=== PATIENT | female | born 1965 ===

== ENCOUNTER 2020-10-16 12:48 | Outpatient (REF) | payer OTHER, SELFPAY ==
--- NOTE | ~2020-10-16 | MR_ITS ---
EXAMINATION: MR SHOULDER WITHOUT CONTRAST, LEFT CLINICAL INFORMATION: Left shoulder pain. COMPARISON: Radiograph dated 06/14/2017 TECHNIQUE: MR images of the shoulder were obtained on a 1.5 Jacki high-field strength scanner without intravenous contrast material. FINDINGS: ROTATOR CUFF: There is mild supraspinatus tendinosis. Insertional cystic change and edema are present at the greater tuberosity. No tears. Subscapularis, infraspinatus, and teres minor are normal. No muscle atrophy or fatty infiltration. BICEPS: Flat. CORACOACROMIAL ARCH: The undersurface of the acromion is curved with no subacromial spur. Mild acromioclavicular osteoarthritis. Trace subacromial-subdeltoid bursal fluid. Subacromial Space: 6 mm. Coracohumeral Distance: 7 mm. LABRUM/CAPSULE: Normal. GLENOHUMERAL JOINT/MARROW: As noted above, there is focal marrow edema signal in the greater tuberosity which is likely reactive to overlying tendinopathy. No fractures. Articular cartilage is well preserved at the glenohumeral joint. No joint effusion. MR/MR shoulder LT wo con IMPRESSION: 1. Mild supraspinatus tendinosis with reactive edema signal in the greater tuberosity. Trace overlying bursal fluid. No rotator cuff tears. 2. Mild acromioclavicular osteoarthritis.
== END 2020-10-16 12:49 | disposition home or self-care (01) ==
LOC: HO.MRI 12:48
PROVIDERS: Visit Provider Internal Medicine
DX: M25.512 Pain in left shoulder (principal)
CPT/HCPCS: 73221

== ENCOUNTER 2020-10-17 08:08 | Outpatient (REF) | payer OTHER, SELFPAY ==
[2020-10-17 09:34] LABS: MANUAL DIFF FLAG NO
[2020-10-17 09:57] LABS: D Dimer 214 NG/ML
[2020-10-17 10:04] LABS: Basophils Percent Auto 0.5 % (0-2); Eosinophils Absolute Auto 0.1 X10*3/uL (0.0-0.4); Eosinophils Percent Auto 2.2 % (0-4); Hematocrit 38.5 % (37-47); Imm Gran Abs Auto 0.02 X10*3/uL (0.00-0.03); Imm Gran Pct Auto 0.4 % (0.0-0.4); Lymphocytes Absolute Auto 2.1 X10*3/uL (1.2-4.9); Lymphocytes Percent Auto 38.2 % (20-40); Mean Corpuscular HGB Conc 33.8 g/dl (31.0-35.0); Mean Corpuscular Hemoglobin 29.7 pg (27.0-33.0); Mean Corpuscular Volume 88.1 fL (80-98); Mean Platelet Volume 10.4 fL (9.4-12.3); Monocytes Absolute Auto 0.5 X10*3/uL (0.1-1.2); Monocytes Percent Auto 8.9 % (2-11); Neutrophils Absolute Auto 2.8 X10*3/uL (2.0-8.3); Neutrophils Percent Auto 49.8 % (45-73); Platelet Count 320 X10*3/uL (160-400); Red Blood Count 4.37 X10*6/uL (4.20-5.50); Red Cell Distribution Width 12.3 % (11.0-16.0); White Blood Count 5.5 X10*3/uL (4.8-10.8)
[2020-10-17 10:28] LABS: Anion Gap 12 (12-20); Blood Urea Nitrogen 18 mg/dL (9-16); C Reactive Protein 0.42 mg/dL (< or = 0.50); Calcium 9.5 mg/dL (8.4-10.2); Carbon Dioxide 27 mmol/L (22-29); Chloride 108 mmol/L (96-108); Cholesterol 190 mg/dL; Estimated Glomerular Filt Rate > 60; Glucose Random 96 mg/dL (60-115); HDL Cholesterol 51 mg/dL; LDL Cholesterol Calculated 126 mg/dl; Potassium 4.5 mmol/L (3.3-5.1); Sodium 142 mmol/L (135-145); Triglycerides 66 mg/dL
[2020-10-17 10:30] LABS: TSH reflex Free T4 1.15 uIU/mL (0.32-4.0); Vitamin D 25-OH Total 13.1 ng/mL (>30)
[2020-10-17 10:40] LABS: Rheumatoid Factor < 15.0 IU/mL (<15.0)
[2020-10-17 10:47] LABS: Vitamin B12 486 pg/mL (200-900)
[2020-10-17 11:17] LABS: Erythrocyte Sedimentation Rate 18 MM/HR (0-20)
[2020-10-19 00:11] LABS: Anti Nuclear Antibody Screen POSITIVE (NEGATIVE); Anti Nuclear Antibody Titer 1:40 titer
== END 2020-10-17 08:09 | disposition home or self-care (01) ==
LOC: HO.LAB 08:08
PROVIDERS: PCP Internal Medicine; Visit Provider Internal Medicine
DX: I63.20 Cerebral infarction due to unspecified occlusion or stenosis of unspecified precerebral arteries (principal); E53.8 Deficiency of other specified B group vitamins; M25.512 Pain in left shoulder; R20.9 Unspecified disturbances of skin sensation; R91.1 Solitary pulmonary nodule
CPT/HCPCS: 36415; 80048; 80061; 82306; 82607; 84443; 85025; 85379; 85652; 86038; 86039; 86140; 86431

== ENCOUNTER → 2020-10-24 09:00 | Outpatient (BNVA) | payer OTHER, SELFPAY | PROVIDERS: PCP Internal Medicine; Visit Provider Hospitalist ==

== ENCOUNTER 2020-10-29 14:00 | Outpatient (REF) | payer OTHER, SELFPAY ==
[2020-10-29 15:28] LABS: MANUAL DIFF FLAG NO
[2020-10-29 15:36] LABS: Basophils Absolute Auto 0.1 X10*3/uL (0.0-0.2); Basophils Percent Auto 0.8 % (0-2); Eosinophils Absolute Auto 0.1 X10*3/uL (0.0-0.4); Eosinophils Percent Auto 2.1 % (0-4); Hematocrit 39.1 % (37-47); Imm Gran Abs Auto 0.01 X10*3/uL (0.00-0.03); Imm Gran Pct Auto 0.2 % (0.0-0.4); Lymphocytes Absolute Auto 2.6 X10*3/uL (1.2-4.9); Lymphocytes Percent Auto 39.3 % (20-40); Mean Corpuscular HGB Conc 33.2 g/dl (31.0-35.0); Mean Corpuscular Hemoglobin 29.5 pg (27.0-33.0); Mean Corpuscular Volume 88.9 fL (80-98); Mean Platelet Volume 10.1 fL (9.4-12.3); Monocytes Absolute Auto 0.5 X10*3/uL (0.1-1.2); Monocytes Percent Auto 6.9 % (2-11); Neutrophils Absolute Auto 3.4 X10*3/uL (2.0-8.3); Neutrophils Percent Auto 50.7 % (45-73); Platelet Count 323 X10*3/uL (160-400); Red Cell Distribution Width 12.6 % (11.0-16.0); White Blood Count 6.6 X10*3/uL (4.8-10.8)
[2020-10-29 15:44] LABS: Glucose Urine UA NEG (NEG); Leukocyte Esterase Urine NEG (NEG); Nitrite Urine NEG (NEG); PH 6.5 (5.0-8.0); Urine Blood TRACE (NEG); Urine Ketones NEG (NEG); Urine Protein NEG (NEG-TRACE)
[2020-10-29 15:46] LABS: Appearance Urine CLEAR; Color Urine STRAW
[2020-10-29 16:02] LABS: Alanine Aminotransferase 18 U/L (0-31); Albumin Level 4.5 g/dL (3.5-5.0); Alkaline Phosphatase 84 U/L (39-117); Anion Gap 13 (12-20); Aspartate Amino Transferase 20 U/L (5-31); Bilirubin Total 0.2 mg/dL (0.0-1.0); Blood Urea Nitrogen 20 mg/dL (9-16); C Reactive Protein 0.37 mg/dL (< or = 0.50); Calcium 9.7 mg/dL (8.4-10.2); Carbon Dioxide 27 mmol/L (22-29); Chloride 105 mmol/L (96-108); Estimated Glomerular Filt Rate > 60; Glucose Random 91 mg/dL (60-115); Potassium 4.4 mmol/L (3.3-5.1); Sodium 141 mmol/L (135-145); Total Protein 7.7 g/dL (6.5-8.0)
[2020-10-29 16:03] LABS: Squamous Epithelial Cell Urine 1+ /LPF; WBC Urine 0-2 /HPF (0-4)
[2020-10-29 16:23] LABS: Thyroid Stimulating Hormone 1.38 uIU/mL (0.32-4.0)
[2020-10-29 17:54] LABS: Erythrocyte Sedimentation Rate 18 MM/HR (0-20)
[2020-10-30 13:57] LABS: PTT (LAC) Screen 32 sec (< OR = 40)
[2020-10-30 17:11] LABS: Complement C3 125 mg/dL (83-193)
[2020-10-30 22:26] LABS: Thyroglobulin Antibodies <1 IU/mL (< or = 1); Thyroid Peroxidase Antibodies 3 IU/mL (<9)
[2020-10-31 11:47] LABS: Beta-2 Microglobulin, Serum 1.87 mg/L (< OR = 2.51)
[2020-10-31 13:52] LABS: Cardiolipin IgG Ab 2.6 GPL-U/mL; Cardiolipin IgM Ab <2.0 MPL-U/mL
[2020-11-01 14:36] LABS: Cyclic Citrullinated Peptide 240 UNITS
[2020-11-02 14:07] LABS: Anti DNA DS Antibody 2 IU/mL; Antibody to SS-A Antigen <1.0 NEG AI (<1.0 NEG); Antibody to SS-B Antigen <1.0 NEG AI (<1.0 NEG); SM/Ribonucleoprotein Ab <1.0 NEG AI (<1.0 NEG); Smith Protein <1.0 NEG AI (<1.0 NEG)
== END 2020-10-29 14:01 | disposition home or self-care (01) ==
LOC: HO.LAB 14:00
PROVIDERS: PCP Internal Medicine; Visit Provider Student in an Organized Health Care Education/Training Program
DX: R76.8 Other specified abnormal immunological findings in serum (principal)
CPT/HCPCS: 36415; 80053; 81001; 82232; 84443; 85025; 85597; 85613; 85652; 85730; 86140; 86147; 86160; 86200; 86225; 86235; 86376; 86800

== ENCOUNTER → 2020-10-30 11:02 | Outpatient (BNVA) | payer OTHER, SELFPAY | PROVIDERS: PCP Internal Medicine; Visit Provider Physician Assistant ==

== ENCOUNTER → 2020-11-21 10:39 | Outpatient (BNVA) | payer OTHER, SELFPAY | PROVIDERS: PCP Internal Medicine; Visit Provider Student in an Organized Health Care Education/Training Program ==

== ENCOUNTER 2020-11-22 11:46 | Outpatient (REF) | payer OTHER, SELFPAY ==
--- NOTE | ~2020-11-22 | XR_ITS ---
EXAMINATION: BILATERAL HAND AND WRIST X-RAY CLINICAL INFORMATION: OTHER SPECIFIED ABNORMAL FINDING ON BLOOD CHEMISTRY. Pain. COMPARISON: None TECHNIQUE: 4 views of each hand and wrist FINDINGS: Bone alignment is normal. No fracture or dislocation is seen. Joint spaces are normal. Soft tissues are normal. XR/XR hand wrist RT IMPRESSION: Unremarkable exam.
--- NOTE | ~2020-11-22 | XR_ITS ---
EXAMINATION: BILATERAL HAND AND WRIST X-RAY CLINICAL INFORMATION: OTHER SPECIFIED ABNORMAL FINDING ON BLOOD CHEMISTRY. Pain. COMPARISON: None TECHNIQUE: 4 views of each hand and wrist FINDINGS: Bone alignment is normal. No fracture or dislocation is seen. Joint spaces are normal. Soft tissues are normal. XR/XR hand wrist LT IMPRESSION: Unremarkable exam.
== END 2020-11-22 11:47 | disposition home or self-care (01) ==
LOC: HO.XRAY 11:46
PROVIDERS: PCP Internal Medicine; Visit Provider Student in an Organized Health Care Education/Training Program
DX: R79.89 Other specified abnormal findings of blood chemistry (principal); M79.642 Pain in left hand; M79.641 Pain in right hand; M25.532 Pain in left wrist; M25.531 Pain in right wrist
CPT/HCPCS: 73110; 73130

== ENCOUNTER 2020-11-25 09:01 | Outpatient (REF) | payer OTHER, SELFPAY ==
--- NOTE | ~2020-11-25 | US_ITS ---
EXAMINATION: US ABDOMEN COMPLETE CLINICAL INFORMATION: Fatty liver. COMPARISON: None TECHNIQUE: Real-time imaging of the abdominal viscera. FINDINGS: PANCREAS: The pancreas appears heterogeneous in echotexture with small hyperechoic areas questionable for calcifications. No mass or pancreatic duct dilatation is seen. ABDOMINAL AORTA: The proximal, mid, and distal segments are normal in caliber. INFERIOR VENA CAVA: Visualized portions are normal. LIVER: Liver echotexture is slightly increased probably representing fatty infiltration. The liver is normal in size. The liver contour is normal. There is a 6 x 7 x 5 mm complex cyst in the left lobe with single thin septation. There is no intrahepatic biliary duct dilatation seen. GALLBLADDER: Normal. The gallbladder is physiologically distended without evidence of stones, sludge, polyps, wall thickening or pericholecystic fluid. COMMON BILE DUCT: Normal in caliber measuring 0.4 cm in diameter. RIGHT KIDNEY: Normal. No hydronephrosis. No renal calculi or focal parenchymal lesions. The kidney measures 11.9 cm in maximum dimension. LEFT KIDNEY: Normal. No hydronephrosis. No renal calculi or focal parenchymal lesions. The kidney measures 10.6 cm in maximum dimension. SPLEEN: Normal. The spleen measures 7.0 cm in maximum dimension. FREE FLUID: None. US/US abdomen complete IMPRESSION: Echogenic liver probably representing fatty infiltration. Small liver cyst. Heterogeneous-appearing pancreas.
== END 2020-11-25 09:02 | disposition home or self-care (01) ==
LOC: HO.US 09:01
PROVIDERS: Visit Provider Internal Medicine
DX: K76.0 Fatty (change of) liver, not elsewhere classified (principal); R79.9 Abnormal finding of blood chemistry, unspecified
CPT/HCPCS: 76700

== ENCOUNTER → 2020-12-10 08:59 | Outpatient (REF) | payer OTHER, SELFPAY ==
--- NOTE | ~2020-12-10 | NM_ITS ---
Exercise Myocardial perfusion study Indication: Chest pain to evaluate for myocardial ischemia Technique: The patient was brought in for an exercise perfusion study on 12/10/2020. Patient performed exercise as per Silvano protocol and was injected 25 mCi of sestamibi was given intravenously one target HR was achieved. Images were obtained using the SPECT gamma camera interlaced with the gating device. Images were obtained in supine position. Resting perfusion study was performed on 12/11/2020. Patient was administered 25 mCi of sestamibi intravenously at rest. Images were then obtained in supine position. Images obtained with and without CT attenuation. Total DLP 84 mGy-cm. Images were processed with the software and compared side to side in short axis, horizontal long axis and vertical long axis views. Findings: The stress perfusion study showed nonattenuated images show normal uptake of radiotracer in all segments of LV myocardium. Attenuation corrected images show mildly reduced uptake in the septum and apex of the LV myocardium. The gated study shows normal LV systolic function with calculated LVEF of 58%. LV cavity is normal in size. The gated study shows normal systolic wall thickening and contraction of all segments. There is no transient ischemic dilation. Resting study shows normal myocardial uptake on nonattenuated images. Gating at rest reveals normal systolic wall motion with ejection fraction at 51%. The findings are consistent with normal myocardial perfusion. NM/NM kalani perf SPECT rest & str Impression: 1. Normal myocardial perfusion 2. Gated LVEF is 58% 3. Transient ischemic dilatation not present Stress EKG is nondiagnostic for ischemia
--- NOTE | 2020-12-10 09:00 | CA_ITS ---
Acquisition Time: 2020-12-10 09:37:59 Total Exercise Time: 00:08:00 Test Indications: cp Medications: SEE CHART Protocol: BARRIE Max HR: 162 BPM 96% of Pred: 168 BPM Max BP: 164/078 mmHG Max Work Load: 10.1 METS Exercise stress test with exercise 8 min of Barrie protocol, with 4/10 left chest pressure, with isolated PAC, with normotensive response to exercise, without EKG changes meeting criteria for ischemia. In recovery her chest discomfort gradually improved and resolved. Nuclear images pending. test reviewed with Dr Nguyen. Referred By: Vahid Montanez Overread By: HEMANT DIAZ
== END ==
LOC: HO.CARD 08:59
PROVIDERS: PCP Internal Medicine; Visit Provider Internal Medicine Cardiovascular Disease
DX: R07.9 Chest pain, unspecified (principal)
CPT/HCPCS: 78452; 93017; A9500

== ENCOUNTER 2020-12-16 09:00 | Outpatient (RCR) | payer OTHER, SELFPAY ==
--- NOTE | 2021-02-06 08:21 | MHC.OT.DC ---
[address] [phone] F: [phone] Occupational Therapy Discharge Note Provider: Dr. Moreno Diagnosis: Left elbow lateral epicondylitis Date of Surgery: Date of Evaluation: 12/11/20 Date of Discharge: 01/13/21 Treatments to Date: 3 Cancellations to Date: 0 No Shows to Date: 4 Discharge Status: Patient Elected to Stop Discharge Summary: Pt reports dec pain at 4/10 improved with medication. Short treatment on last appt (12/16/20) due tp pt 15 min late Electronically Signed By: Xochilt Higuera OT CHT CLT Reviewed/agree with student documentation: N/A Therapist: Please Sign and return to therapist, thank you for your referral.
== END 2021-09-16 11:36 | disposition home or self-care (01) ==
LOC: HO.OT 09:00
PROVIDERS: PCP Internal Medicine; Visit Provider Student in an Organized Health Care Education/Training Program
DX: M77.12 Lateral epicondylitis, left elbow (principal)
CPT/HCPCS: 97033; 97140; 97166

== ENCOUNTER → 2020-12-19 07:31 | Outpatient (REF) | payer OTHER, SELFPAY ==
--- NOTE | 2020-12-19 07:34 | CA_ITS ---
Transthoracic Echocardiogram Patient (Last, First, Middle): Brittney Caraballo V Gender: Female Date of : 1965 Age: 54 Procedure Date: 12/19/2020 Procedure Type: Transthoracic Echocardiogram Location: OP Height: 149.86 cm Weight: 63.05 kg BSA: 1.58 m2 Heart Rate: bpm BP: 120 / 70 mmHg Room Service Bellhop: Referring MD: Dixie Coyle MD Symptoms: CEREBRAL INFARCT , ATRIAL SEPTAL DEFECT, PALPITATIONS Conclusions: - The left ventricular systolic function is mildly decreased. The calculated ejection fraction is 52% by biplane method. - There is evidence of a patent foramen ovale with right to left shunting. - No obvious valvular pathology seen on this study. Findings Left Ventricle Normal left ventricular cavity size. There is normal left ventricular wall thickness. The left ventricular systolic function is mildly decreased. The calculated ejection fraction is 52% by biplane method. There is no evidence of regional wall motion abnormalities. Diastolic function is normal for age. Right Ventricle Normal right ventricular cavity size. There is normal right ventricular systolic function. TAPSE 1.85cm. Atria Both atria are normal in size. Contrast study for right to left shunting is moderately positive with Valsalva maneuver. There is evidence of a patent foramen ovale with right to left shunting. Aortic Valve There is a normal trileaflet aortic valve. There is no aortic valve stenosis. There is no aortic valve regurgitation. Mitral Valve The mitral valve appears normal. There is trace mitral valve regurgitation. There is no mitral valve stenosis. Pulmonic Valve The pulmonic valve was not well visualized. Tricuspid Valve There is mild tricuspid valve regurgitation. The pulmonary artery systolic pressure is normal. Great Vessels The aortic annulus, sinuses of valsalva, and asc aorta are normal in size. Venous The inferior vena cava is normal in size and collapses greater than 50% with inspiration. Pericardium/Pleural There is no evidence of pericardial effusion. Prior Study Comparison No prior study available for comparison. Recommendations, Care & Conclusions No obvious valvular pathology seen on this study. Measurements 2D Linear Measurements RVIDd: 2.75 RVIDd Index: 1.74 IVSd: 0.93 0.6-0.9/0.6-1.0 cm LVIDd: 4.73 3.9-5.3/4.2-5.9 cm LVIDd Index: 2.99 2.4-3.2/2.2-3.1 cm/m2 LVIDs: 3.14 2.0-3.6 cm LVPWd: 1.13 0.7-1.1 cm Ao Root: 2.80 2.1-3.5 cm LA Diam: 3.20 2.7-3.8/3.0-4.0 cm LAIDs Index: 2.03 1.5-2.3 cm/m2 LV Mass: 215.08 67-162/88-224 g LV Mass Index: 136.13 43-95/49-115 g/m2 LVOT Diam: 2.00 3.0+(-)1.3 cm 2D Systolic Function EF 4C: 45.40 >55% EF 2C: 54.70 >55% EF BiP: 52.10 >55% Mitral Valve MV Pk E: 0.76 MV PK A: 0.62 MV Decel Time: 306.00 E/A: 1.20 E'Lateral: 9.03 E/E' Lat: 8.40 Aortic Valve AoV Pk Abhilash: 1.36 AoV Mn Abhilash: 1.05 AoV VTI: 0.29 AoV Pk Grad: 7.00 Aov Mn Grad: 5.00 LYNETTE Cont.VTI: 2.12 LVOT LVOT Pk Abhilash: 0.88 LVOT Mn Abhilash: 0.54 LVOT VTI: 0.19 LVOT Pk Grad: 3.00 LVOT Mn Grad: 1.00 LVOT Diam: 2.00 LVOT Area: 3.14 Diastolic Function MV Pk E: 0.76 MV Pk A: 0.62 E/A: 1.20 E' Laterial: 9.03 E/E' Lat: 8.40 Tricuspid Valve TR Pk Abhilash: 2.23 TR Pk Grad: 20.00 RA Press: 3.00 RVSP: 23.00 Great Vessels Aorta Ao Root-2D: 2.80 2.0-3.7 cm Ao Asc: 3.00 2.1-3.4 cm Ao Arch: 2.10 Updated in Other Vendor System with Status of Final Surinder Nguyen MD electronically signed on 12/19/2020 1:28:48 PM with status of Final
== END ==
LOC: HO.CARD 07:31
PROVIDERS: Visit Provider Internal Medicine
DX: Q21.1 Atrial septal defect (principal); R00.2 Palpitations; Z86.73 Personal history of transient ischemic attack (TIA), and cerebral infarction without residual deficits
CPT/HCPCS: 93306

== ENCOUNTER 2021-01-01 08:54 | Outpatient (REF) | payer OTHER, SELFPAY ==
--- NOTE | 2021-01-01 09:52 | PFT_ITS ---
INDICATION: COPD. SPIROMETRY: The FEV1 to FVC 80% with an FEV1 of 1.90, which is 80% predicted, and an FVC of 2.38 L, which is 79% predicted. No significant response to bronchodilators noted. To note, the patient does have significant small airways disease consistent with history of asthma. Maximum voluntary ventilation 84% predicted. LUNG VOLUMES: Total lung capacity 82% predicted. DIFFUSION CAPACITY: DLCO of 84% predicted. PFTs in 2016. INTERPRETATION: No obstructive nor restrictive ventilatory defects identified. No significant response to bronchodilators noted, although the patient does have evidence of small airway disease. Lung volumes are low normal. Diffusion capacity is within normal limits. When compared to 2016, there is no significant change in the FVC, no significant change in the FEV1, no significant change in total lung capacity, and no significant change in the diffusion capacity. Clinical correlation warranted. Olu Zimmer MD MR/MODL / [id number]
== END 2021-01-01 08:55 | disposition home or self-care (01) ==
LOC: HO.RESP 08:54
PROVIDERS: PCP Internal Medicine; Visit Provider Hospitalist
DX: J44.9 Chronic obstructive pulmonary disease, unspecified (principal)
CPT/HCPCS: 94060; 94727; 94729

== ENCOUNTER 2021-01-06 13:02 | Outpatient (REF) | payer OTHER, SELFPAY ==
--- NOTE | ~2021-01-06 | MR_ITS ---
EXAMINATION: MR ABDOMEN WITHOUT AND WITH CONTRAST CLINICAL INFORMATION: Follow-up abnormal ultrasound. Fatty liver and heterogeneous pancreas. COMPARISON: None. TECHNIQUE: MR abdomen was performed without and with use of 6 mL intravenous Gadavist gadolinium contrast. Postcontrast images are performed in multiphase dynamic sequences. Imaging was performed in 3 planes. FINDINGS: LUNG BASES: The visualized lung bases are unremarkable. LIVER, GALLBLADDER, AND BILIARY TREE: There is mild fatty infiltration of the liver. The liver is normal in size and contour. There is a 5 mm cyst in the lateral segment of the left lobe of the liver axial image 39 postcontrast. There is a a second smaller 4 mm probable cyst in the right lobe of the liver axial image 31 postcontrast. No suspicious liver lesion is seen. The gallbladder is unremarkable. There is no biliary duct dilatation. PANCREAS: Unremarkable. SPLEEN: Normal. ADRENAL GLANDS: Normal. KIDNEYS AND URETERS: The kidneys are normal in size, shape, and enhance symmetrically. No hydronephrosis. No perinephric stranding. GASTROINTESTINAL TRACT: No bowel obstruction. No ascites or fluid collection. ABDOMINAL WALL: No significant hernia is appreciated. LYMPH NODES: No lymphadenopathy. VASCULAR: Unremarkable. OSSEOUS STRUCTURES: Marrow signal normal. There is dural ectasia or small Tarlov cysts in the sacrum. MR/MR abdomen wo/w con IMPRESSION: Mild fatty infiltration of the liver. Small liver cysts. Normal-appearing pancreas.
== END 2021-01-06 13:03 | disposition home or self-care (01) ==
LOC: HO.MRI 13:02
PROVIDERS: PCP Internal Medicine; Visit Provider Internal Medicine
DX: K76.0 Fatty (change of) liver, not elsewhere classified (principal); K76.89 Other specified diseases of liver
CPT/HCPCS: 74183; A9585

== ENCOUNTER → 2021-01-17 09:20 | Outpatient (BNVA) | payer OTHER, SELFPAY | PROVIDERS: PCP Internal Medicine; Visit Provider Hospitalist ==

== ENCOUNTER 2021-03-05 07:20 | Outpatient (REF) | payer OTHER, SELFPAY ==
--- NOTE | ~2021-03-05 | MM_ITS ---
EXAMINATION: MM SCREENING DIGITAL BREAST TOMOSYNTHESIS, BILATERAL CLINICAL INFORMATION: Screening. Asymptomatic. The lifetime risk of breast cancer based on the Tyrer-Cuzick Model is 10%. COMPARISON: Outside mammography: 05/13/2019, 05/12/2018, 10/08/2016 ([facility]) TECHNIQUE: Digital breast tomosynthesis is performed in both the craniocaudal and mediolateral oblique views along with computer-aided detection (CAD). Synthesized 2D images are generated from the tomosynthesis. FINDINGS: There are scattered areas of fibroglandular density (ACR BI-RADS breast composition Category b). There are no significant masses, abnormal calcifications, or other abnormalities. There is biopsy clip marker mid 3:00 left breast. Parenchymal pattern is similar to prior outside studies small density possibly dermal upper right axilla on MLO view is similar to prior studies. No significant changes. MM/MM tomosynthesis screening BI IMPRESSION: No mammographic evidence of malignancy. ASSESSMENT: BI-RADS 2: Benign RECOMMENDATION: Routine annual mammography screening. This patient's information was entered into a reminder system with a target due date for their next mammogram.
== END 2021-03-05 07:21 | disposition home or self-care (01) ==
LOC: HO.MAMMO 07:20
PROVIDERS: PCP Internal Medicine; Visit Provider Internal Medicine
DX: Z12.31 Encounter for screening mammogram for malignant neoplasm of breast (principal)
CPT/HCPCS: 77063; 77067

== ENCOUNTER → 2021-03-26 10:35 | Outpatient (BNVA) | payer OTHER, SELFPAY | PROVIDERS: PCP Internal Medicine; Visit Provider Nurse Practitioner Family ==

== ENCOUNTER → 2021-04-14 08:05 | Outpatient (BNVA) | payer OTHER, SELFPAY | PROVIDERS: PCP Internal Medicine; Referring Provider Internal Medicine; Visit Provider Internal Medicine Gastroenterology ==

== ENCOUNTER 2021-06-27 08:16 | Outpatient (REF) | payer OTHER, SELFPAY ==
[2021-06-27 08:35] LABS: MANUAL DIFF FLAG NO
[2021-06-27 09:20] LABS: Basophils Percent Auto 0.5 % (0-2); Eosinophils Absolute Auto 0.2 X10*3/uL (0.0-0.4); Eosinophils Percent Auto 2.8 % (0-4); Hematocrit 37.1 % (37.0-47.0); Hemoglobin 12.6 g/dl (12.0-16.0); Imm Gran Abs Auto 0.02 X10*3/uL (0.00-0.03); Imm Gran Pct Auto 0.4 % (0.0-0.4); Lymphocytes Absolute Auto 1.9 X10*3/uL (1.2-4.9); Mean Corpuscular Hemoglobin 30.1 pg (27.0-33.0); Mean Corpuscular Volume 88.5 fL (80.0-98.0); Mean Platelet Volume 10.1 fL (9.4-12.3); Monocytes Absolute Auto 0.4 X10*3/uL (0.1-1.2); Monocytes Percent Auto 7.3 % (2-11); Neutrophils Absolute Auto 3.1 x10*3/uL (2.0-8.3); Platelet Count 306 X10*3/uL (160-400); Red Blood Count 4.19 X10*6/uL (4.20-5.50); Red Cell Distribution Width 12.1 % (11.0-16.0); White Blood Count 5.6 X10*3/uL (4.8-10.8)
[2021-06-27 09:45] LABS: Alanine Aminotransferase 24 U/L (0-31); Albumin Level 4.2 g/dL (3.5-5.0); Alkaline Phosphatase 69 U/L (39-117); Anion Gap 11 (12-20); Aspartate Amino Transferase 19 U/L (5-31); Bilirubin Total 0.3 mg/dL (0.0-1.0); Blood Urea Nitrogen 19 mg/dL (9-16); C Reactive Protein 0.66 mg/dL (< or = 0.50); Calcium 9.6 mg/dL (8.4-10.2); Carbon Dioxide 27 mmol/L (22-29); Chloride 109 mmol/L (96-108); Estimated Glomerular Filt Rate > 60; Glucose Random 87 mg/dL (60-115); Potassium 4.5 mmol/L (3.3-5.1); Sodium 142 mmol/L (135-145); Total Protein 7.2 g/dL (6.5-8.0)
[2021-06-27 09:51] LABS: Hepatitis A Antibody IgG REACTIVE (Nonreactive); ~Hepatitis A Antibody IgG 11.99 S/CO (0.00-0.99)
[2021-06-27 09:52] LABS: HBsAGNum1 0.21 S/CO (0.00-0.99); Hepatitis B Surface Antigen Negative (Negative); ~HepC Num1 0.12 S/CO (0.00-0.79); ~Hepatitis C Antibody Nonreactive (Nonreactive)
[2021-06-27 10:08] LABS: Erythrocyte Sedimentation Rate 22 MM/HR (0-20)
[2021-06-27 10:43] LABS: HBS Num1 77.14 mIU/mL (0-7.99); HBc Num1 0.05 S/CO (0.00-0.79); Hepatitis B Core Antibody Nonreactive (Nonreactive); ~Hepatitis B Surface Antibody REACTIVE (Nonreactive)
== END 2021-06-27 08:17 | disposition home or self-care (01) ==
LOC: HO.LAB 08:16
PROVIDERS: Absent Provider Nurse Practitioner Family; PCP Internal Medicine; Visit Provider Internal Medicine Gastroenterology
DX: R79.89 Other specified abnormal findings of blood chemistry (principal); K21.9 Gastro-esophageal reflux disease without esophagitis; K76.0 Fatty (change of) liver, not elsewhere classified
CPT/HCPCS: 36415; 80053; 85025; 85652; 86140; 86704; 86706; 86708; 86803; 87340

== ENCOUNTER 2021-07-03 14:25 | Outpatient (REF) | payer OTHER, SELFPAY ==
--- NOTE | ~2021-07-03 | XR_ITS ---
EXAMINATION: THORACIC AND LUMBAR SPINE CLINICAL INFORMATION: Back pain for 5 days COMPARISON: None TECHNIQUE: Three-view thoracic spine and three-view lumbar spine FINDINGS: 3 views of the thoracic spine demonstrate mild scoliosis convex right. No acute fracture is identified. There is some mild narrowing of some mid thoracic vertebral disc spaces. There is mild spurring seen. No loss of height of vertebral bodies identified. No abnormal paraspinal line bulge. Pedicles appear intact. 3 views of the lumbar spine do not demonstrate any evidence of acute fracture, spondylolisthesis, or spondylolysis. There is mild scoliosis convex left. There is narrowing of the L5-S1 disc space with what appears to be lateral right lateral facet arthropathy L5-S1 and right L4-L5. No widening or fusion of sacroiliac joints is appreciated. XR/XR lumbar spine 2-3V IMPRESSION: Mild scoliosis without significant bony abnormality of the thoracic spine. No evidence of acute fracture, spondylolisthesis, or spondylolysis of the lumbar spine. Narrowing of the L5-S1 disc space with bilateral facet arthropathy L5-S1 and right L4-L5. Mild lumbar spine scoliosis.
--- NOTE | ~2021-07-03 | XR_ITS ---
EXAMINATION: THORACIC AND LUMBAR SPINE CLINICAL INFORMATION: Back pain for 5 days COMPARISON: None TECHNIQUE: Three-view thoracic spine and three-view lumbar spine FINDINGS: 3 views of the thoracic spine demonstrate mild scoliosis convex right. No acute fracture is identified. There is some mild narrowing of some mid thoracic vertebral disc spaces. There is mild spurring seen. No loss of height of vertebral bodies identified. No abnormal paraspinal line bulge. Pedicles appear intact. 3 views of the lumbar spine do not demonstrate any evidence of acute fracture, spondylolisthesis, or spondylolysis. There is mild scoliosis convex left. There is narrowing of the L5-S1 disc space with what appears to be lateral right lateral facet arthropathy L5-S1 and right L4-L5. No widening or fusion of sacroiliac joints is appreciated. XR/XR thoracic spine 2V IMPRESSION: Mild scoliosis without significant bony abnormality of the thoracic spine. No evidence of acute fracture, spondylolisthesis, or spondylolysis of the lumbar spine. Narrowing of the L5-S1 disc space with bilateral facet arthropathy L5-S1 and right L4-L5. Mild lumbar spine scoliosis.
== END 2021-07-03 14:26 | disposition home or self-care (01) ==
LOC: HO.XRAY 14:25
PROVIDERS: PCP Internal Medicine; Visit Provider Hospitalist
DX: M54.9 Dorsalgia, unspecified (principal); J44.9 Chronic obstructive pulmonary disease, unspecified; R06.00 Dyspnea, unspecified; F17.200 Nicotine dependence, unspecified, uncomplicated
CPT/HCPCS: 72070; 72100

== ENCOUNTER → 2021-07-04 07:59 | Outpatient (BNVA) | payer OTHER, SELFPAY | PROVIDERS: PCP Internal Medicine; Visit Provider Nurse Practitioner Family ==

== ENCOUNTER 2021-11-19 07:37 | Outpatient (REF) | payer OTHER, SELFPAY ==
[2021-11-19 12:05] LABS: Estimated Average Glucose 103 mg/dL; Hemoglobin A1c % 5.2 %
[2021-11-19 12:25] LABS: Anion Gap 10 (12-20); Blood Urea Nitrogen 15 mg/dL (9-16); Calcium 8.8 mg/dL (8.4-10.2); Carbon Dioxide 26 mmol/L (22-29); Chloride 110 mmol/L (96-108); Cholesterol 177 mg/dL; Estimated Glomerular Filt Rate > 60; Glucose Fasting 94 mg/dL (60-99); HDL Cholesterol 44 mg/dL; LDL Cholesterol Calculated 108 mg/dl; Potassium 3.9 mmol/L (3.3-5.1); Sodium 142 mmol/L (135-145); Triglycerides 128 mg/dL
== END 2021-11-19 07:38 | disposition home or self-care (01) ==
LOC: HO.WFDLDS 07:37
PROVIDERS: Visit Provider Internal Medicine
DX: J84.10 Pulmonary fibrosis, unspecified (principal); K76.0 Fatty (change of) liver, not elsewhere classified; L30.9 Dermatitis, unspecified; M54.50 Low back pain, unspecified
CPT/HCPCS: 36415; 80048; 80061; 83036

== ENCOUNTER 2021-11-25 15:57 | Outpatient (REF) | payer OTHER, SELFPAY ==
--- NOTE | ~2021-11-25 | XR_ITS ---
EXAMINATION: XR LUMBOSACRAL SPINE CLINICAL INFORMATION: Low back pain worsening over last 2 weeks COMPARISON: Lumbar spine radiograph from 07/03/2021 TECHNIQUE: Three views of the lumbosacral spine. FINDINGS: 5 nonrib-bearing lumbar-type vertebral bodies. No acute visible fracture or dislocation. Mild levocurvature of the mid lumbar spine. Mild multilevel degenerative changes with lower lumbar spine facet arthropathy. Vertebral body heights and disc spaces are maintained. Posterior elements are intact. Paraspinal soft tissues are unremarkable. Visualized bowel gas is unremarkable. Atherosclerotic calcifications of the abdominal aorta. XR/XR lumbar spine 2-3V IMPRESSION: 1. No acute visible fracture or dislocation. 2. Mild levocurvature of the mid lumbar spine. 3. Mild multilevel degenerative changes.
== END 2021-11-25 15:58 | disposition home or self-care (01) ==
LOC: HO.XRAY 15:57
PROVIDERS: PCP Internal Medicine; Visit Provider Internal Medicine
DX: M54.50 Low back pain, unspecified (principal)
CPT/HCPCS: 72100

== ENCOUNTER 2022-03-11 07:25 | Outpatient (REF) | payer OTHER, SELFPAY ==
--- NOTE | ~2022-03-11 | MM_ITS ---
EXAMINATION: MM SCREENING DIGITAL BREAST TOMOSYNTHESIS, BILATERAL CLINICAL INFORMATION: Screening. Asymptomatic. The lifetime risk of breast cancer based on the Tyrer-Cuzick Model is 12%. COMPARISON: Mammography: 03/05/2021, outside mammography 05/13/2019, 05/12/2018 ([facility] TECHNIQUE: Digital breast tomosynthesis is performed in both the craniocaudal and mediolateral oblique views along with computer-aided detection (CAD). Synthesized 2D images are generated from the tomosynthesis. FINDINGS: There are scattered areas of fibroglandular density (ACR BI-RADS breast composition Category b). There are no significant masses, abnormal calcifications, or other abnormalities. There is a biopsy clip marker mid central 3:00 left breast. There are no significant changes. MM/MM tomosynthesis screening BI IMPRESSION: No mammographic evidence of malignancy. ASSESSMENT: BI-RADS 1: Negative RECOMMENDATION: Routine annual mammography screening. This patient's information was entered into a reminder system with a target due date for their next mammogram.
== END 2022-03-11 07:26 | disposition home or self-care (01) ==
LOC: HO.MAMMO 07:25
PROVIDERS: PCP Internal Medicine; Visit Provider Internal Medicine
DX: Z12.31 Encounter for screening mammogram for malignant neoplasm of breast (principal)
CPT/HCPCS: 77063; 77067

== ENCOUNTER 2022-04-24 15:38 | Outpatient (REF) | payer OTHER, SELFPAY ==
--- NOTE | ~2022-04-24 | CT_ITS ---
EXAMINATION: CT CHEST SCREENING CLINICAL INFORMATION: Former smoker. Quit 8 years ago. 58 pack year history. COMPARISON: Previous chest x-ray most recent 05/2017. TECHNIQUE: Multidetector volumetric CT imaging of the chest is performed without contrast using low dose technique. Additional 2D coronal and sagittal reformatted images and axial 3D maximum intensity projection (MIP) images are generated on the CT workstation. This CT examination was performed using dose optimization techniques as appropriate, variously including the following: *Automated exposure control *Adjustment of mA and/or kV according to patient size (this includes techniques or standardized protocols for targeted exams where dose is matched to indication/reason for exam; i.e. extremities or head) *Use of iterative reconstruction technique DLP: 147 mGy-cm FINDINGS: LUNGS: There are multiple bilateral calcified nodules, largest measuring 5 mm in the left lower lobe axial image 255, series 5. There is mild emphysema. No evidence of bronchiectasis or interstitial lung disease. No endobronchial or endotracheal lesion. MEDIASTINUM: Calcified mediastinal and left hilar lymph nodes. Small soft tissue nodular densities in the anterior mediastinum and prominent fat in the anterior mediastinum. This is triangular in shape and most suggestive of thymic hyperplasia.. CORONARY ARTERY CALCIFICATION: None visualized on this study. PLEURA: There is no pleural effusion. No pleural mass or thickening. AXILLA: No lymphadenopathy. UPPER ABDOMEN: Splenic calcification suggestive of old granulomatous disease. OSSEOUS STRUCTURES: Unremarkable. CT/CT lung screening IMPRESSION: Evidence of old granulomatous disease. Mild emphysema. Thymic hyperplasia. This could be further evaluated with chest MRI if clinically indicated. Alternatively this could be evaluated at time of low-dose chest CT follow up. ASSESSMENT: Lung-RADS category 2-S RECOMMENDATION: Annual low-dose chest CT follow up.
== END 2022-04-24 15:39 | disposition home or self-care (01) ==
LOC: HO.CT 15:38
PROVIDERS: PCP Internal Medicine; Visit Provider Physician Assistant Medical
DX: Z12.2 Encounter for screening for malignant neoplasm of respiratory organs (principal); Z87.891 Personal history of nicotine dependence
CPT/HCPCS: 71271; G0296

== ENCOUNTER 2022-05-26 08:57 | Outpatient (REF) | payer OTHER, SELFPAY ==
[2022-05-26 11:19] LABS: MANUAL DIFF FLAG NO
[2022-05-26 11:35] LABS: Basophils Percent Auto 0.6 % (0-2); Eosinophils Absolute Auto 0.2 X10*3/uL (0.0-0.4); Eosinophils Percent Auto 2.8 % (0-4); Hematocrit 37.9 % (37.0-47.0); Hemoglobin 12.8 g/dl (12.0-16.0); Imm Gran Abs Auto 0.01 X10*3/uL (0.00-0.03); Imm Gran Pct Auto 0.2 % (0.0-0.4); Lymphocytes Absolute Auto 1.9 X10*3/uL (1.2-4.9); Mean Corpuscular HGB Conc 33.8 g/dl (31.0-35.0); Mean Corpuscular Hemoglobin 30.2 pg (27.0-33.0); Mean Corpuscular Volume 89.4 fL (80.0-98.0); Monocytes Absolute Auto 0.4 X10*3/uL (0.1-1.2); Monocytes Percent Auto 8.3 % (2-11); Neutrophils Absolute Auto 2.8 x10*3/uL (2.0-8.3); Neutrophils Percent Auto 52.1 % (45-73); Platelet Count 302 X10*3/uL (160-400); Red Blood Count 4.24 X10*6/uL (4.20-5.50); Red Cell Distribution Width 12.4 % (11.0-16.0); White Blood Count 5.3 X10*3/uL (4.8-10.8)
[2022-05-26 12:39] LABS: Alanine Aminotransferase 16 U/L (0-31); Albumin Level 4.3 g/dL (3.5-5.0); Alkaline Phosphatase 73 U/L (39-117); Aspartate Amino Transferase 14 U/L (5-31); Bilirubin Direct < 0.2 mg/dL (0.0-0.5); Bilirubin Total 0.4 mg/dL (0.0-1.0); Total Protein 7.2 g/dL (6.5-8.0)
[2022-05-26 13:00] LABS: Vitamin D 25-OH Total 12.9 ng/mL (>30)
[2022-06-02 19:23] LABS: FIB-ALT 16 U/L (6-29); FIB-Alpha-2-Macroglobulin 156 mg/dL (106-279); FIB-Apolipoprotein A1 167 mg/dL (101-198); FIB-GGT 17 U/L (3-70); FIB-Haptoglobin 163 mg/dL (43-212); FIB-Total Bilirubin 0.4 mg/dL (0.2-1.2); Liver Fibrosis Score 0.06; Liver Fibrosis Stage F0; Nec Inflam Act Grade A0; Nec Inflam Act Score 0.04
== END 2022-05-26 08:58 | disposition home or self-care (01) ==
LOC: HO.WFDLDS 08:57
PROVIDERS: Visit Provider Internal Medicine Gastroenterology
DX: K76.0 Fatty (change of) liver, not elsewhere classified (principal); E55.9 Vitamin D deficiency, unspecified
CPT/HCPCS: 36415; 80076; 81596; 82306; 85025

== ENCOUNTER → 2022-06-26 13:01 | Outpatient (BNVA) | payer OTHER, SELFPAY | PROVIDERS: PCP Internal Medicine; Visit Provider Nurse Practitioner Family | DX: Z13.89 Encounter for screening for other disorder (principal) ==

== ENCOUNTER 2022-07-30 07:24 | Outpatient (REF) | payer OTHER, SELFPAY ==
--- NOTE | ~2022-07-30 | XR_ITS ---
EXAMINATION: XR KNEE, RIGHT CLINICAL INFORMATION: Pain. COMPARISON: None TECHNIQUE: AP, lateral and axial views of the right knee are submitted. FINDINGS: Bones and soft tissues are normal. No fracture or joint effusion. Alignment is anatomic. Joint spaces are well maintained. No abnormal soft tissue calcification. XR/XR knee RT 3V IMPRESSION: Normal right knee. EXAMINATION: XR KNEE, LEFT CLINICAL INFORMATION: Pain. COMPARISON: None TECHNIQUE: AP, lateral and axial views of the left knee are submitted. FINDINGS: Bones and soft tissues are normal. No fracture or joint effusion. Alignment is anatomic. Joint spaces are well maintained. No abnormal soft tissue calcification. IMPRESSION: Normal knee.
--- NOTE | ~2022-07-30 | XR_ITS ---
EXAMINATION: XR KNEE, RIGHT CLINICAL INFORMATION: Pain. COMPARISON: None TECHNIQUE: AP, lateral and axial views of the right knee are submitted. FINDINGS: Bones and soft tissues are normal. No fracture or joint effusion. Alignment is anatomic. Joint spaces are well maintained. No abnormal soft tissue calcification. XR/XR knee LT 3V IMPRESSION: Normal right knee. EXAMINATION: XR KNEE, LEFT CLINICAL INFORMATION: Pain. COMPARISON: None TECHNIQUE: AP, lateral and axial views of the left knee are submitted. FINDINGS: Bones and soft tissues are normal. No fracture or joint effusion. Alignment is anatomic. Joint spaces are well maintained. No abnormal soft tissue calcification. IMPRESSION: Normal knee.
--- NOTE | ~2022-07-30 | MR_ITS ---
EXAMINATION: MR LUMBAR SPINE WITHOUT CONTRAST CLINICAL INFORMATION: Low back pain. COMPARISON: Plain films of the lumbar spine 11/25/2021. TECHNIQUE: MRI of the lumbar spine was obtained using routine sequences without contrast. FINDINGS: VERTEBRAL BODIES AND PARASPINAL STRUCTURES: There is mild rotatory levoscoliosis. There is a mild grade 1 anterolisthesis of L4 on L5. Intervertebral disc heights are maintained. There is disc desiccation at multiple levels. Vertebral body heights maintained and no fractures are demonstrated. Overall, marrow signal is homogenous. The visualized retroperitoneal and pelvic structures are unremarkable. CONUS MEDULLARIS AND CAUDA EQUINA: Normal, terminating at the level of L1. The lower thoracic spinal cord appears normal. The cauda equina nerve roots and filum terminale appear normal. 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 SPINAL LEVELS: T12-L1: The facet joints appear normal bilaterally. Disc contour is normal. There is no central stenosis or foraminal narrowing. L1-L2: The facet joints appear normal bilaterally. Disc contour is normal. There is no central stenosis or foraminal narrowing. L2-L3: The facet joints appear normal bilaterally. Disc contour is normal. There is no central stenosis or foraminal narrowing. L3-L4: There is mild bilateral facet arthropathy. Disc contour is normal. There is no central stenosis or foraminal narrowing. L4-L5: There is moderate to severe bilateral facet arthropathy with ligamenta flava hypertrophy. There is mild unroofing of the disc as a result of the anterolisthesis. There is an annular fissure in the disc, and there are inferior foraminal disc protrusions bilaterally without exiting nerve root impingement. There is no central stenosis. L5-S1: There is severe bilateral facet arthropathy. There is a small posterior disc protrusion with an annular fissure without significant mass effect on the thecal sac. The neural foramina are patent bilaterally. There is no central stenosis. MR/MR lumbar spine wo con IMPRESSION: 1. There is a mild grade 1 anterolisthesis of L4 on L5 secondary to facet arthropathy. There are inferior foraminal disc protrusions without exiting nerve root impingement. There is no central stenosis. 2. At L5-S1 there is severe facet arthropathy. There is a small posterior disc protrusion without mass effect on the thecal sac. The neural foramina are patent and there is no central stenosis.
== END 2022-07-30 07:25 | disposition home or self-care (01) ==
LOC: HO.MRI 07:24
PROVIDERS: Visit Provider Internal Medicine
DX: M25.561 Pain in right knee (principal); M25.562 Pain in left knee; M54.50 Low back pain, unspecified
CPT/HCPCS: 72148; 73562

== ENCOUNTER → 2022-09-07 11:40 | Outpatient (BNVA) | payer OTHER, SELFPAY | PROVIDERS: PCP Internal Medicine; Referring Provider Internal Medicine; Visit Provider Internal Medicine Gastroenterology | DX: Z13.89 Encounter for screening for other disorder (principal) ==

== ENCOUNTER → 2022-09-14 11:01 | Outpatient (BNVA) | payer OTHER, SELFPAY | PROVIDERS: PCP Internal Medicine; Visit Provider Nurse Practitioner Family | DX: Z13.89 Encounter for screening for other disorder (principal) ==

== ENCOUNTER 2022-10-06 14:21 | Outpatient (REF) | payer OTHER, SELFPAY ==
--- NOTE | ~2022-10-06 | XR_ITS ---
EXAMINATION: XR LUMBOSACRAL SPINE WITH OBLIQUES CLINICAL INFORMATION: Back pain COMPARISON: Previous x-ray November 2021 and lumbar spine MRI July 2022 TECHNIQUE: 4 views of the lumbar spine including flexion-extension FINDINGS: There is rotatory scoliosis convex to the left. Minimal 2 mm anterior subluxation of L4 with respect L5. Bone alignment is otherwise normal. No instability on flexion-extension views is seen. The disc spaces are normal. There is lower lumbar spine facet arthritis. There is atherosclerotic disease. XR/XR lumbar spine 4V min IMPRESSION: Rotatory scoliosis, minimal 2 mm anterior subluxation of L4 with respect L5 and lower lumbar spine facet arthritis.
== END 2022-10-06 14:22 | disposition home or self-care (01) ==
LOC: HO.HOSX 14:21
PROVIDERS: PCP Internal Medicine; Visit Provider Physician Assistant
DX: M54.50 Low back pain, unspecified (principal)
CPT/HCPCS: 72110

== ENCOUNTER → 2022-10-22 10:39 | Outpatient (BNVA) | payer OTHER, SELFPAY | PROVIDERS: PCP Internal Medicine; Visit Provider Internal Medicine | DX: J44.1 Chronic obstructive pulmonary disease with (acute) exacerbation (principal) | CPT/HCPCS: 94640 ==

== ENCOUNTER 2023-01-21 09:26 | Outpatient (AMB) | payer OTHER, SELFPAY ==
[2023-01-21 09:30] VITALS: BP 108/70; PULSE 88; O2SAT 98; BMI 28.2
--- NOTE | 2023-01-21 09:30 | MHC.OFFVIS ---
Intake Vital Signs 01/21/23 09:30 Height 5 ft Weight 144 lb 6.444 oz BMI 28.2 BP 108/70 Blood Pressure Location Lt brachial Position Sitting Pulse 88 Pulse Source Doppler Pulse Oximetry (%) 98 Oxygen Delivery Method Room Air Intake Visit Reasons: asthma flare up Allergies No Known Allergies Allergy (Verified 01/21/23 09:32) HPI asthma flare up HPI Details 57-year-old lady, patient of Dr. Zimmer, followed for lying asthma presents with an acute exacerbation symptomatic with wheezing dyspnea, but denies productive cough. [facility] Medical History (Updated 01/21/23 @ 09:43 by Jonathon Pressley MD) COPD exacerbation Thymus hyperplasia Pulmonary nodules Degenerative arthritis of lumbar spine Personal history of nicotine dependence GERD (gastroesophageal reflux disease) NAFL (nonalcoholic fatty liver) Asthma-COPD overlap syndrome Surgical History No pertinent past surgical history Family History Father Heart attack Diabetes HTN (hypertension) Brother Liver cancer Maternal Aunt Liver cancer Breast cancer Mother Stroke Diabetes Other Asthma Social History Patient Tobacco Use Status: Former Tobacco user Tobacco use type: Cigarette Cigarettes Per Day: 20 Years Smoked: 15 e-Cigarette/Vaping Use: Never Used Current occupational status: 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 Review of Systems Const Denies daytime sleepiness, Denies excessive sweating, Denies fatigue, Denies fever(s), Denies lethargy, Denies malaise, Denies night sweats, Denies snoring and Denies weight loss Eyes Denies blurry vision and Denies itchy eyes ENT Denies nasal congestion, Denies post nasal drip, Denies sinus pain, Denies sinus pressure and Denies other ( Thrush) Card Denies chest pain, Denies pedal edema, Denies dyspnea, Reports dyspnea on exertion, Denies orthopnea and Denies paroxysmal nocturnal dyspnea Resp Denies cough, Denies hemoptysis, Denies excessive phlegm production, Denies dyspnea, Reports dyspnea on exertion, Denies snoring and Reports wheezing GI Denies abdominal pain and Denies heartburn Musc Denies myalgias, Denies arthralgias and Denies joint swelling Skin/Breast Denies rash Neuro Denies memory loss and Denies seizure-like activity Psych Denies abnormal sleep pattern, Denies anxiety and Denies memory loss Endo Denies excessive sweating, Denies fatigue and Denies heat intolerance Rolo/Lymph Denies easy bruising Aller/Immun Denies itchy eyes, Denies seasonal rhinorrhea and Reports wheezing Physical Exam Vital Signs: Last Vital Signs Pulse 88 01/21/23 09:30 BP 108/70 01/21/23 09:30 Pulse Ox 98 01/21/23 09:30 Oxygen Delivery Method Room Air 01/21/23 09:30 BMI result Body Mass Index 28.2 Const General: no acute distress and alert Nutritional Appearance: not obese Orientation/consciousness: Other orientation findings ( oriented) HEENT Head: Yes atraumatic Eyes General: appearance normal, both eyes and all related structures Sclerae: sclerae normal EOM: EOMs intact bilaterally Neck Neck: Yes supple Lymphatic: no lymphadenopathy noted Resp Effort & Inspection: normal respiratory effort and no use of accessory muscles Auscultation: wheezes expiratory wheezes (bilateral) Cardio Rate: regular rate Rhythm: regular rhythm Heart sounds: no gallops, no murmurs and no rubs Skin General skin exam: other ( warm) Extrem General: No clubbing, No cyanosis and No edema Assessment & Plan Assessment & Plan (1) Asthma exacerbation: Code(s): J45.901 - Unspecified asthma with (acute) exacerbation Plan: Acute exacerbation of underlying asthma. Continue baseline regimen of Dulera and albuterol MDI. Will treat with a course of prednisone. Medications: Changed From prednisone 20 mg PO BID 5 days 10 tabs 0RF Asthma excerbation To prednisone 40 mg (2 x 20 mg) PO DAILY 10 tabs 0RF Asthma excerbation 5 days Coding Level of Care Code Est Pt Level 3 (86212) Diagnoses Asthma exacerbation J45.901
== END 2023-01-21 09:42 | disposition home or self-care (01) ==
PROVIDERS: PCP Internal Medicine; Visit Provider Internal Medicine Pulmonary Disease
DX: J45.901 Unspecified asthma with (acute) exacerbation (principal)
CPT/HCPCS: 99213

== ENCOUNTER → 2023-01-21 09:26 | Outpatient (BNVA) | payer OTHER, SELFPAY | PROVIDERS: PCP Internal Medicine; Visit Provider Internal Medicine Pulmonary Disease ==

== ENCOUNTER 2023-02-24 07:35 | Outpatient (REF) | payer OTHER, SELFPAY ==
--- NOTE | ~2023-02-24 | XR_ITS ---
EXAMINATION: XR CHEST CLINICAL INFORMATION: Asthma exacerbation COMPARISON: Chest radiograph from 06/14/2017 TECHNIQUE: 2 views of the chest were obtained. FINDINGS: Slight bibasilar atelectasis. No pneumothorax. Trachea is midline. Cardiac mediastinal silhouette is not enlarged. No large pleural effusion. S-shaped curvature of the thoracolumbar spine. Soft tissues are unremarkable. XR/XR chest 2V IMPRESSION: Slight bibasilar atelectasis.
[2023-02-24 15:04] LABS: MANUAL DIFF FLAG NO
[2023-02-24 15:29] LABS: Basophils Percent Auto 0.3 % (0-2); Eosinophils Absolute Auto 0.1 X10*3/uL (0.0-0.4); Hematocrit 37.8 % (37.0-47.0); Hemoglobin 12.9 g/dl (12.0-16.0); Imm Gran Abs Auto 0.03 X10*3/uL (0.00-0.03); Imm Gran Pct Auto 0.3 % (0.0-0.4); Lymphocytes Absolute Auto 3.7 X10*3/uL (1.2-4.9); Lymphocytes Percent Auto 33.6 % (20-40); Mean Corpuscular HGB Conc 34.1 g/dl (31.0-35.0); Mean Corpuscular Hemoglobin 30.6 pg (27.0-33.0); Mean Corpuscular Volume 89.8 fL (80.0-98.0); Mean Platelet Volume 10.3 fL (9.4-12.3); Monocytes Absolute Auto 0.9 X10*3/uL (0.1-1.2); Monocytes Percent Auto 7.9 % (2-11); Neutrophils Absolute Auto 6.3 x10*3/uL (2.0-8.3); Neutrophils Percent Auto 56.9 % (45-73); Platelet Count 311 X10*3/uL (160-400); Red Blood Count 4.21 X10*6/uL (4.20-5.50); Red Cell Distribution Width 12.6 % (11.0-16.0)
[2023-02-24 16:35] LABS: Erythrocyte Sedimentation Rate 14 MM/HR (0-20)
[2023-02-25 23:09] LABS: Immunoglobulin E 986 kU/L (<OR=114)
== END 2023-02-24 07:36 | disposition home or self-care (01) ==
LOC: HO.LAB 07:35
PROVIDERS: PCP Internal Medicine; Visit Provider Hospitalist
DX: J45.901 Unspecified asthma with (acute) exacerbation (principal); J30.9 Allergic rhinitis, unspecified
CPT/HCPCS: 36415; 71046; 82785; 85025; 85652; 86003

== ENCOUNTER 2023-03-09 08:58 | Outpatient (AMB) | payer OTHER, SELFPAY ==
--- NOTE | 2023-03-09 08:59 | A.OFFVIS_ITS ---
Intake Vital Signs 03/09/23 09:00 Height 5 ft Weight 142 lb 10.225 oz BMI 27.9 BP 112/80 Blood Pressure Location Rt brachial Position Sitting Pulse 87 Pulse Source Pulse Oximeter Temp 97.4 F Temp Source Skin Pulse Oximetry (%) 97 Oxygen Delivery Method Room Air Intake Visit Reasons: tenosynovitis finger, fibromyalgia. Intake Note: Patient presents to office today to follow up on fibromyalgia and tenosynovitis of finger. c/o left arm pain, worse at inner elbow, vein pops out, ? fluid c/o low back pain radiating vertically and horizontally. Ocean Biologist Required: No Accompanied by: Self / Same As Patient Allergies No Known Allergies Allergy (Verified 03/09/23 09:04) HPI HPI Comments History of Present Illness Details The patient returns today complaining of left elbow and hand pain. She has a known positive CCP antibody and positive OLMAN. She was last seen in September and given a course of prednisone for some flexor tenosynovitis involving the left hand. That apparently did help the hand but her symptoms returned in the last month particularly with pain along the 3rd and 4th fingers in the left hand. She does not have any catching that is regularly occurring in those fingers. She is more bothered by some left elbow pain. This is upper on the lateral epicondyle, occasionally felt over the joint space. There was no injury involved. She has been off and on the prednisone many times this year for treatment of asthma. Presently she says the asthma is doing okay but she finished the prednisone course about a week ago. She has been missing work she says because of the asthma and sometimes because of the joint pains. [facility] Medical History (Updated 03/09/23 @ 13:38 by Tanner Kenny MD) COPD exacerbation Thymus hyperplasia Pulmonary nodules Degenerative arthritis of lumbar spine Personal history of nicotine dependence GERD (gastroesophageal reflux disease) NAFL (nonalcoholic fatty liver) Asthma-COPD overlap syndrome Surgical History No pertinent past surgical history Family History Father Heart attack Diabetes HTN (hypertension) Brother Liver cancer Maternal Aunt Liver cancer Breast cancer Mother Stroke Diabetes Other Asthma Social History (Updated 03/09/23 @ 09:05 by ELLIOT Manriquez Alcohol intake: never Patient Tobacco Use Status: Former Tobacco user Tobacco use type: Cigarette Cigarettes Per Day: 20 Years Smoked: 15 e-Cigarette/Vaping Use: Never Used Current occupational status: 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 Card Details: Negative chest pain, edema and syncope Resp Details: Intermittently symptomatic with asthma prop presently negative for SOB, cough and wheezing GI Details: Negative indigestion/heartburn, nausea, abdominal pain, bowel changes, diarrhea, constipation and bloody stool. Skin/Breast Details: Negative for itching, rash, hives, Raynaud's symptoms, sun sensitivity, and skin cancer Neuro Details: Negative for epilepsy, palsy, stroke, changes in speech, tingling and weakness Psych Details: Negative for anxiety, depression and stress Endo Details: Negative for polyuria and polydypsia Rolo/Lymph Details: Negative for excessive bruising or bleeding. Physical Exam Vital Signs: Last Vital Signs Temp 97.4 F 03/09/23 09:00 Pulse 87 03/09/23 09:00 BP 112/80 03/09/23 09:00 Pulse Ox 97 03/09/23 09:00 Oxygen Delivery Method Room Air 03/09/23 09:00 BMI result Body Mass Index 27.9 APPEARANCE: Patient in no acute distress EYES no redness, pupils equal and reactive to light, eyelids normal LUNG: Clear to percussion and auscultation EXTREMITIES: No edema, no calf tenderness, normal peripheral pulses. NEURO: Oriented and alert x3. No focal weakness. Reflexes symmetric. Gait normal. SKIN: No inflammatory or neoplastic lesions. Normal color and turgor JOINT EXAM: Cervical Spine:? Full range of motion without pain; no tenderness to palpation of the cervical spine. Tenderness to palpation of the cervical spinal muscles. Thoracic Spine:?No tenderness on palpation. Lumbar Spine:? Alignment normal.? Full range of motion with mild pain at the extremes of flexion or extension. Most the pain is felt in the left lumbar region. There is some left paraspinal and posterior buttock tenderness. No swelling or redness. Hands: LEFT: Mild pain with range of motion at the 3rd and 4th fingers. Most of this is due to pain on the flexor tendon side with tenderness and no triggering over the 3rd and 4th flexor tendons. There is some slight 3rd and 4th MCP tenderness but no swelling along the tendons or the MCP region. There is slight tenderness without swelling at the 2nd, 3rd and 4th PIP joints. RIGHT: Normal pain-free range of motion without swelling. No swelling, erythema, ecchymosis or warmth. Normal pain-free range of motion. 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 Wrists: LEFT: Normal range of motion without swelling, increased warmth or erythema. No tenderness. RIGHT: Normal range of motion without tenderness, swelling, increased warmth or erythema. Elbows: Left: Mild pain at the extremes of flexion extension. Most of this is felt over the lateral aspect of the elbow. There is moderate lateral epicondylar tenderness and slight tenderness over the joint space. There is no swelling over the joint space. No redness or warmth. Right: Normal pain-free range of motion without tenderness, swelling, increased warmth or erythema over the joints. Shoulders:? Right:? Full range of motion without pain. No tenderness, weakness, swelling, increased warmth or erythema over the joints. Left: Slight pain with extremes of range of motion but most of this is felt around the elbow. Minimal anterior and subacromial tenderness without abductor weakness or swelling. No adenopathy. Hips:? Full range of motion without pain. Hip bursa:? No tenderness. Knees: LEFT:? Normal range of motion. No crepitus, effusion, swelling or tenderness. RIGHT: Normal range of motion. No crepitus, effusion, swelling or tenderness. Ankles:? Normal pain-free range of motion without tenderness, swelling, increased warmth or erythema. Feet: Normal pain-free range of motion without tenderness, swelling, increased warmth or erythema. Tender points:.? Mild tenderness to digital palpation at the left trapezius, left, lateral epicondyle, greater trochanter area bilaterally. ? Results Reviewed Results Reviewed: Laboratory Tests 06/27/21 02/24/23 08:34 15:03 ESR 14 C-Reactive Protein 0.66 H Laboratory Tests 06/27/21 02/24/23 02/24/23 08:34 15:03 15:03 Hgb 12.9 ESR 14 C-Reactive Protein 0.66 H IgE 986 H Laboratory Tests 10/17/20 10/17/20 10/29/20 08:37 08:37 14:55 Rheumatoid Factor < 15.0 Cycl Citrul Peptide IgG 240 H OLMAN Titer 1:40 H SS-A/Ro Antibody SS-B/La Antibody Sm (Rios) Antibody SM/CLIP ON SUNGLASSES INSPECTOR IgG Antibody Double Strand DNA Ab 10/29/20 14:55 Rheumatoid Factor Cycl Citrul Peptide IgG OLMAN Titer SS-A/Ro Antibody <1.0 NEG SS-B/La Antibody <1.0 NEG Sm (Rios) Antibody <1.0 NEG SM/CLIP ON SUNGLASSES INSPECTOR IgG Antibody <1.0 NEG Double Strand DNA Ab 2 Assessment & Plan Assessment & Plan (1) Flexor tenosynovitis of finger: Code(s): M65.9 - Synovitis and tenosynovitis, unspecified (2) Cyclic citrullinated peptide (CCP) antibody positive: Comment: negative rheumatoid factor. No peripheral synovitis Code(s): R79.89 - Other specified abnormal findings of blood chemistry (3) Left lateral epicondylitis: Code(s): M77.12 - Lateral epicondylitis, left elbow Plan Today she has some flexor tenosynovitis involving a few tendons in the left hand. There is also some lateral epicondylitis of the left elbow. I do not really see any joint swelling to confirm that she has an inflammatory arthritis present. She of course does have a very positive CCP antibody is at risk for RA. The intermittent use of high-dose prednisone may be controlling somewhat that tendency but at least today she is off the prednisone and I do not see much of joint inflammation present. We will treat her for localized problems with some meloxicam 15 mg daily. X-rays of the left elbow are ordered and we will have her back to get a corticosteroid injection for the elbow tendinitis. Orders: Orders XR elbow LT min 3V Today M77.12 - Lateral epicondylitis, left elbow Medications: New meloxicam 15 mg PO DAILY 30 tabs 2RF M65.9 - Synovitis and tenosynovitis, unspecified arm brace (ИВАН Elbow Brace) wear when using the left hand 1 ea 0RF Coding Level of Care Code Est Pt Level 4 (40612) Diagnoses Flexor tenosynovitis of finger M65.9 Cyclic citrullinated peptide (CCP) antibody positive R79.89 Left lateral epicondylitis M77.12
[2023-03-09 09:00] VITALS: BP 112/80; PULSE 87; TEMP 36.3; O2SAT 97; BMI 27.9
== END 2023-03-09 09:45 | disposition home or self-care (01) ==
PROVIDERS: PCP Internal Medicine; Referring Provider Internal Medicine; Visit Provider Internal Medicine Rheumatology
DX: M65.9 Synovitis and tenosynovitis, unspecified (principal); R79.89 Other specified abnormal findings of blood chemistry; M77.12 Lateral epicondylitis, left elbow
CPT/HCPCS: 99214

== ENCOUNTER → 2023-03-09 08:58 | Outpatient (BNVA) | payer OTHER, SELFPAY | PROVIDERS: PCP Internal Medicine; Visit Provider Internal Medicine Rheumatology ==

== ENCOUNTER 2023-03-18 12:58 | Outpatient (AMB) | payer OTHER, SELFPAY ==
--- NOTE | 2023-03-18 13:01 | A.OFFVIS_ITS ---
Intake Vital Signs 03/18/23 13:02 Height 5 ft Weight 142 lb 10.225 oz BMI 27.9 BP 128/80 Blood Pressure Location Lt brachial Position Sitting Pulse 79 Pulse Source Pulse Oximeter Pulse Oximetry (%) 98 Oxygen Delivery Method Room Air Intake Visit Reasons: SOB, wheezing. Covid neg Ct Tech Required: No Allergies No Known Allergies Allergy (Verified 03/18/23 13:04) HPI HPI Comments History of Present Illness Details The patient is a 57-year-old woman with a known history of COPD. She has been developing worsening shortness of breath in addition to chest tightness. Fyla-[id number] severity. She has been using her rescue inhaler on a daily basis. In the past he has use Spiriva in addition to Breo. They have been helpful. 07/03/2021 the patient is here for a pulmonary follow-up visit. She has been complaining of worsening chest tightness and also back pain. Moderate severity. Last night she had to sleep on the floor because of the back pain was so significant. She also complains of increasing coughing with chest congestion. She has been spitting up more phlegm. She continues use her Dulera with good effect. I did encourage her to use it twice a day. in addition to that we had referred her to the lung cancer screening program. I believe they are trying get in touch with her. However will go ahead and we refer her to the program in order for her to get stab worsen start getting her low-dose CT scans. in the meantime is encouraging the patient was able to quit smoking recently. On examination she does have reproducible back pain primarily in the midthoracic area. She does have tenderness to palpation. 07/31/2022 the patient is here for pulmon noni follow-up visit. The patient is doing very well from a respiratory status. The main is respiratory medicine has been affecting beneficial. She has not had to use her rescue inhaler. More of her complaints right now are back pain and knee pain. She is currently working with the stripping machine operator regarding these issues. She recently had an MRI and also x-rays that will be following up. In the meantime she also underwent a CT scan of the chest as part of the lung cancer screening program. She has mu ltiple pulmonary nodules that are subcentimeter in nature and very small and not concerning. Still that will need follow-up. 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 Clinically the patient denies any neuropathies. Will go ahead and plan to repeat her low-dose CT scan sometime in April 2023 at that point we can reassess the thymic tissue. If the patient develops any issues prior to that we can always do a chest MRI to further address this issue. For now, will just wait for the CT scan in the upcoming appointment in April of this year. 03/18/2023 the patient is here for sick visit. She started developing worsening shortness of breath and cough. She has also complained of increased wheezing. She has been having to use her nebulizer therapy more often. The cough is persistent. Moderate severity. Now she is complaining of right-sided pleuritic chest discomfort. Moderate severity. Denies any fevers or chills. She did test negative for COVID-19. In addition to this the patient was approved to start Xolair. She has severe allergies to her dog. She also has allergies to cats. Her IgE level significantly elevated above 1000. She needs to start Xolair. It was already approved and she will start once she completes the course of prednisone. I am hopeful that her symptoms improved when she starts Xolair. In the meantime will provide her with prednisone and also she will undergo blood work. We will check a D-dimer. If her D-dimer is elevated she will need a CTA to rule out potentially blood clots. Otherwise she will have a regular x-ray. [facility] Medical History (Updated 03/18/23 @ 22:45 by Olu Zimmer MD) Pleuritic chest pain COPD exacerbation Thymus hyperplasia Pulmonary nodules Degenerative arthritis of lumbar spine Personal history of nicotine dependence GERD (gastroesophageal reflux disease) NAFL (nonalcoholic fatty liver) Asthma-COPD overlap syndrome Surgical History No pertinent past surgical history Family History Father Heart attack Diabetes HTN (hypertension) Brother Liver cancer Maternal Aunt Liver cancer Breast cancer Mother Stroke Diabetes Other Asthma Social History (Updated 03/09/23 @ 09:05 by JES Manriquez) Alcohol intake: never Patient Tobacco Use Status: Former Tobacco user Tobacco use type: Cigarette Cigarettes Per Day: 20 Years Smoked: 15 e-Cigarette/Vaping Use: Never Used Current occupational status: 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 Review of Systems Const Reports fatigue, Denies fever(s) and Denies night sweats ENT Denies change in voice, Denies lip swelling, Denies mouth pain, Reports nasal congestion and Reports nasal discharge Card Reports chest pain and Denies dyspnea Resp Denies chest congestion, Reports cough, Reports pain on inspiration, Reports pain with cough, Denies dyspnea and Reports wheezing GI Denies abdominal pain Musc Reports back pain and Reports arthralgias Neuro Denies Neuro-related abnormal movements Psych Denies no additional complaints Endo Reports fatigue Rolo/Lymph Denies easy bleeding and Denies lymphadenopathy Aller/Immun Denies lip swelling and Reports wheezing Physical Exam Vital Signs: Last Vital Signs Pulse 79 03/18/23 13:02 BP 128/80 03/18/23 13:02 Pulse Ox 98 03/18/23 13:02 Oxygen Delivery Method Room Air 03/18/23 13:02 BMI result Body Mass Index 27.9 Const General: alert Neck Neck: Yes normal visual inspection, Yes full ROM and Yes no lymphadenopathy Chest Chest palpation & inspection: normal inspection of the chest Resp Effort & Inspection: decreased respiratory effort Auscultation: no wheezes and diminished lung sounds Cardio Rate: regular rate Rhythm: regular rhythm Heart sounds: S1 normal heart sound present and S2 normal heart sound present GI Palpation (GI): Soft to palpation and nontender Auscultation: normal bowel sounds Back/Spine/Pelvis Thoracic/Lumbar Spine: thoracic spinal tenderness Skin General skin exam: rashes and/or lesions noted Assessment & Plan Assessment & Plan (1) Asthma exacerbation: Code(s): J45.901 - Unspecified asthma with (acute) exacerbation Qualifiers: Asthma severity: moderate Asthma persistence: persistent Qualified Code(s): J45.41 - Moderate persistent asthma with (acute) exacerbation (2) Pleuritic chest pain: Comment: likely MS Code(s): R07.81 - Pleurodynia (3) Asthma-COPD overlap syndrome: Comment: She is a known case of the asthma/COPD, usually remains under good control , but now having an acute flare up most likely due to environmental allergy. [place]; continue Dulera 200-5 2 puffs b.i.d. Albuterol inhaler 2 puffs Q 4-6 hours p.r.n.. Code(s): J44.9 - Chronic obstructive pulmonary disease, unspecified (4) Pulmonary nodules: Code(s): R91.8 - Other nonspecific abnormal finding of lung field (5) Thymus hyperplasia: Code(s): E32.0 - Persistent hyperplasia of thymus Plan Bloodwork start Prednisone taper start Xolair Needs an Epi pen Continue Dulera twice a day short-acting beta agonist as needed LDCT 04/2023 Consider Chest MRI to assess Thymic hyperplasia, will likely wait till her next CT chest 05/08 to re-evaluate Trazadone for sleep [id number] months Orders: Orders D Dimer High Sensitivity Today R07.81 - Pleurodynia OLMAN Reflex Titer and Pattern Today R07.81 - Pleurodynia Complete Blood Count Auto Diff Today R07.81 - Pleurodynia Basic Metabolic Panel Today R07.81 - Pleurodynia Medications: New prednisone PO daily; Take 2 tabs daily x 7 days, then 1 tab daily x 7 days 14 days 21 tabs 0RF acetaminophen-codeine 300-15 mg 1 tab PO Q8H 10 days PRN 30 tabs 0RF pain Coding Level of Care Code Est Pt Level 4 (24756) Diagnoses Moderate persistent asthma with exacerbation J45.41 Asthma severity: moderate Asthma persistence: persistent Pleuritic chest pain R07.81 Asthma-COPD overlap syndrome J44.9 Pulmonary nodules R91.8 Thymus hyperplasia E32.0 Time Spent (min) 17
[2023-03-18 13:02] VITALS: BP 128/80; PULSE 79; O2SAT 98; BMI 27.9
== END 2023-03-18 13:22 | disposition home or self-care (01) ==
PROVIDERS: PCP Internal Medicine; Visit Provider Hospitalist
DX: J45.41 Moderate persistent asthma with (acute) exacerbation (principal); R07.81 Pleurodynia; J44.9 Chronic obstructive pulmonary disease, unspecified; R91.8 Other nonspecific abnormal finding of lung field; E32.0 Persistent hyperplasia of thymus
CPT/HCPCS: 99214

== ENCOUNTER 2023-03-18 13:33 | Outpatient (REF) | payer OTHER, SELFPAY ==
--- NOTE | ~2023-03-18 | MM_ITS ---
EXAMINATION: MM SCREENING DIGITAL BREAST TOMOSYNTHESIS, BILATERAL CLINICAL INFORMATION: Screening. Asymptomatic. COMPARISON: Mammography: This study is compared with prior exams dating back to 2019. TECHNIQUE: Digital breast tomosynthesis is performed in both the craniocaudal and mediolateral oblique views along with computer-aided detection (CAD). Synthesized 2D images are generated from the tomosynthesis. FINDINGS: There are scattered areas of fibroglandular density (ACR BI-RADS breast composition Category b). There are no significant masses, abnormal calcifications, or other abnormalities. There is a tissue marker in the lateral aspect of the left breast from prior benign percutaneous biopsy. MM/MM tomosynthesis screening BI IMPRESSION: No mammographic evidence of malignancy. ASSESSMENT: BI-RADS BI-RADS 2 - Benign Findings RECOMMENDATION: Routine annual mammography screening. 1 year F/U This examination should not preclude the clinical evaluation of a suspicious palpable abnormality. This patient's information was entered into a reminder system with a target due date for their next mammogram.
[2023-03-18 13:49] LABS: MANUAL DIFF FLAG NO
[2023-03-18 14:40] LABS: Basophils Percent Auto 0.3 % (0-2); Eosinophils Absolute Auto 0.1 X10*3/uL (0.0-0.4); Eosinophils Percent Auto 1.2 % (0-4); Hematocrit 37.9 % (37.0-47.0); Hemoglobin 12.9 g/dl (12.0-16.0); Imm Gran Abs Auto 0.03 X10*3/uL (0.00-0.03); Imm Gran Pct Auto 0.4 % (0.0-0.4); Lymphocytes Absolute Auto 2.4 X10*3/uL (1.2-4.9); Lymphocytes Percent Auto 30.4 % (20-40); Mean Corpuscular Hemoglobin 30.4 pg (27.0-33.0); Mean Corpuscular Volume 89.4 fL (80.0-98.0); Mean Platelet Volume 10.5 fL (9.4-12.3); Monocytes Absolute Auto 0.6 X10*3/uL (0.1-1.2); Monocytes Percent Auto 7.1 % (2-11); Neutrophils Absolute Auto 4.7 x10*3/uL (2.0-8.3); Neutrophils Percent Auto 60.6 % (45-73); Platelet Count 304 X10*3/uL (160-400); Red Blood Count 4.24 X10*6/uL (4.20-5.50); Red Cell Distribution Width 12.5 % (11.0-16.0); White Blood Count 7.8 X10*3/uL (4.8-10.8)
[2023-03-18 14:45] LABS: D Dimer High Sensitivity 174 NG/ML
[2023-03-18 15:03] LABS: Anion Gap 12 (12-20); Blood Urea Nitrogen 18 mg/dL (9-16); Calcium 9.9 mg/dL (8.4-10.2); Carbon Dioxide 29 mmol/L (22-29); Chloride 107 mmol/L (96-108); Estimated Glomerular Filt Rate > 60; Glucose Random 90 mg/dL (60-115); Sodium 144 mmol/L (135-145)
[2023-03-24 15:50] LABS: Anti Nuclear Antibody Screen POSITIVE (NEGATIVE)
== END 2023-03-18 13:34 | disposition home or self-care (01) ==
LOC: HO.MAMMO 13:33
PROVIDERS: PCP Internal Medicine; Referring Provider Hospitalist; Visit Provider Internal Medicine
DX: Z12.31 Encounter for screening mammogram for malignant neoplasm of breast (principal); R07.81 Pleurodynia
CPT/HCPCS: 36415; 77063; 77067; 80048; 85025; 85379; 86038; 86039

== ENCOUNTER → 2023-03-18 15:00 | Outpatient (BNV) | payer OTHER, SELFPAY | PROVIDERS: PCP Internal Medicine; Referring Provider Hospitalist; Visit Provider Radiology Diagnostic Radiology | DX: Z12.31 Encounter for screening mammogram for malignant neoplasm of breast (principal) | CPT/HCPCS: 77063; 77067 ==

== ENCOUNTER 2023-03-23 09:29 | Outpatient (REF) | payer OTHER, SELFPAY | END 2023-03-23 09:30 | disposition home or self-care (01) | LOC: HO.MDS 09:29 | PROVIDERS: Visit Provider Hospitalist | DX: J45.50 Severe persistent asthma, uncomplicated (principal) | CPT/HCPCS: 96372; J2357 ==

== ENCOUNTER 2023-04-13 09:54 | Outpatient (REF) | payer OTHER, SELFPAY | END 2023-04-13 09:55 | disposition home or self-care (01) | LOC: HO.MDS 09:54 | PROVIDERS: Visit Provider Hospitalist | DX: J45.50 Severe persistent asthma, uncomplicated (principal) | CPT/HCPCS: 96372; J2357 ==

== ENCOUNTER 2023-04-27 13:01 | Outpatient (REF) | payer OTHER, SELFPAY | END 2023-04-27 13:02 | disposition home or self-care (01) | LOC: HO.MDS 13:01 | PROVIDERS: PCP Internal Medicine; Visit Provider Hospitalist | DX: J45.50 Severe persistent asthma, uncomplicated (principal) | CPT/HCPCS: 96372; J2357 ==

== ENCOUNTER 2023-04-30 13:10 | Outpatient (AMB) | payer OTHER, SELFPAY ==
[2023-04-30 13:16] VITALS: BP 120/70; PULSE 73; O2SAT 97; BMI 26.2
--- NOTE | 2023-04-30 13:16 | MHC.OFFVIS ---
Intake Vital Signs 04/30/23 13:16 Height 5 ft Weight 134 lb BMI 26.2 BP 120/70 Blood Pressure Location Rt brachial Position Sitting Pulse 73 Pulse Source Pulse Oximeter Pulse Oximetry (%) 97 Oxygen Delivery Method Room Air Intake Visit Reasons: copd Resident Care Aid Required: No Allergies No Known Allergies Allergy (Verified 04/30/23 13:19) HPI HPI Comments History of Present Illness Details The patient is a 57-year-old woman with a known history of COPD. She has been developing worsening shortness of breath in addition to chest tightness. Saqi-tk-mvjrvuce severity. She has been using her rescue inhaler on a daily basis. In the past he has use Spiriva in addition to Breo. They have been helpful. 07/03/2021 the patient is here for a pulmonary follow-up visit. She has been complaining of worsening chest tightness and also back pain. Moderate severity. Last night she had to sleep on the floor because of the back pain was so significant. She also complains of increasing coughing with chest congestion. She has been spitting up more phlegm. She continues use her Dulera with good effect. I did encourage her to use it twice a day. in addition to that we had referred her to the lung cancer screening program. I believe they are trying get in touch with her. However will go ahead and we refer her to the program in order for her to get stab worsen start getting her low-dose CT scans. in the meantime is encouraging the patient was able to quit smoking recently. On examination she does have reproducible back pain primarily in the midthoracic area. She does have tenderness to palpation. 07/31/2022 the patient is here for pulmonary follow-up visit. The patient is doing very well from a respiratory status. The main is respiratory medicine has been affecting beneficial. She has not had to use her rescue inhaler. More of her complaints right now are back pain and knee pain. She is currently working with the customer counter representative regarding these issues. She recently had an MRI and also x-rays that will be following up. In the meantime she also underwent a CT scan of the chest as part of the lung cancer screening program. She has multiple pulmonary nodules that are subcentimeter in nature and very small and not concerning. Still that will need follow-up. 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 Clinically the patient denies any neuropathies. Will go ahead and plan to repeat her low-dose CT scan sometime in April 2023 at that point we can reassess the thymic tissue. If the patient develops any issues prior to that we can always do a chest MRI to further address this issue. For now, will just wait for the CT scan in the upcoming appointment in April of this year. 03/18/2023 the patient is here for sick visit. She started developing worsening shortness of breath and cough. She has also complained of increased wheezing. She has been having to use her nebulizer therapy more often. The cough is persistent. Moderate severity. Now she is complaining of right-sided pleuritic chest discomfort. Moderate severity. Denies any fevers or chills. She did test negative for COVID-19. In addition to this the patient was approved to start Xolair. She has severe allergies to her dog. She also has allergies to cats. Her IgE level significantly elevated above 1000. She needs to start Xolair. It was already approved and she will start once she completes the course of prednisone. I am hopeful that her symptoms improved when she starts Xolair. In the meantime will provide her with prednisone and also she will undergo blood work. We will check a D-dimer. If her D-dimer is elevated she will need a CTA to rule out potentially blood clots. Otherwise she will have a regular x-ray. 04/30/2023 the patient is here for a pulmonary follow-up visit. She continues to have some respiratory symptoms. Chest tightness and intermittent wheezing. Uupk-nw-onebizla severity. She has been on Dulera. It also has been on the high does Xolair every 2 weeks. She has yet to see any significant improvement while on the Xolair. I did encourage her that is only been a couple months. Will have to wait at least 6 months to see the effects of the biologic therapy. In the meantime will going to go ahead and maximize her respiratory therapy by switching her over to breztri. I am hopeful that with the addition of the long-acting muscarinic antagonist some of the respiratory symptoms will subside. The patient is also complaining that she is getting 3 shots of the Xolair every 2 weeks. This is because of her high dose. Will will talk to the [employer] to see if there is any other options. I do believe that the pipeline will be able to switch her to 2 shots every 2 weeks but for now will keep her on the current dose. She is participating in the lung cancer screening program. His CT scan is in April. Will have to follow-up with that and also follow-up with her thymus gland was noted to be abnormal on her last CT scan. If it worsens or from comes concerning in appearance then an MRI would be more suitable. [facility] Medical History (Updated 05/03/23 @ 22:08 by Olu Zimmer MD) Asthma Pleuritic chest pain COPD exacerbation Thymus hyperplasia Pulmonary nodules Degenerative arthritis of lumbar spine Personal history of nicotine dependence GERD (gastroesophageal reflux disease) NAFL (nonalcoholic fatty liver) Asthma-COPD overlap syndrome Surgical History No pertinent past surgical history Family History Father Heart attack Diabetes HTN (hypertension) Brother Liver cancer Maternal Aunt Liver cancer Breast cancer Mother Stroke Diabetes Other Asthma Social History (Updated 03/09/23 @ 09:05 by JES Manriquez) Alcohol intake: never Patient Tobacco Use Status: Former Tobacco user Tobacco use type: Cigarette Cigarettes Per Day: 20 Years Smoked: 15 e-Cigarette/Vaping Use: Never Used Current occupational status: 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 [employer] Review of Systems Const Reports fatigue, Denies fever(s) and Denies night sweats ENT Denies change in voice, Denies lip swelling, Denies mouth pain, Reports nasal congestion and Reports nasal discharge Card Reports chest pain and Denies dyspnea Resp Denies chest congestion, Reports cough, Reports pain on inspiration, Reports pain with cough, Denies dyspnea and Reports wheezing GI Denies abdominal pain Musc Reports back pain and Reports arthralgias Neuro Denies Neuro-related abnormal movements Psych Denies no additional complaints Endo Reports fatigue Rolo/Lymph Denies easy bleeding and Denies lymphadenopathy Aller/Immun Denies lip swelling and Reports wheezing Physical Exam Vital Signs: Last Vital Signs Pulse 73 04/30/23 13:16 BP 120/70 04/30/23 13:16 Pulse Ox 97 04/30/23 13:16 Oxygen Delivery Method Room Air 04/30/23 13:16 BMI result Body Mass Index 26.2 Const General: alert Neck Neck: Yes normal visual inspection, Yes full ROM and Yes no lymphadenopathy Chest Chest palpation & inspection: normal inspection of the chest Resp Effort & Inspection: normal respiratory effort Auscultation: no wheezes and diminished lung sounds Cardio Rate: regular rate Rhythm: regular rhythm Heart sounds: S1 normal heart sound present and S2 normal heart sound present GI Palpation (GI): Soft to palpation and nontender Auscultation: normal bowel sounds Back/Spine/Pelvis Thoracic/Lumbar Spine: thoracic spinal tenderness Skin General skin exam: rashes and/or lesions noted Assessment & Plan Assessment & Plan (1) Asthma: Code(s): J45.909 - Unspecified asthma, uncomplicated Qualifiers: Asthma severity: moderate Asthma persistence: persistent Asthma complication type: uncomplicated Qualified Code(s): J45.40 - Moderate persistent asthma, uncomplicated (2) Pulmonary nodules: Code(s): R91.8 - Other nonspecific abnormal finding of lung field (3) Thymus hyperplasia: Code(s): E32.0 - Persistent hyperplasia of thymus (4) Asthma-COPD overlap syndrome: Code(s): J44.9 - Chronic obstructive pulmonary disease, unspecified Plan continue Xolair [id number] 375mg Q2 weeks (will try to get 300mg vials to cut down 3->2 shots) Needs an Epi pen stop Dulera twice a day start Breztri short-acting beta agonist as needed LDCT 04/2023 Consider Chest MRI to assess Thymic hyperplasia if abnormal on up coming LDCT Trazadone for sleep follow-up 4 months Medications: New ahktsuqiar-zaaehkwc-krjgxsujmt 160-9-4.8 mcg/actuation (Breztri Aerosphere) 2 inhalations inhalation BID 30 days 10.7 grams 11RF Coding Level of Care Code Est Pt Level 4 (06617) Diagnoses Moderate persistent asthma without complication J45.40 Asthma severity: moderate Asthma persistence: persistent Asthma complication type: uncomplicated Pulmonary nodules R91.8 Thymus hyperplasia E32.0 Asthma-COPD overlap syndrome J44.9 Time Spent (min) 18
== END 2023-04-30 13:45 | disposition home or self-care (01) ==
PROVIDERS: PCP Internal Medicine; Visit Provider Hospitalist
DX: J45.40 Moderate persistent asthma, uncomplicated (principal); R91.8 Other nonspecific abnormal finding of lung field; E32.0 Persistent hyperplasia of thymus; J44.9 Chronic obstructive pulmonary disease, unspecified
CPT/HCPCS: 99214

== ENCOUNTER → 2023-04-30 13:10 | Outpatient (BNVA) | payer OTHER, SELFPAY | PROVIDERS: PCP Internal Medicine; Visit Provider Hospitalist ==

== ENCOUNTER 2023-05-11 08:59 | Outpatient (REF) | payer OTHER, SELFPAY | END 2023-05-11 09:00 | disposition home or self-care (01) | LOC: HO.MDS 08:59 | PROVIDERS: Visit Provider Hospitalist | DX: J45.50 Severe persistent asthma, uncomplicated (principal) | CPT/HCPCS: 96372; J2357 ==

== ENCOUNTER 2023-05-25 09:17 | Outpatient (REF) | payer OTHER, SELFPAY | END 2023-05-25 09:18 | disposition home or self-care (01) | LOC: HO.MDS 09:17 | PROVIDERS: Visit Provider Hospitalist | DX: J45.50 Severe persistent asthma, uncomplicated (principal) | CPT/HCPCS: 96372; J2357 ==

== ENCOUNTER 2023-06-15 11:17 | Outpatient (REF) | payer OTHER, SELFPAY | END 2023-06-15 11:18 | disposition home or self-care (01) | LOC: HO.MDS 11:17 | PROVIDERS: Visit Provider Hospitalist | DX: J45.50 Severe persistent asthma, uncomplicated (principal) | CPT/HCPCS: 96372; J2357 ==

== ENCOUNTER 2023-06-15 13:16 | Outpatient (REF) | payer OTHER, SELFPAY ==
--- NOTE | ~2023-06-15 | XR_ITS ---
EXAMINATION: XR CHEST CLINICAL INFORMATION: Cough unspecified COMPARISON: 02/24/2023 TECHNIQUE: 2 views of the chest were obtained. FINDINGS: Lungs clear. Improved aeration at the lung bases since the prior study. No pleural effusions. Heart and pulmonary vessels normal. XR/XR chest 2V IMPRESSION: No active disease.
== END 2023-06-15 13:17 | disposition home or self-care (01) ==
LOC: HO.XRAY 13:16
PROVIDERS: PCP Internal Medicine; Visit Provider Nurse Practitioner Family
DX: R05.9 Cough, unspecified (principal)
CPT/HCPCS: 71046

== ENCOUNTER 2023-06-30 07:44 | Outpatient (REF) | payer OTHER, SELFPAY | END 2023-06-30 07:45 | disposition home or self-care (01) | LOC: HO.MDS 07:44 | PROVIDERS: Visit Provider Hospitalist | DX: J45.50 Severe persistent asthma, uncomplicated (principal) | CPT/HCPCS: 96372; J2357 ==

== ENCOUNTER 2023-07-14 13:12 | Outpatient (REF) | payer OTHER, SELFPAY ==
[2023-07-14] MEDS: Omalizumab 300 MG, Omalizumab 75 MG 375 MG SUBCUT (13:30)
[2023-07-14 13:31] VITALS: BP 136/79; PULSE 92; RESP 16; TEMP 36.8; O2SAT 96
--- NOTE | 2023-07-14 14:24 | PC.NURSE ---
no s/sx of resp distress. watching tv. mikel injection well.
== END 2023-07-14 13:13 | disposition home or self-care (01) ==
LOC: HO.MDS 13:12
PROVIDERS: Visit Provider Hospitalist
DX: J45.50 Severe persistent asthma, uncomplicated (principal)
CPT/HCPCS: 96372; J2357

== ENCOUNTER 2023-07-27 15:02 | Outpatient (AMB) | payer OTHER, SELFPAY ==
--- NOTE | 2023-07-27 15:30 | A.OFFVIS_ITS ---
Intake Vital Signs 07/27/23 15:32 Height 5 ft Weight 289 lb 14.526 oz BMI 56.6 BP 112/70 Blood Pressure Location Rt brachial Position Sitting Temp 97.2 F Temp Source Skin Intake Visit Reasons: arthritis pain Intake Note: Patient last seen 03/09/[address] Kenny, presents today for follow up. 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 Lugo 57-year-old female returns today with continued complaints of left elbow and hand pain. She has a known positive CCP antibody and positive OLMAN. She had had courses of prednisone to treat hand pain with and the pain returns after she stops the prednisone. She is more bothered by some left elbow pain. This is upper on the lateral epicondyle, occasionally felt over the joint space. There was no injury involved. She has been off and on the prednisone many times this year for treatment of asthma. She does feel improvement on some of her joint pains when she is on the prednisone for asthma. [facility] Medical History (Updated 07/27/23 @ 16:16 by Daija Colmenares [facility]) Long-term use of immunosuppressant medication Seropositive rheumatoid arthritis Asthma Pleuritic chest pain COPD exacerbation Thymus hyperplasia Pulmonary nodules Degenerative arthritis of lumbar spine Personal history of nicotine dependence GERD (gastroesophageal reflux disease) NAFL (nonalcoholic fatty liver) Asthma-COPD overlap syndrome Surgical History No pertinent past surgical history Family History Father Heart attack Diabetes HTN (hypertension) Brother Liver cancer Maternal Aunt Liver cancer Breast cancer Mother Stroke Diabetes Other Asthma Social History Alcohol intake: never Patient Tobacco Use Status: Former Tobacco user Tobacco use type: Cigarette Cigarettes Per Day: 20 Years Smoked: 15 e-Cigarette/Vaping Use: Never Used Current occupational status: 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 Regular rhythm, S1-S2 heard, no murmurs, rubs or gallops. LUNG:? Clear to percussion and auscultation EXTREMITIES: No edema, no calf tenderness, normal peripheral pulses. NEURO: Oriented and alert x3. No focal weakness. Reflexes symmetric. Gait normal. SKIN: No inflammatory or neoplastic lesions. Normal color and turgor JOINT EXAM: Cervical Spine:? Full range of motion without pain; no tenderness to palpation of the cervical spine. Tenderness to palpation of the cervical spinal muscles. Thoracic Spine:?No tenderness on palpation. Lumbar Spine:? Alignment normal.? Full range of motion with mild pain at the extremes of flexion or extension. Most the pain is felt in the left lumbar region. There is some left paraspinal and posterior buttock tenderness. No swelling or redness. Hands: LEFT: Mild pain with range of motion at the 3rd and 4th fingers. Most of this is due to pain on the flexor tendon side with tenderness and no triggering over the 3rd and 4th flexor tendons. There is some slight 3rd and 4th MCP tenderness but no swelling along the tendons or the MCP region. There is slight tenderness without swelling at the 2nd, 3rd and 4th PIP joints. RIGHT: Normal pain-free range of motion without swelling. No swelling, erythema, ecchymosis or warmth. Normal pain-free range of motion. Able to make a full fist and has a good still photographer strength. Wrists: LEFT: Normal range of motion without swelling, increased warmth or erythema. No tenderness. RIGHT: Normal range of motion without tenderness, swelling, increased warmth or erythema. Elbows: Left: Mild pain at the extremes of flexion extension. Most of this is felt over the lateral aspect of the elbow. There is moderate lateral epicondylar tenderness and slight tenderness over the joint space. There is no swelling over the joint space. No redness or warmth. Right: Normal pain-free range of motion without tenderness, swelling, increased warmth or erythema over the joints. Shoulders:? Right:? Full range of motion without pain. No tenderness, weakness, swelling, increased warmth or erythema over the joints. Left: Slight pain with extremes of range of motion but most of this is felt around the elbow. Minimal anterior and subacromial tenderness without abductor weakness or swelling. No adenopathy. Hips:? Full range of motion without pain. Hip bursa:? No tenderness. Knees: LEFT:? Normal range of motion. No crepitus, effusion, swelling or tenderness. RIGHT: Normal range of motion. No crepitus, effusion, swelling or tenderness. Ankles:? Normal pain-free range of motion without tenderness, swelling, increased warmth or erythema. Feet: Normal pain-free range of motion without tenderness, swelling, increased warmth or erythema. Patient reports Achilles tenderness and stiffness on palpation Tender points:.? Mild tenderness to digital palpation at the left trapezius, left, lateral epicondyle, greater trochanter area bilaterally. ? Results Reviewed Results Reviewed: Laboratory Tests 06/27/21 02/24/23 08:34 15:03 ESR 14 C-Reactive Protein 0.66 H Laboratory Tests 06/27/21 02/24/23 02/24/23 08:34 15:03 15:03 Hgb 12.9 ESR 14 C-Reactive Protein 0.66 H IgE 986 H Laboratory Tests 10/17/20 10/17/20 10/29/20 08:37 08:37 14:55 Rheumatoid Factor < 15.0 Cycl Citrul Peptide IgG 240 H OLMAN Titer 1:40 H SS-A/Ro Antibody SS-B/La Antibody Sm (Rios) Antibody SM/EDGER TECHNICIAN IgG Antibody Double Strand DNA Ab 10/29/20 14:55 Rheumatoid Factor Cycl Citrul Peptide IgG OLMAN Titer SS-A/Ro Antibody <1.0 NEG SS-B/La Antibody <1.0 NEG Sm (Rios) Antibody <1.0 NEG SM/EDGER TECHNICIAN IgG Antibody <1.0 NEG Double Strand DNA Ab 2 Assessment & Plan Assessment & Plan (1) Cyclic citrullinated peptide (CCP) antibody positive: Comment: negative rheumatoid factor. No peripheral synovitis Code(s): R79.89 - Other specified abnormal findings of blood chemistry (2) Left lateral epicondylitis: Code(s): M77.12 - Lateral epicondylitis, left elbow (3) Bilateral foot pain: Code(s): M79.671 - Pain in right foot; M79.672 - Pain in left foot (4) Seropositive rheumatoid arthritis: Code(s): M05.9 - Rheumatoid arthritis with rheumatoid factor, unspecified Plan #SeroPos RA:Foot Pain/Elbow/+CCP: The patient continues with lateral epicondylitis of the left elbow. On PE she also has thickening of bilateral 2nd and 3rd MCP. The patient says these often gets swollen and red. It is hard to make a fist gives her hands are stiff. She of course does have a very positive CCP antibody and so I am going to start her on treatment for rheumatoid arthritis with leflunomide 20 mg q.d.. The intermittent use of high-dose prednisone may be controlling some of the symptoms and holding back the full expression of the rheumatoid. She can continue to take the meloxicam 15 mg daily. She also has Achilles tenderness and stiffness. #[facility] Use: I will obtain baseline labs to re-evaluate for rheumatoid factors. I am also checking her suitability to start leflunomide and to prepare for use of bio DMARDs if leflunomide is not sufficient. I discussed at length with patient the possible side effects of leflunomide, to include but not limited to, nausea, vomiting, and diarrhea. Should she develop any rashes, stop taking the medications immediately and call the office. I will recheck her labs CBC and CMP in 8 weeks. The patient should hold the medication if she develops a fever, and infection, needs surgery, are has a nonhealing wound. I spent 45 minutes reviewing history, evaluating patient, and documenting Orders: Orders Complement C4 Today M65.9 - Synovitis and tenosynovitis, unspecified, M79.671 - Pain in right foot, M79.672 - Pain in left foot, R79.89 - Other specified abnormal findings of blood chemistry Comprehensive Met. Panel Today M65.9 - Synovitis and tenosynovitis, unspecified, M79.671 - Pain in right foot, M79.672 - Pain in left foot, R79.89 - Other specified abnormal findings of blood chemistry Protein Electrophoresis, Serum Today M65.9 - Synovitis and tenosynovitis, unspecified, M79.671 - Pain in right foot, M79.672 - Pain in left foot, R79.89 - Other specified abnormal findings of blood chemistry Creatine Kinase Total Today M65.9 - Synovitis and tenosynovitis, unspecified, M79.671 - Pain in right foot, M79.672 - Pain in left foot, R79.89 - Other specified abnormal findings of blood chemistry T Spot TB Today M65.9 - Synovitis and tenosynovitis, unspecified, M79.671 - Pain in right foot, M79.672 - Pain in left foot, R79.89 - Other specified abnormal findings of blood chemistry Hepatitis A,B,C Profile Today M65.9 - Synovitis and tenosynovitis, unspecified, M79.671 - Pain in right foot, M79.672 - Pain in left foot, R79.89 - Other specified abnormal findings of blood chemistry Rheumatoid Factor Today M79.671 - Pain in right foot, M79.672 - Pain in left foot, R79.89 - Other specified abnormal findings of blood chemistry Alanine Aminotransferase 8 Weeks M05.9 - Rheumatoid arthritis with rheumatoid factor, unspecified, Z79.60 - long term acute care registered nurse (current) use of unspecified immunomodulators and immunosuppressants, Z79.899 - Other correction (current) drug therapy Aspartate Amino Transferase 8 Weeks M05.9 - Rheumatoid arthritis with rheumatoid factor, unspecified, Z79.60 - long term acute care registered nurse (current) use of unspecified immunomodulators and immunosuppressants, Z79.899 - Other correction (current) drug therapy Complete Blood Count Auto Diff 8 Weeks M05.9 - Rheumatoid arthritis with rheumatoid factor, unspecified, Z79.60 - longterm (current) use of unspecified immunomodulators and immunosuppressants, Z79.899 - Other correction (current) drug therapy Complement C3 Today M65.9 - Synovitis and tenosynovitis, unspecified, M79.671 - Pain in right foot, M79.672 - Pain in left foot, R79.89 - Other specified abnormal findings of blood chemistry Complete Blood Count Auto Diff Today M65.9 - Synovitis and tenosynovitis, unspecified, M79.671 - Pain in right foot, M79.672 - Pain in left foot, R79.89 - Other specified abnormal findings of blood chemistry C Reactive Protein Today M65.9 - Synovitis and tenosynovitis, unspecified, M79.671 - Pain in right foot, M79.672 - Pain in left foot, R79.89 - Other specified abnormal findings of blood chemistry Erythrocyte Sedimentation Rate Today M65.9 - Synovitis and tenosynovitis, unspecified, M79.671 - Pain in right foot, M79.672 - Pain in left foot, R79.89 - Other specified abnormal findings of blood chemistry Immunoglobulins,IgG IgA IgM Today M65.9 - Synovitis and tenosynovitis, unspecified, M79.671 - Pain in right foot, M79.672 - Pain in left foot, R79.89 - Other specified abnormal findings of blood chemistry Uric Acid Today M65.9 - Synovitis and tenosynovitis, unspecified, M79.671 - Pain in right foot, M79.672 - Pain in left foot, R79.89 - Other specified abnormal findings of blood chemistry Cyclic Citrullinated Peptide Today M79.671 - Pain in right foot, M79.672 - Pain in left foot, R79.89 - Other specified abnormal findings of blood chemistry C Reactive Protein 8 Weeks M05.9 - Rheumatoid arthritis with rheumatoid factor, unspecified, Z79.60 - long term acute care registered nurse (current) use of unspecified immunomodulators and immunosuppressants Creatinine 8 Weeks M05.9 - Rheumatoid arthritis with rheumatoid factor, unspecified, Z79.60 - longterm (current) use of unspecified immunomodulators and immunosuppressants, Z79.899 - Other joint terminal attack controller (current) drug therapy Medications: New leflunomide 1 tablets per day x 2 weeks; 2 tablets per day. 90 tabs 0RF M05.9 - Rheumatoid arthritis with rheumatoid factor, unspecified Coding Level of Care Code Est Pt Level 4 (92366) Diagnoses Cyclic citrullinated peptide (CCP) antibody positive R7.89 Left lateral epicondylitis M77.12 Bilateral foot pain M79.671; M79.672 Seropositive rheumatoid arthritis M05.9
[2023-07-27 15:32] VITALS: BP 112/70; TEMP 36.2; BMI 56.6
== END 2023-07-27 16:19 | disposition home or self-care (01) ==
PROVIDERS: PCP Internal Medicine; Visit Provider Nurse Practitioner Family
DX: M05.79 Rheumatoid arthritis with rheumatoid factor of multiple sites without organ or systems involvement (principal); R79.89 Other specified abnormal findings of blood chemistry; M77.12 Lateral epicondylitis, left elbow; M79.671 Pain in right foot; M79.672 Pain in left foot
CPT/HCPCS: 99214

== ENCOUNTER → 2023-07-27 15:02 | Outpatient (BNVA) | payer OTHER, SELFPAY | PROVIDERS: PCP Internal Medicine; Visit Provider Nurse Practitioner Family ==

== ENCOUNTER 2023-07-28 07:37 | Outpatient (REF) | payer OTHER, SELFPAY ==
[2023-07-28 08:05] LABS: MANUAL DIFF FLAG NO
[2023-07-28 08:17] LABS: Basophils Percent Auto 0.5 % (0-2); Eosinophils Absolute Auto 0.1 X10*3/uL (0.0-0.4); Eosinophils Percent Auto 1.8 % (0-4); Hematocrit 38.4 % (37.0-47.0); Hemoglobin 13.4 g/dl (12.0-16.0); Imm Gran Abs Auto 0.02 X10*3/uL (0.00-0.03); Imm Gran Pct Auto 0.3 % (0.0-0.4); Lymphocytes Absolute Auto 2.2 X10*3/uL (1.2-4.9); Lymphocytes Percent Auto 35.3 % (20-40); Mean Corpuscular HGB Conc 34.9 g/dl (31.0-35.0); Mean Corpuscular Hemoglobin 30.1 pg (27.0-33.0); Mean Corpuscular Volume 86.3 fL (80.0-98.0); Mean Platelet Volume 9.7 fL (9.4-12.3); Monocytes Absolute Auto 0.5 X10*3/uL (0.1-1.2); Monocytes Percent Auto 7.9 % (2-11); Neutrophils Absolute Auto 3.3 x10*3/uL (2.0-8.3); Neutrophils Percent Auto 54.2 % (45-73); Platelet Count 312 X10*3/uL (160-400); Red Blood Count 4.45 X10*6/uL (4.20-5.50); Red Cell Distribution Width 13.1 % (11.0-16.0); White Blood Count 6.1 X10*3/uL (4.8-10.8)
[2023-07-28 08:39] LABS: Rheumatoid Factor < 13.0 IU/mL (<15.0)
[2023-07-28 08:41] LABS: Alanine Aminotransferase 28 U/L (0-31); Albumin Level 4.3 g/dL (3.5-5.0); Alkaline Phosphatase 69 U/L (39-117); Anion Gap 13 (12-20); Aspartate Amino Transferase 20 U/L (5-31); Bilirubin Total 0.4 mg/dL (0.0-1.0); Blood Urea Nitrogen 20 mg/dL (9-16); C Reactive Protein 0.26 mg/dL (< or = 0.50); Calcium 9.5 mg/dL (8.4-10.2); Carbon Dioxide 26 mmol/L (22-29); Chloride 107 mmol/L (96-108); Estimated Glomerular Filt Rate > 60; Glucose Random 89 mg/dL (60-115); Potassium 3.9 mmol/L (3.3-5.1); Sodium 142 mmol/L (135-145); Total Protein 7.7 g/dL (6.5-8.0)
[2023-07-28 08:58] LABS: Erythrocyte Sedimentation Rate 13 MM/HR (0-20)
[2023-07-28 09:05] LABS: HBS Num1 61.64 mIU/mL (0-7.99); HBc Num1 0.06 S/CO (0.00-0.79); HBsAGNum1 0.41 S/CO (0.00-0.99); Hepatitis A Antibody IgM 0.55 Index (0-0.79); Hepatitis B Core Antibody Nonreactive (Nonreactive); Hepatitis B Surface Antigen Negative (Negative); ~Hepatitis A Antibody IgM Nonreactive (Nonreactive); ~Hepatitis B Surface Antibody REACTIVE (Nonreactive); ~Hepatitis C Antibody Nonreactive (Nonreactive)
[2023-07-29 19:18] LABS: Complement C3 133 mg/dL (83-193)
[2023-07-29 21:44] LABS: Prot Elec - Albumin 4.4 g/dL (3.8-4.8); Prot Elec - Alpha1 0.3 g/dL (0.2-0.3); Prot Elec - Alpha2 0.7 g/dL (0.5-0.9); Prot Elec - Beta 1 0.5 g/dL (0.4-0.6); Prot Elec - Beta 2 0.4 g/dL (0.2-0.5); Prot Elec - Gamma 1.3 g/dL (0.8-1.7); Prot Elec - Total Protein 7.6 g/dL (6.1-8.1)
[2023-07-30 13:19] LABS: IgA 258 mg/dL (47-310); IgG 1403 mg/dL (600-1640); IgM 84 mg/dL (50-300)
[2023-07-30 14:19] LABS: Cyclic Citrullinated Peptide >250 UNITS
[2023-07-31 07:14] LABS: TS Negative Control Passed; TS Panel A 1; TS Panel B 5; TS Positive Control Passed; TSpotTB Borderline (Negative)
== END 2023-07-28 07:38 | disposition home or self-care (01) ==
LOC: HO.LAB 07:37
PROVIDERS: PCP Internal Medicine; Visit Provider Nurse Practitioner Family
DX: Z11.1 Encounter for screening for respiratory tuberculosis (principal); M79.671 Pain in right foot; M79.672 Pain in left foot; M65.9 Synovitis and tenosynovitis, unspecified; R79.89 Other specified abnormal findings of blood chemistry
CPT/HCPCS: 36415; 80053; 82550; 82784; 84165; 84550; 85025; 85652; 86140; 86160; 86200; 86431; 86481; 86704; 86706; 86709; 86803; 87340

== ENCOUNTER 2023-07-29 07:25 | Outpatient (REF) | payer OTHER, SELFPAY ==
[2023-07-29 07:27] VITALS: BP 143/70; PULSE 85; RESP 16; TEMP 36.6; O2SAT 96
[2023-07-29] MEDS: Omalizumab 300 MG, Omalizumab 75 MG 375 MG SUBCUT (07:30)
== END 2023-07-29 07:26 | disposition home or self-care (01) ==
LOC: HO.MDS 07:25
PROVIDERS: Visit Provider Hospitalist
DX: J45.50 Severe persistent asthma, uncomplicated (principal)
CPT/HCPCS: 96372; J2357

== ENCOUNTER 2023-08-12 15:12 | Outpatient (REF) | payer OTHER, SELFPAY ==
[2023-08-12 15:15] VITALS: BP 129/75; PULSE 84; RESP 18; TEMP 35.9; O2SAT 96
[2023-08-12] MEDS: Omalizumab 300 MG, Omalizumab 75 MG 375 MG SUBCUT (15:17)
== END 2023-08-12 15:13 | disposition home or self-care (01) ==
LOC: HO.MDS 15:12
PROVIDERS: Visit Provider Hospitalist
DX: J45.50 Severe persistent asthma, uncomplicated (principal)
CPT/HCPCS: 96372; J2357

== ENCOUNTER 2023-09-17 07:11 | Outpatient (REF) | payer OTHER, SELFPAY ==
[2023-09-17 07:18] LABS: MANUAL DIFF FLAG NO
[2023-09-17 07:28] LABS: Basophils Percent Auto 0.6 % (0-2); Eosinophils Absolute Auto 0.1 X10*3/uL (0.0-0.4); Eosinophils Percent Auto 2.7 % (0-4); Hematocrit 37.4 % (37.0-47.0); Imm Gran Abs Auto 0.02 X10*3/uL (0.00-0.03); Imm Gran Pct Auto 0.4 % (0.0-0.4); Lymphocytes Absolute Auto 1.9 X10*3/uL (1.2-4.9); Lymphocytes Percent Auto 35.5 % (20-40); Mean Corpuscular HGB Conc 34.8 g/dl (31.0-35.0); Mean Corpuscular Hemoglobin 30.2 pg (27.0-33.0); Mean Corpuscular Volume 86.8 fL (80.0-98.0); Mean Platelet Volume 9.9 fL (9.4-12.3); Monocytes Absolute Auto 0.5 X10*3/uL (0.1-1.2); Monocytes Percent Auto 10.2 % (2-11); Neutrophils Absolute Auto 2.7 x10*3/uL (2.0-8.3); Neutrophils Percent Auto 50.6 % (45-73); Platelet Count 306 X10*3/uL (160-400); Red Blood Count 4.31 X10*6/uL (4.20-5.50); Red Cell Distribution Width 12.9 % (11.0-16.0); White Blood Count 5.3 X10*3/uL (4.8-10.8)
[2023-09-17 08:17] LABS: Alanine Aminotransferase 53 U/L (0-31); Aspartate Amino Transferase 36 U/L (5-31); C Reactive Protein 0.44 mg/dL (< or = 0.50); Estimated Glomerular Filt Rate > 60
== END 2023-09-17 07:12 | disposition home or self-care (01) ==
LOC: HO.LAB 07:11
PROVIDERS: PCP Internal Medicine; Visit Provider Nurse Practitioner Family
DX: M05.9 Rheumatoid arthritis with rheumatoid factor, unspecified (principal); Z79.899 Other long term (current) drug therapy; Z79.60 Long term (current) use of unspecified immunomodulators and immunosuppressants
CPT/HCPCS: 36415; 82565; 84450; 84460; 85025; 86140

== ENCOUNTER 2023-09-22 13:27 | Outpatient (AMB) | payer OTHER, SELFPAY ==
--- NOTE | 2023-09-22 13:39 | MHC.OFFVIS ---
Vital Signs 09/22/23 13:42 Height 4 ft 11 in BMI Reason not done Patient refused/unable BP 126/68 Pulse 74 Pulse Source Pulse Oximeter Pulse Oximetry (%) 93 Oxygen Delivery Method Room Air Comment 139lbs Intake Visit Reasons: Arthritis pain Intake Note: Patient last seen on 07/27/23, presents to office today for arthritis pain follow up and test results. Reports left foot pain/cramping Hand Trucker Required: No Accompanied by: Self / Same As Patient Allergies No Known Allergies Allergy (Verified 09/22/23 13:41) HPI Comments Details: Mrs. Lugo 57-year-old female returns today with continued complaints of left elbow and hand pain. She has a known positive CCP antibody and positive OLMAN and is being evaluated for RA. She was started on Lef last visit but she had stomach pains and self-stopped the medication. She had had courses of prednisone to treat hand pain with and the pain returns after she stops the prednisone. She is more bothered by some left elbow pain. This is upper on the lateral epicondyle, occasionally felt over the joint space. There was no injury involved. She has been off and on the prednisone many times this year for treatment of asthma. She does feel improvement on some of her joint pains when she is on the prednisone for asthma. [facility] Medical History (Updated 07/27/23 @ 16:16 [facility] Long-term use of immunosuppressant medication Seropositive rheumatoid arthritis Asthma Pleuritic chest pain COPD exacerbation Thymus hyperplasia Pulmonary nodules Degenerative arthritis of lumbar spine Personal history of nicotine dependence GERD (gastroesophageal reflux disease) NAFL (nonalcoholic fatty liver) Asthma-COPD overlap syndrome Surgical History No pertinent past surgical history Family History Father Heart attack Diabetes HTN (hypertension) Brother Liver cancer Maternal Aunt Liver cancer Breast cancer Mother Stroke Diabetes Other Asthma Social History Alcohol intake: never Patient Tobacco Use Status: Former Tobacco user Tobacco use type: Cigarette Cigarettes Per Day: 20 Years Smoked: 15 e-Cigarette/Vaping Use: Never Used Current occupational status: 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 Regular rhythm, S1-S2 heard, no murmurs, rubs or gallops. LUNG:? Clear to percussion and auscultation EXTREMITIES: No edema, no calf tenderness, normal peripheral pulses. NEURO: Oriented and alert x3. No focal weakness. Reflexes symmetric. Gait normal. SKIN: No inflammatory or neoplastic lesions. Normal color and turgor JOINT EXAM: Cervical Spine:? Full range of motion without pain; no tenderness to palpation of the cervical spine. Tenderness to palpation of the cervical spinal muscles. Thoracic Spine:?No tenderness on palpation. Lumbar Spine:? Alignment normal.? Full range of motion with mild pain at the extremes of flexion or extension. Most the pain is felt in the left lumbar region. There is some left paraspinal and posterior buttock tenderness. No swelling or redness. Hands: LEFT: Mild pain with range of motion at the 3rd and 4th fingers. Most of this is due to pain on the flexor tendon side with tenderness and no triggering over the 3rd and 4th flexor tendons. There is some slight 3rd and 4th MCP tenderness but no swelling along the tendons or the MCP region. There is slight tenderness without swelling at the 2nd, 3rd and 4th PIP joints. RIGHT: Normal pain-free range of motion without swelling. No swelling, erythema, ecchymosis or warmth. Normal pain-free range of motion. Able to make a full fist and has a good file keeper strength. Wrists: LEFT: Normal range of motion without swelling, increased warmth or erythema. No tenderness. RIGHT: Normal range of motion without tenderness, swelling, increased warmth or erythema. Elbows: Left: Mild pain at the extremes of flexion extension. Most of this is felt over the lateral aspect of the elbow. There is moderate lateral epicondylar tenderness and slight tenderness over the joint space. There is no swelling over the joint space. No redness or warmth. Right: Normal pain-free range of motion without tenderness, swelling, increased warmth or erythema over the joints. Shoulders:? Right:? Full range of motion without pain. No tenderness, weakness, swelling, increased warmth or erythema over the joints. Left: Slight pain with extremes of range of motion but most of this is felt around the elbow. Minimal anterior and subacromial tenderness without abductor weakness or swelling. No adenopathy. Hips:? Full range of motion without pain. Hip bursa:? No tenderness. Knees: LEFT:? Normal range of motion. No crepitus, effusion, swelling or tenderness. RIGHT: Normal range of motion. No crepitus, effusion, swelling or tenderness. Ankles:? Normal pain-free range of motion without tenderness, swelling, increased warmth or erythema. Feet: Normal pain-free range of motion without tenderness, swelling, increased warmth or erythema. Patient reports Achilles tenderness and stiffness on palpation Tender points:.? Mild tenderness to digital palpation at the left trapezius, left, lateral epicondyle, greater trochanter area bilaterally. ? Results Reviewed Results Reviewed: Laboratory Tests 03/18/23 07/28/23 09/17/23 13:47 08:02 07:17 WBC 5.3 RBC 4.31 Hgb 13.0 Hct 37.4 Creatinine 0.73 Estimated GFR > 60 AST 36 H ALT 53 H C-Reactive Protein 0.44 Cycl Citrul Peptide IgG >250 H OLMAN Titer 1:160 H Complement C3 133 Complement C4 26 TB Test (T-Spot) Com Borderline A Assessment & Plan Assessment & Plan (1) Cyclic citrullinated peptide (CCP) antibody positive: Comment: negative rheumatoid factor. No peripheral synovitis Code(s): R79.89 - Other specified abnormal findings of blood chemistry Category: Medical (2) Left lateral epicondylitis: Code(s): M77.12 - Lateral epicondylitis, left elbow Category: Medical (3) Bilateral foot pain: Code(s): M79.671 - Pain in right foot; M79.672 - Pain in left foot Category: Medical (4) Seropositive rheumatoid arthritis: Code(s): M05.9 - Rheumatoid arthritis with rheumatoid factor, unspecified Category: Medical Plan #SeroPos RA:Foot Pain/Elbow/+CCP: The patient continues with lateral epicondylitis of the left elbow, thickening of bilateral 2nd and 3rd MCP and Achilles tenderness and stiffness. LEF caused stomach pain and cramps and she also developed transaminitis. I will try her on RINVOQ 15 mg QD as a trial to see if she improves. Patient is amenable to this plan. #[facility] Use: I obtain baseline labs to re-evaluate after using Leflunomide. There is mild Transaminitis. I will monitor closely on RINVOQ trial. Obtain labs after the 28 days on RINVOQ. I discussed at length with patient the possible side effects of RINVOQ, to include but not limited to, nausea, vomiting, and diarrhea. Should she develop any rashes, stop taking the medications immediately and call the office. I will recheck her labs CBC and CMP in 4 weeks. The patient should hold the medication if she develops a fever, and infection, needs surgery, are has a nonhealing wound. I spent 20 minutes reviewing history, evaluating patient, and documenting Orders: Orders Complete Blood Count Auto Diff 09/22/23 M05.9 - Rheumatoid arthritis with rheumatoid factor, unspecified Comprehensive Met. Panel 09/22/23 M05.9 - Rheumatoid arthritis with rheumatoid factor, unspecified Erythrocyte Sedimentation Rate 09/22/23 M05.9 - Rheumatoid arthritis with rheumatoid factor, unspecified C Reactive Protein 09/22/23 M05.9 - Rheumatoid arthritis with rheumatoid factor, unspecified Medications: New upadacitinib ER (Rinvoq) Sample Lot# [id number] Exp 10/08/2024, Sample Lot# [id number] Exp 02/05/2025 15 mg PO DAILY 28 tabs 0RF M05.9 - Rheumatoid arthritis with rheumatoid factor, unspecified Discontinued leflunomide Discontinued Reason: Doctor's Order 20 mg (2 x 10 mg) PO DAILY 32 tabs 0RF M05.9 - Rheumatoid arthritis with rheumatoid factor, unspecified Coding Level of Care Code Est Pt Level 3 (40474) Complex EM visit Add On G2211 Diagnoses Cyclic citrullinated peptide (CCP) antibody positive R79.89 Left lateral epicondylitis M77.12 Bilateral foot pain M79.671; M79.672 Seropositive rheumatoid arthritis M05.9
[2023-09-22 13:42] VITALS: BP 126/68; PULSE 74; O2SAT 93
== END 2023-09-22 14:32 | disposition home or self-care (01) ==
LOC: HO.RHE 13:27
PROVIDERS: PCP Internal Medicine; Visit Provider Nurse Practitioner Family
DX: R79.89 Other specified abnormal findings of blood chemistry (principal); M77.12 Lateral epicondylitis, left elbow; M79.671 Pain in right foot; M79.672 Pain in left foot; M05.79 Rheumatoid arthritis with rheumatoid factor of multiple sites without organ or systems involvement
CPT/HCPCS: 99213; G2211

== ENCOUNTER → 2023-09-22 13:27 | Outpatient (BNVA) | payer OTHER, SELFPAY | PROVIDERS: PCP Internal Medicine; Visit Provider Nurse Practitioner Family ==

== ENCOUNTER 2023-10-25 14:38 | Outpatient (AMB) | payer OTHER, SELFPAY ==
[2023-10-25 14:46] VITALS: PULSE 78; O2SAT 95; BMI 27.5
--- NOTE | 2023-10-25 14:46 | MHC.OFFVIS ---
Vital Signs 10/25/23 14:46 Height 4 ft 11 in Weight 136 lb BMI 27.5 Pulse 78 Pulse Source Pulse Oximeter Pulse Oximetry (%) 95 Oxygen Delivery Method Room Air Intake Visit Reasons: asthma Lasting Floorworker Required: No Allergies No Known Allergies Allergy (Verified 10/25/23 14:47) HPI Comments Details: The patient is a 57-year-old woman with a known history of COPD. She has been developing worsening shortness of breath in addition to chest tightness. [id number]-vn-[id number] severity. She has been using her rescue inhaler on a daily basis. In the past he has use Spiriva in addition to Breo. They have been helpful. 07/03/2021 the patient is here for a pulmonary follow-up visit. She has been complaining of worsening chest tightness and also back pain. Moderate severity. Last night she had to sleep on the floor because of the back pain was so significant. She also complains of increasing coughing with chest congestion. She has been spitting up more phlegm. She continues use her Dulera with good effect. I did encourage her to use it twice a day. in addition to that we had referred her to the lung cancer screening program. I believe they are trying get in touch with her. However will go ahead and we refer her to the program in order for her to get stab worsen start getting her low-dose CT scans. in the meantime is encouraging the patient was able to quit smoking recently. On examination she does have reproducible back pain primarily in the midthoracic area. She does have tenderness to palpation. 07/31/2022 the patient is here for pulmonary follow-up visit. The patient is doing very well from a respiratory status. The main is respiratory medicine has been affecting beneficial. She has not had to use her rescue inhaler. More of her complaints right now are back pain and knee pain. She is currently working with the technology applications engineer regarding these issues. She recently had an MRI and also x-rays that will be following up. In the meantime she also underwent a CT scan of the chest as part of the lung cancer screening program. She has multiple pulmonary nodules that are subcentimeter in nature and very small and not concerning. Still that will need follow-up. 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 Clinically the patient denies any neuropathies. Will go ahead and plan to repeat her low-dose CT scan sometime in April 2023 at that point we can reassess the thymic tissue. If the patient develops any issues prior to that we can always do a chest MRI to further address this issue. For now, will just wait for the CT scan in the upcoming appointment in April of this year. 03/18/2023 the patient is here for sick visit. She started developing worsening shortness of breath and cough. She has also complained of increased wheezing. She has been having to use her nebulizer therapy more often. The cough is persistent. Moderate severity. Now she is complaining of right-sided pleuritic chest discomfort. Moderate severity. Denies any fevers or chills. She did test negative for COVID-19. In addition to this the patient was approved to start Xolair. She has severe allergies to her dog. She also has allergies to cats. Her IgE level significantly elevated above 1000. She needs to start Xolair. It was already approved and she will start once she completes the course of prednisone. I am hopeful that her symptoms improved when she starts Xolair. In the meantime will provide her with prednisone and also she will undergo blood work. We will check a D-dimer. If her D-dimer is elevated she will need a CTA to rule out potentially blood clots. Otherwise she will have a regular x-ray. 04/30/2023 the patient is here for a pulmonary follow-up visit. She continues to have some respiratory symptoms. Chest tightness and intermittent wheezing. Ifcx-qw-saaazvnz severity. She has been on Dulera. It also has been on the high does Xolair every 2 weeks. She has yet to see any significant improvement while on the Xolair. I did encourage her that is only been a couple months. Will have to wait at least 6 months to see the effects of the biologic therapy. In the meantime will going to go ahead and maximize her respiratory therapy by switching her over to breztri. I am hopeful that with the addition of the long-acting muscarinic antagonist some of the respiratory symptoms will subside. The patient is also complaining that she is getting 3 shots of the Xolair every 2 weeks. This is because of her high dose. Will will talk to the [employer] to see if there is any other options. I do believe that the pipeline will be able to switch her to 2 shots every 2 weeks but for now will keep her on the current dose. She is participating in the lung cancer screening program. His CT scan is in April. Will have to follow-up with that and also follow-up with her thymus gland was noted to be abnormal on her last CT scan. If it worsens or from comes concerning in appearance then an MRI would be more suitable. 10/25/2023 the patient is here for a pulmonary follow-up visit. The patient overall is doing better from a respiratory status. She is responding well to the Xolair injections. She does receive every 2 weeks. Her allergy symptoms have improved dramatically. However, still requiring rescue inhalers and maintenance inhalers as she continues to have some asthma symptoms in addition to some allergy symptoms. Will go ahead and refer her to an information technology internship this time. The patient is also dealing with her significant rheumatoid arthritis. she is working closely Rheumatology to find a regimen that works well for her. Will be important to decrease the connective tissue disease activity to minimize potential extra articular manifestations such as in the lungs. The patient is a former smoker. She was participating in the lung cancer screening program. Her last CT scan was back in 2021. She needs to go back to the program. I did reach out to the coordinator to get her scheduled. [facility] Medical History (Updated 07/27/23 @ 16:[address] [facility]) Long-term use of immunosuppressant medication Seropositive rheumatoid arthritis Asthma Pleuritic chest pain COPD exacerbation Thymus hyperplasia Pulmonary nodules Degenerative arthritis of lumbar spine Personal history of nicotine dependence GERD (gastroesophageal reflux disease) NAFL (nonalcoholic fatty liver) Asthma-COPD overlap syndrome Surgical History No pertinent past surgical history Family History Father Heart attack Diabetes HTN (hypertension) Brother Liver cancer Maternal Aunt Liver cancer Breast cancer Mother Stroke Diabetes Other Asthma Social History Alcohol intake: never Patient Tobacco Use Status: Former Tobacco user Tobacco use type: Cigarette Cigarettes Per Day: 20 Years Smoked: 15 e-Cigarette/Vaping Use: Never Used Current occupational status: 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 Review of Systems Const Reports fatigue, Denies fever(s) and Denies night sweats ENT Denies change in voice, Denies lip swelling, Denies mouth pain, Reports nasal congestion and Reports nasal discharge Card Denies dyspnea Resp Denies chest congestion, Reports cough, Denies dyspnea and Reports wheezing GI Denies abdominal pain Musc Reports back pain, Reports myalgias, Reports arthralgias and Reports joint swelling Neuro Denies Neuro-related abnormal movements Psych Denies no additional complaints Endo Reports fatigue Rolo/Lymph Denies easy bleeding and Denies lymphadenopathy Aller/Immun Denies lip swelling and Reports wheezing Physical Exam Vital Signs: Last Vital Signs Pulse 78 10/25/23 14:46 Pulse Ox 95 10/25/23 14:46 Oxygen Delivery Method Room Air 10/25/23 14:46 BMI result Body Mass Index 27.5 Const General: alert Neck Neck: Yes normal visual inspection, Yes full ROM and Yes no lymphadenopathy Chest Chest palpation & inspection: normal inspection of the chest Resp Effort & Inspection: normal respiratory effort Auscultation: no wheezes and diminished lung sounds Cardio Rate: regular rate Rhythm: regular rhythm Heart sounds: S1 normal heart sound present and S2 normal heart sound present GI Palpation (GI): Soft to palpation and nontender Auscultation: normal bowel sounds Back/Spine/Pelvis Thoracic/Lumbar Spine: thoracic spinal tenderness Skin General skin exam: rashes and/or lesions noted Assessment & Plan Assessment & Plan (1) Asthma: Code(s): J45.909 - Unspecified asthma, uncomplicated Category: Medical Qualifiers: Asthma complication type: uncomplicated Asthma persistence: persistent Asthma severity: moderate Qualified Code(s): J45.40 - Moderate persistent asthma, uncomplicated (2) Pulmonary nodules: Code(s): R91.8 - Other nonspecific abnormal finding of lung field Category: Medical (3) Thymus hyperplasia: Code(s): E32.0 - Persistent hyperplasia of thymus Category: Medical (4) Asthma-COPD overlap syndrome: Code(s): J44.9 - Chronic obstructive pulmonary disease, unspecified Category: Medical Plan continue Xolair [id number] 375mg Q2 weeks (will try to get 300mg vials to cut down 3->2 shots) Epi pen continue Breztri short-acting beta agonist as needed LDCT Trazadone for sleep Allergy referral follow-up 8 months Orders: Referrals Allergy & Immunology Referral J45.909 - Unspecified asthma, uncomplicated Medications: Discontinued trazodone Discontinued Reason: Doctor's Order 50 mg PO BEDTIME 30 days 30 tabs 6RF Coding Level of Care Code Est Pt Level 4 (59032) Diagnoses Moderate persistent asthma without complication J45.40 Asthma complication type: uncomplicated Asthma persistence: persistent Asthma severity: moderate Pulmonary nodules R91.8 Thymus hyperplasia E32.0 Asthma-COPD overlap syndrome J44.9 Time Spent (min) 17
== END 2023-10-25 15:24 | disposition home or self-care (01) ==
PROVIDERS: PCP Internal Medicine; Visit Provider Hospitalist
DX: J45.40 Moderate persistent asthma, uncomplicated (principal); R91.8 Other nonspecific abnormal finding of lung field; E32.0 Persistent hyperplasia of thymus; J44.9 Chronic obstructive pulmonary disease, unspecified
CPT/HCPCS: 99214

== ENCOUNTER → 2023-10-25 14:38 | Outpatient (BNVA) | payer OTHER, SELFPAY | PROVIDERS: PCP Internal Medicine; Visit Provider Hospitalist ==

== ENCOUNTER 2023-11-05 10:57 | Outpatient (AMB) | payer OTHER, SELFPAY ==
[2023-11-05 11:16] VITALS: BP 126/68; PULSE 81; O2SAT 96; BMI 28.0
--- NOTE | 2023-11-05 11:16 | MHC.OFFVIS ---
Vital Signs 11/05/23 11:16 Height 4 ft 11 in Weight 138 lb 14.259 oz BMI 28.0 BP 126/68 Blood Pressure Location Rt brachial Position Sitting Pulse 81 Pulse Source Pulse Oximeter Pulse Oximetry (%) 96 Oxygen Delivery Method Room Air Intake Visit Reasons: RA/ Rinvoq Sample Trial Liability Analyst Required: No Accompanied by: Self / Same As Patient Allergies No Known Allergies Allergy (Verified 11/05/23 11:17) Medication List - Last Reconciled 11/05/23 by Santos Coates MD acetaminophen-codeine 300-15 mg 1 tab PO Q8H PRN 10 days albuterol sulfate 90 mcg/actuation 2 puffs PO Q4-6H PRN arm brace (ИВАН Elbow Brace) wear when using the left hand aspirin 81 mg PO DAILY pwuyhznavw-gbnixnmz-jrlstxqlzv 160-9-4.8 mcg/actuation (Breztri Aerosphere) 2 inhalations inhalation BID 30 days cholecalciferol (vitamin D3) 50 mcg PO DAILY 90 days clotrimazole-betamethasone 1-0.05 % appl topical epinephrine (EpiPen 2-Blaine) 0.3 mg (0.3 mL) IM Q10M PRN 30 days ergocalciferol (vitamin D2) 1,250 mcg PO QWEEK hydrocortisone 2.5% 1 appl topical BID PRN inhalational spacing device ([facility] spacer) As directed losartan 25 mg PO DAILY mometasone-formoterol 200-5 mcg/actuation (Dulera) 2 puffs inhalation Q12H 30 days omalizumab (Xolair) 375 mg subcut Q2W 4 weeks omeprazole 40 mg PO DAILY 90 days quetiapine 25 mg PO BEDTIME upadacitinib ER (Rinvoq) 15 mg PO DAILY HPI Comments Details: Ms. Caraballo 57-year-old female with seropositive RA who returns for follow-up. She has been taking Rinvoq regularly for 27 days. She states that she feels 80% improved. She has less pain and swelling in her hands fingers ankles and feet. The swelling of her left elbow has come down and does not have daily pain in the elbow. She gets cramps pains of her feet, Overall feeling better. 09/22/2023: Daija Mrs. Lugo 57-year-old female returns today with continued complaints of left elbow and hand pain. She has a known positive CCP antibody and positive OLMAN and is being evaluated for RA. She was started on Lef last visit but she had stomach pains and self-stopped the medication. 03/09/2023 Dr. Kenny: The patient returns today complaining of left elbow and hand pain. She has a known positive CCP antibody and positive OLMAN. She was last seen in September and given a course of prednisone for some flexor tenosynovitis involving the left hand. That apparently did help the hand but her symptoms returned in the last month particularly with pain along the 3rd and 4th fingers in the left hand. She does not have any catching that is regularly occurring in those fingers. She is more bothered by some left elbow pain. This is upper on the lateral epicondyle, occasionally felt over the joint space. There was no injury involved. She has been off and on the prednisone many times this year for treatment of asthma. Presently she says the asthma is doing okay but she finished the prednisone course about a week ago. She has been missing work she says because of the asthma and sometimes because of the joint pains. [facility] Medical History (Updated 11/05/23 @ 11:36 by Santos Coates MD) Seropositive rheumatoid arthritis Long-term use of immunosuppressant medication Pleuritic chest pain Thymus hyperplasia Asthma-COPD overlap syndrome Asthma Pulmonary nodules Personal history of nicotine dependence GERD (gastroesophageal reflux disease) NAFL (nonalcoholic fatty liver) Degenerative arthritis of lumbar spine Surgical History History of colonoscopy Family History Father Heart attack Diabetes HTN (hypertension) Brother Liver cancer Maternal Aunt Liver cancer Breast cancer Mother Stroke Diabetes Other Asthma Social History Alcohol intake: never Patient Tobacco Use Status: Former Tobacco user Tobacco use type: Cigarette Cigarettes Per Day: 20 Years Smoked: 15 e-Cigarette/Vaping Use: Never Used 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 Regular rhythm, S1-S2 heard, no murmurs, rubs or gallops. LUNG:? Clear to percussion and auscultation EXTREMITIES: No edema, no calf tenderness, normal peripheral pulses. NEURO: Oriented and alert x3. No focal weakness. Reflexes symmetric. Gait normal. SKIN: No inflammatory or neoplastic lesions. Normal color and turgor JOINT EXAM: Cervical Spine:? Full range of motion without pain; no tenderness to palpation of the cervical spine. Tenderness to palpation of the cervical spinal muscles. Thoracic Spine:?No tenderness on palpation. Lumbar Spine:? Alignment normal.? Full range of motion with mild pain at the extremes of flexion or extension. Most the pain is felt in the left lumbar region. There is some left paraspinal and posterior buttock tenderness. No swelling or redness. Hands: LEFT: Mild pain with range of motion at the 3rd and 4th fingers. Most of this is due to pain on the flexor tendon side with tenderness and no triggering over the 3rd and 4th flexor tendons. There is some slight 3rd and 4th MCP tenderness but no swelling along the tendons or the MCP region. There is slight tenderness without swelling at the 2nd, 3rd and 4th PIP joints. RIGHT: Normal pain-free range of motion without swelling. No swelling, erythema, ecchymosis or warmth. Normal pain-free range of motion. Able to make a full fist and has a good whip sawyer strength. Wrists: LEFT: Normal range of motion without swelling, increased warmth or erythema. No tenderness. RIGHT: Normal range of motion without tenderness, swelling, increased warmth or erythema. Elbows: Left: Mild pain at the extremes of flexion extension. Most of this is felt over the lateral aspect of the elbow. There is moderate lateral epicondylar tenderness and slight tenderness over the joint space. There is no swelling over the joint space. No redness or warmth. Right: Normal pain-free range of motion without tenderness, swelling, increased warmth or erythema over the joints. Shoulders:? Right:? Full range of motion without pain. No tenderness, weakness, swelling, increased warmth or erythema over the joints. Left: Slight pain with extremes of range of motion but most of this is felt around the elbow. Minimal anterior and subacromial tenderness without abductor weakness or swelling. No adenopathy. Hips:? Full range of motion without pain. Hip bursa:? No tenderness. Knees: LEFT:? Normal range of motion. No crepitus, effusion, swelling or tenderness. RIGHT: Normal range of motion. No crepitus, effusion, swelling or tenderness. Ankles:? Normal pain-free range of motion without tenderness, swelling, increased warmth or erythema. Feet: Normal pain-free range of motion without tenderness, swelling, increased warmth or erythema. Patient reports Achilles tenderness and stiffness on palpation Tender points:.? Mild tenderness to digital palpation at the left trapezius, left, lateral epicondyle, greater trochanter area bilaterally. ? Const General: cooperative, healthy appearing and comfortable Nutritional Appearance: overweight Orientation/consciousness: patient oriented x3 Limitations: no limitations HEENT Head: Yes normocephalic and Yes atraumatic Mouth: moist mucous membranes Resp Effort & Inspection: normal respiratory effort and able to speak in complete sentences Auscultation: clear to auscultation bilaterally Cardio Rate: regular rate Rhythm: regular rhythm Skin General skin exam: no rashes or lesions noted Neuro General: patient oriented x3 Extrem Other: Right wrist tenderness and pain with flexion-extension but no swelling Second through 5th MCP tenderness with no swelling Second through 5th PIP tenderness with no swelling Normal range of motion of right elbow without pain Normal painful range of motion of shoulders Mild swelling after the left lateral epicondyle, minimally tender to palpation with positive resisted wrist extension test Left wrist tenderness to palpation and pain with flexion and extension Left 2nd through 5th PIP tenderness no swelling Bilateral knee pain with full flexion Bilateral 2nd 3rd and 4th MTP tenderness Mild swelling of left foot toes Results Reviewed Results Reviewed: Laboratory Tests 03/18/23 07/28/23 09/17/23 13:47 08:02 07:17 WBC 5.3 RBC 4.31 Hgb 13.0 Hct 37.4 Creatinine 0.73 Estimated GFR > 60 AST 36 H ALT 53 H C-Reactive Protein 0.44 Cycl Citrul Peptide IgG >250 H OLMAN Titer 1:160 H Complement C3 133 Complement C4 26 TB Test (T-Spot) Com Borderline A Assessment & Plan Assessment & Plan (1) Seropositive rheumatoid arthritis: Comment: -ve RF +++CCP dx 07/2023 Leflunomide 07/2023 DC 09/2023 d.t. transaminitis Rinvoq 09/2023 effective Code(s): M05.9 - Rheumatoid arthritis with rheumatoid factor, unspecified Category: Medical Plan: This is a 57-year-old female with seropositive RA who presents for follow-up. Since her 1st visit with me. She used to see Daija Colmenares. She has been on Rinvoq for 27 days now with 80% symptomatic improvement. It was provided as a sample. On exam has 1 swollen joint but multiple tender joints. At this point, patient could not tolerate leflunomide due to transaminitis. She has done quite well on Rinvoq and has only been on it for 4 weeks. Will start prior authorization for Rinvoq. Labs today and before next visit in 10 weeks (2) Long-term use of immunosuppressant medication: Code(s): Z79.60 - FDC (current) use of unspecified immunomodulators and immunosuppressants Category: Medical (3) Latent tuberculosis by blood test: Code(s): Z22.7 - Latent tuberculosis Category: Medical Plan: T spot test was borderline. Will repeat. Her chest x-ray this year was did not show any signs suggestive of TB (4) Cyclic citrullinated peptide (CCP) antibody positive: Comment: negative rheumatoid factor. No peripheral synovitis Code(s): R79.89 - Other specified abnormal findings of blood chemistry Category: Medical (5) Left lateral epicondylitis: Code(s): M77.12 - Lateral epicondylitis, left elbow Category: Medical (6) Bilateral foot pain: Code(s): M79.671 - Pain in right foot; M79.672 - Pain in left foot Category: Medical Plan I spent 30 minutes reviewing patient's chart, evaluating patient, ordering diagnostic workup, counseling patient and documenting in the chart Orders: Orders C Reactive Protein 10 Weeks M05.9 - Rheumatoid arthritis with rheumatoid factor, unspecified, Z79.60 - ocean transportation intermediary (current) use of unspecified immunomodulators and immunosuppressants Erythrocyte Sedimentation Rate 10 Weeks M05.9 - Rheumatoid arthritis with rheumatoid factor, unspecified, Z79.60 - ocean transportation intermediary (current) use of unspecified immunomodulators and immunosuppressants Comprehensive Met. Panel Today M05.9 - Rheumatoid arthritis with rheumatoid factor, unspecified, Z79.60 - ocean transportation intermediary (current) use of unspecified immunomodulators and immunosuppressants C Reactive Protein Today M05.9 - Rheumatoid arthritis with rheumatoid factor, unspecified, Z79.60 - ocean transportation intermediary (current) use of unspecified immunomodulators and immunosuppressants T Spot TB Today Z11.7 - Encounter for testing for latent tuberculosis infection Complete Blood Count Auto Diff 10 Weeks M05.9 - Rheumatoid arthritis with rheumatoid factor, unspecified, Z79.60 - FDC (current) use of unspecified immunomodulators and immunosuppressants Comprehensive Met. Panel 10 Weeks M05.9 - Rheumatoid arthritis with rheumatoid factor, unspecified, Z79.60 - ocean transportation intermediary (current) use of unspecified immunomodulators and immunosuppressants Complete Blood Count Auto Diff Today M05.9 - Rheumatoid arthritis with rheumatoid factor, unspecified, Z79.60 - ocean transportation intermediary (current) use of unspecified immunomodulators and immunosuppressants Erythrocyte Sedimentation Rate Today M05.9 - Rheumatoid arthritis with rheumatoid factor, unspecified, Z79.60 - FDC (current) use of unspecified immunomodulators and immunosuppressants Medications: Changed From upadacitinib ER (Rinvoq) Sample Lot# [id number] Exp 10/08/2024, Sample Lot# [id number] Exp 02/05/2025 15 mg PO DAILY 28 tabs 0RF M05.9 - Rheumatoid arthritis with rheumatoid factor, unspecified To upadacitinib ER (Rinvoq) Sample Lot# [id number] Exp 02/05/2025 1 box 15 mg PO DAILY 14 tabs 0RF M05.9 - Rheumatoid arthritis with rheumatoid factor, unspecified Coding Level of Care Code Est Pt Level 4 (58693) Diagnoses Seropositive rheumatoid arthritis M05.9 Long-term use of immunosuppressant medication Z79.60 Latent tuberculosis by blood test Z22.7 Cyclic citrullinated peptide (CCP) antibody positive R79.89 Left lateral epicondylitis M77.12 Bilateral foot pain M79.671; M79.672
== END 2023-11-05 11:29 | disposition home or self-care (01) ==
PROVIDERS: PCP Internal Medicine; Visit Provider Nurse Practitioner Family
DX: M05.79 Rheumatoid arthritis with rheumatoid factor of multiple sites without organ or systems involvement (principal); Z79.60 Long term (current) use of unspecified immunomodulators and immunosuppressants; Z22.7 Latent tuberculosis; R79.89 Other specified abnormal findings of blood chemistry; M77.12 Lateral epicondylitis, left elbow; M79.671 Pain in right foot; M79.672 Pain in left foot
CPT/HCPCS: 99214

== ENCOUNTER 2023-11-05 10:57 | Outpatient (REF) | payer OTHER, SELFPAY ==
[2023-11-05 12:00] LABS: MANUAL DIFF FLAG NO
[2023-11-05 12:33] LABS: Basophils Percent Auto 0.4 % (0-2); Eosinophils Absolute Auto 0.1 X10*3/uL (0.0-0.4); Eosinophils Percent Auto 1.1 % (0-4); Hematocrit 36.7 % (37.0-47.0); Hemoglobin 12.6 g/dl (12.0-16.0); Imm Gran Abs Auto 0.02 X10*3/uL (0.00-0.03); Imm Gran Pct Auto 0.3 % (0.0-0.4); Lymphocytes Absolute Auto 2.8 X10*3/uL (1.2-4.9); Lymphocytes Percent Auto 38.8 % (20-40); Mean Corpuscular HGB Conc 34.3 g/dl (31.0-35.0); Mean Corpuscular Hemoglobin 29.9 pg (27.0-33.0); Mean Corpuscular Volume 87.2 fL (80.0-98.0); Mean Platelet Volume 10.1 fL (9.4-12.3); Monocytes Absolute Auto 0.5 X10*3/uL (0.1-1.2); Monocytes Percent Auto 7.1 % (2-11); Neutrophils Absolute Auto 3.8 x10*3/uL (2.0-8.3); Neutrophils Percent Auto 52.3 % (45-73); Platelet Count 292 X10*3/uL (160-400); Red Blood Count 4.21 X10*6/uL (4.20-5.50); Red Cell Distribution Width 13.1 % (11.0-16.0); White Blood Count 7.2 X10*3/uL (4.8-10.8)
[2023-11-05 13:08] LABS: Alanine Aminotransferase 22 U/L (0-31); Albumin Level 4.3 g/dL (3.5-5.0); Alkaline Phosphatase 68 U/L (39-117); Anion Gap 14 (12-20); Aspartate Amino Transferase 19 U/L (5-31); Bilirubin Total 0.3 mg/dL (0.0-1.0); Blood Urea Nitrogen 22 mg/dL (9-16); C Reactive Protein 0.34 mg/dL (< or = 0.50); Calcium 9.4 mg/dL (8.4-10.2); Carbon Dioxide 25 mmol/L (22-29); Chloride 108 mmol/L (96-108); Estimated Glomerular Filt Rate > 60; Glucose Random 86 mg/dL (60-115); Potassium 4.5 mmol/L (3.3-5.1); Sodium 142 mmol/L (135-145); Total Protein 7.6 g/dL (6.5-8.0)
[2023-11-05 13:14] LABS: Erythrocyte Sedimentation Rate 14 MM/HR (0-20)
[2023-11-07 22:53] LABS: TS Negative Control Passed; TS Panel A 0; TS Panel B 0; TS Positive Control Passed; TSpotTB Negative (Negative)
== END 2023-11-05 10:58 | disposition home or self-care (01) ==
LOC: HO.LAB 10:57
PROVIDERS: Absent Provider Student in an Organized Health Care Education/Training Program; PCP Internal Medicine; Visit Provider Nurse Practitioner Family
DX: Z11.7 Encounter for testing for latent tuberculosis infection (principal); M05.9 Rheumatoid arthritis with rheumatoid factor, unspecified; Z22.7 Latent tuberculosis; R79.89 Other specified abnormal findings of blood chemistry; M77.12 Lateral epicondylitis, left elbow; M79.671 Pain in right foot; M79.672 Pain in left foot; Z79.60 Long term (current) use of unspecified immunomodulators and immunosuppressants
CPT/HCPCS: 36415; 80053; 85025; 85652; 86140; 86481

== ENCOUNTER 2024-03-02 14:24 | Outpatient (AMB) | payer OTHER, SELFPAY ==
--- NOTE | 2024-03-02 14:26 | A.OFFVIS_ITS ---
Vital Signs 03/02/24 14:32 Height 4 ft 11 in Weight 142 lb 3.17 oz BMI 28.7 BP 130/74 Blood Pressure Location Lt brachial Position Sitting Respiration 18 Pulse 84 Pulse Source Pulse Oximeter Pulse Oximetry (%) 99 Oxygen Delivery Method Room Air Intake Visit Reasons: RA Intake Note: Patient presents for RA. Allergies Enbrel Adverse Reaction (Severe, Uncoded 03/02/24 14:48) Diarrhea Medication List - Last Reconciled 03/02/24 by Santos Coates MD acetaminophen-codeine 300-15 mg 1 tab PO Q8H PRN 10 days albuterol sulfate 90 mcg/actuation 2 puffs PO Q4-6H PRN arm brace (ИВАН Elbow Brace) wear when using the left hand aspirin 81 mg PO DAILY iqhkattqle-fowqdgny-vgyycdcvms 160-9-4.8 mcg/actuation (Breztri Aerosphere) 2 inhalations inhalation BID 30 days cholecalciferol (vitamin D3) 50 mcg PO DAILY 90 days clotrimazole-betamethasone 1-0.05 % appl topical epinephrine (EpiPen 2-Blaine) 0.3 mg (0.3 mL) IM Q10M PRN 30 days ergocalciferol (vitamin D2) 1,250 mcg PO QWEEK hydrocortisone 2.5% 1 appl topical BID PRN inhalational spacing device ([facility] spacer) As directed losartan 25 mg PO DAILY mometasone-formoterol 200-5 mcg/actuation (Dulera) 2 puffs inhalation Q12H 30 days omalizumab (Xolair) 375 mg subcut Q2W 4 weeks omeprazole 40 mg PO DAILY 90 days quetiapine 25 mg PO BEDTIME Rinvoq ER (upadacitinib) 15 mg PO DAILY NS HPI Comments Details: This is a 58-year-old female with seropositive RA who returns for follow-up. Enbrel was finally approved. Patient used 3 injections so far. She could not tolerate it due to significant diarrhea and headaches. Also did not help. She continues to have multiple joint pains especially her knees, her hands, fingers. [facility] Medical History Seropositive rheumatoid arthritis Long-term use of immunosuppressant medication Pleuritic chest pain Thymus hyperplasia Asthma-COPD overlap syndrome Asthma Pulmonary nodules Personal history of nicotine dependence GERD (gastroesophageal reflux disease) NAFL (nonalcoholic fatty liver) Degenerative arthritis of lumbar spine Surgical History History of colonoscopy Family History Father Heart attack Diabetes HTN (hypertension) Brother Liver cancer Maternal Aunt Liver cancer Breast cancer Mother Stroke Diabetes Other Asthma Social History Alcohol intake: never Patient Tobacco Use Status: Former Tobacco user Tobacco use type: Cigarette Cigarettes Per Day: 20 Years Smoked: 15 e-Cigarette/Vaping Use: Never Used Current occupational status: 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 Review of Systems Musc Reports arthralgias, Reports joint swelling and Reports stiffness Physical Exam Vital Signs: Last Vital Signs Pulse 84 03/02/24 14:32 Resp 18 03/02/24 14:32 BP 130/74 03/02/24 14:32 Pulse Ox 99 03/02/24 14:32 Oxygen Delivery Method Room Air 03/02/24 14:32 BMI result Body Mass Index 28.7 Const General: cooperative, healthy appearing and comfortable Nutritional Appearance: overweight Orientation/consciousness: patient oriented x3 Limitations: no limitations HEENT Head: Yes normocephalic and Yes atraumatic Mouth: moist mucous membranes Resp Effort & Inspection: normal respiratory effort and able to speak in complete sentences Skin General skin exam: no rashes or lesions noted Neuro General: patient oriented x3 Extrem Other: Bilateral wrist tenderness and pain with flexion-extension Right 2nd MCP swelling and tenderness Right 5th MCP swelling and tenderness Right 3rd PIP swelling and tenderness Left wrist tenderness to palpation and pain with flexion-extension Left 2nd MCP swelling and tenderness Fourth MCP swelling and tenderness Left 3rd PIP swelling and tenderness 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 transaminitis Rinvoq sample 09/2023 effective for a few months, denied by insurance Enbrel 01/2024 discontinued after 3 doses due to diarrhea and headaches also ineffective Code(s): M05.9 - Rheumatoid arthritis with rheumatoid factor, unspecified Category: Medical Plan: This is a 57-year-old female with seropositive RA who presents for follow-up. Patient used 3 injections of Enbrel so far. Could not tolerate it due to diarrhea and headaches. Also ineffective. She continues to have multiple swollen and tender joints on exam. We will need to change DMARDs. Patient did her best when she was taking Rinvoq samples. Start prior authorization for Rinvoq Labs before next visit in 3 months (2) Long-term use of immunosuppressant medication: Code(s): Z79.60 - senior living (current) use of unspecified immunomodulators and immunosuppressants Category: Medical Plan: Patient is aware of the black box warning of MENDOZA inhibitors including the mildly increased risk of cardiovascular events and thromboembolic phenomenon as well as mildly increased risk of malignancy. Side effects of Rinvoq were discussed with the patient in detail including increased risk of infection,, reactivation of latent TB, . Patient fully aware. Advised patient to seek medical care RADHA if patient has an infection and advised patient to stop the medication until the infection is resolved. Plan I spent 24 minutes reviewing patient's chart, evaluating patient, ordering diagnostic workup, counseling patient and documenting in the chart Medications: Changed From Rinvoq ER (upadacitinib) Sample Lot# [id number] Exp 02/05/2025 2 boxes 15 mg PO DAILY 28 tabs 0RF NS M05.9 - Rheumatoid arthritis with rheumatoid factor, unspecified To Rinvoq ER (upadacitinib) Sample Lot# [id number] Exp 02/05/2025 1 boxes 15 mg PO DAILY 14 tabs 0RF NS M05.9 - Rheumatoid arthritis with rheumatoid factor, unspecified Discontinued Enbrel SureClick (etanercept) Discontinued Reason: Doctor's Order 50 mg subcut QWEEK 4 mL 2RF NS Coding Level of Care Code Est Pt Level 4 (70599) Complex EM visit Add On G2211 Diagnoses Seropositive rheumatoid arthritis M05.9 Long-term use of immunosuppressant medication Z79.60
[2024-03-02 14:32] VITALS: BP 130/74; PULSE 84; RESP 18; O2SAT 99; BMI 28.7
== END 2024-03-02 14:50 | disposition home or self-care (01) ==
PROVIDERS: PCP Internal Medicine; Visit Provider Student in an Organized Health Care Education/Training Program
DX: M05.79 Rheumatoid arthritis with rheumatoid factor of multiple sites without organ or systems involvement (principal); Z79.60 Long term (current) use of unspecified immunomodulators and immunosuppressants
CPT/HCPCS: 99214

== ENCOUNTER → 2024-03-02 14:24 | Outpatient (BNVA) | payer OTHER, SELFPAY | PROVIDERS: PCP Internal Medicine; Visit Provider Student in an Organized Health Care Education/Training Program ==

== ENCOUNTER 2024-03-08 16:20 | Outpatient (REF) | payer OTHER, SELFPAY ==
--- NOTE | ~2024-03-08 | CT_ITS ---
EXAMINATION: CT LOW-DOSE SCREENING CHEST WITHOUT CONTRAST CLINICAL INFORMATION: Asymptomatic patient meeting criteria for lung screening. PATIENT PACK-YEAR HISTORY: 30 Current Smoker: No If former smoker, years since quittin COMPARISON: April 24, 2022 TECHNIQUE: Multidetector volumetric CT imaging of the chest is performed on a Siemens SOMATOM Definition scanner without contrast using low dose technique. Additional 2D coronal and sagittal reformatted images and axial 3D maximum intensity projection (MIP) images are generated on the CT workstation. This CT examination was performed using dose optimization techniques as appropriate, variously including the following: *Automated exposure control *Adjustment of mA and/or kV according to patient size (this includes techniques or standardized protocols for targeted exams where dose is matched to indication/reason for exam; i.e. extremities or head) *Use of iterative reconstruction technique TOTAL EXAM DLP: 40 mGy-cm. CTDIvol: 1.02 L mGy. FINDINGS: PULMONARY NODULES: No suspicious pulmonary nodules. LUNGS: Scattered calcified granulomas. Mild centrilobular emphysema. No focal consolidation. Central airways are patent. MEDIASTINUM: Calcified mediastinal and hilar lymph nodes. CORONARY ARTERY CALCIFICATION: None visualized on this study. THYROID GLAND: Unremarkable to the extent seen. CARDIOVASCULAR STRUCTURES: Aortic and heart size normal. No pericardial effusion. CHEST WALL/AXILLA: Unremarkable. UPPER ABDOMEN: Chronic granulomatous disease of the spleen. No adrenal mass. OSSEOUS STRUCTURES: No destructive bone lesions. CT/CT lung screening IMPRESSION: No suspicious pulmonary nodule. ASSESSMENT: 1. Lung-RADS Category 2: Benign appearance or behavior of nodules. 2. Lung-RADS Category S: Negative. There are no clinically significant or potentially clinically significant findings not related to the lungs requiring urgent additional evaluation. RECOMMENDATION: Continued routine annual low-dose CT lung screening in 1 year is recommended. An order for CT CHEST LOW DOSE CANCER SCREENING ([id number]) can be placed. Electronically signed by: Sha Floyd MD 03/09/2024 11:31 AM EDT
== END 2024-03-08 16:21 | disposition home or self-care (01) ==
LOC: HO.CT 16:20
PROVIDERS: PCP Internal Medicine; Visit Provider Physician Assistant Medical
DX: Z12.2 Encounter for screening for malignant neoplasm of respiratory organs (principal); Z87.891 Personal history of nicotine dependence
CPT/HCPCS: 71271

== ENCOUNTER 2024-03-22 13:28 | Outpatient (REF) | payer OTHER, SELFPAY ==
--- NOTE | ~2024-03-22 | US_ITS ---
EXAMINATION: US TRIPLEX LOWER EXTREMITY, BILATERAL CLINICAL INFORMATION: Bilateral lower extremity edema COMPARISON: None available. TECHNIQUE: Color-flow triplex imaging with spectral analysis and compression Doppler were performed on the bilateral lower extremities. FINDINGS: Respiratory variation, normal compression and augmented flow are noted throughout the bilateral lower extremities. The visualized common femoral vein, superficial femoral vein, profunda femoral vein, popliteal vein and midcalf peroneal and posterior tibial venous segments show no evidence of deep venous thrombosis bilaterally. There is no Beavers's cyst. US/US venous duplex LE BI IMPRESSION: No evidence of deep venous thrombosis involving the bilateral lower extremities. Electronically signed by: Dhaval Mobley MD 03/22/2024 03:34 PM EST
== END 2024-03-22 13:29 | disposition home or self-care (01) ==
LOC: HO.US 13:28
PROVIDERS: PCP Internal Medicine; Visit Provider Internal Medicine Cardiovascular Disease
DX: R60.0 Localized edema (principal)
CPT/HCPCS: 93970

== ENCOUNTER 2024-03-23 10:27 | Outpatient (REF) | payer OTHER, SELFPAY ==
--- NOTE | ~2024-03-23 | MM_ITS ---
EXAMINATION: MM SCREENING DIGITAL BREAST TOMOSYNTHESIS, BILATERAL CLINICAL INFORMATION: Screening. Asymptomatic. COMPARISON: Mammography: Comparison is made with available priors TECHNIQUE: Digital breast mammography with tomosynthesis is performed in both the craniocaudal and mediolateral oblique views along with computer-aided detection (CAD). FINDINGS: The breasts are heterogeneously dense, which may obscure small masses (ACR BI-RADS breast composition Category c). There are no significant masses, abnormal calcifications, or other abnormalities. MM/MM tomosynthesis screening BI IMPRESSION: No mammographic evidence of malignancy. ASSESSMENT: BI-RADS BI-RADS 1 - Negative RECOMMENDATION: Routine annual mammography screening. 1 year F/U This examination should not preclude the clinical evaluation of a suspicious palpable abnormality. This patient's information was entered into a reminder system with a target due date for their next mammogram. Electronically signed by: Luna Watson DO 03/23/2024 11:02 AM BRII
== END 2024-03-23 10:28 | disposition home or self-care (01) ==
LOC: HO.MAMMO 10:27
PROVIDERS: PCP Internal Medicine; Visit Provider Internal Medicine
DX: Z12.31 Encounter for screening mammogram for malignant neoplasm of breast (principal)
CPT/HCPCS: 77063; 77067

== ENCOUNTER → 2024-03-23 10:30 | Outpatient (BNV) | payer OTHER, SELFPAY | PROVIDERS: PCP Internal Medicine; Visit Provider Internal Medicine | DX: Z12.31 Encounter for screening mammogram for malignant neoplasm of breast (principal) | CPT/HCPCS: 77063; 77067 ==

== ENCOUNTER 2024-04-28 08:42 | Outpatient (AMB) | payer OTHER, SELFPAY ==
--- NOTE | 2024-04-28 08:43 | MHC.OFFVIS ---
Vital Signs 04/28/24 08:44 Height 4 ft 11 in Weight 138 lb BMI 27.9 BP 132/74 Blood Pressure Location Rt brachial Position Sitting Intake Visit Reasons: skin lesion of the right cheek Intake Note: Patient scheduled today's appointment concerned with lesion on Rt lower cheek. Noticed 1wk. Denies pain,itch. Patient reports no hx of skin CA. Certified Welder Required: No Certified Welder Services: Certified Welder Present Accompanied by: Self / Same As Patient Allergies Enbrel Adverse Reaction (Severe, Uncoded 04/28/24 08:47) Diarrhea Medication List - Last Reconciled 04/28/24 by Antonio Lee MD acetaminophen-codeine 300-15 mg 1 tab PO Q8H PRN 10 days albuterol sulfate 90 mcg/actuation 2 puffs PO Q4-6H PRN arm brace (ИВАН Elbow Brace) wear when using the left hand aspirin 81 mg PO DAILY ytujugmbln-ufwqvfmb-xrazbkmwyi 160-9-4.8 mcg/actuation (Breztri Aerosphere) 2 inhalations inhalation BID 30 days cholecalciferol (vitamin D3) 50 mcg PO DAILY 90 days clotrimazole-betamethasone 1-0.05 % appl topical epinephrine (EpiPen 2-Blaine) 0.3 mg (0.3 mL) IM Q10M PRN 30 days ergocalciferol (vitamin D2) 1,250 mcg PO QWEEK hydrocortisone 2.5% 1 appl topical BID PRN inhalational spacing device ([employer] Shelley [facility] spacer) As directed losartan 25 mg PO DAILY mometasone-formoterol 200-5 mcg/actuation (Dulera) 2 puffs inhalation Q12H 30 days omalizumab (Xolair) 375 mg subcut Q2W 4 weeks omeprazole 40 mg PO DAILY 90 days quetiapine 25 mg PO BEDTIME Rinvoq ER (upadacitinib) 15 mg PO DAILY NS Rinvoq ER (upadacitinib) 15 mg PO DAILY NS HPI Comments Details: Brittney presents for evaluation of a skin lesion located in the right cheek. This was recently noted to have developed over the past several months and has gradually increased in size. She denies any pain, bleeding, or discharge. She has no prior history of skin cancers. [facility] Medical History Seropositive rheumatoid arthritis Long-term use of immunosuppressant medication Pleuritic chest pain Thymus hyperplasia Asthma-COPD overlap syndrome Asthma Pulmonary nodules Personal history of nicotine dependence GERD (gastroesophageal reflux disease) NAFL (nonalcoholic fatty liver) Degenerative arthritis of lumbar spine Surgical History History of colonoscopy Family History Father Heart attack Diabetes HTN (hypertension) Brother Liver cancer Maternal Aunt Liver cancer Breast cancer Mother Stroke Diabetes Other Asthma Social History Alcohol intake: never Patient Tobacco Use Status: Former Tobacco user Tobacco use type: Cigarette Cigarettes Per Day: 20 Years Smoked: 15 e-Cigarette/Vaping Use: Never Used 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 2 mm keratotic lesion without pigmentation, ulceration, discharge. Suggestive of a seborrheic keratosis. Resp Effort & Inspection: normal respiratory effort Neuro General: patient oriented x3 Assessment & Plan Assessment & Plan (1) Inflamed seborrheic keratosis of right cheek: Code(s): L82.0 - Inflamed seborrheic keratosis Category: Medical Plan: 2 mm skin lesion of the right cheek appears consistent with a seborrheic keratosis. I recommended observation with possible excision if the lesion continues to increase in size or develops bleeding or discharge Coding Level of Care Code New Pt Level 3 (25308) Diagnoses Inflamed seborrheic keratosis of right cheek L82.0
[2024-04-28 08:44] VITALS: BP 132/74; BMI 27.9
== END 2024-04-28 08:52 | disposition home or self-care (01) ==
PROVIDERS: PCP Internal Medicine; Visit Provider Surgery
DX: L82.0 Inflamed seborrheic keratosis (principal)
CPT/HCPCS: 99203

== ENCOUNTER 2024-05-22 09:59 | Outpatient (REF) | payer OTHER, SELFPAY ==
--- NOTE | ~2024-05-22 | XR_ITS ---
EXAMINATION: XR NASAL BONES CLINICAL INFORMATION: S09.92XA - Unspecified injury of nose, initial encounter COMPARISON: None available. TECHNIQUE: 3 views of the nasal bones were obtained. FINDINGS: There are no fractures or dislocations. No bone, joint or soft tissue abnormality is demonstrated. XR/XR nasal bones min 3V IMPRESSION: Unremarkable nasal bone examination. Electronically signed by: German Mercado MD 05/22/2024 10:31 AM BRII
== END 2024-05-22 10:00 | disposition home or self-care (01) ==
LOC: HO.XRAY 09:59
PROVIDERS: PCP Internal Medicine; Visit Provider Internal Medicine Gastroenterology
DX: S09.92XA Unspecified injury of nose, initial encounter (principal)
CPT/HCPCS: 70160

== ENCOUNTER → 2024-05-22 10:05 | Outpatient (BNV) | payer OTHER, SELFPAY | PROVIDERS: PCP Internal Medicine; Visit Provider Radiology Diagnostic Radiology | DX: S09.92XA Unspecified injury of nose, initial encounter (principal) | CPT/HCPCS: 70160 ==

== ENCOUNTER 2024-06-01 11:13 | Outpatient (AMB) | payer OTHER, SELFPAY ==
--- NOTE | 2024-06-01 11:48 | MHC.OFFVIS ---
Vital Signs 06/01/24 11:49 Height 4 ft 11 in Weight 142 lb 3.17 oz BMI 28.7 BP 132/90 H Blood Pressure Location Lt brachial Position Sitting Pulse 81 Pulse Source Pulse Oximeter Pulse Oximetry (%) 98 Oxygen Delivery Method Room Air Intake Visit Reasons: RA Intake Note: Patient presents for RA. Allergies Enbrel Adverse Reaction (Severe, Uncoded 04/28/24 08:47) Diarrhea Medication List - Last Reconciled 06/01/24 by Santos Coates MD acetaminophen-codeine 300-15 mg 1 tab PO Q8H PRN 10 days albuterol sulfate 90 mcg/actuation 2 puffs PO Q4-6H PRN arm brace (ИВАН Elbow Brace) wear when using the left hand aspirin 81 mg PO DAILY mqmsmfndmc-bnodeasd-ycmprhqheu 160-9-4.8 mcg/actuation (Breztri Aerosphere) 2 inhalations inhalation BID 30 days cholecalciferol (vitamin D3) 50 mcg PO DAILY 90 days clotrimazole-betamethasone 1-0.05 % appl topical epinephrine (EpiPen 2-Blaine) 0.3 mg (0.3 mL) IM Q10M PRN 30 days ergocalciferol (vitamin D2) 1,250 mcg PO QWEEK hydrocortisone 2.5% 1 appl topical BID PRN inhalational spacing device ([facility] spacer) As directed losartan 25 mg PO DAILY mometasone-formoterol 200-5 mcg/actuation (Dulera) 2 puffs inhalation Q12H 30 days omalizumab (Xolair) 375 mg subcut Q2W 4 weeks omeprazole 40 mg PO DAILY 90 days quetiapine 25 mg PO BEDTIME Rinvoq ER (upadacitinib) 15 mg PO DAILY NS HPI Comments Details: This is a 58-year-old female with seropositive RA who returns for follow-up. She started Rinvoq 15 mg p.o. daily about 3 months ago. Well-tolerated. She states that she feels much better overall with less swollen and tender joints. She continues however to have some achy joints especially her back, her hands, her knees. She takes ibuprofen 800 mg about twice a week as needed PFSH Medical History Seropositive rheumatoid arthritis Long-term use of immunosuppressant medication Pleuritic chest pain Thymus hyperplasia Asthma-COPD overlap syndrome Asthma Pulmonary nodules Personal history of nicotine dependence GERD (gastroesophageal reflux disease) NAFL (nonalcoholic fatty liver) Degenerative arthritis of lumbar spine Surgical History History of colonoscopy Family History Father Heart attack Diabetes HTN (hypertension) Brother Liver cancer Maternal Aunt Liver cancer Breast cancer Mother Stroke Diabetes Other Asthma Social History Alcohol intake: never Patient Tobacco Use Status: Former Tobacco user Tobacco use type: Cigarette Cigarettes Per Day: 20 Years Smoked: 15 e-Cigarette/Vaping Use: Never Used Current occupational status: 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 [employer] Review of Systems Musc Reports arthralgias and Reports stiffness Physical Exam Vital Signs: Last Vital Signs Pulse 81 06/01/24 11:49 BP 132/90 H 06/01/24 11:49 Pulse Ox 98 06/01/24 11:49 Oxygen Delivery Method Room Air 06/01/24 11:49 BMI result Body Mass Index 28.7 Const General: cooperative, healthy appearing and comfortable Nutritional Appearance: overweight Orientation/consciousness: patient oriented x3 Limitations: no limitations HEENT Head: Yes normocephalic and Yes atraumatic Mouth: moist mucous membranes Resp Effort & Inspection: normal respiratory effort and able to speak in complete sentences Skin General skin exam: no rashes or lesions noted Neuro General: patient oriented x3 Extrem Other: No wrist swelling or tenderness but there is some pain with full flexion of left wrist Right hand without any MCP joint swelling but there is tenderness in a few of her MCP and PIP joints Very subtle left 2nd MCP swelling Left 2nd through 5th MCP tenderness Left 2nd through 5th PIP tenderness without swelling 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 transaminitis Rinvoq sample 09/2023 effective for a few months, denied by insurance Enbrel 01/2024 discontinued after 3 doses due to diarrhea and headaches also ineffective Rinvoq started 02/2024 effective Code(s): M05.9 - Rheumatoid arthritis with rheumatoid factor, unspecified Category: Medical Plan: This is a 58-year-old female with seropositive RA who presents for follow-up. Started Rinvoq 15 mg p.o. daily 3 months ago with significant improvement. There is almost no swollen joints on exam but she continues to have some tender joints. Discussed with patient that we will continue to monitor her on Rinvoq monotherapy at this time but there is some room for improvement, can consider adding other DMARDs such as sulfasalazine, methotrexate or hydroxychloroquine in the future Labs before next visit in 4 months (2) Long-term use of immunosuppressant medication: Code(s): Z79.60 - scrum project manager (current) use of unspecified immunomodulators and immunosuppressants Category: Medical Plan: Patient is aware of the black box warning of MENDOZA inhibitors including the mildly increased risk of cardiovascular events and thromboembolic phenomenon as well as mildly increased risk of malignancy. Side effects of Rinvoq were discussed with the patient in detail including increased risk of infection,, reactivation of latent TB, . Patient fully aware. Advised patient to seek medical care RADHA if patient has an infection and advised patient to stop the medication until the infection is resolved. (3) Immunization counseling: Code(s): Z71.85 - Encounter for immunization safety counseling Category: Medical Plan: Patient received her flu vaccine this season. Advised patient to try to get the RSV and Shingrix vaccines Plan I spent 24 minutes reviewing patient's chart, evaluating patient, ordering diagnostic workup, counseling patient and documenting in the chart Orders: Orders Complete Blood Count Auto Diff 4 Months M05.9 - Rheumatoid arthritis with rheumatoid factor, unspecified, Z79.60 - residential (current) use of unspecified immunomodulators and immunosuppressants Comprehensive Met. Panel 4 Months M05.9 - Rheumatoid arthritis with rheumatoid factor, unspecified, Z79.60 - scrum project manager (current) use of unspecified immunomodulators and immunosuppressants C Reactive Protein 4 Months M05.9 - Rheumatoid arthritis with rheumatoid factor, unspecified, Z79.60 - residential (current) use of unspecified immunomodulators and immunosuppressants Erythrocyte Sedimentation Rate 4 Months M05.9 - Rheumatoid arthritis with rheumatoid factor, unspecified, Z79.60 - residential (current) use of unspecified immunomodulators and immunosuppressants Medications: Refilled Rinvoq ER (upadacitinib) 15 mg PO DAILY 30 tabs 5RF NS M05.9 - Rheumatoid arthritis with rheumatoid factor, unspecified Coding Level of Care Code Est Pt Level 4 (10803) Complex EM visit Add On G2211 Diagnoses Seropositive rheumatoid arthritis M05.9 Long-term use of immunosuppressant medication Z79.60 Immunization counseling Z71.85
[2024-06-01 11:49] VITALS: BP 132/90; PULSE 81; O2SAT 98; BMI 28.7
== END 2024-06-01 12:06 | disposition home or self-care (01) ==
LOC: HO.RHE 11:13
PROVIDERS: PCP Internal Medicine; Visit Provider Student in an Organized Health Care Education/Training Program
DX: M05.79 Rheumatoid arthritis with rheumatoid factor of multiple sites without organ or systems involvement (principal); Z79.60 Long term (current) use of unspecified immunomodulators and immunosuppressants; Z71.85 Encounter for immunization safety counseling
CPT/HCPCS: 99214

== ENCOUNTER → 2024-06-09 08:01 | Outpatient (REF) | payer OTHER, SELFPAY ==
--- NOTE | 2024-06-09 08:04 | CA_ITS ---
Acquisition Time: 2024-06-09 08:08:27 Total Exercise Time: 00:08:00 Test Indications: Dyspnea CP,Palpitations DIZZINESS Medications: ASA PROTONIX LOSARTAN INHALERS Protocol: BARRIE Max HR: 155 BPM 94% of Pred: 164 BPM Max BP: 164/72 mmHG Max Work Load: 10.1 METS Exercise Stress Test with exercise 8 mins of [place] Protocol, achieving 94% MPHR, with mild SOB, no chest discomfort, without any arrythmias, with normotensive response to exercise. Without EKG changes meeting criteria for ischemia. In recovery, breathing returned to baseline. Nuclear images pending. Test reviewed with . Referred By: Vahid Montanez Electronically Signed By: Tommy Roberts
== END ==
LOC: HO.CARD 08:01
PROVIDERS: PCP Internal Medicine; Visit Provider Internal Medicine Cardiovascular Disease
DX: R07.9 Chest pain, unspecified (principal)
CPT/HCPCS: 78452; 93017; A9500

== ENCOUNTER → 2024-06-22 13:49 | Outpatient (BNVA) | payer OTHER, SELFPAY | PROVIDERS: PCP Internal Medicine; Visit Provider Hospitalist | DX: J45.909 Unspecified asthma, uncomplicated (principal) ==

== ENCOUNTER 2024-08-15 07:12 | Outpatient (REF) | payer OTHER, SELFPAY ==
--- OUTSIDE RECORDS SUMMARY | 2024-08-15 07:15 | XMS_ITS | Clinical Summary ---
Author Organization [facility] Address [id number] [place] [id number] Care Team Providers Care Oncology Rep Specialist Name Role Phone Unavailable Primary Care Provider Unavailabl e Social History Tobacco Use Types Packs/Day Years Used Date Smoking Tobacco: Former Smokeless Tobacco: Former Comments Unknown Sex and Gender Information Value Date Recorded Sex Assigned at Not on file Legal Sex Female 1:09 AM EST Gender Identity Not on file Sexual Orientation Not on file Obstetrics History Plan of Treatment Health Maintenance Due Date Last Done Comments Hepatitis B Vaccines (1 of 3 - 19+ 3-dose series) 12/29/1986 Cervical Cancer Screening: P ap Smear 12/29/1988 Zoster Vaccines (1 of 2) 12/29/2017 Breast Cancer Screening 05/14/2021 05/14/20 19, 05/13/2018 COVID-19 Vaccine (4 - 2023-2 5 season) 2024 03/14/2021, 06/05/2020, 05/15/2020 Influenza Vaccine (#1) 2024 , 03/11/2021 DTaP,Tdap,and Td Vaccines (4 - Td or Tdap) 03/30/2034 03/30/2024, 02/29/2012, 02/29/2012 MMR Vaccines Aged Out 08/16/2020, 07/15/2020 No longer eligible based on patient's age to complete this topic Pneumococcal Vaccine: 50+ Years Completed 03/30/2024 Pneumococcal Vaccine: Pediatrics (0 to 5 Years) and At-Risk Patients (6 to 64 Years) Aged Out 03/30/2024 No longer eligible b ased on patient's age to complete this topic HIB Vaccines Aged Out No longer eligi ble based on patient's age to complete this topic HPV Vaccines Aged Out No longer eligi ble based on patient's age to complete this topic Hepatitis A Vaccines Aged Out No long er eligible based on patient's age to complete this topic IPV Vaccines Aged Out No longer eligi ble based on patient's age to complete this topic Meningococcal ACWY Vaccine Aged Out N o longer eligible based on patient's age to complete this topic Meningococcal B Vacine Aged Out No lo nger eligible based on patient's age to complete this topic RSV Immunization Patients Under 20 months Aged Out No longer eligible b ased on patient's age to complete this topic Varicella Vaccines Aged Out No longer eligible based on patient's age to complete this topic Procedures Procedure Name Priority Date/Time Associated Diagnosis Comments [facility] SCREENING DIGITAL Routine 05/14/2019 7:49 PM EST Encounter for screening mammogram for malignant neoplasm of breast from Last 3 Months or Most Recently Relevant to Health Maintenance Results * [facility] SCREENING DIGITAL (05/14/2019 7:49 PM EST) Anatomical Region Laterality Modality Mammography 05/08/2019 10:5 4 AM EST Narrative 05/14/2019 7:[address] [facility] Diagnostic Imaging Department [address] [place] [address] Patient: ??ANGEL COLLINS V ?/Age/Sex: 1965 - 53 - F Unit#: ??[id number] ? Location/Status: ??SPDIMAM/REG CLI ? Mnemonic/Ordering Site: ??DIGSC/SPMAM Ordering Physician: ??DIXIE MARTIN MD [facility] Screening Digital - 05/13/19 - 1 History: Bilateral breast cancer screening. Technique: ??Digital mammography. Conventional CC and MLO projections with tomosynthesis MLO views and computer aided detection. Comparison made with previous mammograms from [facility] 05/12/2018, dating back to 04/08/2009. Findings: Breast tissue consists of fatty and fibroglandular tissue with moderate complexity, potentially obscuring small lesions, category c density (as calculated by [employer] software). There is no suspicious group of microcalcification, suspicious mass, architectural distortion or suspicious change in breast density within either breast. Impression: No evidence of malignancy. BIRADS category 1; negative study, 3341F 62796, 79795 A negative mammogram in the face of a suspicious abnormality does not exclude the possibility of malignancy nor alter the indications for biopsy. Note: Patient information entered ??into a reminder system with a target due date for the next mammogram; PQRI II 7074W Dictating Physician: ??JERMAINE SCHNEIDER MD Electronically Signed by: ??JERMAINE SCHNEIDER MD Dic Date/Time: ??05/14/191947 Sign date/Time: ??05/14/191948 Procedure Note Jermaine Schneider - 05/06/2022 [facility] Diagnostic Imaging Department [address] [place], [place] [id number] Patient: ANGEL COLLINS V /Age/Sex: 1965 - 53 - F Unit#: [id number] Location/Status: [facility] Mnemonic/Ordering Site: [facility] Ordering Physician: DIXIE MARTIN MD [facility] Screening Digital - 05/13/19 - 1101 History: Bilateral breast cancer screening. Technique: Digital mammography. Conventional CC and MLO projectionswith tomosynthesis MLO views and computer aided detection. Comparison made with previous mammograms from [facility], dating back to 04/08/2009. Findings: Breast tissue consists of fatty and fibroglandular tissue with moderate complexity, potentially obscuring small lesions, category cdensity (as calculated by [employer] software). There is no suspicious group of microcalcification, suspicious mass, architectural distortion or suspicious change in breast density withineither breast. Impression: No evidence of malignancy. BIRADS category 1; negative study, 3341F 98102, 10092 A negative mammogram in the face of a suspicious abnormality does notexclude the possibility of malignancy nor alter the indications for biopsy. Note: Patient information entered into a reminder system with a targetdue date for the next mammogram; PQRI II 7025F Dictating Physician: JERMAINE SCHNEIDER MD Electronically Signed by: JERMAINE SCHNEIDER MD Dic Date/Time: 05/14/191947 Sign date/Time: 05/14/191948 Dixie Martin MD IMG BI PROCEDURES Final Resu lt from Last 3 Months or Most Recently Relevant to Health Maintenance
[2024-08-15 13:39] LABS: MANUAL DIFF FLAG NO
[2024-08-15 13:57] LABS: Basophils Percent Auto 0.3 % (0-2); Eosinophils Absolute Auto 0.1 X10*3/uL (0.0-0.4); Eosinophils Percent Auto 0.9 % (0-4); Hematocrit 36.3 % (37.0-47.0); Hemoglobin 12.3 g/dl (12.0-16.0); Imm Gran Abs Auto 0.02 X10*3/uL (0.00-0.03); Imm Gran Pct Auto 0.3 % (0.0-0.4); Lymphocytes Absolute Auto 2.5 X10*3/uL (1.2-4.9); Lymphocytes Percent Auto 37.6 % (20-40); Mean Corpuscular HGB Conc 33.9 g/dl (31.0-35.0); Mean Corpuscular Hemoglobin 29.8 pg (27.0-33.0); Mean Corpuscular Volume 87.9 fL (80.0-98.0); Mean Platelet Volume 9.5 fL (9.4-12.3); Monocytes Absolute Auto 0.5 X10*3/uL (0.1-1.2); Monocytes Percent Auto 7.3 % (2-11); Neutrophils Absolute Auto 3.6 x10*3/uL (2.0-8.3); Neutrophils Percent Auto 53.6 % (45-73); Platelet Count 291 X10*3/uL (160-400); Red Blood Count 4.13 X10*6/uL (4.20-5.50); Red Cell Distribution Width 13.1 % (11.0-16.0); White Blood Count 6.7 X10*3/uL (4.8-10.8)
[2024-08-15 14:39] LABS: Alanine Aminotransferase 21 U/L (0-31); Albumin Level 4.2 g/dL (3.5-5.0); Alkaline Phosphatase 66 U/L (39-117); Anion Gap 10 (12-20); Aspartate Amino Transferase 20 U/L (5-31); Bilirubin Total 0.2 mg/dL (0.0-1.0); Blood Urea Nitrogen 19 mg/dL (9-16); C Reactive Protein 0.36 mg/dL (< or = 0.50); Calcium 9.2 mg/dL (8.4-10.2); Carbon Dioxide 27 mmol/L (22-29); Chloride 108 mmol/L (96-108); Estimated Glomerular Filt Rate > 60; Glucose Random 85 mg/dL (60-115); Potassium 4.1 mmol/L (3.3-5.1); Sodium 141 mmol/L (135-145); Total Protein 7.3 g/dL (6.5-8.0)
[2024-08-15 14:45] LABS: Erythrocyte Sedimentation Rate 19 MM/HR (0-20)
== END 2024-08-15 07:13 | disposition home or self-care (01) ==
LOC: HO.LAB 07:12
PROVIDERS: Visit Provider Student in an Organized Health Care Education/Training Program
DX: M05.9 Rheumatoid arthritis with rheumatoid factor, unspecified (principal); Z79.60 Long term (current) use of unspecified immunomodulators and immunosuppressants
CPT/HCPCS: 36415; 80053; 85025; 85652; 86140

== ENCOUNTER 2024-08-18 09:34 | Outpatient (AMB) | payer OTHER, SELFPAY ==
--- NOTE | 2024-08-18 09:35 | MHC.OFFVIS ---
Vital Signs 08/18/24 09:38 Height 4 ft 11 in Weight 140 lb 3.424 oz BMI 28.3 BP 130/72 Blood Pressure Location Lt brachial Position Sitting Pulse 74 Pulse Source Pulse Oximeter Pulse Oximetry (%) 98 Oxygen Delivery Method Room Air Intake Visit Reasons: RA Intake Note: Patient presents today for RA. Allergies Enbrel Adverse Reaction (Severe, Uncoded 06/22/24 14:08) Diarrhea Medication List - Last Reconciled 08/18/24 by Audra Saab MD acetaminophen-codeine 300-15 mg 1 tab PO Q8H PRN 10 days albuterol sulfate 90 mcg/actuation 2 puffs PO Q4-6H PRN arm brace (ИВАН Elbow Brace) wear when using the left hand aspirin 81 mg PO DAILY tblxlkebfa-xnrlsrps-isoisbrfym 160-9-4.8 mcg/actuation ([employer]reztri [employer]) 2 inhalations inhalation BID 30 days cholecalciferol (vitamin D3) 50 mcg PO DAILY 90 days clotrimazole-betamethasone 1-0.05 % appl topical epinephrine (EpiPen 2-Blaine) 0.3 mg (0.3 mL) IM Q10M PRN 30 days ergocalciferol (vitamin D2) 1,250 mcg PO QWEEK hydrocortisone 2.5% 1 appl topical BID PRN inhalational spacing device ([facility] spacer) As directed losartan 25 mg PO DAILY mometasone-formoterol 200-5 mcg/actuation (Dulera) 2 puffs inhalation Q12H 30 days omalizumab (Xolair) 375 mg subcut Q2W 4 weeks omeprazole 40 mg PO DAILY 90 days quetiapine 25 mg PO BEDTIME Rinvoq ER (upadacitinib) 15 mg PO DAILY NS HPI Comments Details: Patient is a 58-year-old female with hypertension, asthma COPD overlap, nonalcoholic fatty liver disease, GERD and seropositive rheumatoid arthritis here today for follow up Interval History: Patient last seen 06/01/[address] Coates. At that time she was on Rinvoq 15 mg daily and is tolerating the medication. She reported feeling much better on the Rinvoq with less swollen and tender joints however continued to have some achy joints requiring ibuprofen about twice a week. On exam at that time she continued to have some tender joints and the plan was for her to continue the Rinvoq monotherapy Today, She states that the Rinvoq is helpful however she continues to have breakthrough flares on the Rinvoq. Rheumatologic History: -ve RF +++CCP dx 07/2023 Leflunomide 07/2023 DC 09/2023 d.t. transaminitis Rinvoq sample 09/2023 effective for a few months, denied by insurance Enbrel 01/2024 discontinued after 3 doses due to diarrhea and headaches also ineffective Rinvoq started 02/2024 partially effective Current Rheumatology Medication(s): Rinvoq 15 mg daily [facility] Medical History Seropositive rheumatoid arthritis Long-term use of immunosuppressant medication Pleuritic chest pain Thymus hyperplasia Asthma-COPD overlap syndrome Asthma Pulmonary nodules Personal history of nicotine dependence GERD (gastroesophageal reflux disease) NAFL (nonalcoholic fatty liver) Degenerative arthritis of lumbar spine Surgical History History of colonoscopy Family History Father Heart attack Diabetes HTN (hypertension) Brother Liver cancer Maternal Aunt Liver cancer Breast cancer Mother Stroke Diabetes Other Asthma Social History Alcohol intake: never Patient Tobacco Use Status: Former Tobacco user Tobacco use type: Cigarette Cigarettes Per Day: 20 Years Smoked: 15 e-Cigarette/Vaping Use: Never Used Current occupational status: 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 Review of Systems Const Details: Review of Systems Constitutional: Denies fever, chills, weight loss ENT: Denies vision changes, eye pain or eye redness, dental caries, dry mouth GI: Denies nausea, vomiting, diarrhea, abdominal pain, change in BM Pulm: Denies SOB, ZABALA, hemoptysis, wheezing Cards: Denies chest pain, palpitations Skin: Denies Raynaud's, rash, nail changes, photosensitivity, [employer] SYSTEMS A[employer]LYST: Denies headaches, weakness, paresthesias, recurrent falls MSK: as per HPI All other systems reviewed and are unremarkable except noted above Physical Exam Vital Signs: Last Vital Signs Pulse 74 08/18/24 09:38 BP 130/72 08/18/24 09:38 Pulse Ox 98 08/18/24 09:38 Oxygen Delivery Method Room Air 08/18/24 09:38 BMI result Body Mass Index 28.3 Vital signs reviewed Physical Examination CONSTITUITIONAL Patient alert and cooperative. Well appearing and in no apparent painful distress HEENT Conjunctiva and sclera clear. ?Pupils equal round and reactive to light. ?No lymphadenopathy. ? CHEST/RESPIRATORY SYSTEM Normal respiratory effort and able to speak in complete sentences. ?Clear to auscultation bilaterally. ?No crackles, rales, rhonchi, wheezes heard. CARDIAC SYSTEM Regular rate and rhythm. ?S1 and S2 heard no murmurs. ?Radial pulses intact bilaterally MSK Hands: ?Able to make a fist but tenderness to palpation of scattered MCPs and PIPs. Wrists: ?Full range of motion at the wrists. No synovial fullness or swelling but mild tenderness to palpation of the wrists bilaterally Elbows: Full range of motion without pain. No tenderness, weakness, swelling, increased warmth or erythema. Shoulders: Full range of motion without pain. No tenderness, weakness, swelling, increased warmth or erythema. Hips: Full range of motion without pain. Hip bursa: No tenderness to palpation Knees: ?Full range of motion. ?No tenderness, swelling, increased warmth or erythema.?No effusion or crepitations Ankles: Full range of motion. ?No tenderness, swelling, increased warmth or erythema.? Feet: ?Negative squeeze test. ?No tenderness to palpation or swelling of the MTPs. Tender points:?No tenderness to palpation of the bilateral trapezius, supraspinatus, greater trochanters, anterior costochondral junctions, bilateral gluteal areas, bilateral suboccipital muscle insertions SKIN Skin intact without rashes. Results Reviewed Results Reviewed: Laboratory Tests 08/15/24 13:38 WBC 6.7 RBC 4.13 L Hgb 12.3 Hct 36.3 L Plt Count 291 ESR 19 Sodium 141 Potassium 4.1 Chloride 108 Carbon Dioxide 27 BUN 19 H Creatinine 0.74 Calcium 9.2 Total Bilirubin 0.2 AST 20 ALT 21 Alkaline Phosphatase 66 C-Reactive Protein 0.36 Immunology labs 03/18/23 07/28/23 13:47 08:02 Rheumatoid Factor < 13.0 Cycl Citrul Peptide IgG >250 H OLMAN Screen POSITIVE A OLMAN Titer 1:160 H Complement C3 133 Complement C4 26 Infectious serologies 03/13/24 06/21/24 08:02 11:59 Hepatitis A IgM Ab Nonreactive Hep Bs Antigen Negative Hep Bs Antibody REACTIVE Hep B Core Total Ab Nonreactive Hepatitis C Ab (EIA) Nonreactive TB Test (T-Spot) Com Negative Assessment & Plan Assessment & Plan (1) Seropositive rheumatoid arthritis: Comment: -ve RF +++CCP dx 07/2023 Leflunomide 07/2023 DC 09/2023 d.t. transaminitis Rinvoq sample 09/2023 effective for a few months, denied by insurance Enbrel 01/2024 discontinued after 3 doses due to diarrhea and headaches also ineffective Rinvoq started 02/2024 effective Code(s): M05.9 - Rheumatoid arthritis with rheumatoid factor, unspecified Category: Medical Plan: #Seropositive RA Patient is a 58-year-old female with seropositive rheumatoid arthritis here today for follow up. Exam today shows mild disease activity with scattered tender joints but none swollen. We will add sulfasalazine to her regimen to see if there is any additional efficacy with this. Plan - Continue Rinvoq 15mg daily - Start sulfasalazine 500 mg b.i.d. for the 1st 2 weeks and then increase to 1000 mg b.i.d. - RTC 4 months - Labs before visit: CBC, CMP, ESR, CRP, hepatitis panel, T spot (2) Long-term current use of Janus kinase inhibitor: Code(s): Z79.622 - penitentiary (current) use of Janus kinase inhibitor Plan: #Long-term Use of MENDOZA inhibitor : Rinvoq Discussed with patient the benefits and risks of MENDOZA inhibitors for the management of the rheumatic condition Benefits include reduce pain, maintenance of remission and reduction of flares Risks include thromboembolic events, skin cancer and nonmelanoma skin cancers, other forms of cancer, cardiovascular alcohol and mortality Advise patient that they are to hold the medication and for up to 1 week after a febrile illness or an open skin wound (3) Encounter for monitoring sulfasalazine therapy: Code(s): Z51.81 - Encounter for therapeutic drug level monitoring; Z79.899 - Other intermediate accountant (current) drug therapy Plan: #Long-term Use of Sulphasalazine Discussed with patient the risks and benefits of sulfasalazine in the management of the rheumatic condition Benefits include: - Reduced pain, reduce mortality, maintenance of remission then reduction of flares Risks include: - GI upset, hemolysis (especially if G6PD deficiency), eosinophilia, headache, dizziness, rash, elevated LFTs Plan I spent 36 minutes reviewing the record and labs, taking a history, examining the patient, discussing the treatment plan, ordering diagnostic work up and documenting in the medical record Orders: Orders Complete Blood Count Auto Diff 4 Months M05.9 - Rheumatoid arthritis with rheumatoid factor, unspecified Hepatitis A,B,C Profile 4 Months M05.9 - Rheumatoid arthritis with rheumatoid factor, unspecified Comprehensive Met. Panel 4 Months M05.9 - Rheumatoid arthritis with rheumatoid factor, unspecified C Reactive Protein 4 Months M05.9 - Rheumatoid arthritis with rheumatoid factor, unspecified Erythrocyte Sedimentation Rate 4 Months M05.9 - Rheumatoid arthritis with rheumatoid factor, unspecified T Spot TB 4 Months M05.9 - Rheumatoid arthritis with rheumatoid factor, unspecified Medications: New sulfasalazine Take with food (meal/snack) Start with one tablet twice a day for 2 weeks then increase to 2 tablets twice a day 1 g (2 x 500 mg) PO BID 360 tabs 1RF M05.9 - Rheumatoid arthritis with rheumatoid factor, unspecified Refilled Rinvoq ER (upadacitinib) 15 mg PO DAILY 30 tabs 5RF NS M05.9 - Rheumatoid arthritis with rheumatoid factor, unspecified Coding Level of Care Code Est Pt Level 4 (45131) Complex EM visit Add On G2211 Diagnoses Seropositive rheumatoid arthritis M05.9 Long-term current use of Janus kinase inhibitor Z79.622 Encounter for monitoring sulfasalazine therapy Z51.81; Z79.892
[2024-08-18 09:38] VITALS: BP 130/72; PULSE 74; O2SAT 98; BMI 28.3
--- OUTSIDE RECORDS SUMMARY | 2024-08-18 10:32 | XMS_ITS | Clinical Summary ---
Author Organization [employer] Address [address] [place] [address] 7 [place] [address] Care Team Providers Care Superintendent Communications Name Role Phone Olman Coyle MD Primary Care Provider + Rony Wolff Unavailable Unavailable Allergies Active Allergy Reactions Criticality Noted Date Comments Leflunomide Other 09/15/2023 Transaminitis (rheumatology) Medications * This document contains information received from the source organization and may not represent a complete record from that organization. acetaminophen (Tylenol) 500 MG tablet take 1-2 tablet by oral route every6 -8 hours as needed not to exceed 6 tablets per 24hrs 8 Active albuterol 108 (90 Base) MCG/ACT inhaler TAKE 2 PUFFS BY MOUTH EVERY 4 TO 6 HOURS NEEDED 2 Active aspirin (Ranjan Low Dose) 81 MG EC tablet Take 1 tablet by mouth at bed time. 9 Active hydrocortisone 2.5 % cream APPLY TOPICALLY TWICE A DAY NEEDED FOR RASH 2 Active hydrocortisone (Proctosol HC) 2.5 % rectal cream Apply topically at bed time. 2 Active omeprazole (PriLOSEC) [address] capsule Take 1 capsule by mouth at bed time. 2 Active ibuprofen 800 MG tabletIndicatio ns:Chronic bilateral low back pain, unspecified whether sciatica present TAKE 1 TABLET BY MOUTH TWICE DAILY WITH BREAKFAST AND WITH EVENING MEAL FOR 10 DAYS, THEN ONLY TAKE TWICE DAILY NEEDED 60 tablet 3 Active levocetirizine (Xyzal) 5 MG tablet Take 1 tablet (5 mg) by mouth in the evening. 90 tablet 4 09/21/19 25 Active Breztri Aerosphere 160-9-4.8 MCG/ACT aerosol 2 Inhalations by Infiltration route 2 times daily. Active losartan (Cozaar) 25 MG tablet Take 25 mg by mouth Once per day. 4 Active DULoxetine (Cymbalta) [address] capsuleIndicati ons:Adjustment disorder with anxiety Take 1 capsule (30 mg) by mouth 2 times daily. Do not crush or chew. 180 capsule 3 4 Active hydrOXYzine HCl (Atarax) 10 MG tablet Take 1 tablet (10 mg) by mouth every 6 (six) hours if needed for anxiety. 100 tablet 2 4 Active QUEtiapine (SEROquel) 25 MG tablet Take 1 tablet (25 mg) by mouth at bedtime. 90 tablet 3 4 Active Menthol, Topical Analgesic, (Icy Hot) 5 % patch Use 1 patch to affected area daily prn pain 14 patch 1 4 Active Active Problems Problem Noted Date Diagnosed Date Overweight 03/30/2024 Assessment & Plan (03/30/2024 1:42 PM EST): Discussed re weight reduction options including exercise, life style modifications, and diet. Recommended to decrease soda and sugary beverage consumption, increase protein intake with meals (at least 1 portion of protein with each meal) to assist with satiety, increase dietary fiber Recommended at least 150 min/week of moderate intensity exercise. Rheumatoid arthritis of [facility] sites with negative rheumatoid factor 12/27/2023 Assessment & Plan (12/29/2023 3:03 PM EDT): Seen by [facility], on Rinvoq, doing well. Advised to request more samples at their office and await for PA approval. D/w her re holding it in case of moderate to severe infections, fever, rash. Primary hypertension 09/21/2023 Assessment & Plan (12/29/2023 3:02 PM EDT): Its repeatedly well controlled on Losartan. No change in meds Counseled re low salt diet/increase moderate physical activity. Check home BP BIW and prn CP/EMERSON/ZABALA Non smoking patient. Assessment & Plan (09/21/2023 1:41 PM EDT): Started on Losartan by acupressurist Controlled. Compliant w/meds Continue lisinopril/hydrochlorothiazide + amlodipine same dose Counseled re low salt diet/increase moderate physical activity. Check home BP BIW and prn CP/EMERSON/ZABALA Non smoking patient. Venous insufficiency of lower extremity 03/22/20 23 Assessment & Plan (03/22/2023 2:54 PM EST): Use of compression stockings Adjustment disorder with anxiety 09/25/2022 Assessment & Plan (10/04/2023 2:55 PM EDT): Although she reports prior history of anxiety and depression, that has always been manageable without treatment until current work situation. She had good initial response to Duloxetine 30 mg BID, with Hydroxyzine 10 mg 2-3 times daily. She recently experienced increasing irritability, mood swings and mood-congruent psychotic features with racing thoughts, auditory hallucinations, and a single episode of visual hallucination of a large dark figure, and poor sleep. Had excellent response to Seroquel 25 mg at bedtime with resolution of hallucinations and improved mood and anxiety. She will continue Seroquel 25 mg at bedtime and Duloxetine 30 mg BID. Since this provider will be retiring, patient is now referred back to her PCP for continued mediation management. For any issues or concerns she should contact [facility]. All her questions were answered. I have wished her well. She has also been referred for counseling and given the phone number to F/U on status of referral. She agrees with the plan. Assessment & Plan (08/09/2023 4:17 PM EDT): Although she reports prior history of anxiety and depression, that has always been manageable without treatment until current work situation. She had good initial response to Duloxetine 30 mg BID, with Hydroxyzine 10 mg 2-3 times daily. She recently experienced increasing irritability, mood swings and mood-congruent psychotic features with racing thoughts, auditory hallucinations, and a single episode of visual hallucination of a large dark figure, and poor sleep. Had excellent response to Seroquel 25 mg at bedtime with resolution of hallucinations and improved mood and anxiety. Unfortunately has recently been diagnosed with RA, experiencing significant pain and anxiety about her health. Is out of her medications, was informed erroneously by her [facility] pharmacy that no refills were available. Will now transfer to pharmacy at [facility] where she works. New Rx sent for Seroquel 25 mg at bedtime and Duloxetine 30 mg two times daily. She can F/U with counselor at work and/or call to F/u on counseling referral. She will also request FMLA paperwork from her job and bring to [facility], where I can sign based on intermittent need to miss work due to mental health condition. On 04/12/2023 provider informed pt that I would be retiring, but we would make every effort to ensure continuity of care. F/U with me in 6-8 weeks. She agrees with the plan. Assessment & Plan (05/27/2023 3:41 PM EST): Although she reports prior history of anxiety and depression, that has always been manageable without treatment until current work situation. She had good initial response to Duloxetine 30 mg BID, with Hydroxyzine 10 mg 2-3 times daily. She recently experienced increasing irritability, mood swings and mood-congruent psychotic features with racing thoughts, auditory hallucinations, and a single episode of visual hallucination of a large dark figure, and poor sleep. Had excellent response to Seroquel 25 mg at bedtime with resolution of hallucinations and improved mood and anxiety. Also continue Duloxetine 30 mg one or two times daily. She has been given the phone number to F/u on counseling referral. On 04/12/2023 provider informed pt that I would be retiring, but we would make every effort to ensure continuity of care. F/U with me in 2 months. She agrees with the plan. Assessment & Plan (04/12/2023 4:59 PM EST): Although she reports prior history of anxiety and depression, that has always been manageable without treatment until current work situation. She had good initial response to Duloxetine 30 mg BID, with Hydroxyzine 10 mg 2-3 times daily. Now with increasing irritability, mood swings and mood-congruent psychotic features with racing thoughts, auditory hallucinations, and a single episode of visual hallucination of a large dark figure. Poor sleep. Will add Seroquel 25 mg starting with 1/2 tab at bedtime, then increasing to 1 tab at bedtime. Cautioned re sedation. For now continue Duloxetine 30 mg BID, but may need to stop this if it is worsening her mood swings. Will refer again for counseling. Today 04/12/2023 provider informed pt that I would be retiring within the next year or so, but we would make every effort to ensure continuity of care. F/U with me in 6 weeks. She agrees with the plan. Assessment & Plan (02/18/2023 10:57 AM EDT): Although she reports prior history of anxiety and depression, that has always been manageable without treatment until current work situation. She had good initial response to Duloxetine 30 mg BID, with Hydroxyzine 10 mg 2-3 times daily. Notes increasing irritability. Will try increased dose of Duloxetine 30 mg 3 capsules daily, but if she feels worse to go back to BID. Will F/U re counseling referral. F/U with me in 2 months. She agrees with the plan. Assessment & Plan (12/22/2022 5:10 PM EDT): Although she reports prior history of anxiety and depression, that has always been manageable without treatment until current work situation. She has had good response to Duloxetine 30 mg BID, and will continue. Still having episodes of severe anxiety. Will start Hydroxyzine 10 mg 1/2 to 1 tab every 6 hours as needed for anxiety, cautioned about possible sedation. She has been referred for counseling. F/U with me in 2 months. She agrees with the plan. If she remains stable, will likely refer back to PCP for further med management. Assessment & Plan (12/07/2022 5:15 PM EDT): She seems to be doing better on current medications and she is able to contract for safety Needs to start counseling FU with psychopharmacology clinic Assessment & Plan (10/27/2022 4:50 PM EDT): Although she reports prior history of anxiety and depression, that has always been manageable without treatment until current work situation. She has had good response to Duloxetine 30 mg and I have reassured her that this medication is safe and not habit forming, and urged her to take twice daily regularly. Reviewed that this medication could also be helpful for chronic pain (which she does have). She will also be referred for counseling. She has reasonable insight into her situation, but would benefit from learning coping strategies and self-efficacy. F/U with me in 6-8 weeks. She agrees with the plan. If she remains stable, will likely refer back to PCP for further med management. Assessment & Plan (09/25/2022 1:12 PM EDT): Pt clearly seems to have an acute stress response with anxiety. Unclear if she may have some underlying anxiety. She feels confident about some coping mechanisms that she has discussed with counselor recently, she has crisis numbers and is able to reach out for safety. Start duloxetine 30 mg daily x 2 weeks and then advance to BID and fu with psychopharmacology clinic in 1 month. FU with me in 6 weeks. Anxiety disorder, unspecified 09/17/2022 Assessment & Plan (09/21/2023 1:42 PM EDT): - doing well on Duloxetine BID + Seroquel PRN Vitamin D deficiency 07/15/2022 Assessment & Plan (07/15/2022 1:02 PM EST): Start vitamin D supplementation x 3-6 months. Counseled outdoor exercise. FU levels 1 year. Blood urea abnormal 07/14/2022 Arthralgia 07/14/2022 Assessment & Plan (09/21/2023 1:44 PM EDT): - most likely seronegative RA, her anti CCP is positive - f/u with rhemuology, her inflammatory markers are normal so far Perimenopausal 07/14/2022 Rectal hemorrhage 07/14/2022 Shoulder pain 07/14/2022 Pelvic pain 05/25/2022 Assessment & Plan (05/25/2022 5:23 PM EST): Had recent pelvic exam and PAP by Dr Tovar. I will obtain OV notes Order abd US in view of more tender abd points on PE Hematuria 05/25/2022 Assessment & Plan (05/25/2022 5:24 PM EST): With current LBP, ro kidney stones. Order abd US Steatosis of liver 05/25/2022 Visual impairment 05/25/2022 Skin sensation disturbance 08/04/2018 Chronic obstructive lung disease 11/24/2017 Assessment & Plan (12/29/2023 3:01 PM EDT): Doing well on Breztri inh FU with Dr Zimmer Will fu Izs at next appt Eczema 11/24/2017 Granulomatous lung disease 11/24/2017 Assessment & Plan (03/30/2024 1:41 PM EST): CT scan lungs 03/08/24 stable. Fu with Pulmonology. Sprain of hip 11/24/2017 Positive OLMAN (antinuclear antibody) 06/17/2017 Lung mass 06/15/2017 Pain in left foot 06/14/2017 DUB (dysfunctional uterine bleeding) 04/22/2017 Rash 04/22/2017 Cervical radiculopathy 06/30/2016 Migraine without aura, not refractory 06/30/2016 Simple chronic bronchitis 06/30/2016 Tenosynovitis of hand 06/30/2016 Chronic bilateral low back pain 03/27/2016 Assessment & Plan (03/30/2024 1:43 PM EST): Pt has left sciatica. Advised to take Tylenol and a heat pad prn. She will start doing stretching exercises and re consult prn. 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 Counseled to use Motrin 800 mg BID x 1 week + tylenol at noon time then PRN. Recommended heat to affected area and stretching exercises. Will schedule MRI at facility. Consider epidural injections. FU with me in 1 month. Will consider prednisone x1-2 weeks if symptoms do not improve prior to MRI. Assessment & Plan (05/25/2022 5:24 PM EST): Sec to DDD spine vs referred pain form kidney stones Order abd US and MRI L-spine, may need pain clinic rx if US is nl as she didn't respond to PT Continue Ibuprofen prn Mild intermittent asthma 03/27/2016 Assessment & Plan (03/30/2024 1:45 PM EST): Well controlled Xolair xxx + Breztri inhaler. She will get PCV 20 today, declined Covid immunization, and otherwise up to date on Influenza immunization. Assessment & Plan (09/21/2023 1:39 PM EDT): - seems to be fairly controlled on Xolair - continue Breztri inhaler BID + Albuterol PRN + Xolair Assessment & Plan (03/22/2023 5:59 PM EST): Uncontrolled. FU with nursing admin, Will be started on dupixent probably Declined Covid IZ Cerebrovascular accident (CV A) due to occlusion of precerebral artery 03/27/2016 Dizziness 03/27/2016 Smoker 03/27/2016 Encounters Date Type Department Care Team Description 07/06/2024 Telephone [facility] [address] [place], [place] [phone] Olman Coyle MD September recall 06/16/2024 Telephone [facility] [address] [place] [address] Olman Coyle MD August recall 05/22/2024 Orders Only [facility] External Provider, [facility] from Last 3 Months Immunizations Name Administration Dates Next Due Influenza injectable quadriv alent preservative free 03/08/2023,03/11/2021 MMR 08/16/2020,07/15/2020 Pfizer Covid-19 Vaccine 12+ 03/14/2021,,05/15/2020 Pneumococcal Conjugate PCV 20 03/30/2024 Td (adult), 5 Lf tetanus tox oid, preservative free, adsorbed 02/29/2012 Tdap 03/30/2024,02/29/2012 Social History Tobacco Use Types Packs/Day Years Used Date Smoking Tobacco: Never Smokeless Tobacco: Never Tobacco Cessation:Counseling Given: Not Answered Alcohol Use Standard Drinks/Week Comments Not Currently 0 (1 standard drink = 0.6 oz pur e alcohol) oca Depression Answer Date Recorded Patient Health Questionnaire-9 Score 0 10/04/2023 Patient Health Questionnaire-9 Score 0 10/04/2023 Last PHQ-9: Questionnaire Data Not on file 0 10/04/2023 Housing Stability Answer Date Recorded What is your housing situation today? I have nai guevara 03/30/[address] you li ve. Do you have problems with any of the following? None of the above 03/30/2024 Food Insecurity Answer Date Recorded Within the past 12 months, y ou worried that your food would run out before you got money to buy more: Never True 03/30/2024 Within the past 12 months,th e food you bought just didn't last and you didn't have enough money to get more: Never True Transportation Answer Date Recorded In the past 12 months, has l ack of transportation kept you from medical appts, meetings, work or from getting things needed for daily living? No 03/30/2024 Utilities Answer Date Recorded In the past 12 months, has t he electric, gas, oil or water company threatened to shut off services in your home? No 03/30/2024 Depression Answer Date Recorded Patient Health Questionnaire-2 Score 0 10/04/2023 Internet Access Answer Date Recorded Internet Access Q1 No 03/30/2024 Internet Access Q2 I do not want or need it 03/17 Comments Unknown Sex and Gender Information Value Date Recorded Sex Assigned at Female 03/16/2022 10:30 AM EDT Legal Sex Female 10:30 AM EDT Gender Identity Female 03/16/2022 10:30 AM EDT Sexual Orientation Straight 03/16/2022 10 :30 AM EDT Last Filed Vital Signs Vital Sign Reading Time Taken Comments Blood Pressure 120/71 03/30/2024 12:07 PM EST Pulse 98 03/30/2024 12:07 PM EST Temperature 37 ??C (98.6 ??F) 03/30/2024 12:07 PM EST Respiratory Rate 24 03/30/2024 12:07 PM EST Oxygen Saturation 98% 03/30/2024 12:07 PM EST Inhaled Oxygen Concentration - - Weight 64.5 kg (142 lb 2 oz) 03/30/2024 12:07 PM EST Height 152.4 cm (5') 03/30/2024 12:07 PM EST Body Mass Index 27.76 03/30/2024 12:07 PM EST Plan of Treatment Health Maintenance Due Date Last Done Comments CT Colonography 1967 FIT DNA/Cologuard 1967 FIT 1967 FOBT 1967 HIV Screening 1967 Lipid Panel 1967 Sigmoidoscopy 1967 Alcohol/Substance Use Screening 1979 Hepatitis A Vaccines (1 of 2 - Risk 2-dose series) 12/29/1986 Hepatitis B Vaccines (1 of 3 - 19+ 3-dose series) 12/29/1986 Zoster Vaccines (1 of 2) 12/29/2017 COVID-19 Vaccine ( season) 2024 03/14/2021, 06/05/2020, 05/15/2020 Depression Screening 10/03/2024 10/04/2023, 10/04/19 24 Mammogram 03/23/2025 03/23/2024, 1106/2022, 03/11/2022, Additional history exists SDOH Screening 03/30/2025 03/30/2024 Tobacco Screening 03/30/2025 03/30/2024 Pap Smear 05/22/2025 05/22/2022 Cervical Cancer Screening 05/22/2027 HPV/Cotest 05/22/2027 05/22/2022 Colonoscopy 11/09/2028 11/09/2018 Colorectal Cancer Screening 11/09/2028 DTaP/Tdap/Td Vaccines (3 - Td or Tdap) 03/30/2034 03/30/2024, 02/29/2012, 02/29/2012 RSV Patients and Patients Aged 60 years or older (1 - 1-dose 75+ series) 12/29/2042 Hepatitis C Screening Completed 07/28/2023 , 06/27/2021, 06/27/2021 Influenza Vaccine Completed 02/18/2024, , 03/11/2021 Pneumococcal Vaccine: 50+ Years Completed 03/30/2024 HIB Vaccines Aged Out No longer eligi ble based on patient's age to complete this topic HPV Vaccines Aged Out No longer eligi ble based on patient's age to complete this topic IPV Vaccines Aged Out No longer eligi ble based on patient's age to complete this topic Meningococcal Vaccine Aged Out No parul ronda eligible based on patient's age to complete this topic RSV under 20 months Aged Out No longe r eligible based on patient's age to complete this topic Rotavirus Vaccines Aged Out No longer eligible based on patient's age to complete this topic Procedures Procedure Name Priority Date/Time Associated Diagnosis Comments NM HEART PERFUSION SPECT STRESS AND REST Routine 06/09/2024 8:08 AM EST XR NASAL BONES Routine 05/22/2024 10:10 AM EST BI MAMMOGRAM SCREENING TOMOSYNTHESIS BILATERAL Routine 03/23/2024 10:30 AM EST HEPATITIS PANEL, GENERAL Routine 07/28/2023 8:02 AM EDT HM PAP/HPV Routine 05/22/2022 HM COLONOSCOPY Routine 11/09/2018 from Last 3 Months or Most Recently Relevant to Health Maintenance Results * NM heart perfusion SPECT stress and rest (06/09/2024 8:08 AM EST) Anatomical Region Laterality Modality Body Nuclear Medicine 06/09/2024 8:08 AM EST Narrative 06/13/2024 4:30 PM EST ? [facility] ?[address] ?[place] [address] ?Nuclear Medicine Report ? Signed ? Patient: Ilya,Gabriela ?MR#: [id number] ?? [id number] ? : 1965 ?Acct:[id number] ? Age/Sex: 58 / F ?ADM Date: 06/09/24 ? Loc: HO.CARD ? Attending Dr: Vahid Montanez MD ? Ordering Physician: Vahid Montanez MD ?? Date of Service: 06/09/24 ?? Procedure(s): NM kalani perf SPECT rest ?? str ?? Accession Number(s): [id number] ? cc: Vahid Montanez MD; Olman Coyle MD ? EXERCISE MYOCARDIAL PERFUSION STUDY ? INDICATION: ?? Chest pain to evaluate for myocardial ischemia ? TECHNIQUE: ? The patient was brought in for an exercise perfusion study on May ?2024. Patient performed exercise as per Silvano protocol and was ?? injected ??25 mCi of sestamibi once target heart rate was achieved. ?? Images were obtained using the SPECT gamma camera interlaced with the ?? gating device. Images were obtained in supine position. ? Resting perfusion study was performed on June 13, 2024. Patient was ?? administered 25 mCi of sestamibi intravenously at rest. Images were ?? then obtained in supine position. ? Images and without CT attenuation. Total DLP 72 mGy-cm. ? Images were processed with the software and compared side to side in ?? short axis, horizontal long axis and vertical long axis views. ? FINDINGS: ? Raw images were reviewed ? The stress perfusion study showed ??both attenuated as well as ?? nonattenuated corrected images show normal uptake of radiotracer in all ?? segments of the LV myocardium. The gated study shows normal LV systolic ?? function with calculated LVEF of 55%. LV cavity is normal in size. The ?? gated study shows normal systolic ??wall thickening and contraction of ?? segments. ? Resting study shows no change in perfusion pattern compared to stress ?? perfusion study. Gating at rest reveals normal systolic wall motion ?? with ejection fraction at greater than 50%. ? The findings are consistent with normal myocardial perfusion. ? NM/NM kalani perf SPECT rest ?? str ?? IMPRESSION: ? 1. ??Myocardial perfusion imaging study shows [normal myocardial ?? perfusion. ?? 2. ??Gated LVEF is 55%. ?? 3. Transient ischemic dilatation not present. ? EKG revealed negative for ischemia. ? Electronically signed by: ??Triston Cleaning MD ??06/13/2024 04:27 PM EST RP ? Dictated By: ?Triston Cleaning MD ? Signed By: ?<Electronically signed by Triston Cleaning MD in OV> ?06/13/247 ? DD/ 0808 ? TD/TT: 06/13/24 0900 ? Transfer Station Operator: ? Procedure Note Donotcarolineinterpreter, Image - 06/13/2024 [place] [id number] Nuclear Medicine Report Signed Patient: Brittney Caraballo R#: [id number] : 1965Acct:[id number] Age/Sex: 58 / FADM Date: 06/09/24 Loc: [facility] Attending Dr: Vahid Montanez MD Ordering Physician: Vahid Montanez MD Date of Service: 06/09/24 Procedure(s): NM kalani perf SPECT rest str Accession Number(s): [id number] cc: Vahid Montanez MD; Olman Coyle MD EXERCISE MYOCARDIAL PERFUSION STUDY INDICATION: Chest pain to evaluate for myocardial ischemia TECHNIQUE: The patient was brought in for an exercise perfusion study on June 09, 2024. Patient performed exercise as per Silvano protocol and was injected 25 mCi of sestamibi once target heart rate was achieved. Images were obtained using the SPECT gamma camera interlaced with the gating device. Images were obtained in supine position. Resting perfusion study was performed on June 13, 2024. Patient was administered 25 mCi of sestamibi intravenously at rest. Images were then obtained in supine position. Images and without CT attenuation. Total DLP 72 mGy-cm. Images were processed with the software and compared side to side in short axis, horizontal long axis and vertical long axis views. FINDINGS: Raw images were reviewed The stress perfusion study showed both attenuated as well as nonattenuated corrected images show normal uptake of radiotracer in all segments of the LV myocardium. The gated study shows normal LV systolic function with calculated LVEF of 55%. LV cavity is normal in size. The gated study shows normal systolic wall thickening and contraction of segments. Resting study shows no change in perfusion pattern compared to stress perfusion study. Gating at rest reveals normal systolic wall motion with ejection fraction at greater than 50%. The findings are consistent with normal myocardial perfusion. NM/NM kalani perf SPECT rest str IMPRESSION: 1. Myocardial perfusion imaging study shows [normal myocardial perfusion. 2. Gated LVEF is 55%. 3. Transient ischemic dilatation not present. EKG revealed negative for ischemia. Electronically signed by: Triston Cleaning MD 06/13/2024 04:27 PM EST RP Dictated By: Triston Cleaning MD Signed By: <Electronically signed by Triston Cleaning MD in OV> 06/13/24 1627 DD/ 0808 TD/TT: 06/13/24 0900 Transfer Station Operator: [facility] External Provider IMG NM PROCEDURES Final Result * XR Nasal Bones (05/22/2024 10:10 AM EST) Anatomical Region Laterality Modality Head, Neck Radiographic Delmy ging 05/22/2024 10:1 0 AM EST Narrative 05/22/2024 10:34 AM EST ? [facility] ?[address] ?[place] [address] ?XRay Report ? Signed ? Patient: Ilya,Gabriela ?MR#: [id number] ?? [id number] ? : 1965 ?Acct:[id number] ? Age/Sex: 58 / F ?ADM Date: //25 ? Loc: HO.XRAY ? Attending Dr: Rufus Kendall MD ? Ordering Physician: Rufus Kendall MD ?? Date of Service: 05/22/24 ?? Procedure(s): XR nasal bones min 3V ?? Accession Number(s): [id number] ? cc: Olman Coyle MD; Rufus Kendall MD ? EXAMINATION: ?? XR NASAL BONES ? CLINICAL INFORMATION: ?? S09.92XA - Unspecified injury of nose, initial encounter ? COMPARISON: ?? None available. ? TECHNIQUE: ?? 3 views of the nasal bones were obtained. ? FINDINGS: ?? There are no fractures or dislocations. No bone, joint or soft tissue ?? abnormality is demonstrated. ? XR/XR nasal bones min 3V ?? IMPRESSION: ?? Unremarkable nasal bone examination. ? Electronically signed by: ??German Mercado MD ??05/22/2024 10:31 AM EST RP ? Dictated By: ?German Mercado MD ? Signed By: ?<Electronically signed by German Mercado MD in OV> ?05/22/24 1031 ? DD/ 1010 ? TD/TT: 05/22/24 1020 ? Transfer Station Operator: MSM ? Procedure Note Donrulaacrolinejackieter, Image - 05/22/[address] [address] XRay Report Signed Patient: Brittney Caraballo VMR#: [id number] 679 : 1965Acct:[id number] Age/Sex: 58 / FADM Date: 05/22/24 Loc: HO.XRAY Attending Dr: Rufus Kendall MD Ordering Physician: Rufus Kendall MD Date of Service: 05/22/24 Procedure(s): XR nasal bones min 3V Accession Number(s): [id number] cc: Olman Coyle MD; Rufus Kendall MD EXAMINATION: XR NASAL BONES CLINICAL INFORMATION: S09.92XA - Unspecified injury of nose, initial encounter COMPARISON: None available. TECHNIQUE: 3 views of the nasal bones were obtained. FINDINGS: There are no fractures or dislocations. No bone, joint or soft tissue abnormality is demonstrated. XR/XR nasal bones min 3V IMPRESSION: Unremarkable nasal bone examination. Electronically signed by: German Mercado MD 05/22/2024 10:31 AM EST Dictated By: German Mercado MD Signed By: <Electronically signed by German Mercado MD in OV> 05/22/24 1031 DD/ 1010 TD/TT: 05/22/24 1020 Transfer Station Operator: MSM us [facility] External Provider IMG XR PROCEDURES Edited Result - Final * BI Mammogram Screening Tomosynthesis Bilateral (03/23/2024 10:30 AM EST) Anatomical Region Laterality Modality Breast Bilateral Mammography 03/23/2024 10:3 0 AM EST Narrative 03/23/2024 11:05 AM EST ? [facility] [place] ? [address] ?[place], [place] [address] ? Mammography Report ? Signed ? Patient: Ilya,Gabriela ?MR#: [id number] ?? 679 ? : 1965 ?Acct:[id number] ? Age/Sex: 58 / F ?ADM Date: 03/23/24 ? Loc: HO.MAMMO ? Attending Dr: Olman Coyle MD ? Ordering Physician: Olman Coyle MD ?Results: 1Ne ?? gative ? Date of Service: 03/23/24 ?Follow Up: 1 Year From Orig ?? inal Mammogram ? Procedure(s): MM tomosynthesis screening BI ?? Accession Number(s): [id number] ? cc: Olman Coyle MD ? EXAMINATION: ?? MM SCREENING DIGITAL BREAST TOMOSYNTHESIS, BILATERAL ? CLINICAL INFORMATION: ? Screening. Asymptomatic. ? COMPARISON: ?? Mammography: Comparison is made with available priors ? TECHNIQUE: ?? Digital breast mammography with tomosynthesis is performed in both the ?? craniocaudal and mediolateral oblique views along with computer-aided ?? detection (CAD). ? FINDINGS: ?? The breasts are heterogeneously dense, which may obscure small masses ?? (ACR BI-RADS breast composition Category c). ? There are no significant masses, abnormal calcifications, or other ?? abnormalities. ? MM/MM tomosynthesis screening BI ?? IMPRESSION: ?? No mammographic evidence of malignancy. ? ASSESSMENT: ? BI-RADS BI-RADS 1 - Negative ? RECOMMENDATION: ?? Routine annual mammography screening. ? 1 year F/U ? This examination should not preclude the clinical evaluation of a ?? suspicious palpable abnormality. ? This patient's information was entered into a reminder system with a ?? target due date for their next mammogram. ? Electronically signed by: ??Luna Watson DO ??03/23/2024 11:02 AM EST ? Dictated By: ?Luna Watson DO ? Signed By: ?<Electronically signed by Luna Watson, DO in OV> ? 03/23/24 1102 ? DD/ 1030 ? TD/TT: 03/23/24 1048 ? Transfer Station Operator: ? Procedure Note Jose Juan, Image - 03/23/2024 [place] [address] [place] [address] Mammography Report Signed Patient: Brittney Caraballo VMR#: [id number] 679 : 1965Acct:[id number] Age/Sex: 58 / FADM Date: 03/23/24 Loc: NIK Attending Dr: Olman Coyle MD Ordering Physician: Olman Coyleesults: 1Ne gative Date of Service: 03/23/24Follow Up: 1 Year From Orig inal Mammogram Procedure(s): MM tomosynthesis screening BI Accession Number(s): [id number] cc: Olman Coyle MD EXAMINATION: MM SCREENING DIGITAL BREAST TOMOSYNTHESIS, BILATERAL CLINICAL INFORMATION: Screening. Asymptomatic. COMPARISON: Mammography: Comparison is made with available priors TECHNIQUE: Digital breast mammography with tomosynthesis is performed in both the craniocaudal and mediolateral oblique views along with computer-aided detection (CAD). FINDINGS: The breasts are heterogeneously dense, which may obscure small masses (ACR BI-RADS breast composition Category c). There are no significant masses, abnormal calcifications, or other abnormalities. MM/MM tomosynthesis screening BI IMPRESSION: No mammographic evidence of malignancy. ASSESSMENT: BI-RADS BI-RADS 1 - Negative RECOMMENDATION: Routine annual mammography screening. 1 year F/U This examination should not preclude the clinical evaluation of a suspicious palpable abnormality. This patient's information was entered into a reminder system with a target due date for their next mammogram. Electronically signed by: Luna Watson DO 03/23/2024 11:02 AM EST Dictated By: Luna Watson DO Signed By: <Electronically signed by Luna Watson DO in OV> 03/23/24 1102 DD/ 1030 TD/TT: 03/23/24 1048 Transfer Station Operator: Olman Coyle MD IMG BI PROCEDURES Edited Result - Final * Hepatitis Panel, General (07/28/2023 8:02 AM EDT) Hepatitis A IgM Nonreactive Nonreactive [facility] Comment:IgM antibodies to EMERSON V not detected; does not exclude earlyacute or recovered HAV infection. ~Hepatitis B Surface Antibody REACTIVE Nonreactive [facility] Comment:REACTIVE: > 11.99 mI U/mL Hepatitis B Core Antibody Nonreactive Nonreactive [facility] Hepatitis C Antibody Nonreactive Nonreactive [facility] Comment:Antibodies to HCV no t detected; does not exclude early acuteHCV infection. Hepatitis B Surface Ag Negative Negative [facility] 07/28/2023 8:02 AM EDT 07/28/2023 8:02 AM EDT us Generic External Data Provider LAB BLOOD ORDERAB LES Final Result [facility] [address] [place] [address] [phone] * Pap Smear (05/22/2022) Pap Negative for intraephithelial lesion or malignancy Negative for intraephithelial lesion or malignancy, Other HPV Undetected 05/22/2022 Olman Coyle MD HEALTH MAINTENANCE Final Result * Colonoscopy (11/09/2018) Colonoscopy Normal Normal 11/09/2018 Olman Coyle MD HEALTH MAINTENANCE Edite d Result - Final from Last 3 Months or Most Recently Relevant to Health Maintenance Insurance [employer] Care Teams Superintendent Communications Relationship Specialty Start Date End Date Olman Coyle MD [address] [place] [phone] PCP - General Family Medicine 05/17/18 Rony Wolff FNP [address] [place] [phone] Nurse Practitioner Family Medicine 04/05/23
--- OUTSIDE RECORDS SUMMARY | 2024-08-18 10:32 | XMS_ITS | Encounter Summary ---
Author Organization [employer] Address [address] [place] [address] [address] [place] [address] Care Team Providers Care Phototypesetting Equipment Monitor Name Role Phone Dixie Coyle MD Primary Care Provider + Rony Wolff Unavailable Unavailable Encounter Details Date Type Department Care Team (Late st Contact Info) Description 11/05/2022 Abstract [facility] MEDICINE [address] [place], [place] [phone] Dixie Coyle MD [address] [place], [place] [phone] Social History Tobacco Use Types Packs/Day Years Used Date Smoking Tobacco: Never Smokeless Tobacco: Never Alcohol Use Standard Drinks/Week Comments Never 0 (1 standard drink = 0.6 oz pur e alcohol) Comments Unknown Sex and Gender Information Value Date Recorded Sex Assigned at Female 03/16/2022 10:30 AM EDT Legal Sex Female 10:30 AM EDT Gender Identity Female 03/16/2022 10:30 AM EDT Sexual Orientation Straight 03/16/2022 10 :30 AM EDT documented as of this encounter Plan of Treatment Not on file documented as of this encounter Visit Diagnoses Not on filedocumented in this encounter Additional Health Concerns Assessment Noted Time PHQ-9 Depression Total Score: 7 10/28/19 23 3:15 PM EDT documented as of this encounter Care Teams Phototypesetting Equipment Monitor Relationship Specialty Start Date End Date Dixie Coyle MD [address] [place], [place] [phone] PCP - General Family Medicine 1/1/19 Rony Wolff FNP [address] [place] [address] Nurse Practitioner Family Medicine 04/05/23 documented as of this encounter
--- OUTSIDE RECORDS SUMMARY | 2024-08-18 10:32 | XMS_ITS | Encounter Summary ---
Author Organization [employer] Address [address] [place] [address] 7 [place] [address] Care Team Providers Care Computer Programmer Chief Name Role Phone Dixie Coyle MD Primary Care Provider + Rony Wolff Unavailable Unavailable Reason for Visit * Reason Comments Med Change Request Encounter Details Date Type Department Care Team ([facility] st Contact Info) Description 02/18/2023 Refill [facility] MEDICINE [address] [place] [address] Rony Wolff FNP Adjustment disorder with anxiety Social History Tobacco Use Types Packs/Day Years Used Date Smoking Tobacco: Never Smokeless Tobacco: Never Alcohol Use Standard Drinks/Week Comments Not Currently 0 (1 standard drink = 0.6 oz pur e alcohol) oca Depression Answer Date Recorded Patient Health Questionnaire-9 Score 10 02/18/2023 Housing Stability Answer Date Recorded What is your housing situation today? I have nai guevara 02/22/[address] you li ve. Do you have problems with any of the following? None of the above 02/22/2023 Food Insecurity Answer Date Recorded Within the past 12 months, y ou worried that your food would run out before you got money to buy more: Never True 02/22/2023 Within the past 12 months,th e food you bought just didn't last and you didn't have enough money to get more: Never True 01/2023 Transportation Answer Date Recorded In the past 12 months, has l ack of transportation kept you from medical appts, meetings, work or from getting things needed for daily living? No 02/22/2023 Utilities Answer Date Recorded In the past 12 months, has t he electric, gas, oil or water company threatened to shut off services in your home? No 02/22/2023 Depression Answer Date Recorded Patient Health Questionnaire-2 Score 4 02/18/2023 Comments Unknown Sex and Gender Information Value Date Recorded Sex Assigned at Female 03/16/2022 10:30 AM EDT Legal Sex Female 10:30 AM EDT Gender Identity Female 03/16/2022 10:30 AM EDT Sexual Orientation Straight 03/16/2022 10 :30 AM EDT documented as of this encounter Plan of Treatment Not on file documented as of this encounter Visit Diagnoses Diagnosis Adjustment disorder with anxiety documented in this encounter Additional Health Concerns Assessment Noted Time PHQ-9 Depression Total Score: 10 023 10:31 AM EDT documented as of this encounter Care Teams Computer Programmer Chief Relationship Specialty Start Date End Date Dixie Coyle MD [address] [place] [address] PCP - General Family Medicine 05/17/18 Rony Wolff FNP [address] [place] [address] Nurse Practitioner Family Medicine 04/05/23 documented as of this encounter
--- OUTSIDE RECORDS SUMMARY | 2024-08-18 10:32 | XMS_ITS | Clinical Summary ---
Author Organization [facility] [[email or web address]] Address [address] [place] [phone] Care Team Providers Care Lumber Press Operator Name Role Phone Unavailable Primary Care Provider [...] Screening 05/14/2021 05/14/20 19, 05/13/2018 COVID-19 Vaccine ( - 2023-2 5 season) 2024 03/14/2021, 06/05/2020, [...] Procedure Name Priority Date/Time Associated Diagnosis Comments [facility] SCREENING DIGITAL Routine 05/14/2019 7:49 PM EST Encounter for screening mammogram for malignant neoplasm of breast from Last 3 Months or Most Recently Relevant to Health Maintenance Results * [facility] SCREENING DIGITAL (05/14/2019 7:49 PM EST) Anatomical Region Laterality Modality Mammography 05/08/2019 10:5 4 AM EST Narrative 05/14/2019 7:49 PM EST [facility] Diagnostic Imaging Department [address] [place] [address] Patient: ??ANGEL COLLINS V ?/Age/Sex: 1965 - 53 - F Unit#: ??[id number] ? Location/Status: ??SPDIMAM/REG CLI ? Mnemonic/Ordering Site: ??DIGSC/SPMAM Ordering Physician: ??DIXIE MARTIN MD [facility] Screening Digital - 05/13/19 - 1 History: Bilateral breast cancer screening. Technique: ??Digital mammography. Conventional CC and MLO projections with tomosynthesis MLO views and computer aided detection. Comparison made with previous mammograms from [facility] 05/12/2018, dating back to 04/08/2009. Findings: Breast tissue consists of fatty and fibroglandular tissue with moderate complexity, potentially obscuring small lesions, category c density (as calculated by [employer] Digitalpara software). There is no suspicious group of microcalcification, suspicious mass, architectural distortion or suspicious change in breast density within either breast. Impression: No evidence of malignancy. BIRADS category 1; negative study, 3341F 65086, 49428 A negative mammogram in the face of a suspicious abnormality does not exclude the possibility of malignancy nor alter the indications for biopsy. Note: Patient information entered ??into a reminder system with a target due date for the next mammogram; PQRI II 7055K Dictating Physician: ??JERMAINE SCHNEIDER MD Electronically Signed by: ??JERMAINE SCHNEIDER MD Dic Date/Time: ??05/14/191947 Sign date/Time: ??05/14/191948 Procedure Note Jermaine Schneider - 05/06/2022 [facility] Diagnostic Imaging Department [address] [place], [place] [phone] Patient: ANGEL COLLINS V /Age/Sex: 1965 - 53 - F Unit#: [id number] [facility]Ordering Site: [facility] Ordering Physician: DIXIE MARTIN MD [facility] Screening Digital - 05/13/19 - 1101 History: Bilateral breast cancer screening. Technique: Digital mammography. Conventional CC and MLO projectionswith tomosynthesis MLO views and computer aided detection. Comparison made with previous mammograms [facility], dating back to 04/08/2009. Findings: Breast tissue consists of fatty and fibroglandular tissue with moderate complexity, potentially obscuring small lesions, category cdensity (as calculated by [employer] Digitalpara software). There is no suspicious group of microcalcification, suspicious mass, architectural distortion or suspicious change in breast density withineither breast. Impression: No evidence of malignancy. BIRADS category 1; negative study, 3341F 17465, 72464 A negative mammogram in the face of [...]
== END 2024-08-18 10:08 | disposition home or self-care (01) ==
LOC: HO.RHE 09:34
PROVIDERS: PCP Internal Medicine; Visit Provider Student in an Organized Health Care Education/Training Program
DX: M05.79 Rheumatoid arthritis with rheumatoid factor of multiple sites without organ or systems involvement (principal); Z79.622 Long term (current) use of Janus kinase inhibitor; Z51.81 Encounter for therapeutic drug level monitoring; Z79.899 Other long term (current) drug therapy
CPT/HCPCS: 99214

== ENCOUNTER → 2024-08-18 09:34 | Outpatient (BNVA) | payer OTHER, SELFPAY | PROVIDERS: PCP Internal Medicine; Visit Provider Student in an Organized Health Care Education/Training Program ==

== ENCOUNTER 2024-10-20 08:02 | Day surgery (SDC) | payer OTHER, SELFPAY ==
--- OUTSIDE RECORDS SUMMARY | 2024-10-03 15:23 | XMS_ITS | Clinical Summary ---
Author Organization [facility] Address [address] [place] [phone] Care Team Providers Care Medical Language Specialist Name Role Phone Unavailable Primary Care [...] season) 2024 03/14/2021, 06/05/2020, 05/15/2020 Influenza Vaccine (Season Ended) 2025 03/08/2023, 03/11/2021 DTaP,Tdap,and Td Vaccines (4 - Td [...] age to complete this topic Meningococcal B Vaccine Aged Out No l onger eligible based on patient's age to complete this topic RSV Immunization Patients Under 20 months Aged Out No longer eligible b ased on patient's age to complete this topic Varicella Vaccines Aged Out No longer eligible based on patient's age to complete this topic Procedures Procedure Name Priority Date/Time Associated Diagnosis Comments [facility] SCREENING DIGITAL Routine 05/14/2019 7:49 PM EST Encounter for screening mammogram for malignant neoplasm of breast from Last 3 Months or Most Recently Relevant to Health Maintenance Results * [facility] SCREENING DIGITAL (05/14/2019 7:49 PM EST) Anatomical Region Laterality Modality Mammography 05/08/2019 10:5 4 AM EST Narrative 05/14/2019 7:49 PM EST [facility] Diagnostic Imaging Department [address] [place] [address] Patient: ??ANGEL COLLINS V ?/Age/Sex: 1965 - 53 - F Unit#: ??[id number] ? Location/Status: ??SPDIMAM/REG CLI ? Mnemonic/Ordering Site: ??DIGSC/SPMAM Ordering Physician: ??DIXIE MARTIN MD [facility] Screening Digital - 05/13/19 - 1101 History: Bilateral breast cancer screening. Technique: ??Digital mammography. Conventional CC and MLO projections with tomosynthesis MLO views and computer aided detection. Comparison made with previous mammograms from [facility] 05/12/2018, dating back to 04/08/2009. Findings: Breast tissue consists of fatty and fibroglandular tissue with moderate complexity, potentially obscuring small lesions, category c density (as calculated by Ardelyxpara software). There is no suspicious group of microcalcification, suspicious mass, architectural distortion or suspicious change in breast density within either breast. Impression: No evidence of malignancy. BIRADS category 1; negative study, 3341F 19859, [address] A negative mammogram in the face of a suspicious abnormality does not exclude the possibility of malignancy nor alter the indications for biopsy. Note: Patient information entered ??into a reminder system with a target due date for the next mammogram; PQRI II 7046I Dictating Physician: ??JERMAINE SCHNEIDER MD Electronically Signed by: ??JERMAINE SCHNEIDER MD Dic Date/Time: ??05/14/191947 Sign date/Time: ??05/14/191948 Procedure Note Jermaine Schneider - 05/06/2022 [facility] Diagnostic Imaging Department [address] [place], [place] [phone] Patient: ANGEL COLLINS D.O.B./Age/Sex: 1965 - 53 - F Unit#: [id number] [facility]/Ordering Site: [facility] Ordering Physician: DIXIE MARTIN MD [facility] Screening Digital - 05/13/19 - 1101 History: Bilateral breast cancer screening. Technique: Digital mammography. Conventional CC and MLO projectionswith tomosynthesis MLO views and computer aided detection. Comparison made with previous mammograms from [facility]05/12/[facility], dating back to 04/08/2009. Findings: Breast tissue consists of fatty and fibroglandular tissue with moderate complexity, potentially obscuring small lesions, category cdensity (as calculated by Ardelyxpara software). There is no suspicious group of microcalcification, suspicious mass, architectural distortion or suspicious change in breast density withineither breast. Impression: No evidence of malignancy. BIRADS category 1; negative study, 3341F 57977, 68583 A negative mammogram in the face of [...]
--- OUTSIDE RECORDS SUMMARY | 2024-10-03 15:23 | XMS_ITS | Encounter Summary ---
Author Organization [employer] Address [address] [facility] 7 [place] [address] Care Team Providers Care Airport Duty Manager Name Role Phone Dixie Coyle MD Primary Care Provider + Rony Wolff Unavailable Unavailable Reason for Visit * Reason Comments Med Change Request Encounter Details Date Type Department Care Team ([facility] st Contact Info) Description 02/18/2023 Refill [facility] MEDICINE [address] [place] [address] Rony Wolff FNP Adjustment disorder with anxiety Social History Tobacco Use Types Packs/Day Years Used Date Smoking Tobacco: Never Smokeless Tobacco: Never Alcohol Use Standard Drinks/Week Comments Not Currently 0 (1 standard drink = 0.6 oz pur e alcohol) oca Depression Answer Date Recorded Patient Health Questionnaire-9 Score 10 02/18/2023 Housing Stability Answer Date Recorded What is your housing situation today? I have nainevin guevara 02/22/[address] you [...] the past 12 months, has t he [employer], [employer], [email or web address] threatened to shut off services in your home? No 02/22/2023 Depression Answer Date Recorded Patient Health Questionnaire-2 Score 4 02/18/2023 Comments Unknown Sex and Gender Information Value Date Recorded Sex Assigned at Female 03/16/2022 10:30 AM EDT Legal Sex Female 10:30 AM EDT Gender Identity Female 03/16/2022 10:30 AM EDT Sexual Orientation Straight 03/16/2022 10 :30 AM EDT documented as of this encounter Functional Status * Over the past 2 weeks, how often have you been bothered by any of the following problems? Question Answer Date of Assessment Author Patient Health Questionnaire -2 Score 4 02/18/2023 10:31 AM EDT Radha Sams MA * If you checked off any problems on this questionnaire so far, Question Answer Date of Assessment Author How difficult have these problems made it for you to do your work, take care of things at home, or get along with other people? Very difficult 02/18/2023 10:31 AM EDT Radha Sams MA * Over the past 2 weeks, how often have you been bothered by any of the following problems? Question Answer Date of Assessment Author Little interest or pleasure in doing things More than half the days 02/18/2023 10:31 AM Eileen Rosas MA Feeling down, depressed, or hopeless More than half the days 02/18/2023 10:31 AM Eileen Rosas MA Trouble falling or staying asleep, or sleeping too much More than half the days 02/18/2023 10:31 AM Eileen Rosas MA Feeling tired or having little energy Several days 02/18/2023 10:31 AM Eileen Rosas MA Poor appetite or overeating Several days 02/18/2023 10:31 AM Eileen Rosas MA Feeling bad about yourself - or that you are a failure or have let yourself or your family down Not at all 02/18/2023 10:31 AM Eileen Rosas MA Trouble concentrating on things, such as reading the newspaper or watching television Several days 02/18/2023 10:31 AM EDT Eileen Sams MA Moving or speaking so slowly that other people could have noticed? Or the opposite - being so fidgety or restless that you have been moving around a lot more than usual. Several days 02/18/2023 10:31 AM EDT Eileen Sams MA Thoughts that you would be better off or hurting yourself in some way Not at all 02/18/2023 10:31 AM EDT Eileen Sams MA Patient Health Questionnaire-9 Score 10 02/18/2023 10:31 AM EDT Eileen Sams MA documented as of this encounter Plan of Treatment Not on file documented as of this encounter Visit Diagnoses Diagnosis Adjustment disorder with anxiety documented in this encounter Additional Health Concerns Assessment Noted Time PHQ-9 Depression Total Score: 10 023 10:31 AM EDT documented as of this encounter Care Teams Airport Duty Manager Relationship Specialty Start Date End Date Dixie Coyle MD [address] [place] [address] PCP - General Family Medicine 05/17/18 Rony Wolff FNP [address] [place] [address] Nurse Practitioner Family Medicine 04/05/23 documented as of this encounter
--- OUTSIDE RECORDS SUMMARY | 2024-10-03 15:23 | XMS_ITS | Clinical Summary ---
Author Organization [employer] Address [address] [place] [address] [address] [place] [address] Care Team Providers Care Sports Equipment Racker Name Role Phone Dixie Coyle MD Primary [...] mouth in the evening. 90 tablet 4 Active Breztri Aerosphere 160-9-4.8 MCG/ACT aerosol 2 Inhalations by Infiltration route 2 times daily. Active losartan (Cozaar) 25 MG tablet Take 25 mg by mouth Once per day. 4 Active DULoxetine (Cymbalta) [address] Smith ons:Adjustment disorder with anxiety Take 1 capsule [...] of moderate intensity exercise. Rheumatoid arthritis of [facility] with negative rheumatoid factor 12/27/2023 Assessment & Plan (12/29/2023 3:03 PM EDT): Seen by [facility] rheumatology, on Rinvoq, doing well. Advised to [...] 1:41 PM EDT): Started on Losartan by fly maker Controlled. Compliant w/meds Continue lisinopril/hydrochlorothiazide + amlodipine same dose Counseled re low salt diet/increase moderate physical activity. Check home BP BIW and prn CP/EMERSON/ZABALA Non smoking patient. Venous insufficiency of lower extremity 03/22/20 Assessment & Plan (03/22/2023 2:54 PM EST): [...] any issues or concerns she should contact [facility]. All her questions were answered. [...] her medications, was informed erroneously by her [facility] pharmacy that no refills were available. Will now transfer to pharmacy at [facility] where she works. New Rx sent for Seroquel 25 mg at bedtime and Duloxetine 30 mg two times daily. She can F/U with counselor at work and/or call to F/u on counseling referral. She will also request FMLA paperwork from her job and bring to [facility], where I can sign based [...] with Pulmonology. Sprain of hip 11/24/2017 Positive DIXIE (antinuclear antibody) 06/17/2017 Lung mass 06/15/2017 Pain [...] Did not want improve with pain clinic [facility] to go to acupuncture Continue meloxicam Assessment & Plan (12/07/2022 5:15 PM EDT): Failed PT, take tylenol and flexiril PRN Pt to make an appointment for fu with Dr. Doan Neurosurgeon at [facility] Assessment & Plan (07/15/2022 1:03 PM EST): [...] (03/22/2023 5:59 PM EST): Uncontrolled. FU with room designer, Will be started on dupixent probably Declined Covid IZ Cerebrovascular accident (CV A) due to occlusion of precerebral artery 03/27/2016 Dizziness 03/27/2016 Smoker 03/27/2016 Encounters Date Type Department Care Team Description 09/19/2024 Telephone [facility] MED[facility] [address] [place] [address] Dixie Coyle MD November recall 07/06/2024 Telephone [facility] [address] [place] [address] Dixie Coyle MD May recall from Last 3 Months Immunizations Immunization Administration Dates Next Due Influenza injectable quadriv [...] your housing situation today? I have nai ismael 03/30/[address] you li [...] Screening 1965 Lipid Panel 1967 Sigmoidoscopy 1967 Disability Screening 1967 Alcohol/Substance Use Screening 1979 Hepatitis A Vaccines (1 of 2 - Risk 2-dose series) 12/29/1986 Hepatitis B Vaccines (1 of 3 - 19+ 3-dose series) 12/29/1986 Zoster Vaccines (1 of 2) 12/29/2017 COVID-19 Vaccine ( season) 2024 03/14/2021, 06/05/2020, 05/15/2020 Depression Screening 10/03/2024 10/04/2023, 10/04/19 24 Mammogram 03/23/2025 03/23/2024, 06/2022, 03/11/2022, Additional history exists SDOH Screening 03/30/2025 [...] Procedure Name Priority Date/Time Associated Diagnosis Comments BI MAMMOGRAM SCREENING TOMOSYNTHESIS BILATERAL Routine 03/23/2024 10:30 AM EST HEPATITIS PANEL, GENERAL Routine 07/28/2023 8:02 AM EDT HM PAP/HPV Routine 05/22/2022 COLONOSCOPY Routine 11/09/2018 from Last 3 Months or Most Recently Relevant to Health Maintenance Results * BI Mammogram Screening Tomosynthesis Bilateral (03/23/2024 10:30 AM EST) Anatomical Region Laterality Modality Breast Bilateral Mammography 03/23/2024 10:3 0 AM EST Narrative 03/23/2024 11:05 AM EST ? [facility] ? [address] ?[place] [address] ? Mammography Report ? Signed ? Patient: Ilya,Gabriela ?MR#: [id number] ?? [id number] ? : 1965 ?Acct:[id number] ? Age/Sex: 58 / F ?ADM Date: 11/07/24 ? Loc: HO.MAMMO ? Attending Dr: Dixie Coyle MD ? Ordering Physician: Dixie Coyle MD ?Results: 1Ne ?? gative ? Date of Service: 03/23/24 ?Follow Up: 1 Year From Orig ?? inal Mammogram ? Procedure(s): MM tomosynthesis screening BI ?? Accession Number(s): [id number] ? cc: Dixie Coyle MD ? EXAMINATION: ?? MM SCREENING [...] ??Luna Watson DO ??03/23/2024 11:02 AM EST ?? RP ? Dictated By: ?Luna Watson DO ? Signed By: ?<Electronically signed by Luna Watson, DO in OV> ? 03/23/241101 ? DD/ 1030 ? TD/TT: 03/23/24 1048 ? Material Flow Engineer: ? Procedure Note Donotcarolineinterpreter, Image - 03/23/2024 [facility] [address] [place] [address] Mammography Report Signed Patient: Brittney Caraballo VMR#: [id number] : 1965Acct:[id number] Age/Sex: 58 / FADM Date: 03/23/24 Loc: HO.MAMMO Attending Dr: Dixie Coyle MD Ordering Physician: Dixie Coyle MDResults: 1Ne gative Date of Service: 03/23/24Follow Up: 1 Year From Orig inal Mammogram Procedure(s): MM tomosynthesis screening BI Accession Number(s): [id number] cc: Dixie Coyle MD EXAMINATION: MM SCREENING DIGITAL BREAST [...] by: Luna Watson DO 03/23/2024 11:02 AM [facility] Dictated By: Luna Watson DO Signed By: <Electronically signed by Luna Watson DO in OV> 03/23/24 1102 DD/ 1030 TD/TT: 03/23/24 1048 Material Flow Engineer: Dixie Coyle MD IMG BI PROCEDURES Edited Result - Final * Hepatitis Panel, General (07/28/2023 8:02 AM EDT) Hepatitis A IgM Nonreactive Nonreactive [facility] Comment:IgM antibodies to EMERSON V not detected; does not exclude earlyacute or recovered HAV infection. ~Hepatitis B Surface Antibody REACTIVE Nonreactive [facility] Comment:REACTIVE: > 11.99 mI U/mL Hepatitis B Core Antibody Nonreactive Nonreactive [facility] Hepatitis C Antibody Nonreactive Nonreactive [facility] Comment:Antibodies to HCV no t detected; does not exclude early acuteHCV infection. Hepatitis B Surface Ag Negative Negative [facility] 07/28/2023 8:02 AM EDT 07/28/2023 8:02 AM EDT Generic External Data Provider LAB BLOOD ORDERAB LES Final Result [facility] [address] [place] [phone] * Pap Smear (05/22/2022) Pap Negative for intraephithelial lesion or malignancy Negative for intraephithelial lesion or malignancy, Other HPV Undetected 05/22/2022 Dixie Coyle MD HEALTH MAINTENANCE Final Result * Colonoscopy (11/09/2018) Colonoscopy Normal Normal 11/09/2018 Dixie Coyle MD HEALTH MAINTENANCE Edite d Result - Final from Last 3 Months or Most Recently Relevant to Health Maintenance Insurance [employer] Care Teams Sports Equipment Racker Relationship Specialty Start Date End Date Dixie Coyle MD [address] [place] [phone] PCP - General Family Medicine 05/17/18 Rony Wolff FNP [address] [place] [phone] Nurse Practitioner Family Medicine 04/05/23
--- OUTSIDE RECORDS SUMMARY | 2024-10-03 15:23 | XMS_ITS | Encounter Summary ---
Author Organization [employer] Address [address] [place] [address] [address] [place] [address] Care Team Providers Care Dispatcher Chief Oil Name Role Phone Dixie Coyle MD Primary Care Provider + Rony Wolff Unavailable Unavailable Encounter Details Date Type Department Care Team (Late st Contact Info) Description 11/05/2022 Abstract [facility]ICINE [address] [place], [place] [phone] Dixie Coyle MD [address] [place], [place] [phone] Social History Tobacco Use Types Packs/Day Years [...] documented as of this encounter Care Teams Dispatcher Chief Oil Relationship Specialty Start Date End Date Dixie Coyle MD [address] [place], [place] [phone] PCP - General Family Medicine 05/17/18 Rony Wolff FNP [address] [place] [address] Nurse Practitioner Family Medicine 04/05/23 documented as of this encounter
--- NOTE | 2024-10-19 13:29 | P.CONAN_ITS ---
Documented by User: Sandie Holliday NP 10/19/24 13:30 HPI - Anesthesia Eval Consult details Narrative: 58yo F for Upper Endoscopy and Colonoscopy PMFSH Active Problems Active Problems: All Active Problems Dental infection (Acute) Pre-op chest exam (Acute) Immunization counseling (Acute) Nasal injury (Acute) Inflamed seborrheic keratosis of right cheek (Acute) Seropositive rheumatoid arthritis (Acute) Long-term use of immunosuppressant medication (Acute) OLMAN positive (Acute) Thymus hyperplasia (Acute) Pleuritic chest pain (Acute) Asthma-COPD overlap syndrome (Acute) Asthma (Acute) Pulmonary nodules (Acute) Personal history of nicotine dependence (Acute) NAFL (nonalcoholic fatty liver) (Acute) GERD (gastroesophageal reflux disease) (Acute) Postmenopausal (Acute) Vitamin D deficiency (Acute) Flexor tenosynovitis of finger (Acute) Degenerative arthritis of lumbar spine (Acute) Back pain (Acute) Bilateral foot pain (Acute) Left lateral epicondylitis (Acute) Right lateral epicondylitis (Acute) Acromioclavicular joint arthritis (Acute) Post herpetic neuralgia (Acute) Past Medical History Medical History Seropositive rheumatoid arthritis Long-term use of immunosuppressant medication Pleuritic chest pain Thymus hyperplasia Asthma-COPD overlap syndrome Asthma Pulmonary nodules Personal history of nicotine dependence GERD (gastroesophageal reflux disease) NAFL (nonalcoholic fatty liver) Degenerative arthritis of lumbar spine Family History Family History Father Heart attack Diabetes HTN (hypertension) Brother Liver cancer Maternal Aunt Liver cancer Breast cancer Mother Stroke Diabetes Other Asthma Surgical History Surgical History History of colonoscopy Social History Social History Household Members Other:: son Are you a primary care transition coordinator to a significant other at home: No Do you presently have visiting nurse or other home services: No Alcohol intake: never Patient Tobacco Use Status: Former Tobacco user Tobacco use type: Cigarette Cigarettes Per Day: 20 Years Smoked: 15 e-Cigarette/Vaping Use: Never Used Have you been hit, kicked, punched, or otherwise hurt by someone within the past year? 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 Allergies Allergy/AdvReac Type Severity Reaction Status Date / Time Enbrel AdvReac Severe Diarrhea Uncoded 06/22/24 14:08 Home Medications ?Medication ?Instructions ?Recorded ?Confirmed ?Last Taken ?Type aspirin 81 mg tablet,delayed 81 mg PO DAILY 10/24/20 10/20/24 10/16/24 History release clotrimazole-betamethasone 1 appl topical 10/22/22 08/18/24 Unknown History %-0.05 % topical cream inhalational spacing device #1 ea 10/22/22 10/20/24 Unknown History ([facility] spacer) losartan 25 mg tablet 25 mg PO DAILY 04/30/23 10/20/24 Unknown History quetiapine 25 mg tablet 25 mg PO BEDTIME 04/30/23 10/20/24 Unknown History Assessment and Plan Assessment Anesthesia Assessment: Chart Reviewed Documented by User: Karina Granger MD 10/20/24 09:06 [facility] Past Medical History Medical History Seropositive rheumatoid arthritis Long-term use of immunosuppressant medication Pleuritic chest pain Thymus hyperplasia Asthma-COPD overlap syndrome Asthma Pulmonary nodules Personal history of nicotine dependence GERD (gastroesophageal reflux disease) NAFL (nonalcoholic fatty liver) Degenerative arthritis of lumbar spine Family History Family History Father Heart attack Diabetes HTN (hypertension) Brother Liver cancer Maternal Aunt Liver cancer Breast cancer Mother Stroke Diabetes Other Asthma Family history of problems with anesthesia: No Surgical History Surgical History History of colonoscopy History of Problems with Anesthesia: No Social History Social History Household Members Other:: son Are you a primary care transition coordinator to a significant other at home: No Do you presently have visiting nurse or other home services: No Alcohol intake: never Patient Tobacco Use Status: Former Tobacco user Tobacco use type: Cigarette Cigarettes Per Day: 20 Years Smoked: 15 e-Cigarette/Vaping Use: Never Used Have you been hit, kicked, punched, or otherwise hurt by someone within the past year? 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 Allergies Allergy/AdvReac Type Severity Reaction Status Date / Time Enbrel AdvReac Severe Diarrhea Uncoded 06/22/24 14:08 Home Medications ?Medication ?Instructions ?Recorded ?Confirmed ?Last Taken ?Type aspirin 81 mg tablet,delayed 81 mg PO DAILY 10/24/20 10/20/24 10/16/24 History release clotrimazole-betamethasone 1 appl topical 10/22/22 08/18/24 Unknown History %-0.05 % topical cream inhalational spacing device #1 ea 10/22/22 10/20/24 Unknown History ([facility] spacer) losartan 25 mg tablet 25 mg PO DAILY 04/30/23 10/20/24 Unknown History quetiapine 25 mg tablet 25 mg PO BEDTIME 04/30/23 10/20/24 Unknown History Exam Airway Mallampati Class: II TM Dist: >3cm Neck ROM: Full Heart: rrr Lungs: cta Assessment and Plan Assessment Anesthesia Assessment: Anesthesia Plan Discussed Final Anesthetic Review Family History of Problems with Anesthesia: No History of Problems with Anesthesia: No NPO: Yes ASA Class: III Final Preanesthetic Review: No Changes in Pt Med Stat, Meds/Allgs Chart Reviewed and Consent Obtained/Reviewed Patient Risk: Intermediate Procedure Risk: Intermediate Anesthetic Plan Anesthetic Plan: MAC: Disposition: Standard PACU
--- NOTE | 2024-10-20 08:05 | MHC.SHP ---
Pre-Procedural Eval Section A - 24 Hr Update-Section A only Date of Service: 10/20/24 The patient is an INPATIENT: No The patient has been examined within 24 hours of the surgical procedure. The History & Physical has been completed within 30 days and I have reviewed it.: No Section B - Complete if H&P > 30 days Chief Complaint: Vitamin D def,gerd,fatty liver Relevant Family History (Specify if Yes): No Relevant Social History: Tobacco Use (Former smoker) Present Medications: see Short Stay Collaborative assessment Medical History: Significant History (Asthma-COPD overlap syndrome Degenerative arthritis of lumbar spine GERD (gastroesophageal reflux disease) NAFL (nonalcoholic fatty liver) Personal history of nicotine dependence Pulmonary nodules Thymus hyperplasia) History of Previous Operations: Relevant previous surgery/procedure and date(s) (History of colonoscopy) Allergies: Allergies Allergy/AdvReac Type Severity Reaction Status Date / Time Enbrel AdvReac Severe Diarrhea Uncoded 06/22/24 14:08 Review of Systems Sugical H&P ROS: Negative: Constitution, Cardiovascular, Respiratory and Gastrointestinal Exam Surgical H&P Exam: Normal: Heart, Normal: Lungs, Normal: Extremities and Normal: Abdomen Plan Diagnosis/Plan: Change (Proceed with EGD and Colon) I have reviewed the history and physical and performed a pertinent physical examination on my patient. No changes have occurred unless specified. Time Spent With Patient Time: Total time managing care of this patient today ____ minutes.
[2024-10-20 08:19] VITALS: BMI 27.7
[2024-10-20] MEDS: Lactated Ringers 1,000 ML 100 ML IVCONT (08:28)
[2024-10-20 08:43] VITALS: BP 130/68; PULSE 87; RESP 18; TEMP 36.8; O2SAT 96
--- NOTE | 2024-10-20 09:19 | HO.OPN-COLON ---
Colonoscopy Operative Note Operative Note Date of Service: 10/20/24 Narrative: FLEXIBLE TRANSORAL UPPER GASTROINTESTINAL ENDOSCOPY WITH BIOPSIES AND COLONOSCOPY TILL CECUM WITH [] Pre-op diagnosis: Colon cancer screening, GERD Post-op diagnosis: GERD, Gastritis, Colon Polyps, Diverticulosis, hemorrhoids Endoscopist:Octavio Kendall MD Anesthesia:?MAC UPPER ENDOSCOPY Consent: Indications for the procedure and potential complications of bleeding, perforation, reaction to medications and missed diagnosis were discussed with the patient and informed consent was obtained. Instrument: Olympus GIF H 190 mid size upper endoscope Monitoring: Vital signs and clinical assessment, continuous EKG monitoring, Pulse oximetry, Carbon Dioxide monitoring and blood pressure monitoring were done throughout the procedure. Procedure: The patient was placed in the left lateral decubitis position and pre-procedure medications were administered and a bite block was placed. The endoscope was inserted into the mouth and advanced under direct vision to the third part of duodenum. A careful inspection was made as the upper endoscope was withdrawn including a retroflexed examination of the proximal stomach; Findings and interventions are described below. Findings: Larynx: Normal Esophagus: GE junction at 36 cms. Mildly tortous esophagus without stricture or ring. No esophagitis or Ayala's. Stomach: Moderate diffuse gastric erythema with a few chronic appearing antral erosions - biopsies were obtained from the gastric body and antrum. Grade 2 flap valve on retroflexed examination of the cardia. Duodenum: Normal bulb and descending duodenum Biopsies were obtained from descending duodenum to check for celiac sprue Intervention: Biopsies as noted above COLONOSCOPY PROCEDURE NOTE Instrument: Olympus PCF H 190 L variable stiffness pediatric colonoscope Monitoring: Vital signs and clinical assessment, intermittent blood pressure monitoring, continuous EKG monitoring, Pulse oximetry and Carbon Dioxide monitoring were done throughout the procedure. Please see anesthesia flowsheet. Colon withdrawl time was 12 minutes. Procedure: The patient was placed in the left lateral decubitis position and pre-procedure medications were administered. After a digital rectal examination of the ano-rectum, the video colonoscope was inserted into the rectum and advanced through the colon to the cecum. The colonoscope was slowly withdrawn in a retrograde panoramic fashion and the colon mucosa was carefully examined including a retroflexed view of the rectum. Findings and interventions are described below. Procedure Difficulty: without difficulty Findings: Terminal Ileum: Not evaluated Cecum: Normal Ascending Colon: Normal Transverse Colon: A 7-8 mm sessile polyp in the distal TC at 70 cms - removed with a cold snare Descending Colon: Normal Sigmoid Colon: A 4-5 mm diminutive appearing polyp - removed with a cold biopsy. Moderate diverticulosis Rectum: Normal Ano-rectum: Small internal hemorrhoids Colon preparation: Excellent, after some irrigation. [place] Bowel Preparation Scale Right colon; 3 Transverse colon: 3 Left colon; 3 (0 = Unprepared colon segment with mucosa not seen due to solid stool that cannot be cleared. 1 = Portion of mucosa of the colon segment seen, but other areas of the colon segment not well seen due to staining, residual stool and/or opaque liquid. 2 = Minor amount of residual staining, small fragments of stool and/or opaque liquid, but mucosa of colon segment seen well. 3 = Entire mucosa of colon segment seen well with no residual staining, small fragments of stool or opaque liquid) Impression and Post Procedure Diagnosis: Endoscopy Findings: ESOPHAGUS: Mildly tortous esophagus without stricture or ring. No esophagitis or Ayala's. STOMACH: Moderate diffuse gastritis with a few chronic appearing erosions DUODENUM: Normal - biopsies obtained to check for celiac sprue. Colonoscopy Findings: Two small polyps were removed Moderate diverticulosis seen in the sigmoid colon small non-bleeding hemorrhoids on retroflexed exam. Plan: Pt has a FU appointment on 10/26/[address] Kendall Repeat Colonoscopy in 5 years if polyps are adenomatous and 10 year if polyps are hyperplastic. A summary of above findings and relevant handouts were given to the patient. BIOPSIES SHOWED: A. Small bowel, biopsy: Small intestinal mucosa within normal limits. B. Stomach, antrum, biopsy: Antral-type mucosa within normal limits; no Helicobacter organisms seen. C. Stomach, body, biopsy: Oxyntic mucosa within normal limits; no Helicobacter organisms seen. D. Colon, transverse, polypectomy: Tubular adenoma; negative for high-grade dysplasia or carcinoma. E. Colon, sigmoid, polypectomy: Hyperplastic mucosal polyp Biopsy results reviewed with the patient during her follow-up GI clinic visit. Patient was placed on the colonoscopy recall list for repeat colonoscopy in 5 years.
[2024-10-20 09:59] VITALS: BP 108/58; PULSE 69; RESP 16; TEMP 36.2; O2SAT 97
[2024-10-20 10:14] VITALS: BP 132/80; PULSE 69; RESP 18; O2SAT 99
[2024-10-20 10:29] VITALS: BP 122/72; PULSE 74; RESP 16; TEMP 36.3; O2SAT 97
== END 2024-10-20 11:05 | disposition home or self-care (01) ==
PROVIDERS: PCP Internal Medicine; Visit Provider Internal Medicine Gastroenterology
PROC: (CPT 45385; principal; 2024-10-20 09:20)
DX: Z12.11 Encounter for screening for malignant neoplasm of colon (principal); D12.3 Benign neoplasm of transverse colon; K63.5 Polyp of colon; K57.30 Diverticulosis of large intestine without perforation or abscess without bleeding; K64.8 Other hemorrhoids; K21.9 Gastro-esophageal reflux disease without esophagitis; K29.50 Unspecified chronic gastritis without bleeding; K76.0 Fatty (change of) liver, not elsewhere classified; E55.9 Vitamin D deficiency, unspecified; E32.0 Persistent hyperplasia of thymus; J44.9 Chronic obstructive pulmonary disease, unspecified; R91.8 Other nonspecific abnormal finding of lung field; Z88.8 Allergy status to other drugs, medicaments and biological substances; Z87.891 Personal history of nicotine dependence
CPT/HCPCS: 45385; 45380; 43239; 88305; 88313; 88342; J2704

== ENCOUNTER → 2024-10-20 08:02 | Outpatient (BNV) | payer OTHER, SELFPAY | PROVIDERS: PCP Internal Medicine; Visit Provider Internal Medicine Gastroenterology | DX: Z12.11 Encounter for screening for malignant neoplasm of colon (principal); D12.3 Benign neoplasm of transverse colon; D12.5 Benign neoplasm of sigmoid colon; K57.30 Diverticulosis of large intestine without perforation or abscess without bleeding; K64.8 Other hemorrhoids; K21.9 Gastro-esophageal reflux disease without esophagitis; K29.70 Gastritis, unspecified, without bleeding | CPT/HCPCS: 43239; 45380; 45385 ==

== ENCOUNTER 2024-10-26 07:10 | Outpatient (AMB) | payer OTHER, SELFPAY ==
--- NOTE | 2024-10-26 07:16 | A.OFFVIS_ITS ---
Vital Signs 10/26/24 07:18 Height 4 ft 11 in Weight 133 lb BMI 26.9 BP 119/59 L Blood Pressure Location Lt brachial Position Sitting Pulse 80 Pulse Oximetry (%) 98 Oxygen Delivery Method Room Air Intake Visit Reasons: s/p double Intake Note: Patient post op follow up for EGD/Colonoscopy results. Patient denies any GI issues for today visit. Reconsignment Clerk Required: No Accompanied by: Self / Same As Patient Allergies Enbrel Adverse Reaction (Severe, Uncoded 06/22/24 14:08) Diarrhea Medication List - Last Reconciled 10/26/24 by Rufus Kendall MD albuterol sulfate 90 mcg/actuation 2 puffs PO Q4-6H PRN arm brace (ИВАН Elbow Brace) wear when using the left hand aspirin 81 mg PO DAILY cholecalciferol (vitamin D3) 50 mcg PO DAILY 90 days clotrimazole-betamethasone 1-0.05 % appl topical epinephrine (EpiPen 2-Blaine) 0.3 mg (0.3 mL) IM Q10M PRN 30 days inhalational spacing device ([place] [facility] spacer) As directed losartan 25 mg PO DAILY mometasone-formoterol 200-5 mcg/actuation (Dulera) 2 puffs inhalation Q12H 30 days omalizumab (Xolair) 375 mg subcut Q2W 4 weeks omeprazole 40 mg PO DAILY 90 days quetiapine 25 mg PO BEDTIME Rinvoq ER (upadacitinib) 15 mg PO DAILY NS sulfasalazine 1 g (2 x 500 mg) PO BID HPI HPI s/p double: Details: GI clinic visit for this 58 YF seen for FU of abdominal pain, fatty liver and a liver cyst and to review EGD and Colon results 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 TODAY'S VISIT: EGD and colon results reviewed. Notes intermittent rectal bleeding after straining. Intermittent rectal burning and sometimes painful. Has a BM daily - sometimes hard and painful. Tries to eat healthy and drink water. Notes heartburn after salsa and spicy food. Stopped drinking sodas and juice with no sugar Denies abdominal pain and notes increasing GERD symptoms Notes increase in GERD symptoms 3-4 times a week. Takes Omeprazole every day - sometimes she forgets. Asthma is not controlled and using the inhaler more frequently Notes constipation if she does not drink enough water Taking Omeprazole 3 times a week for heartburn related to diet. Notes constipation over the weekends - thinks it may be associated with drinking less fluids PAST VISITS: Pt denies past hx of liver disease. Brother and maternal aunt had hep C and of liver cancer. Pt was negative for Hep C several yrs ago. Intermittent 6/10 LUQ pain - twice a month - lasts a few minutes. Can come and go the whole day. Can sometimes be associated with twisting her waist. Pain is not related to eating and BMs. Takes Omeprazole for GERD for the past few months with good relief. Patient denies symptoms of dysphagia, nausea, vomiting, change in appetite or weight.? Denies recent change in bowel habits, black stools. Occasional rectal bleeding with straining - attributes to hemorrhoids. Has COPD and emphysema and a heart murmur. Patient denies loud snoring or sleep apnea - some snoring. Denies problems with anesthesia in the past. Takes a baby asppirin every other day. Denies being on chronic anticoagulation. Patient denies known family history of colon polyps. Maternal uncle had throat cancer and another uncle with colon cancer and had a colostomy IMAGING STUDIES:? 11/2020 ABD US SHOWED; LIVER: Liver echotexture is slightly increased probably representing fatty infiltration. The liver is normal in size. The liver contour is normal. There is a 6 x 7 x 5 mm complex cyst in the left lobe with single thin septation. There is no intrahepatic biliary duct dilatation seen. 12/2020 ABD MRI SHOWED: LIVER, GALLBLADDER, AND BILIARY TREE: There is mild fatty infiltration of the liver. The liver is normal in size and contour. There is a 5 mm cyst in the lateral segment of the left lobe of the liver axial image 39 postcontrast. There is a a second smaller 4 mm probable cyst in the right lobe of the liver axial image 31 postcontrast. No suspicious liver lesion is seen. The gallbladder is unremarkable. There is no biliary duct dilatation. PAST EGD/COLONOSCOPY:??Colonoscopy 3 yrs ago showed internal hemorrhoids Denies having an EGD. Smoked x 20 yrs, quitted 8 yrs?ago FOR[facility]LY [facility], 1928–1983 Medical History Seropositive rheumatoid arthritis Long-term use of immunosuppressant medication Pleuritic chest pain Thymus hyperplasia Asthma-COPD overlap syndrome Asthma Pulmonary nodules Personal history of nicotine dependence GERD (gastroesophageal reflux disease) NAFL (nonalcoholic fatty liver) Degenerative arthritis of lumbar spine Surgical History History of colonoscopy Family History Father Heart attack Diabetes HTN (hypertension) Brother Liver cancer Maternal Aunt Liver cancer Breast cancer Mother Stroke Diabetes Other Asthma Social History Household Members Other:: son Are you a primary vocational childcare teacher to a significant other at home: No Do you presently have visiting nurse or other home services: No Alcohol intake: never Patient Tobacco Use Status: Former Tobacco user Tobacco use type: Cigarette Cigarettes Per Day: 20 Years Smoked: 15 e-Cigarette/Vaping Use: Never Used Current occupational status: 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 Review of Systems Const All systems reviewed & are unremarkable except as noted in HPI and below Physical Exam Vital Signs: Last Vital Signs Pulse 80 10/26/24 07:18 BP 119/59 L 10/26/24 07:18 Pulse Ox 98 10/26/24 07:18 Oxygen Delivery Method Room Air 10/26/24 07:18 BMI result Body Mass Index 26.9 Const General: healthy appearing and no acute distress Nutritional Appearance: overweight Orientation/consciousness: patient oriented x3 Limitations: no limitations HEENT Head: Yes normal to inspection Ears: hearing grossly normal bilaterally Eyes Sclerae: sclerae normal Pupils: Equal, round and reactive pupils present Neck Neck: Yes normal visual inspection Chest Chest palpation & inspection: normal inspection of the chest Resp Effort & Inspection: normal respiratory effort Auscultation: clear to auscultation bilaterally Cardio Palpation: normal PMI Rate: regular rate Rhythm: regular rhythm Heart sounds: S1 normal heart sound present, S2 normal heart sound present and no murmurs GI Palpation (GI): Soft to palpation, nontender and No hepatosplenomegaly present Auscultation: normal bowel sounds Rectal Exam - Female: deferred Skin General skin exam: no rashes or lesions noted Neuro General: patient oriented x3, gait normal and moves all extremities Cranial nerves: Yes Equal, round and reactive pupils present Psych Appearance: grossly normal Mental Status: mental status grossly normal Assessment & Plan Assessment & Plan (1) NAFL (nonalcoholic fatty liver): Code(s): K76.0 - Fatty (change of) liver, not elsewhere classified Category: Medical (2) GERD (gastroesophageal reflux disease): Code(s): K21.9 - Gastro-esophageal reflux disease without esophagitis Category: Medical (3) Chronic constipation: Code(s): K59.09 - Other constipation Category: Medical (4) Anemia: Code(s): D64.9 - Anemia, unspecified Category: Medical Plan 58 YF with asthma-COPD overlap syndrome and positive OLMAN seen in GI for GERD and fatty liver with normal LFTs 11/2020 Abd US showed fatty liver and a??6 x 7 x 5 mm complex cyst in the left lobe with single thin septation 12/2020 ABD MRI showed a 5 mm cyst in the lateral segment of the left lobe of the liver and a second smaller 4 mm probable cyst in the right lobe of the liver. No suspicious liver lesion was seen. Patient was advised weight reduction. A handout on fatty liver from up-to-date was given to the patient. 06/2021 hepatitis serologies were negative (showed immunity to Hep A and B) Past colonoscopy report was requested and not received..? 10/26/24 EGD and Colon results reviewed with the patient. She was advised to continue taking omeprazole 40 mg daily. Check iron studies and vitamin B12 for evaluation of mild normocytic normochromic anemia. Stool softeners p.r.n. for constipation Repeat colonoscopy in 5 years for follow-up of a small tubular adenoma. Follow-up appointment in 6 months Orders: Orders Complete Blood Count no Diff Today D64.9 - Anemia, unspecified Vitamin D 25-OH Total Today D64.9 - Anemia, unspecified Ferritin Today D64.9 - Anemia, unspecified Vitamin B12 and Folate Today D64.9 - Anemia, unspecified IRON PROFILE Today D64.9 - Anemia, unspecified Medications: New docusate sodium (Colace) 100 mg PO BEDTIME 90 days 90 caps 2RF K59.09 - Other constipation Coding Level of Care Code Est Pt Level 3 (25094) Diagnoses NAFL (nonalcoholic fatty liver) K76.0 GERD (gastroesophageal reflux disease) K21.9 Chronic constipation K59.09 Anemia D64.9 Time Spent (min) 18
[2024-10-26 07:18] VITALS: BP 119/59; PULSE 80; O2SAT 98; BMI 26.9
== END 2024-10-26 08:22 | disposition home or self-care (01) ==
LOC: HO.HGI 07:10
PROVIDERS: PCP Internal Medicine; Visit Provider Internal Medicine Gastroenterology
DX: K76.0 Fatty (change of) liver, not elsewhere classified (principal); K21.9 Gastro-esophageal reflux disease without esophagitis; K59.09 Other constipation; D64.9 Anemia, unspecified
CPT/HCPCS: 99213

== ENCOUNTER 2024-10-27 11:13 | Outpatient (REF) | payer OTHER, SELFPAY ==
--- OUTSIDE RECORDS SUMMARY | 2024-10-27 12:17 | XMS_ITS | Encounter Summary ---
Author Organization [employer] Address [address] [place] [address] [address] [place] [address] Care Team Providers Care Client Engagement Specialist Name Role Phone Dixie Coyle MD Primary Care Provider + Rony Wolff Unavailable Unavailable Encounter Details Date Type Department Care Team (Late st Contact Info) Description 11/05/[address] [facility] MEDICINE [address] [place], [place] [phone] Dixie Coyle MD [address] [place], [place] [phone] Social History Tobacco Use Types Packs/Day Years [...] documented as of this encounter Care Teams Client Engagement Specialist Relationship Specialty Start Date End Date Dixie Coyle MD [address] [place], [place] [phone] PCP - General Family Medicine 05/17/18 Rony Wolff FNP [address] [place] [address] Nurse Practitioner Family Medicine 04/05/23 documented as of this encounter
[2024-10-27 12:24] LABS: Hematocrit 36.5 % (37.0-47.0); Hemoglobin 12.3 g/dl (12.0-16.0); Mean Corpuscular HGB Conc 33.7 g/dl (31.0-35.0); Mean Corpuscular Hemoglobin 30.1 pg (27.0-33.0); Mean Corpuscular Volume 89.5 fL (80.0-98.0); Mean Platelet Volume 10.1 fL (9.4-12.3); Platelet Count 280 X10*3/uL (160-400); Red Blood Count 4.08 X10*6/uL (4.20-5.50); Red Cell Distribution Width 13.3 % (11.0-16.0); White Blood Count 5.2 X10*3/uL (4.8-10.8)
[2024-10-27 13:07] LABS: Iron 80 mcg/dL (30-160); Percent Iron Saturation 28 % (15-50); Total Iron Binding Capacity 287 mcg/dL (228-428); Unsaturated Iron Binding 207 ug/dL
[2024-10-27 13:10] LABS: Ferritin 77 ng/mL (10-250); Vitamin D 25-OH Total 17.6 ng/mL (>30)
[2024-10-27 13:26] LABS: Folate 9.8 ng/mL (> or = 4.0); Vitamin B12 380 pg/mL (200-900)
== END 2024-10-27 11:14 | disposition home or self-care (01) ==
LOC: HO.LAB 11:13
PROVIDERS: PCP Internal Medicine; Visit Provider Internal Medicine Gastroenterology
DX: D64.9 Anemia, unspecified (principal)
CPT/HCPCS: 36415; 82306; 82607; 82728; 82746; 83540; 85027

== ENCOUNTER 2024-12-22 14:13 | Outpatient (REF) | payer OTHER, SELFPAY ==
--- OUTSIDE RECORDS SUMMARY | 2024-12-22 14:15 | XMS_ITS | Encounter Summary ---
Author Organization [employer] Address [address] [place] [address] [address] [place] [address] Care Team Providers Care National Business Director Name Role Phone Dixie Coyle MD Primary Care Provider + Rony Wolff Unavailable Unavailable Encounter Details Date Type Department Care Team (Late st Contact Info) Description 11/05/2022 Abstract [facility] MEDICINE [address] [place], [place] [phone] Dixie Coyle MD [address] [place], [place] [phone] Social History Tobacco Use Types Packs/Day Years [...] documented as of this encounter Care Teams National Business Director Relationship Specialty Start Date End Date Dixie Coyle MD [address] [place], [place] [phone] PCP - General Family Medicine 05/17/18 Rony Wolff FNP [address] [place] [address] Nurse Practitioner Family Medicine 04/05/23 documented as of this encounter
--- OUTSIDE RECORDS SUMMARY | 2024-12-22 14:15 | XMS_ITS | Clinical Summary ---
Author Organization [facility] Address [address] [place] [id number] Care Team Providers Care Implement Mechanic Name Role Phone Unavailable Primary Care Provider [...] 2023-2 5 season) 2024 03/14/2021, 06/05/2020, 05/15/2020 Depression Screening 05/17/2024 Influenza Vaccine (#1) 2025 , 03/11/2021 DTaP,Tdap,and Td Vaccines (4 - Td or Tdap) 03/30/2034 03/30/2024, 02/29/2012, 02/29/2012 MMR Vaccines Aged Out 08/16/2020, 07/15/2020 No longer eligible based on patient's age to complete this topic Pneumococcal Vaccine: 50+ Years Completed 03/30/2024 HIB [...] Procedure Name Priority Date/Time Associated Diagnosis Comments [facility] SCREENING DIGITAL Routine 05/14/2019 7:49 PM EST Encounter for screening mammogram for malignant neoplasm of breast from Last 3 Months or Most Recently Relevant to Health Maintenance Results * [facility] SCREENING DIGITAL (05/14/2019 7:49 PM EST) Anatomical Region Laterality Modality Mammography 05/08/2019 10:5 4 AM EST Narrative 05/14/2019 7:49 PM EST [facility] Diagnostic Imaging Department [address] [place] [address] Patient: ANGEL COLLINS V /Age/Sex: 1965 - 53 - F Unit#: [id number] Location/Status: [facility] Mnemonic/Ordering Site: [facility] Ordering Physician: DIXIE MARTIN MD [facility] Screening Digital - 05/13/191100 History: Bilateral breast cancer screening. Technique: Digital mammography. Conventional CC and MLO projections with tomosynthesis MLO views and computer aided detection. Comparison made with previous mammograms from [facility] 05/12/2018, dating back to 04/08/2009. Findings: Breast tissue consists of fatty and fibroglandular tissue with moderate complexity, potentially obscuring small lesions, category c density (as calculated by Revinatepara software). There is no suspicious group of microcalcification, suspicious mass, architectural distortion or suspicious change in breast density within either breast. Impression: No evidence of malignancy. BIRADS category 1; negative study, 3341F [id number], [id number] A negative mammogram in the face of a suspicious abnormality does not exclude the possibility of malignancy nor alter the indications for biopsy. Note: Patient information entered into a reminder system with a target due date for the next mammogram; PQRI II 7025F Dictating Physician: JERMAINE SCHNEIDER MD Electronically Signed by: JERMAINE SCHNEIDER MD Dic Date/Time: 05/14/191947 Sign date/Time: 05/14/191948 Procedure Note Jermaine Schneider - 05/06/2022 [facility] Diagnostic Imaging Department [address] [place] [address] Patient: ANGEL COLLINS./Age/Sex: 1965 - 53 - F Unit#: [id number] Location/Status: [facility] Mnemonic/Ordering Site: [facility] Ordering Physician: DIXIE MARTIN MD [facility] Screening Digital - 05/13/191100 History: Bilateral breast cancer screening. Technique: Digital mammography. Conventional CC and MLO projectionswith tomosynthesis MLO views and computer aided detection. Comparison made with previous mammograms from [facility]05/12/2018, dating back to 04/08/2009. Findings: Breast tissue consists of fatty and fibroglandular tissue with moderate complexity, potentially obscuring small lesions, category cdensity (as calculated by Revinatepara software). There is no suspicious group of microcalcification, suspicious mass, architectural distortion or suspicious change in breast density withineither breast. Impression: No evidence of malignancy. BIRADS category 1; negative study, 3341F 28871, [address] A negative mammogram in the face of [...]
[2024-12-22 14:27] LABS: MANUAL DIFF FLAG NO
[2024-12-22 15:07] LABS: Hematocrit 37.1 % (37.0-47.0); Hemoglobin 13.1 g/dl (12.0-16.0); Imm Gran Abs Auto 0.01 X10*3/uL (0.00-0.03); Imm Gran Pct Auto 0.2 % (0.0-0.4); Lymphocytes Absolute Auto 1.8 X10*3/uL (1.2-4.9); Mean Corpuscular HGB Conc 35.3 g/dl (31.0-35.0); Mean Corpuscular Hemoglobin 30.8 pg (27.0-33.0); Mean Corpuscular Volume 87.1 fL (80.0-98.0); NRBC Abs Auto 0.000 X10*3/uL (0.0-0.012); NRBC Pct Auto 0.0 /100WBC (0.0-0.2); Platelet Count 304 X10*3/uL (160-400); Red Blood Count 4.26 X10*6/uL (4.20-5.50); White Blood Count 5.7 X10*3/uL (4.8-10.8)
[2024-12-22 15:59] LABS: Alanine Aminotransferase 26 U/L (0-31); Albumin Level 4.8 g/dL (3.5-5.0); Alkaline Phosphatase 69 U/L (39-117); Anion Gap 12 (12-20); Aspartate Amino Transferase 23 U/L (5-31); Blood Urea Nitrogen 15 mg/dL (9-16); Calcium 9.5 mg/dL (8.4-10.2); Carbon Dioxide 28 mmol/L (22-29); Chloride 105 mmol/L (96-108); Estimated Glomerular Filt Rate > 60; Potassium 3.9 mmol/L (3.3-5.1); Sodium 141 mmol/L (135-145); Total Protein 8.0 g/dL (6.5-8.0)
[2024-12-25 08:41] LABS: HBS Num1 51.04 mIU/mL (0-7.99); HBc Num1 0.03 S/CO (0.00-0.79); HBsAGNum1 0.61 S/CO (0.00-0.99); Hepatitis A Antibody IgM 0.32 Index (0-0.79); Hepatitis B Surface Antigen Negative (Negative); ~HepC Num1 0.11 S/CO (0.00-0.79); ~Hepatitis A Antibody IgM Nonreactive (Nonreactive); ~Hepatitis B Surface Antibody REACTIVE (Nonreactive); ~Hepatitis C Antibody Nonreactive (Nonreactive)
[2024-12-25 14:13] LABS: TS Negative Control Passed; TS Panel A 0; TS Panel B 0; TS Positive Control Passed; TSpotTB Negative (Negative)
== END 2024-12-22 14:14 | disposition home or self-care (01) ==
LOC: HO.LAB 14:13
PROVIDERS: PCP Internal Medicine; Visit Provider Student in an Organized Health Care Education/Training Program
DX: Z11.1 Encounter for screening for respiratory tuberculosis (principal); Z11.59 Encounter for screening for other viral diseases; M05.9 Rheumatoid arthritis with rheumatoid factor, unspecified
CPT/HCPCS: 36415; 80053; 85025; 85652; 86140; 86481; 86704; 86706; 86709; 86803; 87340

== ENCOUNTER 2024-12-26 11:29 | Outpatient (AMB) | payer OTHER, SELFPAY ==
--- NOTE | 2024-12-26 11:31 | A.OFFVIS_ITS ---
Vital Signs 12/26/24 11:35 Height 4 ft 11 in Weight 132 lb 15.02 oz BMI 26.8 BP 140/82 H Blood Pressure Location Lt brachial Position Sitting Pulse 74 Pulse Source Pulse Oximeter Pulse Oximetry (%) 99 Oxygen Delivery Method Room Air Intake Visit Reasons: RA Intake Note: Patient presents for RA follow up. Allergies Enbrel Adverse Reaction (Severe, Uncoded 06/22/24 14:08) Diarrhea HPI Comments Details: Patient is a 58-year-old female with hypertension, asthma COPD overlap, nonalcoholic fatty liver disease, GERD and seropositive rheumatoid arthritis here today for follow up Interval History: Patient last seen 08/18/24 with me - On Rinvoq 15mg daily - Doing okay, but still having breakthrough joint pain - Started on SSZ Today, - On Rinvoq 15mg daily - SSZ 1000mg every other day due to nausea - Still having overall achy joints Rheumatologic History: -ve RF +++CCP dx 07/2023 Leflunomide 07/2023 DC 09/2023 d.t. transaminitis Rinvoq sample 09/2023 effective for a few months, denied by insurance Enbrel 01/2024 discontinued after 3 doses due to diarrhea and headaches also ineffective Rinvoq started 02/2024 partially effective Current Rheumatology Medication(s): Rinvoq 15 mg daily SSZ 1000mg every other day [facility] Medical History Seropositive rheumatoid arthritis Long-term use of immunosuppressant medication Pleuritic chest pain Thymus hyperplasia Asthma-COPD overlap syndrome Asthma Pulmonary nodules Personal history of nicotine dependence GERD (gastroesophageal reflux disease) NAFL (nonalcoholic fatty liver) Degenerative arthritis of lumbar spine Surgical History History of colonoscopy Family History Father Heart attack Diabetes HTN (hypertension) Brother Liver cancer Maternal Aunt Liver cancer Breast cancer Mother Stroke Diabetes Other Asthma Social History Household Members Other:: son Are you a primary care management specialist to a significant other at home: No Do you presently have visiting nurse or other home services: No Alcohol intake: never Patient Tobacco Use Status: Former Tobacco user Tobacco use type: Cigarette Cigarettes Per Day: 20 Years Smoked: 15 e-Cigarette/Vaping Use: Never Used Current occupational status: 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 Review of Systems Const Details: Review of Systems Constitutional: Denies fever, chills, weight loss ENT: Denies vision changes, eye pain or eye redness, dental caries, dry mouth GI: Denies nausea, vomiting, diarrhea, abdominal pain, change in BM Pulm: Denies SOB, ZABALA, hemoptysis, wheezing Cards: Denies chest pain, palpitations Skin: Denies Raynaud's, rash, nail changes, photosensitivity, WRAPPING CLERK: Denies headaches, weakness, paresthesias, recurrent falls MSK: as per HPI All other systems reviewed and are unremarkable except noted above Physical Exam Exam Exam: Vital signs reviewed Physical Examination CONSTITUITIONAL Patient alert and cooperative. MSK Hands * Right Hand: Able to make a fist. No swelling. TTP of the 2nd MCP and 2nd PIP * Left Hand: Able to make a fist. No swelling. TTP of the 2nd MCP and 2nd PIP * Herbedens nodes noted bilaterally Wrists * Right Wrist: Full ROM. 70 degrees of wrist flexion, 80 degrees of wrist extension. No swelling or TTP * Left Wrist: Full ROM. 70 degrees of wrist flexion, 80 degrees of wrist extension. No swelling or TTP Elbows * Right Elbow: Full ROM. No swelling or TTP. * Left Elbow: Full ROM. No swelling or TTP. Shoulders * Right shoulder: Decreased ROM. No swelling noted. No TTP of the AC joint, subacromial bursa or posterior shoulder * Left shoulder: Decreased ROM. No swelling noted. No TTP of the AC joint, subacromial bursa or posterior shoulder Knees * Right knee: Full ROM. No swelling noted. No TTP of the knee joint line or pes anserine bursa * Left knee: Full ROM. No swelling noted. TTP of the knee joint line but no TTP of the pes anserine bursa. Ankles * Right ankle: Good ankle dorsiflexion and plantar flexion. No swelling. No TTP of the ankle joint * Left ankle: Good ankle dorsiflexion and plantar flexion. No swelling. No TTP of the ankle joint Feet * Right foot: Negative squeeze test * Left foot: Negative squeeze test Tender points? * No tenderness to palpation of the bilateral trapezius, supraspinatus, anterior costochondral junctions, bilateral suboccipital muscle insertions SKIN No rashes Vital Signs: Last Vital Signs Pulse 74 12/26/24 11:35 BP 140/82 H 12/26/24 11:35 Pulse Ox 99 12/26/24 11:35 Oxygen Delivery Method Room Air 12/26/24 11:35 BMI result Body Mass Index 26.8 Results Reviewed Results Reviewed: Laboratory Tests 08/15/24 12/22/24 13:38 14:25 WBC 5.7 RBC 4.26 Hgb 13.1 Hct 37.1 Plt Count 304 ESR 18 Sodium 141 Potassium 3.9 Chloride 105 Carbon Dioxide 28 BUN 15 Creatinine 0.73 AST 23 ALT 26 C-Reactive Protein 0.36 0.56 H Laboratory Tests 03/18/23 07/28/23 13:47 08:02 Rheumatoid Factor < 13.0 Cycl Citrul Peptide IgG >250 H OLMAN Screen POSITIVE A OLMAN Titer 1:160 H Laboratory Tests 12/22/24 14:25 Hepatitis A IgM Ab Nonreactive Hep Bs Antigen Negative Hep Bs Antibody REACTIVE Hep B Core Total Ab Nonreactive Hepatitis C Ab (EIA) Nonreactive TB Test (T-Spot) Com Negative Assessment & Plan Assessment & Plan (1) Seropositive rheumatoid arthritis: Comment: -ve RF +++CCP dx 07/2023 Leflunomide 07/2023 DC 09/2023 d.t. transaminitis Rinvoq sample 09/2023 effective for a few months, denied by insurance Enbrel 01/2024 discontinued after 3 doses due to diarrhea and headaches also ineffective Rinvoq started 02/2024 effective Code(s): M05.9 - Rheumatoid arthritis with rheumatoid factor, unspecified Category: Medical Plan: #Seropositive RA Patient is a 58-year-old female with seropositive rheumatoid arthritis here today for follow up. Exam today shows mild disease activity with scattered tender joints but none swollen. SSZ causing nausea and she is not able to tolerate it. We will try plaquenil Plan - Continue Rinvoq 15mg daily - Stop SSZ - Start Hydroxychloroquine 200mg od - RTC 4 months - Labs before visit: CBC, CMP, ESR, CRP (2) Long-term current use of Janus kinase inhibitor: Code(s): Z79.622 - group home (current) use of Janus kinase inhibitor Plan: #Long-term Use of MENDOZA inhibitor : Rinvoq Discussed with patient the benefits and risks of MENDOZA inhibitors for the management of the rheumatic condition Benefits include reduce pain, maintenance of remission and reduction of flares Risks include thromboembolic events, skin cancer and nonmelanoma skin cancers, other forms of cancer, cardiovascular alcohol and mortality Advise patient that they are to hold the medication and for up to 1 week after a febrile illness or an open skin wound (3) Encounter for monitoring of hydroxychloroquine therapy: Code(s): Z51.81 - Encounter for therapeutic drug level monitoring; Z79.899 - Other termite exterminator (current) drug therapy Plan: #Long-term Use of Hydroxychloroquine Discussed with patient the risks and benefits of hydroxychloroquine in managing the rheumatic condition Benefits include: - Reduced pain, reduce mortality, maintenance of remission and reduction of flares Risks include: - GI upset, skin hyperpigmentation, retinal toxicity (especially after more than 5 years of use), myopathy Advised yearly ophthalmology visits Plan I spent 30 minutes reviewing the record and labs, taking a history, examining the patient, discussing the treatment plan, ordering diagnostic work up and documenting in the medical record Medications: New hydroxychloroquine (Plaquenil) 200 mg PO DAILY 90 tabs 1RF M05.9 - Rheumatoid arthritis with rheumatoid factor, unspecified Coding Level of Care Code Est Pt Level 4 (72415) Complex EM visit Add On G2211 Diagnoses Seropositive rheumatoid arthritis M05.9 Long-term current use of Janus kinase inhibitor Z79.622 Encounter for monitoring of hydroxychloroquine therapy Z51.81; Z79.899
[2024-12-26 11:35] VITALS: BP 140/82; PULSE 74; O2SAT 99; BMI 26.8
--- OUTSIDE RECORDS SUMMARY | 2024-12-26 12:36 | XMS_ITS | Encounter Summary ---
Author Organization [employer] Address [address] [place] [address] [address] [place] [address] Care Team Providers Care Floor Director Name Role Phone Dixie Coyle MD Primary Care Provider + Rony Wolff Unavailable Unavailable Encounter Details Date Type Department Care Team (Late st Contact Info) Description 11/05/2022 Abstract [facility] MEDICINE [address] [place], [place] [phone] Dixie Coyle MD [address] [place], [place] [phone] Social History Tobacco Use Types Packs/Day Years [...] documented as of this encounter Care Teams Floor Director Relationship Specialty Start Date End Date Dixie Coyle MD [address] [place], [place] [phone] PCP - General Family Medicine 05/17/18 Rony Wolff FNP [address] [place] [address] Nurse Practitioner Family Medicine 04/05/23 documented as of this encounter
--- OUTSIDE RECORDS SUMMARY | 2024-12-26 12:36 | XMS_ITS | Clinical Summary ---
Author Organization [facility] ity Address [id number] [place] [id number] Care Team Providers Care Neon Glass Bender Name Role Phone Unavailable Primary Care Provider [...] Procedure Name Priority Date/Time Associated Diagnosis Comments [facility] SCREENING DIGITAL Routine 05/14/2019 7:49 PM EST Encounter for screening mammogram for malignant neoplasm of breast from Last 3 Months or Most Recently Relevant to Health Maintenance Results * [facility] SCREENING DIGITAL (05/14/2019 7:49 PM EST) Anatomical Region Laterality Modality Mammography 05/08/2019 10:5 4 AM EST Narrative 05/14/2019 7:49 PM EST [facility] Diagnostic Imaging Department [address] [place] [address] Patient: ANGEL COLLINS V /Age/Sex: 1965 - 53 - F Unit#: [id number] Location/Status: [facility] Mnemonic/Ordering Site: [facility] Ordering Physician: DIXIE MARTIN MD [facility] Screening Digital - 05/13/191100 History: Bilateral breast cancer screening. Technique: Digital mammography. Conventional CC and MLO projections with tomosynthesis MLO views and computer aided detection. Comparison made with previous mammograms from [facility] 05/12/2018, dating back to 04/08/2009. Findings: Breast tissue consists of fatty and fibroglandular tissue with moderate complexity, potentially obscuring small lesions, category c density (as calculated by [employer] software). There is no suspicious group of microcalcification, suspicious mass, architectural distortion or suspicious change in breast density within either breast. Impression: No evidence of malignancy. BIRADS category 1; negative study, 3341F 64028, 81945 A negative mammogram in the face of [...] 05/14/191948 Procedure Note Jermaine Schneider - 05/06/2022 [facility] Diagnostic Imaging Department [address] [place] [address] Patient: ANGEL COLLINS./Age/Sex: 1965 - 53 - F Unit#: [id number] Location/Status: [facility] Mnemonic/Ordering Site: [facility] Ordering Physician: DIXIE MARTIN MD [facility] Screening Digital - 05/13/191100 History: Bilateral breast cancer screening. Technique: Digital mammography. Conventional CC and MLO projectionswith tomosynthesis MLO views and computer aided detection. Comparison made with previous mammograms from [facility], dating back to 04/08/2009. Findings: Breast tissue consists of fatty and fibroglandular tissue with moderate complexity, potentially obscuring small lesions, category cdensity (as calculated by [employer] software). There is no suspicious group of microcalcification, suspicious mass, architectural distortion or suspicious change in breast density withineither breast. Impression: No evidence of malignancy. BIRADS category 1; negative study, 3341F 45355, 36659 A negative mammogram in the face of [...]
== END 2024-12-26 12:04 | disposition home or self-care (01) ==
LOC: HO.RHES 11:29
PROVIDERS: PCP Internal Medicine; Visit Provider Student in an Organized Health Care Education/Training Program
DX: M05.9 Rheumatoid arthritis with rheumatoid factor, unspecified (principal); Z79.622 Long term (current) use of Janus kinase inhibitor; Z51.81 Encounter for therapeutic drug level monitoring; Z79.899 Other long term (current) drug therapy
CPT/HCPCS: 99214

== ENCOUNTER 2025-02-12 08:15 | Outpatient (REF) | payer OTHER, SELFPAY ==
[2025-02-12 08:26] LABS: MANUAL DIFF FLAG NO
--- OUTSIDE RECORDS SUMMARY | 2025-02-12 08:26 | XMS_ITS | Encounter Summary ---
Author Organization [employer] Address [address] [facility] 7 [place] [address] Care Team Providers Care Tankage Supervisor Name Role Phone Dixie Coyle MD Primary Care Provider + Rony Wolff Unavailable Unavailable Reason for Visit * Reason Comments Med Change Request Encounter Details Date Type Department Care Team ([facility] st Contact Info) Description 02/18/2023 Refill [facility] MEDICINE [address] [place] [address] Rony Wolff FNP Adjustment disorder with anxiety [...] the past 12 months, has t he [employer] threatened to shut off services in your [...] as of this encounter Plan of Treatment Upcoming Encounters Date Type Department Care Team (Late st Contact Info) Description 04/04/2025 10:00 AM EST Office Visit [facility] MEDICINE [address] [place] [address] Dixie Coyle MD [address] [place] [address] documented as of this encounter Visit Diagnoses Diagnosis Adjustment disorder with anxiety documented in this encounter Additional Health Concerns Assessment Noted Time PHQ-9 Depression Total Score: 023 10:31 AM EDT documented as of this encounter Care Teams Tankage Supervisor Relationship Specialty Start Date End Date Dixie Coyle MD [address] [place] [address] PCP - General Family Medicine 05/17/18 Rony Wolff FNP [address] [place] [address] Nurse Practitioner Family Medicine 04/05/23 documented as of this encounter
--- OUTSIDE RECORDS SUMMARY | 2025-02-12 08:26 | XMS_ITS | Clinical Summary ---
Author Organization [facility] Address [address] [place] [phone] Care Team Providers Care Technical Testing Engineer Name Role Phone Unavailable Primary Care Provider [...] Breast Cancer Screening 05/14/2021 05/14/20 19, 05/13/2018 Depression Screening 05/17/2024 COVID-19 Vaccine (4 - 2024-2 6 season) 2025 03/14/2021, 06/05/2020, 05/15/2020 Influenza Vaccine (#1) 2025 , 03/11/2021 DTaP,Tdap,and Td Vaccines (4 - Td or Tdap) 03/30/2034 03/30/2024, 02/29/2012, 02/29/2012 RSV Immunization Adult Patients (1 - 1-dose 75+ series) 12/29/2042 MMR Vaccines Aged Out 08/16/2020, 07/15/2020 No [...] Procedure Name Priority Date/Time Associated Diagnosis Comments [facility] SCREENING DIGITAL Routine 05/14/2019 7:49 PM EST Encounter for screening mammogram for malignant neoplasm of breast from Last 3 Months or Most Recently Relevant to Health Maintenance Results * [facility] SCREENING DIGITAL (05/14/2019 7:49 PM EST) Anatomical Region Laterality Modality Mammography 05/08/2019 10:5 4 AM EST Narrative 05/14/2019 7:[address] [facility] Diagnostic Imaging Department [address] [place] [address] Patient: ANGEL COLLINS D.O.B./Age/Sex: 1965 - 53 - F Unit#: [id number] Location/Status: [facility] Mnemonic/Ordering Site: [facility] Ordering Physician: DIXIE MARTIN MD [facility] Screening Digital - 05/13/191100 History: Bilateral breast cancer screening. Technique: Digital mammography. Conventional CC and MLO projections with tomosynthesis MLO views and computer aided detection. Comparison made with previous mammograms from [facility] 05/12/2018, dating back to 04/08/2009. Findings: Breast tissue consists of fatty and fibroglandular tissue with moderate complexity, potentially obscuring small lesions, category c density (as calculated by [employer] software). There is no suspicious group of microcalcification, suspicious mass, architectural distortion or suspicious change in breast density within either breast. Impression: No evidence of malignancy. BIRADS category 1; negative study, 3341F 77636, 30223 A negative mammogram in the face of a suspicious abnormality does not exclude the possibility of malignancy nor alter the indications for biopsy. Note: Patient information entered into a reminder system with a target due date for the next mammogram; PQRI II [id number] Dictating Physician: JERMAINE SCHNEIDER MD Electronically Signed by: JERMAINE SCHNEIDER MD Dic Date/Time: 05/14/191947 Sign date/Time: 05/14/191948 Procedure Note Jermaine Schneider - 05/06/2022 [facility] Diagnostic Imaging Department [address] [place] [address] Patient: ANGEL COLLINS D.O.B./Age/Sex: 1965 - 53 - F Unit#: [id number] Location/Status: [facility] CLI Mnemonic/Ordering Site: [facility] Ordering Physician: DIXIE MARTIN MD [facility] Screening Digital - 05/13/191100 History: Bilateral breast cancer screening. Technique: Digital mammography. Conventional CC and MLO projectionswith tomosynthesis MLO views and computer aided detection. Comparison made with previous mammograms from [facility], dating back to 04/08/2009. Findings: Breast tissue consists of fatty and fibroglandular tissue with moderate complexity, potentially obscuring small lesions, category cdensity (as calculated by [employer]star[employer] software). There is no suspicious group of microcalcification, suspicious mass, architectural distortion or suspicious change in breast density withineither breast. Impression: No evidence of malignancy. BIRADS category 1; negative study, 3341F 47892, 18668 A negative mammogram in the face of [...]
--- OUTSIDE RECORDS SUMMARY | 2025-02-12 08:26 | XMS_ITS | Encounter Summary ---
Author Organization [employer] Address [address] [place] [address] [address] [place] [address] Care Team Providers Care Dining Room Helper Name Role Phone Dixie Coyle MD Primary Care Provider + Rony Wolff Unavailable Unavailable Encounter Details Date Type Department Care Team (Late st Contact Info) Description 11/05/2022 Abstract [facility] MEDICINE [address] [place] [address] [phone] Dixie Coyle MD [address] [place] [address] [phone] Social History Tobacco Use Types Packs/Day Years [...] Description 04/04/2025 10:00 AM EST Office Visit [facility] MEDICINE [address] [place] [address] [phone] Dixie Coyle MD [address] [place] [address] [phone] documented as of this encounter Visit Diagnoses Not on filedocumented in this encounter Additional Health Concerns Assessment Noted Time PHQ-9 Depression Total Score: 7 10/28/19 3:15 PM EDT documented as of this encounter Care Teams Dining Room Helper Relationship Specialty Start Date End Date Dixie Coyle MD [address] [place] [address] PCP - General Family Medicine 05/17/18 Rony Wolff FNP [address] [place] [address] Nurse Practitioner Family Medicine 04/05/23 documented as of this encounter
--- OUTSIDE RECORDS SUMMARY | 2025-02-12 08:27 | XMS_ITS | Clinical Summary ---
Author Organization [employer] Address [address] [place] [address] 7 [place] [address] Care Team Providers Care Drawing Tracer Name Role Phone Olman Coyle MD Primary [...] of moderate intensity exercise. Rheumatoid arthritis of [facility] sites with negative rheumatoid factor ([facility]) 12/27/2023 Assessment & Plan (12/29/2023 3:03 PM EDT): Seen by [facility] rheumatology, on Rinvoq, doing well. Advised to [...] 1:41 PM EDT): Started on Losartan by machine sign writer Controlled. Compliant w/meds Continue lisinopril/hydrochlorothiazide + amlodipine [...] any issues or concerns she should contact [facility]. All her questions were answered. I have [...] her medications, was informed erroneously by her [facility] pharmacy that no refills were available. Will now transfer to pharmacy at [facility] where she works. New Rx sent for Seroquel 25 mg at bedtime and Duloxetine 30 mg two times daily. She can F/U with counselor at work and/or call to F/u on counseling referral. She will also request FMLA paperwork from her job and bring to [facility], where I can sign based on intermittent [...] next appt Eczema 11/24/2017 Granulomatous lung disease (CMS/HCC) 11/24/2017 Assessment & Plan (03/30/2024 1:41 PM EST): CT scan lungs 03/08/24 stable. Fu with Pulmonology. Sprain of hip 11/24/2017 Positive OLMAN (antinuclear antibody) 06/17/2017 Lung mass 06/15/2017 Pain in left foot 06/14/2017 DUB (dysfunctional uterine bleeding) 04/22/2017 Rash 04/22/2017 Cervical radiculopathy 06/30/2016 Migraine without aura, not refractory 06/30/2016 Simple chronic bronchitis (CMS/HCC) 06/30/2016 Tenosynovitis of hand 06/30/2016 Chronic bilateral low back pain 03/27/2016 Assessment & Plan (03/30/2024 1:43 PM EST): Pt has left sciatica. Advised to take Tylenol and a heat pad prn. She will start doing stretching exercises and re consult prn. Assessment & Plan (03/22/2023 2:53 PM EST): Did not want improve with pain clinic Roll Cutter to go to acupuncture Continue meloxicam Assessment & Plan (12/07/2022 5:15 PM EDT): Failed PT, take tylenol and flexiril PRN Pt to make an appointment for fu with Dr. Doan Neurosurgeon at [facility] Assessment & Plan (07/15/2022 1:03 PM EST): [...] (03/22/2023 5:59 PM EST): Uncontrolled. FU with creative coordinator, Will be started on dupixent probably Declined Covid IZ Cerebrovascular accident (CV A) due to occlusion of precerebral artery 03/27/2016 Dizziness 03/27/2016 Smoker 03/27/2016 Encounters Date Type Department Care Team Description 01/22/2025 Telephone [facility] MEDICINE [address] [place] [address] Olman Coyle MD Appointment 12/25/2024 Results Follow-Up [facility] MEDICINE [address] [place] [address] Olman Coyle MD CBC auto differential, Sed Rate by Modified Westergren, Comprehensive Metabolic Panel, Additional followed-up results: 3 12/22/2024 Orders Only GENERIC EXTERNAL DATA DEPARTMENT Provider, Generic External Data from Last 3 Months Immunizations Immunization Administration [...] housing situation today? I have nainevin guevara 03/30/[address] you [...] 98 03/30/2024 12:07 PM EST Temperature 37 C (98.6 F) 03/30/2024 12:07 PM EST Respiratory Rate 24 03/30/2024 12:07 PM EST Oxygen Saturation 98% 03/30/2024 12:07 PM EST Inhaled Oxygen Concentration - - Weight 64.5 kg (142 lb 2 oz) 03/30/2024 12:07 PM EST Height 152.4 cm (5') 03/30/2024 12:07 PM EST Body Mass Index 27.76 03/30/2024 12:07 PM EST Plan of Treatment Upcoming Encounters Date Type Department Care Team (Late st Contact Info) Description 04/04/2025 10:00 AM EST Office Visit [facility] MEDICINE [address] [place] [address] Olman Coyle MD [address] [place] [address] Health Maintenance Due Date Last Done Comments CT Colonography 1967 FIT DNA/Cologuard 1967 FIT 1965 FOBT 1965 HIV Screening 1965 Lipid Panel 1965 Sigmoidoscopy 1965 Disability Screening 1967 Alcohol/Substance Use Screening 1979 Hepatitis A Vaccines (1 of 2 - Risk 2-dose series) 12/29/1986 Hepatitis B Vaccines (1 of 3 - 19+ 3-dose series) 12/29/1986 Zoster Vaccines (1 of 2) 12/29/2017 Colonoscopy 11/10/2023 11/09/2018 Colorectal Cancer Screening 11/10/2023 Depression Screening 10/03/2024 10/04/2023, 10/04/19 24 COVID-19 Vaccine ( season) 2025 03/14/2021, 06/05/2020, 05/15/2020 Influenza Vaccine (#1) 2025 , 03/08/2023, 03/11/2021 Mammogram 03/23/2025 03/23/2024, 06/2022, 03/11/2022, Additional history exists SDOH Screening 03/30/2025 03/30/2024 Tobacco Screening 03/30/2025 03/30/2024 Pap Smear 05/22/2025 05/22/2022 Cervical Cancer Screening 05/22/2027 HPV/Cotest 05/22/2027 05/22/2022 DTaP/Tdap/Td Vaccines (3 - Td or Tdap) 03/30/2034 03/30/2024, 02/29/2012, 02/29/2012 RSV Patients and Patients Aged 60 years or older (1 - 1-dose 75+ series) 12/29/2042 Pneumococcal Vaccine: 50+ Years Completed 03/30/2024 Hepatitis C Screening Completed 12/22/2024 , 07/28/2023, 06/27/2021, Additional history exists HIB Vaccines Aged Out No longer eligi [...] Procedure Name Priority Date/Time Associated Diagnosis Comments T-SPOT(R).TB Routine 12/22/2024 2:25 PM EDT HEPATITIS PANEL, GENERAL Routine 12/22/2024 2:25 PM EDT C-REACTIVE PROTEIN Routine 12/22/2024 2: 25 PM EDT COMPREHENSIVE METABOLIC PANEL Routine 12/22/2024 2:25 PM EDT SED RATE BY MODIFIED WESTERGREN Routine 12/22/2024 2:25 PM EDT CBC WITH AUTO DIFFERENTIAL Routine 12/22/2024 2:25 PM EDT BI MAMMOGRAM SCREENING TOMOSYNTHESIS BILATERAL Routine 03/23/2024 10:30 AM EST HM PAP/HPV Routine 05/22/2022 HM COLONOSCOPY Routine 11/09/2018 from Last 3 Months or Most Recently Relevant to Health Maintenance Results * T-SPOT??.TB (12/22/2024 2:25 PM EDT) T Spot TB Negative Negative [facility] Comment:A negative test resu lt does not exclude the possibilityof exposure to or infection with Mycobacteriumtuberculosis (M. tuberculosis). Patients with recentexposure to TB infected individuals exhibiting anegative T-SPOT.TB result should be considered forretesting within 6 weeks or if other relevant clinicalsymptoms indicate. Results from T-SPOT.TB testing mustbe used in conjunction with each individual'sepidemiological history, current medical status,and results of other diagnostic evaluations.The T-SPOT.TB test is qualitative and results arereported as positive, borderline, or negative, giventhat the test controls perform as expected. In linewith the Centers for Disease Control and Prevention's2010 recommendation to report quantitative measurementsalongside the qualitative result, the laboratoryprovides spot counts for informational purposes only.The T-SPOT.TB test should not be interpreted as aquantitative test. TS PANEL A 0 [facility] TS PANEL B 0 [facility] Negative Control Passed [facility] Positive Control Passed [facility] Comment:For additional infor nguyen, please refer tohttp://education.[employer]/faq/AVQ484(This link is being provided for informational/educational purposes only.)THIS TEST WAS PERFORMED AT:[id number] [place] [address]LDRPEXSCELESTE GOMEZ MD,PHD 12/22/2024 2:25 PM EDT 12/22/2024 2:26 PM EDT Generic External Data Provider LAB BLOOD ORDERAB LES Final Result Performing Organization Address [facility] de Phone Number [facility] [address] [place] [phone] * Hepatitis Panel, General (12/22/2024 2:25 PM EDT) Pathologist [facility] Hepatitis A IgM Nonreactive Nonreactive [facility] Comment:IgM antibodies to EMERSON V not detected; does not exclude earlyacute or recovered HAV infection. ~Hepatitis B Surface Antibody REACTIVE Nonreactive [facility] Comment:REACTIVE: > 11.99 mI U/mL Hepatitis B Core Antibody Nonreactive Nonreactive [facility] Hepatitis C Antibody Nonreactive Nonreactive [facility] Comment:Antibodies to HCV no t detected; does not exclude early acuteHCV infection. Hepatitis B Surface Ag Negative Negative [facility] 12/22/2024 2:25 PM EDT 12/22/2024 2:26 PM EDT Generic External Data Provider LAB BLOOD ORDERAB LES Final Result Performing Organization Address [facility] de Phone Number [facility] [address] [place] [phone] * (ABNORMAL) CBC auto differential (12/22/2024 2:25 PM EDT) Pathologist [facility] White Blood Count 5.7 4.8 - 10.8 X10*3/uL [facility] Red Blood Count 4.26 4.20 - 5.50 X10*6/uL [facility] Hemoglobin 13.1 12.0 - 16.0 g/dl [facility] Hematocrit 37.1 37.0 - 47.0 % [facility] Mean Corpuscular Volume 87.1 80.0 - 98.0 fL [facility] Mean Corpuscular Hemoglobin 30.8 27.0 - 33.0 pg [facility] Mean Corpuscular HGB Conc 35.3(H) 31.0 - 35.0 g/dl [facility] Red Cell Distribution Width 12.8 11.0 - 16.0 % [facility] Platelet Count 304 160 - 400 X10*3/uL [facility] Mean Platelet Volume 9.6 9.4 - 12.3 fL [facility] Neutrophils Percent Auto 59.0 45 - 73 % [facility] Imm Gran Pct Auto 0.2 0.0 - 0.4 % [facility] Lymphocytes Percent Auto 31.4 20 - 40 % [facility] Monocytes Percent Auto 8.4 2 - 11 % [facility] Eosinophils Percent Auto 0.7 0 - 4 % [facility] Basophils Percent Auto 0.3 0 - 2 % [facility] NRBC Pct Auto 0.0 0.0 - 0.2 /100WBC [facility] Neutrophils Absolute Auto 3.4 2.0 - 8.3 x10*3/uL [facility] Imm Gran Abs Auto 0.01 0.00 - 0.03 X10*3/uL [facility] Lymphocytes Absolute Auto 1.8 1.2 - 4.9 X10*3/uL [facility] Monocytes Absolute Auto 0.5 0.1 - 1.2 X10*3/uL [facility] Eosinophils Absolute Auto 0.0 0.0 - 0.4 X10*3/uL [facility] Basophils Absolute Auto 0.0 0.0 - 0.2 X10*3/uL [facility] NRBC Abs Auto 0.000 0.0 - 0.012 X10*3/uL [facility] 12/22/2024 2:25 PM EDT 12/22/2024 2:26 PM EDT us Generic External Data Provider LAB BLOOD ORDERAB LES Final Result [facility] [address] [place] [phone] * Sed Rate by Modified Gregren (12/22/2024 2:25 PM EDT) Erythrocyte Sedimentation Rate 18 0 - 20 MM/HR [facility] Comment:Patients with polycy themia and many hemoglobin abnormalitiesmay have depressed sed rates whereas patients with anemiamay have elevated sed rates. 12/22/2024 2:25 PM EDT 12/22/2024 2:26 PM EDT Generic External Data Provider LAB BLOOD ORDERAB LES Final Result Performing Organization Address [facility] Phone Number [facility] [address] [place] [phone] * (ABNORMAL) C-reactive Protein (12/22/2024 2:25 PM EDT) [facility] C Reactive Protein 0.56(H) < or = 0.50 mg/dL [facility] 12/22/2024 2:25 PM EDT 12/22/2024 2:26 PM EDT Generic External Data Provider LAB BLOOD ORDERAB LES Final Result Performing Organization Address [facility] de Phone Number [facility] [address] [place] [phone] * Comprehensive Metabolic Panel (12/22/2024 2:25 PM EDT) Pathologist [facility] Sodium 141 135 - 145 mmol/L [facility] Potassium 3.9 3.3 - 5.1 mmol/L [facility] Chloride 105 96 - 108 mmol/L [facility] Carbon Dioxide 28 22 - 29 mmol/L [facility] Anion Gap 12 12 - 20 [facility] Urea Nitrogen (BUN) 15 9 - 16 mg/dL [facility] Creatinine, Serum 0.73 0.5 - 1.4 mg/dL [facility] Estimated Glomerular Filt Rate >60 [facility] Comment:Chronic Kidney Disea se: Estimated GFR < 60 mL/min/1.95s4Joukdq Kidney Disease: Estimated GFR < 15 mL/min/1.73m2 Glucose 107 60 - 115 mg/dL [facility] Calcium 9.5 8.4 - 10.2 mg/dL [facility] Bilirubin, Total 0.3 0.0 - 1.0 mg/dL [facility] Aspartate Amino Transferase 23 5 - 31 U/L [facility] Alanine Aminotransferase 26 0 - 31 U/L [facility] Total Protein 8.0 6.5 - 8.0 g/dL [facility] Albumin Level 4.8 3.5 - 5.0 g/dL [facility] Alkaline Phosphatase 69 39 - 117 U/L [facility] 12/22/2024 2:25 PM EDT 12/22/2024 2:26 PM EDT us Generic External Data Provider LAB BLOOD ORDERAB LES Final Result [facility] [address] [place] [phone] * BI Mammogram Screening Tomosynthesis Bilateral (03/23/2024 10:30 AM EST) Anatomical Region Laterality Modality Breast Bilateral Mammography 03/23/2024 10:3 0 AM EST Narrative 03/23/2024 11:05 AM EST [facility] [address] [place] [address] Mammography Report Signed Patient: Brittney Caraballo V MR#: [id number] : 1965 Acct:[id number] Age/Sex: 58 / F ADM Date: 03/23/24 Loc: [facility] Attending Dr: Olman Coyle MD Ordering Physician: Olman Coyle MD Results: 1Ne gative Date of Service: 03/23/24 Follow Up: 1 Year From Orig inal Mammogram Procedure(s): MM tomosynthesis screening BI Accession Number(s): [id number] cc: Olman Coyle MD EXAMINATION: MM SCREENING [...] 03/23/24 1102 DD/ 1030 TD/TT: 03/23/24 1048 Seed Specialist: Procedure Note Donotuseinterpreter, Image - 03/23/2024 [place] [facility] [address] [place] [address] Mammography Report Signed Patient: Brittney Caraballo VMR#: [id number] : 1965Acct:[id number] Age/Sex: 58 / FADM Date: 03/23/24 Loc: NIK Attending Dr: Olman Coyle MD Ordering Physician: Olman Coyle MDResults: 1Ne gative Date of Service: 03/23/24Follow Up: 1 Year From Orig inal Mammogram Procedure(s): MM tomosynthesis screening BI Accession Number(s): [id number] cc: Olman Coyle MD EXAMINATION: MM SCREENING [...] DO 03/23/2024 11:02 AM [facility] Dictated By: Luna Watson DO Signed By: <Electronically signed by Luna Watson DO in OV> 03/23/24 1102 DD/ 1030 TD/TT: 03/23/24 1048 Seed Specialist: Olman Coyle MD IMG BI PROCEDURES Edited Result - Final * Pap Smear (05/22/2022) Pap Negative for intraephithelial lesion or malignancy Negative for intraephithelial lesion or malignancy, Other HPV Undetected 05/22/2022 Olman Coyle MD HEALTH MAINTENANCE Final Result * Colonoscopy (11/09/2018) Colonoscopy Normal Normal 11/09/2018 Olman Coyle MD [facility] Edite d Result - Final from Last 3 Months or Most Recently Relevant to Health Maintenance Insurance [employer] Care Teams Drawing Tracer Relationship Specialty Start Date End Date Olman Coyle MD [address] [place] [phone] PCP - General Family Medicine 05/17/18 Rony Wolff FNP [address] [place] [phone] Nurse Practitioner Family Medicine 04/05/23
[2025-02-12 09:09] LABS: Hematocrit 38.1 % (37.0-47.0); Hemoglobin 12.9 g/dl (12.0-16.0); Imm Gran Abs Auto 0.01 X10*3/uL (0.00-0.03); Imm Gran Pct Auto 0.2 % (0.0-0.4); Lymphocytes Absolute Auto 1.7 X10*3/uL (1.2-4.9); Mean Corpuscular HGB Conc 33.9 g/dl (31.0-35.0); Mean Corpuscular Hemoglobin 30.4 pg (27.0-33.0); Mean Corpuscular Volume 89.6 fL (80.0-98.0); NRBC Abs Auto 0.000 X10*3/uL (0.0-0.012); NRBC Pct Auto 0.0 /100WBC (0.0-0.2); Platelet Count 298 X10*3/uL (160-400); Red Blood Count 4.25 X10*6/uL (4.20-5.50); White Blood Count 4.9 X10*3/uL (4.8-10.8)
[2025-02-20 08:47] LABS: Class Cockroach 0; Class Mouse Urine Protein 0; I006-IgE Cockroach, German <0.10
[2025-02-20 08:48] LABS: D002 - IgE D farinae 0.31
[2025-02-20 08:55] LABS: E001 - IgE Cat Dander 6.54
[2025-02-20 08:56] LABS: Class Alternaria alternata 0; Class Aspergillus fumigatus 0; Class Cat Dander 3; Class Cladosporium herbarum 0; Class Dog Dander 6; Class Mountain Cedar 0; Class Timothy Grass 0; E005 - IgE Dog Dander >100; G006 - IgE Timothy Grass <0.10; M002 - IgE Cladosporium herbar <0.10; M003 - IgE Aspergillus fumigat <0.10; M006 - IgE Alternaria alternat <0.10; T006 - IgE Cedar, Mountain <0.10
[2025-02-20 08:57] LABS: Class Common Ragweed 0; Class Cottonwood 0/1; Class Oak 0; Class Sycamore 0/1; Class Walnut Tree 0; Class White Ash 0; Class White Mulberry 0/1; T007 - IgE Oak, White <0.10; T010 - IgE Walnut <0.10; T011 - IgE Maple Leaf Sycamore 0.17; T014 - IgE Cottonwood 0.16; T015 - IgE Ash, White <0.10; T070 - IgE White Mulberry 0.11; W001 - IgE Ragweed, Short <0.10
[2025-02-20 08:58] LABS: Class Bermuda Grass 0/1; Class Birch 0; Class Derm. pterony 0/1; Class Mugwort 0; Class Penicillium crysogenum 0/1; T008 IgE Elm, American 0.25; W006 - IgE Mugwort <0.10
[2025-02-20 08:59] LABS: Class Elm 0/1; Class Maple Box Elder 0/1; Class Rough Pigweed 1; Class Sheep Sorrel 0; T001 IgE Maple/Box Elder 0.14; W014 IgE Pigweed, Common 0.52; W018 IgE Sheep Sorrel <0.10
== END 2025-02-12 08:16 | disposition home or self-care (01) ==
LOC: HO.LAB 08:15
PROVIDERS: PCP Internal Medicine; Visit Provider Allergy & Immunology
DX: J30.89 Other allergic rhinitis (principal); J45.50 Severe persistent asthma, uncomplicated
CPT/HCPCS: 36415; 82785; 85025; 86003

== ENCOUNTER 2025-02-28 15:47 | Outpatient (REF) | payer OTHER, SELFPAY ==
--- OUTSIDE RECORDS SUMMARY | 2025-02-28 19:07 | XMS_ITS | Clinical Summary ---
Author Organization [facility] Address [address] [place] [phone] Care Team Providers Care Full Stack Web Developer Name Role Phone Unavailable Primary Care Provider [...] Procedure Name Priority Date/Time Associated Diagnosis Comments [facility] SCREENING DIGITAL Routine 05/14/2019 7:49 PM EST Encounter for screening mammogram for malignant neoplasm of breast from Last 3 Months or Most Recently Relevant to Health Maintenance Results * [facility] SCREENING DIGITAL (05/14/2019 7:49 PM EST) Anatomical Region Laterality Modality Mammography 05/08/2019 10:5 4 AM EST Narrative 05/14/2019 7:49 PM EST [facility] Diagnostic Imaging Department [address] [place] [address] Patient: ANGEL COLLINS D.O.B./Age/Sex: 1965 - 53 - F Unit#: [id number] [facility] Ordering Physician: DIXIE MARTIN MD [place] Screening Digital - 05/13/191100 History: Bilateral breast cancer screening. Technique: Digital mammography. Conventional CC and MLO projections with tomosynthesis MLO views and computer aided detection. Comparison made with previous mammograms from [facility] 05/12/2018, dating back to 04/08/2009. Findings: Breast tissue consists of fatty and fibroglandular tissue with moderate complexity, potentially obscuring small lesions, category c density (as calculated by [employer] Sky[employer] software). There is no suspicious group of microcalcification, suspicious mass, architectural distortion or suspicious change in breast density within either breast. Impression: No evidence of malignancy. BIRADS category 1; negative study, 3341F 20571, 85848 A negative mammogram in the face of a suspicious abnormality does not exclude the possibility of malignancy nor alter the indications for biopsy. Note: Patient information entered into a reminder system with a target due date for the next mammogram; PQRI II [id number] Dictating Physician: JERMAINE SCHNEIDER MD Electronically Signed by: JERMAINE SCHNEIDER MD Dic Date/Time: 05/14/191947 Sign date/Time: 05/14/191948 Procedure Note Jermaine Schneider - 05/06/2022 [facility] Diagnostic Imaging Department [address] [place] [address] Patient: ANGEL COLLINS D.O.B./Age/Sex: 1965 - 53 - F Unit#: [id number] Location/Status: [facility] CLI Mnemonic/Ordering Site: [facility] Ordering Physician: DIXIE MARTIN MD [place] Screening Digital - 05/13/191100 History: Bilateral breast cancer screening. Technique: Digital mammography. Conventional CC and MLO projectionswith tomosynthesis MLO views and computer aided detection. Comparison made with previous mammograms from [facility]12[facility], dating back to 04/08/2009. Findings: Breast tissue consists of fatty and fibroglandular tissue with moderate complexity, potentially obscuring small lesions, category cdensity (as calculated by [employer] software). There is no suspicious group of microcalcification, suspicious mass, architectural distortion or suspicious change in breast density withineither breast. Impression: No evidence of malignancy. BIRADS category 1; negative study, 3341F 09536, 60375 A negative mammogram in the face of [...]
[2025-03-05 15:13] LABS: Neutrophil Cyto Ab Screen NEGATIVE (NEGATIVE)
[2025-03-10 16:34] LABS: Class Alternaria alternata 0; Class Aspergillus fumigatus 0; Class Bermuda Grass 0/1; Class Birch 0; Class Cat Dander 3; Class Cladosporium herbarum 0; Class Cockroach 0; Class Common Ragweed 0; Class Cottonwood 0/1; Class Derm. pterony 0/1; Class Dermatophagoides farinae 0/1; Class Dog Dander 6; Class Elm 0/1; Class Maple Box Elder 0/1; Class Mountain Cedar 0/1; Class Mouse Urine Protein 0; Class Mugwort 0; Class Oak 0; Class Penicillium crysogenum 0; Class Rough Pigweed 1; Class Sheep Sorrel 0; Class Sycamore 0/1; Class Timothy Grass 0/1; Class Walnut Tree 0; Class White Ash 0; Class White Mulberry 0/1; D002 - IgE D farinae 0.22 kU/L; E001 - IgE Cat Dander 6.27 kU/L; E005 - IgE Dog Dander >100 kU/L; G006 - IgE Timothy Grass 0.10 kU/L; I006-IgE Cockroach, German <0.10 kU/L; M002 - IgE Cladosporium herbar <0.10 kU/L; M003 - IgE Aspergillus fumigat <0.10 kU/L; M006 - IgE Alternaria alternat <0.10 kU/L; T001 IgE Maple/Box Elder 0.12 kU/L; T006 - IgE Cedar, Mountain 0.10 kU/L; T007 - IgE Oak, White <0.10 kU/L; T008 IgE Elm, American 0.25 kU/L; T010 - IgE Walnut <0.10 kU/L; T011 - IgE Maple Leaf Sycamore 0.19 kU/L; T014 - IgE Cottonwood 0.16 kU/L; T015 - IgE Ash, White <0.10 kU/L; T070 - IgE White Mulberry 0.10 kU/L; W001 - IgE Ragweed, Short <0.10 kU/L; W006 - IgE Mugwort <0.10 kU/L; W014 IgE Pigweed, Common 0.51 kU/L; W018 IgE Sheep Sorrel <0.10 kU/L
== END 2025-02-28 15:48 | disposition home or self-care (01) ==
LOC: HO.LAB 15:47
PROVIDERS: PCP Internal Medicine; Visit Provider Allergy & Immunology
DX: J45.50 Severe persistent asthma, uncomplicated (principal)
CPT/HCPCS: 36415; 82164; 82785; 86003; 86036; 86787

== ENCOUNTER 2025-03-14 15:08 | Outpatient (AMB) | payer OTHER, SELFPAY ==
[2025-03-14 15:20] VITALS: BMI 25.9
--- NOTE | 2025-03-14 15:20 | MHC.OFFVIS ---
Vital Signs 03/14/25 15:20 Height 4 ft 11 in Weight 128 lb BMI 25.9 Intake Visit Reasons: Ingrowing nail Intake Note: Brittney is a 59 year old female who presents to the office today for a new patient visit referred by her General Surgeon Dr. Lee for an ingrown nail. Pt states her ingrown has been going on for a couple of years of bilateral hallux. She has had half the nail removed in her right foot about 3 years ago and nothing was done for her left toe. Patient reports she is experiencing pain on her left hallux on the medial border. Allergies Enbrel Adverse Reaction (Severe, Uncoded 06/22/24 14:08) Diarrhea HPI HPI Ingrowing nail: Details: 59-year-old female with past medical history of seropositive rheumatoid arthritis, asthma/COPD, GERD who presents for right ingrown toenail. She states she has been treating it conservatively with herself at home however she was concerned that it might be infected so she presented today for evaluation. She denies noticing any drainage warmth or swelling to the toe. She does note pain to the base of the nail. She is not interested in a ingrown nail procedure today due to a vacation planned for the next 2 weeks. The patient also notes a history of left foot ingrown toenail which underwent partial nail avulsion which has mostly been doing well. [facility] Medical History Seropositive rheumatoid arthritis Long-term use of immunosuppressant medication Pleuritic chest pain Thymus hyperplasia Asthma-COPD overlap syndrome Asthma Pulmonary nodules Personal history of nicotine dependence GERD (gastroesophageal reflux disease) NAFL (nonalcoholic fatty liver) Degenerative arthritis of lumbar spine Surgical History History of colonoscopy Family History Father Heart attack Diabetes HTN (hypertension) Brother Liver cancer Maternal Aunt Liver cancer Breast cancer Mother Stroke Diabetes Other Asthma Social History Household Members Other:: son Are you a primary assisted living care manager to a significant other at home: No Do you presently have visiting nurse or other home services: No Alcohol intake: never Patient Tobacco Use Status: Former Tobacco user Tobacco use type: Cigarette Cigarettes Per Day: 20 Years Smoked: 15 e-Cigarette/Vaping Use: Never Used Current occupational status: 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 Derm: (-) erythema, no drainage to the medial border of the right hallux. Ingrown, incurvated right medial nail border Neuro: Protective sensation grossly intact to bilateral lower extremities. MSK: Mild tenderness on palpation of the medial right hallux Assessment & Plan Assessment & Plan (1) Paronychia of great toe of right foot: Code(s): L03.031 - Cellulitis of right toe Category: Medical Plan: Recommended over the counter nail straighteners conservative treatment first, as there are no signs of infection at this time. The procedure was offered today due to her symptoms of pain and likely predisposition to infection, however the patient states that she is going on vacation next week, she does not want to of the procedure today. We will plan for ingrown nail avulsion upon the patient returning from vacation. (2) Tinea pedis: Code(s): B35.3 - Tinea pedis Category: Medical Qualifiers: Laterality: bilateral Qualified Code(s): B35.3 - Tinea pedis Plan: Rx clotrimazole Medications: New clotrimazole-betamethasone 1-0.05 % 1 appl topical BID 15 grams 3RF tinea pedis 4 weeks B35.3 - Tinea pedis Coding Level of Care Code New Pt Level 3 (60980) Diagnoses Paronychia of great toe of right foot L03.031 Tinea pedis of both feet B35.3 Laterality: bilateral Time Spent (min) 25
--- OUTSIDE RECORDS SUMMARY | 2025-03-14 19:35 | XMS_ITS | Encounter Summary ---
Author Organization [employer] Address [address] [place] [address] Care Team Providers Care Docketing Specialist Name Role Phone Dixie Coyle MD Primary Care Provider + Rony Wolff Unavailable Unavailable Encounter Details Date Type Department Care Team (Late st Contact Info) Description 02/28/2025 Orders Only GENERIC EXTERNAL DATA DEPARTMENT Provider, Generic External Data Social History Tobacco Use Types Packs/Day Years [...] Description 04/04/2025 10:00 AM EST Office Visit [facility] MEDICINE [address] [place] [address] Dixie Coyle MD [address] [place] [address] documented as of this encounter Procedures Procedure Name Priority Date/Time Associated Diagnosis Comments RAST ALLERGEN (NON ORDERABLE) Routine 02/28/2025 4:15 PM EDT RESPIRATORY ALLERGY PROFILE REGION I Routine 02/28/2025 4:15 PM EDT documented in this encounter Results * Rast Allergen (02/28/2025 4:15 PM EDT) Rast Allergen SEE NOTE [facility] Comment:SEE SCANNED REPORT I N EMR 02/28/2025 4:15 PM EDT 03/12/2025 10:56 AM EDT Narrative [facility] - 03/12/2025 10:58 AM EDT DOG AND CAT DANDER REFLEX us Generic External Data Provider HISTORICAL/NON OR DERABLE LABS Final Result [facility] [address] [place] [address] [phone] * (ABNORMAL) Respiratory Allergy Profile Region I (02/28/2025 4:15 PM EDT) Immunoglobulin E 2676(A) <OR=692 kU/L [facility] Mouse Urine Proteins (E72) IgE <0.10 kU/L [facility] Class 0 [facility] Cockroach (I6) IgE <0.10 kU/L [facility] Class 0 [facility] Dermatophagoides farinae (D2) IgE 0.22(A) kU/L [facility] Class 0/1 [facility] Cat Dander (E1) IgE 6.27(A) kU/L [facility] Class 3 [facility] Comment:THIS TEST WAS PERFOR MED AT:[facility] [address] [id number] GAONA MD Dog Dander (E5) IgE >100(A) kU/L [facility] Class 6 [facility] Comment:THIS TEST WAS PERFOR MED AT:[facility] [address] [id number] GAONA MD [place] Grass (G6) IgE 0.10(A) kU/L [facility] Class 0/1 [facility] Cladosporium herbarum (M2) IgE <0.10 kU/L [facility] Class 0 [facility] Aspergillus Fumigatis (M3) IgE <0.10 kU/L [facility] Class 0 [facility] Alternaria alternata (M6) IgE <0.10 kU/L [facility] Class 0 [facility] Comment:THIS TEST WAS PERFOR MED AT:[facility] [address] [phone] GAONA MD [place] (t6) IgE 0.10(A) kU/L [facility] Class 0/1 [facility] [place] (T7) IgE <0.10 kU/L [facility] Class 0 [facility] [place] Tree (T10) IgE <0.10 kU/L [facility] Class 0 [facility] [place] (T11) IgE 0.19(A) kU/L [facility] Class 0/1 [facility] [place] (T14) IgE 0.16(A) kU/L [facility] Class 0/1 [facility] White Hemant (t15) IgE <0.10 kU/L [facility] Class 0 [facility] [place] (T70) IgE 0.10(A) kU/L [facility] Class 0/1 [facility] Common Ragweed (Short) (W1) IgE <0.10 kU/L [facility] Class 0 [facility] Mugwort (w6) IgE <0.10 kU/L [facility] Class 0 [facility] Dermatophagoides pteronyssinus (D1) IgE 0.20(A) kU/L [facility] Class 0/1 [facility] Berm[place] Grass (g2) IgE 0.22(A) kU/L [facility] Class 0/1 [facility] Penicillium Notatum (M1) IgE <0.10 kU/L [facility] Class 0 [facility] Birch (T3) IgE <0.10 kU/L [facility] Class 0 [facility] Elm (t8) IgE 0.25(A) kU/L [facility] Class 0/1 [facility] Maple (Big Sandy) (T1) IgE 0.12(A) kU/L [facility] Class 0/1 [facility] Rough Pigweed (W14) IgE 0.51(A) kU/L [facility] Class 1 [facility] Sheep Wolverine (W18) IgE <0.10 kU/L [facility] Class 0 [facility] Allergen Comment See Below [facility] Comment: Specific Level of AllergenIGE Class kU/L Specific IGE Antibody ----- --------- 0 <0.10 Absent/Undetectable 0/1 0.10-0.34 Very Low Level 1 0.35-0.69 Low Level 2 0.70-3.49 Moderate Level 3 3.50-17.4 High Level 4 17.5-49.9 Very High Level 5 50-100 Very High Level 6 >100 Very High LevelThe clinical relevance of allergen results of0.10-0.34 kU/L are undetermined and intended forspecialist use.Allergens denoted with a include results usingone or more analyte specific reagents. In thosecases, the test was developed and its analyticalperformance characteristics have been determined by[employer]. It has not been cleared or approvedby the U.S. Food and Drug Administration. This assayhas been validated pursuant to the CLIA regulationsand is used for clinical purposes.THIS TEST WAS PERFORMED AT:[facility] [address] [id number] GAONA MD 02/28/2025 4:15 PM EDT 02/28/2025 4:15 PM EDT us Generic External Data Provider LAB BLOOD ORDERAB LES Final Result [facility] [address] [place] [address] [phone] documented in this encounter Visit Diagnoses Not on filedocumented in this encounter Additional Health Concerns Assessment Noted Time PHQ-9 Depression Total Score: 0 10/04/19 24 1:56 PM EDT documented as of this encounter Care Teams Docketing Specialist Relationship Specialty Start Date End Date Dixie Coyle MD [address] [place] [phone] PCP - General Family Medicine 05/17/18 Rony Wolff FNP [address] [place] [phone] Nurse Practitioner Family Medicine 04/05/23 documented as of this encounter
--- OUTSIDE RECORDS SUMMARY | 2025-03-14 19:35 | XMS_ITS | Encounter Summary ---
Author Organization [employer] Address [address] [place] [address] [place] [address] Care Team Providers Care Hand Tapper Name Role Phone Dixie Coyle MD Primary Care Provider + Rony Wolff Unavailable Unavailable Encounter Details Date Type Department Care Team (Late st Contact Info) Description 11/05/2022 Abstract [facility] MEDICINE [address] [place] [address] [phone] Dixie Coyle MD [address] [place] [address] [phone] Social History Tobacco Use Types Packs/Day Years [...] Description 04/04/2025 10:00 AM EST Office Visit [facility] [address] [place] [address] [phone] Dixie Coyle MD [address] [place] [address] [phone] documented as of this encounter Visit Diagnoses Not on filedocumented in this encounter Additional Health Concerns Assessment Noted Time PHQ-9 Depression Total Score: 7 10/28/19 3:15 PM EDT documented as of this encounter Care Teams Hand Tapper Relationship Specialty Start Date End Date Dixie Coyle MD [address] [place] [address] PCP - General Family Medicine 05/17/18 Rony Wolff FNP [address] [place] [address] Nurse Practitioner Family Medicine 04/05/23 documented as of this encounter
--- OUTSIDE RECORDS SUMMARY | 2025-03-14 19:35 | XMS_ITS | Clinical Summary ---
Author Organization [employer] Address [address] [place] [address] 7 [place] [address] Care Team Providers Care Water Plant Pump Operator Supervisor Name Role Phone Dixie Coyle MD [...] of moderate intensity exercise. Rheumatoid arthritis of [facility] with negative rheumatoid factor ([facility]) 12/27/2023 Assessment & Plan (12/29/2023 3:03 PM EDT): Seen by [facility] rheumatology, on Rinvoq, doing well. Advised to [...] 1:41 PM EDT): Started on Losartan by software design engineer Controlled. Compliant w/meds Continue lisinopril/hydrochlorothiazide + amlodipine [...] any issues or concerns she should contact [facility]. All her questions were answered. I have [...] her medications, was informed erroneously by her [facility] pharmacy that no refills were available. Will now transfer to pharmacy at [facility] where she works. New Rx sent for Seroquel 25 mg at bedtime and Duloxetine 30 mg two times daily. She can F/U with counselor at work and/or call to F/u on counseling referral. 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 Doan Neurosurgeon at [facility] Assessment & Plan (07/15/2022 1:03 PM EST): [...] (03/22/2023 5:59 PM EST): Uncontrolled. 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, Will be started on dupixent probably Declined Covid IZ Cerebrovascular accident (CV A) due to occlusion of precerebral artery 03/27/2016 Dizziness 03/27/2016 Smoker 03/27/2016 Encounters Date Type Department Care Team Description 02/28/2025 Orders Only GENERIC EXTERNAL DATA DEPARTMENT Provider, Generic External Data 02/12/2025 Orders Only GENERIC EXTERNAL DATA DEPARTMENT Provider, Generic External Data 01/22/2025 Telephone [facility] MEDICINE [address] [place] [address] Dixie Coyle MD Appointment 12/25/2024 Results Follow-Up [facility] [address] [place] [address] Dixie Coyle MD CBC auto differential, Sed Rate [...] Description 04/04/2025 10:00 AM EST Office Visit [facility] [address] [place] [address] Dixie Coyle MD [address] [place] [address] Health Maintenance Due Date Last Done Comments [...] REGION I Routine 02/28/2025 4:15 PM EDT RAST ALLERGEN (NON ORDERABLE) Routine 02/12/2025 8:24 AM EDT T-SPOT(R).TB Routine 12/22/2024 2:25 PM EDT HEPATITIS [...] Recently Relevant to Health Maintenance Results * Rast Allergen (02/28/2025 4:15 PM EDT) Only the most recent of2 resultswithin the time period is included. Rast Allergen SEE NOTE [facility] Comment:SEE SCANNED REPORT I N EMR 02/28/2025 4:15 PM EDT 03/12/2025 10:56 AM EDT Narrative [facility] - 03/12/2025 10:58 AM EDT DOG AND CAT DANDER REFLEX us Generic External Data Provider HISTORICAL/NON OR DERABLE LABS Final Result [facility] [address] [place] [phone] * (ABNORMAL) Respiratory Allergy Profile Region I (02/28/2025 4:15 PM EDT) Immunoglobulin E 2676(A) <UP=755 kU/L [facility] Mouse Urine Proteins (E72) IgE <0.10 kU/L [facility] Class 0 [facility] Cockroach (I6) IgE <0.10 kU/L [facility] Class 0 [facility] Dermatophagoides farinae (D2) IgE 0.22(A) kU/L [facility] Class 0/1 [facility] Cat Dander (E1) IgE 6.27(A) kU/L [facility] Class 3 [facility] Comment:THIS TEST WAS PERFOR MED AT:[facility] [address] [phone] GAONA MD Dog Dander (E5) IgE >100(A) kU/L [facility] Class 6 [facility] Comment:THIS TEST WAS PERFOR MED AT:[facility] [address] [phone] GAONA MD Jose Grass (G6) IgE 0.10(A) kU/L [facility] Class 0/1 [facility] Cladosporium herbarum (M2) IgE <0.10 kU/L [facility] Class 0 [facility] Aspergillus Fumigatis (M3) IgE <0.10 kU/L [facility] Class 0 [facility] Alternaria alternata (M6) IgE <0.10 kU/L [facility] Class 0 [facility] Comment:THIS TEST WAS PERFOR MED AT:[facility] [address] [phone] GAONA MD Mountain Deming (t6) IgE 0.10(A) kU/L [facility] Class 0/1 [facility] Sumiton (T7) IgE <0.10 kU/L [facility] Class 0 [facility] Pigeon Tree (T10) IgE <0.10 kU/L [facility] Class 0 [facility] Abie (T11) IgE 0.19(A) kU/L [facility] Class 0/1 [facility] Pamplico (T14) IgE 0.16(A) kU/L [facility] Class 0/1 [facility] White Hemant (t15) IgE <0.10 kU/L [facility] Class 0 [facility] White Phoenix (T70) IgE 0.10(A) kU/L [facility] Class 0/1 [facility] Common Ragweed (Short) (W1) IgE <0.10 kU/L [facility] Class 0 [facility] Mugwort (w6) IgE <0.10 kU/L [facility] Class 0 [facility] Dermatophagoides pteronyssinus (D1) IgE 0.20(A) kU/L [facility] Class 0/1 [facility] Bermuda Grass (g2) IgE 0.22(A) kU/L [facility] Class 0/1 [facility] Penicillium Notatum (M1) IgE <0.10 kU/L [facility] Class 0 [facility] Birch (T3) IgE <0.10 kU/L [facility] Class 0 [facility] Elm (t8) IgE 0.25(A) kU/L [facility] Class 0/1 [facility] Maple (Glendora) (T1) IgE 0.12(A) kU/L [facility] Class 0/1 [facility] Rough Pigweed (W14) IgE 0.51(A) kU/L [facility] Class 1 [facility] Sheep [place] (W18) IgE <0.10 kU/L [facility] Class 0 [facility] Allergen Comment See Below [facility] Comment: Specific Level of AllergenIGE Class [...] and its analyticalperformance characteristics have been determined byPS DEPT.. It has not been cleared or approvedby the U.S. Food and Drug Administration. This assayhas been validated pursuant to the CLIA regulationsand is used for clinical purposes.THIS TEST WAS PERFORMED AT:[employer] [place] [phone] GAONA MD 02/28/2025 4:15 PM EDT 02/28/2025 4:15 PM EDT us Generic External Data Provider LAB BLOOD ORDERAB LES Final Result [facility] [address] [place] [phone] * T-SPOT??.TB (12/22/2024 2:25 PM EDT) Pathologist [facility] T Spot TB Negative Negative [facility] Comment:A negative test resu lt does [...] as aquantitative test. TS PANEL A 0 [facility] TS PANEL B 0 [facility] Negative Control Passed [facility] Positive Control Passed [facility] Comment:For additional infor nguyen, please refer [email or web address]/faq/CIG257(This link is being provided for informational/educational purposes only.)THIS TEST WAS PERFORMED AT:[facility] [address] [place] [address]XFXYKUACELESTE GOMEZ MD,PHD 12/22/2024 2:25 PM EDT 12/22/2024 2:26 PM EDT Generic External Data Provider LAB BLOOD ORDERAB LES Final Result Performing Organization Address [facility] de Phone Number [facility] [address] [place] [phone] * Hepatitis Panel, General (12/22/2024 2:25 PM EDT) Hepatitis A IgM Nonreactive Nonreactive [facility] Comment:IgM antibodies to EMERSON V not detected; does not exclude earlyacute or recovered HAV infection. ~Hepatitis B Surface Antibody REACTIVE Nonreactive [facility] Comment:REACTIVE: > 11.99 mI U/mL Hepatitis B Core Antibody Nonreactive Nonreactive [facility] Hepatitis C Antibody Nonreactive Nonreactive [facility] Comment:Antibodies to HCV no t detected; does not exclude early acuteHCV infection. Hepatitis B Surface Ag Negative Negative [facility] 12/22/2024 2:25 PM EDT 12/22/2024 2:26 PM EDT us Generic External Data Provider LAB BLOOD ORDERAB LES Final Result Performing Organization Address [facility] Co de Phone Number [facility] [address] [place] [phone] * (ABNORMAL) CBC auto differential (12/22/2024 2:25 PM EDT) White Blood Count 5.7 4.8 - 10.8 X10*3/uL [facility] Red Blood Count 4.26 4.20 - 5.50 X10*6/uL [facility] Hemoglobin 13.1 12.0 - 16.0 g/dl [facility] Hematocrit 37.1 37.0 - 47.0 % [facility] Mean Corpuscular Volume 87.1 80.0 - 98.0 fL [facility] Mean Corpuscular Hemoglobin 30.8 27.0 - 33.0 pg [facility] Mean Corpuscular HGB Conc 35.3(H) 31.0 - 35.0 g/dl [facility] Red Cell Distribution Width 12.8 11.0 - 16.0 % [facility] Platelet Count 304 160 - 400 X10*3/uL [facility] Mean Platelet Volume 9.6 9.4 - 12.3 fL [facility] Neutrophils Percent Auto 59.0 45 - 73 % [facility] Imm Gran Pct Auto 0.2 0.0 - 0.4 % [facility] Lymphocytes Percent Auto 31.4 20 - 40 % [facility] Monocytes Percent Auto 8.4 2 - 11 % [facility] Eosinophils Percent Auto 0.7 0 - 4 % [facility] Basophils Percent Auto 0.3 0 - 2 % [facility] NRBC Pct Auto 0.0 0.0 - 0.2 /100WBC [facility] Neutrophils Absolute Auto 3.4 2.0 - 8.3 x10*3/uL [facility] Imm Gran Abs Auto 0.01 0.00 - 0.03 X10*3/uL [facility] Lymphocytes Absolute Auto 1.8 1.2 - 4.9 X10*3/uL [facility] Monocytes Absolute Auto 0.5 0.1 - 1.2 X10*3/uL [facility] Eosinophils Absolute Auto 0.0 0.0 - 0.4 X10*3/uL [facility] Basophils Absolute Auto 0.0 0.0 - 0.2 X10*3/uL [facility] NRBC Abs Auto 0.000 0.0 - 0.012 X10*3/uL [facility] 12/22/2024 2:25 PM EDT 12/22/2024 2:26 PM EDT us Generic External Data Provider LAB BLOOD ORDERAB LES Final Result Performing Organization Address [facility] Co de Phone Number [facility] [address] [place] [phone] * Sed Rate by Modified Noe (12/22/2024 2:25 PM EDT) Erythrocyte Sedimentation Rate 18 0 - 20 MM/HR [facility] Comment:Patients with polycy themia and many hemoglobin abnormalitiesmay have depressed sed rates whereas patients with anemiamay have elevated sed rates. 12/22/2024 2:25 PM EDT 12/22/2024 2:26 PM EDT us Generic External Data Provider LAB BLOOD ORDERAB LES Final Result Performing Organization Address [facility] Co de Phone Number [facility] [address] [place] [phone] * (ABNORMAL) C-reactive Protein (12/22/2024 2:25 PM EDT) C Reactive Protein 0.56(H) < or = 0.50 mg/dL [facility] 12/22/2024 2:25 PM EDT 12/22/2024 2:26 PM EDT us Generic External Data Provider LAB BLOOD ORDERAB LES Final Result Performing Organization Address [facility] Co de Phone Number [facility] [address] [place] [phone] * Comprehensive Metabolic Panel (12/22/2024 2:25 PM EDT) Sodium 141 135 - 145 mmol/L [facility] Potassium 3.9 3.3 - 5.1 mmol/L [facility] Chloride 105 96 - 108 mmol/L [facility] Carbon Dioxide 28 22 - 29 mmol/L [facility] Anion Gap 12 12 - 20 [facility] Urea Nitrogen (BUN) 15 9 - 16 mg/dL [facility] Creatinine, Serum 0.73 0.5 - 1.4 mg/dL [facility] Estimated Glomerular Filt Rate >60 [facility] Comment:Chronic Kidney Disea se: Estimated GFR < 60 mL/min/1.95y5Rajcgq Kidney Disease: Estimated GFR < 15 mL/min/1.73m2 Glucose 107 60 - 115 mg/dL [facility] Calcium 9.5 8.4 - 10.2 mg/dL [facility] Bilirubin, Total 0.3 0.0 - 1.0 mg/dL [facility] Aspartate Amino Transferase 23 5 - 31 U/L [facility] Alanine Aminotransferase 26 0 - 31 U/L [facility] Total Protein 8.0 6.5 - 8.0 g/dL [facility] Albumin Level 4.8 3.5 - 5.0 g/dL [facility] Alkaline Phosphatase 69 39 - 117 U/L [facility] 12/22/2024 2:25 PM EDT 12/22/2024 2:26 PM EDT us Generic External Data Provider LAB BLOOD ORDERAB LES Final Result [facility] [address] [place] [phone] * BI Mammogram Screening Tomosynthesis Bilateral (03/23/2024 10:30 AM EST) Anatomical Region Laterality Modality Breast Bilateral Mammography 03/23/2024 10:3 0 AM EST Narrative 03/23/2024 11:05 AM EST [address] [place] [address] Mammography Report Signed Patient: Brittney Caraballo V MR#: [id number] : 1965 Acct:[id number] Age/Sex: 58 / F ADM Date: 03/23/24 Loc: HO.MAMMO Attending Dr: Dixie Coyle MD Ordering Physician: Dixie Coyle MD Results: 1Ne gative Date of Service: 03/23/24 Follow Up: 1 Year From Orig inal Mammogram Procedure(s): MM tomosynthesis screening BI Accession Number(s): [id number] cc: Dixie Coyle MD EXAMINATION: MM SCREENING [...] 03/23/24 1102 DD/ 1030 TD/TT: 03/23/24 1048 Busboy: Procedure Note Donotuseinterpreter, Image - 03/23/[address] [place] [address] Mammography Report Signed Patient: Brittney Caraballo R#: [id number] : 1965Acct:[id number] Age/Sex: 58 / FADM Date: 03/23/24 Loc: HO.MAMMO Attending Dr: Dixie Coyle MD Ordering Physician: Dixie Coyle MDResults: 1Ne gative Date of Service: 03/23/24Follow Up: 1 Year From Orig ina Mammogram Procedure(s): MM tomosynthesis screening BI Accession Number(s): [id number] cc: Dixie Coyle MD EXAMINATION: MM SCREENING [...] by: Luna Watson DO 03/23/2024 11:02 AM [facility] Dictated By: Luna Watson DO Signed By: <Electronically signed by Luna Watson DO in OV> 03/23/24 1102 DD/ 1030 TD/TT: 03/23/24 1048 Busboy: Dixie Coyle MD [facility] BI PROCEDURES Edited Result - Final * [...] Health Maintenance Insurance [employer] Care Teams Water Plant Pump Operator Supervisor Relationship Specialty Start Date End Date Diixe Coyle MD [address] [place] [phone] PCP - General Family Medicine 05/17/18 Rony Wolff FNP [address] [place] [address] Nurse Practitioner Family Medicine 04/05/23
--- OUTSIDE RECORDS SUMMARY | 2025-03-14 19:35 | XMS_ITS | Encounter Summary ---
Author Organization [employer] Address [address] [facility] 7 [place] [address] Care Team Providers Care Rotary Drum Dyer Name Role Phone Dixie Coyle MD Primary Care Provider + Rony Wolff Unavailable Unavailable Reason for Visit * Reason Comments Med Change Request Encounter Details Date Type Department Care Team ([facility] st Contact Info) Description 02/18/2023 Refill [facility] [address] [place] [address] Rony Wolff FNP Adjustment disorder with anxiety [...] the past 12 months, has t he [employer] [address], [employer] threatened to shut off services in your [...] Description 04/04/2025 10:00 AM EST Office Visit [facility] [address] [place] [address] Dixie Coyle MD [address] [place] [address] documented as of this encounter Visit Diagnoses Diagnosis Adjustment disorder with anxiety documented in this encounter Additional Health Concerns Assessment Noted Time PHQ-9 Depression Total Score: 023 10:31 AM EDT documented as of this encounter Care Teams Rotary Drum Dyer Relationship Specialty Start Date End Date Dixie Coyle MD [address] [place] [address] PCP - General Family Medicine 05/17/18 Rony Wolff FNP [address] [place] [address] Nurse Practitioner Family Medicine 04/05/23 documented as of this encounter
--- OUTSIDE RECORDS SUMMARY | 2025-03-14 19:35 | XMS_ITS | Clinical Summary ---
Author Organization [facility] Address [address] [place] [phone] Care Team Providers Care Load Builder Name Role Phone Unavailable Primary Care Provider [...] Procedure Name Priority Date/Time Associated Diagnosis Comments [facility] SCREENING DIGITAL Routine 05/14/2019 7:49 PM EST Encounter for screening mammogram for malignant neoplasm of breast from Last 3 Months or Most Recently Relevant to Health Maintenance Results * [facility] SCREENING DIGITAL (05/14/2019 7:49 PM EST) Anatomical Region Laterality Modality Mammography 05/08/2019 10:5 4 AM EST Narrative 05/14/2019 7:49 PM EST [facility] Diagnostic Imaging Department [address] [place] [address] Patient: ANGEL COLLINS D.O.B./Age/Sex: 1965 - 53 - F Unit#: [id number] [facility]ing [facility] Ordering Physician: DIXIE MARTIN MD [facility] - 05/13/191100 History: Bilateral breast cancer screening. Technique: Digital mammography. Conventional CC and MLO projections with tomosynthesis MLO views and computer aided detection. Comparison made with previous mammograms from [facility] 05/12/2018, dating back to 04/08/2009. Findings: Breast tissue consists of fatty and fibroglandular tissue with moderate complexity, potentially obscuring small lesions, category c density (as calculated by [employer] software). There is no suspicious group of microcalcification, suspicious mass, architectural distortion or suspicious change in breast density within either breast. Impression: No evidence of malignancy. BIRADS category 1; negative study, 3341F 25497, [address] A negative mammogram in the face of a suspicious abnormality does not exclude the possibility of malignancy nor alter the indications for biopsy. Note: Patient information entered into a reminder system with a target due date for the next mammogram; PQRI II [id number] Dictating Physician: JERMAINE SCHNEIDER MD Electronically Signed by: JERMAINE SCHNEIDER MD Dic Date/Time: 05/14/191947 Sign date/Time: 05/14/191948 Procedure Note Jermaine Schneider - 05/06/2022 [facility] Diagnostic Imaging Department [address] [place] [address] Patient: ANGEL COLLINS D.O.B./Age/Sex: 1965 - 53 - F Unit#: [id number] Location/Status: [facility] CLI Mnemonic/Ordering Site: [facility] Ordering Physician: DIXIE MARTIN MD [facility] Digital - 05/13/191100 History: Bilateral breast cancer screening. Technique: Digital mammography. Conventional CC and MLO projectionswith tomosynthesis MLO views and computer aided detection. Comparison made with previous mammograms from [facility], dating back to 04/08/2009. Findings: Breast tissue consists of fatty and fibroglandular tissue with moderate complexity, potentially obscuring small lesions, category cdensity (as calculated by [employer] software). There is no suspicious group of microcalcification, suspicious mass, architectural distortion or suspicious change in breast density withineither breast. Impression: No evidence of malignancy. BIRADS category 1; negative study, 3341F 92043, [address]88 A negative mammogram in the face of [...]
== END 2025-03-14 15:40 | disposition home or self-care (01) ==
LOC: HO.HPODS 15:09
PROVIDERS: PCP Internal Medicine; Visit Provider Student in an Organized Health Care Education/Training Program
DX: L03.031 Cellulitis of right toe (principal); B35.3 Tinea pedis
CPT/HCPCS: 99203

== ENCOUNTER 2025-03-30 14:33 | Outpatient (AMB) | payer OTHER, SELFPAY ==
--- NOTE | 2025-03-30 14:34 | A.OFFVIS_ITS ---
Vital Signs 03/30/25 14:35 Height 4 ft 11 in Weight 134 lb BMI 27.1 BP 122/64 Blood Pressure Location Rt brachial Position Sitting Pulse 83 Pulse Source Pulse Oximeter Pulse Oximetry (%) 100 Oxygen Delivery Method Room Air Intake Visit Reasons: Asthma Allergies Enbrel Adverse Reaction (Severe, Uncoded 06/22/24 14:08) Diarrhea HPI Comments Details: The patient is a 59-year-old woman with a known history of COPD. She has been developing worsening shortness of breath in addition to chest tightness. Zlnc-pu-turqbwxa severity. She has been using her rescue inhaler on a daily basis. In the past he has use Spiriva in addition to Breo. They have been helpful. 07/03/2021 the patient is here for a pulmonary follow-up visit. She has been complaining of worsening chest tightness and also back pain. Moderate severity. Last night she had to sleep on the floor because of the back pain was so significant. She also complains of increasing coughing with chest congestion. She has been spitting up more phlegm. She continues use her Dulera with good effect. I did encourage her to use it twice a day. in addition to that we had referred her to the lung cancer screening program. I believe they are trying get in touch with her. However will go ahead and we refer her to the program in order for her to get stab worsen start getting her low-dose CT scans. in the meantime is encouraging the patient was able to quit smoking recently. On examination she does have reproducible back pain primarily in the midthoracic area. She does have tenderness to palpation. 07/31/2022 the patient is here for pulmonary follow-up visit. The patient is doing very well from a respiratory status. The main is respiratory medicine has been affecting beneficial. She has not had to use her rescue inhaler. More of her complaints right now are back pain and knee pain. She is currently working with the residential energy auditor regarding these issues. She recently had an MRI and also x-rays that will be following up. In the meantime she also underwent a CT scan of the chest as part of the lung cancer screening program. She has multiple pulmonary nodules that are subcentimeter in nature and very small and not concerning. Still that will need follow-up. 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 Clinically the patient denies any neuropathies. Will go ahead and plan to repeat her low-dose CT scan sometime in April 2023 at that point we can reassess the thymic tissue. If the patient develops any issues prior to that we can always do a chest MRI to further address this issue. For now, will just wait for the CT scan in the upcoming appointment in April of this year. 03/18/2023 the patient is here for sick visit. She started developing worsening shortness of breath and cough. She has also complained of increased wheezing. She has been having to use her nebulizer therapy more often. The cough is persistent. Moderate severity. Now she is complaining of right-sided pleuritic chest discomfort. Moderate severity. Denies any fevers or chills. She did test negative for COVID-19. In addition to this the patient was approved to start Xolair. She has severe allergies to her dog. She also has allergies to cats. Her IgE level significantly elevated above 1000. She needs to start Xolair. It was already approved and she will start once she completes the course of prednisone. I am hopeful that her symptoms improved when she starts Xolair. In the meantime will provide her with prednisone and also she will undergo blood work. We will check a D-dimer. If her D-dimer is elevated she will need a CTA to rule out potentially blood clots. Otherwise she will have a regular x-ray. 04/30/2023 the patient is here for a pulmonary follow-up visit. She continues to have some respiratory symptoms. Chest tightness and intermittent wheezing. Ywsi-gw-ooxrvmto severity. She has been on Dulera. It also has been on the high does Xolair every 2 weeks. She has yet to see any significant improvement while on the Xolair. I did encourage her that is only been a couple months. Will have to wait at least 6 months to see the effects of the biologic therapy. In the meantime will going to go ahead and maximize her respiratory therapy by switching her over to breztri. I am hopeful that with the addition of the long- acting muscarinic antagonist some of the respiratory symptoms will subside. The patient is also complaining that she is getting 3 shots of the Xolair every 2 weeks. This is because of her high dose. Will will talk to the Pick a Student to see if there is any other options. I do believe that the pipeline will be able to switch her to 2 shots every 2 weeks but for now will keep her on the current dose. She is participating in the lung cancer screening program. His CT scan is in April. Will have to follow-up with that and also follow-up with her thymus gland was noted to be abnormal on her last CT scan. If it worsens or from comes concerning in appearance then an MRI would be more suitable. 10/25/2023 the patient is here for a pulmonary follow-up visit. The patient overall is doing better from a respiratory status. She is responding well to the Xolair injections. She does receive every 2 weeks. Her allergy symptoms have improved dramatically. However, still requiring rescue inhalers and maintenance inhalers as she continues to have some asthma symptoms in addition to some allergy symptoms. Will go ahead and refer her to an credit rating inspector this time. The patient is also dealing with her significant rheumatoid arthritis. she is working closely Rheumatology to find a regimen that works well for her. Will be important to decrease the connective tissue disease activity to minimize potential extra articular manifestations such as in the lungs. The patient is a former smoker. She was participating in the lung cancer screening program. Her last CT scan was back in 2021. She needs to go back to the program. I did reach out to the coordinator to get her scheduled. 06/22/2024 the patient is here for pulmonary follow-up visit. Overall the patient has been doing well. She continues exercise regularly and she is actually doing well and feeling well. She does have allergy symptoms. She has been on Xolair now for couple years and is been helping although sometimes she still has symptoms. We did put in a referral to Allergy but she never get an appointment. Therefore put another allergy referral this time. In the meantime she is going to continue with the Pamelaztri that is been working well. She has scheduled an endoscopy and a colonoscopy soon. Right now she is able to proceed with anesthesia and her procedures without any limitations. The patient is participating in the lung cancer screening program. Her last CT scan was back in 03/05/2024 which I personally reviewed. She has multiple pulmonary nodules, rads 2 and is stable. She will have another CT scan in the fall of 2024. will follow-up in a year she has any issues prior to that she will call for an earlier assessment. 03/30/2025 the patient is here for pulmonary follow-up visit. The patient overall has been doing okay. She continues on the Xolair that has been affecting beneficial. She now is seen an credit rating inspector. She is contemplating allergy shots. In the meantime she continues on the Breztri inhaler has been helpful. The patient was wondering about her PFTs. We did review them from 2020 demonstrating no evidence of any obstructive nor restrictive ventilatory defects. The patient is participating in the lung cancer screening program and does can make coming up soon. Recently she was sick after coming back from vacation. She had a respiratory illness with cough chest congestion but she did not required any prednisone or any prescription antibiotics. She took over-the- counter medications with good results. Overall the patient is doing good from an asthma standpoint will plan to follow-up in 8-12 months if any issues arise she can always call for an earlier assessment. [facility] Medical History Seropositive rheumatoid arthritis Long-term use of immunosuppressant medication Pleuritic chest pain Thymus hyperplasia Asthma-COPD overlap syndrome Asthma Pulmonary nodules Personal history of nicotine dependence GERD (gastroesophageal reflux disease) NAFL (nonalcoholic fatty liver) Degenerative arthritis of lumbar spine Surgical History History of colonoscopy Family History Father Heart attack Diabetes HTN (hypertension) Brother Liver cancer Maternal Aunt Liver cancer Breast cancer Mother Stroke Diabetes Other Asthma Social History Household Members Other:: son Are you a primary grounds caretaker to a significant other at home: No Do you presently have visiting nurse or other home services: No Alcohol intake: never Patient Tobacco Use Status: Former Tobacco user Tobacco use type: Cigarette Cigarettes Per Day: 20 Years Smoked: 15 e-Cigarette/Vaping Use: Never Used Current occupational status: employed Current occupation: [employer] Review of Systems Const Denies fever(s) and Denies night sweats ENT Denies change in voice, Denies lip swelling, Denies mouth pain, Reports nasal congestion and Reports nasal discharge Card Denies dyspnea Resp Denies chest congestion, Reports cough, Denies dyspnea and Reports wheezing GI Denies abdominal pain Musc Reports myalgias, Reports arthralgias and Reports joint swelling Neuro Denies Neuro-related abnormal movements Psych Denies no additional complaints Rolo/Lymph Denies easy bleeding and Denies lymphadenopathy Aller/Immun Denies lip swelling and Reports wheezing Physical Exam Vital Signs: Last Vital Signs Pulse 83 03/30/25 14:35 BP 122/64 03/30/25 14:35 Pulse Ox 100 03/30/25 14:35 Oxygen Delivery Method Room Air 03/30/25 14:35 BMI result Body Mass Index 27.1 Const General: alert Neck Neck: Yes normal visual inspection, Yes full ROM and Yes no lymphadenopathy Chest Chest palpation & inspection: normal inspection of the chest Resp Effort & Inspection: normal respiratory effort Auscultation: clear to auscultation bilaterally and no wheezes Cardio Rate: regular rate Rhythm: regular rhythm Heart sounds: S1 normal heart sound present and S2 normal heart sound present GI Palpation (GI): Soft to palpation and nontender Auscultation: normal bowel sounds Back/Spine/Pelvis Thoracic/Lumbar Spine: thoracic spinal tenderness Skin General skin exam: rashes and/or lesions noted Assessment & Plan Assessment & Plan (1) Asthma: Code(s): J45.909 - Unspecified asthma, uncomplicated Category: Medical Qualifiers: Asthma complication type: uncomplicated Asthma persistence: persistent Asthma severity: moderate Qualified Code(s): J45.40 - Moderate persistent asthma, uncomplicated (2) Pulmonary nodules: Code(s): R91.8 - Other nonspecific abnormal finding of lung field Category: Medical (3) Thymus hyperplasia: Code(s): E32.0 - Persistent hyperplasia of thymus Category: Medical (4) Asthma-COPD overlap syndrome: Code(s): J44.9 - Chronic obstructive pulmonary disease, unspecified Category: Medical (5) Pre-op chest exam: Code(s): Z01.811 - Encounter for preprocedural respiratory examination Category: Medical Plan continue Xolair G5dizdz 375mg Q2 weeks Epi pen continue Breztri short-acting beta agonist as needed LDCT Fall 2024 Trazadone for sleep follow-up 12 months Medications: New albuterol sulfate 2.5 mg (3 mL) inhalation Q4H PRN 90 mL 11RF shortness of breath or wheezing 30 days tdacevetyo-ecflnyyy-bxdccjvjdu 160-9-4.8 mcg/actuation (Breztri Aerosphere) 2 inhalations inhalation BID 10.7 grams 11RF 30 days Refilled albuterol sulfate 90 mcg/actuation 2 puffs PO Q4-6H PRN 1 ea 11RF shortness of breath or wheezing Coding Level of Care Code Est Pt Level 4 (16074) Complex EM visit Add On G2211 Diagnoses Moderate persistent asthma without complication J45.40 Asthma complication type: uncomplicated Asthma persistence: persistent Asthma severity: moderate Pulmonary nodules R91.8 Thymus hyperplasia E32.0 Asthma-COPD overlap syndrome J44.9 Pre-op chest exam Z01.811 Time Spent (min) 16
[2025-03-30 14:35] VITALS: BP 122/64; PULSE 83; O2SAT 100; BMI 27.1
--- OUTSIDE RECORDS SUMMARY | 2025-03-30 21:34 | XMS_ITS | Clinical Summary ---
Author Organization [facility] Address [address] [place] [id number] Care Team Providers Care Feed Mill Lab Technician Name Role Phone Unavailable Primary Care Provider [...] Procedure Name Priority Date/Time Associated Diagnosis Comments [facility] SCREENING DIGITAL Routine 05/14/2019 7:49 PM EST Encounter for screening mammogram for malignant neoplasm of breast from Last 3 Months or Most Recently Relevant to Health Maintenance Results * [facility] SCREENING DIGITAL (05/14/2019 7:49 PM EST) Anatomical Region Laterality Modality Mammography 05/08/2019 10:5 4 AM EST Narrative 05/14/2019 7:49 PM EST [facility] Diagnostic Imaging Department [address] [place] [address] Patient: ANGEL COLLINS D.O.B./Age/Sex: 1965 - 53 - F Unit#: [id number] [facility]Ordering Site: [facility] Ordering Physician: DIXIE MARTIN MD [facility] Screening Digital - 05/13/191100 History: Bilateral breast cancer screening. Technique: Digital mammography. Conventional CC and MLO projections with tomosynthesis MLO views and computer aided detection. Comparison made with previous mammograms from [facility] 05/12/2018, dating back to 04/08/2009. Findings: Breast tissue consists of fatty and fibroglandular tissue with moderate complexity, potentially obscuring small lesions, category c density (as calculated by Jinnpara software). There is no suspicious group of microcalcification, suspicious mass, architectural distortion or suspicious change in breast density within either breast. Impression: No evidence of malignancy. BIRADS category 1; negative study, 3341F 23393, [id number] A negative mammogram in the face of a suspicious abnormality does not exclude the possibility of malignancy nor alter the indications for biopsy. Note: Patient information entered into a reminder system with a target due date for the next mammogram; PQRI II [id number] Dictating Physician: JERMAINE SCHNEIDER MD Electronically Signed by: JERMAINE SCHNEIDER MD Dic Date/Time: 05/14/191947 Sign date/Time: 05/14/191948 Procedure Note Jermaine Schneider - 05/06/2022 [facility] Diagnostic Imaging Department [address] [place] [address] Patient: ANGEL COLLINS D.O.B./Age/Sex: 1965 - 53 - F Unit#: [id number] Location/Status: [facility] CLI Mnemonic/Ordering Site: [facility] Ordering Physician: DIXIE MARTIN MD [facility] Screening Digital - 05/13/191100 History: Bilateral breast cancer screening. Technique: Digital mammography. Conventional CC and MLO projectionswith tomosynthesis MLO views and computer aided detection. Comparison made with previous mammograms from [facility], dating back to 04/08/2009. Findings: Breast tissue consists of fatty and fibroglandular tissue with moderate complexity, potentially obscuring small lesions, category cdensity (as calculated by Jinnpara software). There is no suspicious group of microcalcification, suspicious mass, architectural distortion or suspicious change in breast density withineither breast. Impression: No evidence of malignancy. BIRADS category 1; negative study, 3341F 41223, 94068 A negative mammogram in the face of [...]
--- OUTSIDE RECORDS SUMMARY | 2025-03-30 21:34 | XMS_ITS | Encounter Summary ---
Author Organization [employer] Address [address] [place] [address] [address] [place] [address] Care Team Providers Care Strip Machine Tender Name Role Phone Dixie Coyle MD Primary Care Provider + Rony Wolff Unavailable Unavailable Encounter Details Date Type Department Care Team (Late st Contact Info) Description 11/05/2022 Abstract [facility] [address] [place] [phone] Dixie Coyle MD [address] [place] [address] [phone] Social History Tobacco Use Types Packs/Day Years [...] Description 04/04/2025 10:00 AM EST Office Visit [facility] [address] [place] [address] [phone] Dixie Coyle MD [address] [place] [address] [phone] documented as of this encounter Visit Diagnoses Not on filedocumented in this encounter Additional Health Concerns Assessment Noted Time PHQ-9 Depression Total Score: 7 10/28/19 3:15 PM EDT documented as of this encounter Care Teams Strip Machine Tender Relationship Specialty Start Date End Date Dixie Coyle MD [address] [place] [address] PCP - General Family Medicine 05/17/18 Rony Wolff FNP [address] [place] [address] Nurse Practitioner Family Medicine 04/05/23 documented as of this encounter
--- OUTSIDE RECORDS SUMMARY | 2025-03-30 21:35 | XMS_ITS | Encounter Summary ---
Author Organization [employer] Address [address] [place] [address] [address] [place] [address] Care Team Providers Care Social Director Name Role Phone Dixie Coyle MD Primary Care Provider + Rony Wolff Unavailable Unavailable Reason for Visit * Reason Comments Pre-visit Planning (Unable to reach for PVP screening, LVM) to be completed in office Encounter Details Date Type Department Care Team (Late st Contact Info) Description 03/28/2025 Patient Outreach [facility] [address] [place] [address] Dixie Coyle MD [address] [place] [address] Pre-visit Planning ((Unable to reach for PVP screening, LVM) to be completed in office ) Social History Tobacco Use Types Packs/Day Years [...] AM EDT documented as of this encounter Progress Notes * Olesya Sandoval - 03/28/2025 10:04 AM EST CC Olesya. Placed outbound call to patient to complete pre-visit planning. No answer at this time. Patient name and were not confirmed. CC left voicemail requesting return call. Direct contact information provided. documented in this encounter Plan of Treatment Upcoming Encounters Date Type Department Care Team (Late st Contact Info) Description 04/04/2025 10:00 AM EST Office Visit [facility] [address] [place] [address] Dixie Coyle MD [address] [place] [address] documented as of this encounter Visit Diagnoses Not on filedocumented in this encounter Additional Health Concerns Assessment Noted Time PHQ-9 Depression Total Score: 0 10/04/19 24 1:56 PM EDT documented as of this encounter Care Teams Social Director Relationship Specialty Start Date End Date Dixie Coyle MD [address] [place] [address] PCP - General Family Medicine 05/17/18 Rony Wolff FNP [address] [place] [address] Nurse Practitioner Family Medicine 04/05/23 documented as of this encounter
--- OUTSIDE RECORDS SUMMARY | 2025-03-30 21:35 | XMS_ITS | Encounter Summary ---
Author Organization [employer] Address [address] [facility] [address] [place] [address] Care Team Providers Care Sandwich And Drink Cart Operator Name Role Phone Dixie Coyle MD Primary Care Provider + Rony Wolff Unavailable Unavailable Reason for Visit * Reason Comments Med Change Request Encounter Details Date Type Department Care Team ([facility] st Contact Info) Description 02/18/2023 Refill [facility] [address] [place] [address] Rony Wolff FNP Adjustment disorder with anxiety [...] the past 12 months, has t he [employer], [employer], [employer] threatened to shut off services in your [...] 10:31 AM EDT Radha Sams MA * How difficult have these problems made it for you to do your work, take care of things at home, or get along with other people? Answer Date of Assessment Author Very difficult 02/18/2023 10:31 AM EDT Elieen Sams MA * Over the past 2 [...] Description 04/04/2025 10:00 AM EST Office Visit [facility] [address] [place] [address] Dixie Coyle MD [address] [place] [address] documented as of this encounter Visit Diagnoses Diagnosis Adjustment disorder with anxiety documented in this encounter Additional Health Concerns Assessment Noted Time PHQ-9 Depression Total Score: 023 10:31 AM EDT documented as of this encounter Care Teams Sandwich And Drink Cart Operator Relationship Specialty Start Date End Date Dixie Coyle MD [address] [place] [id number] PCP - General Family Medicine 05/17/18 Rony Wolff FNP [address] [place] [id number] Nurse Practitioner Family Medicine 04/05/23 documented as of this encounter
--- OUTSIDE RECORDS SUMMARY | 2025-03-30 21:35 | XMS_ITS | Clinical Summary ---
Author Organization [employer] Address [address] [place] [address] 7 [place] [address] Care Team Providers Care Machine Riveter Name Role Phone Dixie Coyle MD Primary [...] of moderate intensity exercise. Rheumatoid arthritis of [facility] sites with negative rheumatoid factor ([facility]) 12/27/2023 Assessment & Plan (12/29/2023 3:03 PM EDT): Seen by [facility] rheumatology, on Rinvoq, doing well. Advised to [...] 1:41 PM EDT): Started on Losartan by adjunct instructor Controlled. Compliant w/meds Continue lisinopril/hydrochlorothiazide + amlodipine [...] any issues or concerns she should contact [facility]. All her questions were answered. I [...] her medications, was informed erroneously by her [facility] pharmacy that no refills were available. Will now transfer to pharmacy at [facility] where she works. New Rx sent for Seroquel 25 mg at bedtime and Duloxetine 30 mg two times daily. She can F/U with counselor at work and/or call to F/u on counseling referral. 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 Doan Neurosurgeon at [facility] Assessment & Plan (07/15/2022 1:03 PM EST): [...] (03/22/2023 5:59 PM EST): Uncontrolled. FU with epic willow analyst, Will be started on dupixent probably Declined Covid IZ Cerebrovascular accident (CV A) due to occlusion of precerebral artery 03/27/2016 Dizziness 03/27/2016 Smoker 03/27/2016 Encounters Date Type Department Care Team Description 03/28/2025 Patient Outreach [facility] MEDICINE [address] [place] [address] Dixie Coyle MD Pre-visit Planning ((Unable to reach for PVP screening, LVM) to be completed in office ) 02/28/2025 Orders Only GENERIC EXTERNAL DATA DEPARTMENT Provider, Generic External Data 02/12/2025 Orders Only GENERIC EXTERNAL DATA DEPARTMENT Provider, Generic External Data 01/22/2025 Telephone [facility] MEDICINE [address] [place] [address] Dixie Coyle MD Appointment from Last 3 Months Immunizations Immunization Administration [...] Description 04/04/2025 10:00 AM EST Office Visit [facility] MEDICINE [address] [place] [address] Dixie Coyle MD [address] [place] [address] Health Maintenance Due Date Last Done Comments CT Colonography 1967 FIT DNA/Cologuard 1967 FIT 1967 FOBT 1965 HIV Screening 1965 Lipid Panel 1965 Sigmoidoscopy 1965 Disability Screening 1967 Alcohol/Substance Use Screening 1979 Hepatitis A Vaccines (1 of 2 - Risk 2-dose series) 12/29/1986 Hepatitis B Vaccines (1 of 3 - 19+ 3-dose series) 12/29/1986 RSV Patients and Patients Aged 60 years or older (1 - Risk 50-74 years 1-dose series) 12/29/2017 Zoster Vaccines (1 of 2) 12/29/2017 Colonoscopy 11/10/2023 11/09/2018 Colorectal Cancer Screening 11/10/2023 Depression Screening 10/03/2024 10/04/2023, 10/04/19 COVID-19 Vaccine ( season) 2025 03/14/2021, 06/05/2020, 05/15/2020 Influenza Vaccine (#1) 2025 , 03/08/2023, 03/11/2021 Mammogram 03/23/2025 03/23/2024, 06/2022, 03/11/2022, Additional history exists SDOH Screening 03/30/2025 03/30/2024 Tobacco Screening 03/30/2025 03/30/2024 Pap Smear 05/22/2025 05/22/2022 Cervical Cancer Screening 05/22/2027 HPV/Cotest 05/22/2027 05/22/2022 DTaP/Tdap/Td Vaccines (3 - Td or Tdap) 03/30/2034 03/30/2024, 02/29/2012, 02/29/2012 Pneumococcal Vaccine: 50+ Years Completed 03/30/2024 Hepatitis [...] (NON ORDERABLE) Routine 02/12/2025 8:24 AM EDT HEPATITIS PANEL, GENERAL Routine 12/22/2024 2:25 PM EDT BI MAMMOGRAM SCREENING TOMOSYNTHESIS BILATERAL Routine 03/23/2024 10:30 AM EST HM PAP/HPV Routine 05/22/2022 COLONOSCOPY Routine 11/09/2018 from Last 3 Months or Most Recently Relevant to Health Maintenance Results * Rast Allergen (02/28/2025 4:15 PM EDT) Only the most recent of2 resultswithin the time period is included. Pathologist [facility] Rast Allergen SEE NOTE [facility] Comment:SEE SCANNED REPORT I N EMR 02/28/2025 4:15 PM EDT 03/12/2025 10:56 AM EDT Narrative [facility] - 03/12/2025 10:58 AM EDT DOG AND CAT DANDER REFLEX us Generic External Data Provider HISTORICAL/NON OR DERABLE LABS Final Result Performing Organization Address City/State/[facility] Co de Phone Number [facility] [address] [place] [phone] * (ABNORMAL) Respiratory Allergy Profile Region I (02/28/2025 4:15 PM EDT) Pathologist [facility] Immunoglobulin E 2676(A) <CU=175 kU/L [facility] Mouse Urine Proteins (E72) IgE <0.10 kU/L [facility] Class 0 [facility] Cockroach (I6) IgE <0.10 kU/L [facility] Class 0 [facility] Dermatophagoides farinae (D2) IgE 0.22(A) kU/L [facility] Class 0/1 [facility] Cat Dander (E1) IgE 6.27(A) kU/L [facility] Class 3 [facility] Comment:THIS TEST WAS PERFOR MED AT:[facility] [address] [phone] GAONA MD Dog Dander (E5) IgE >100(A) kU/L [facility] Class 6 [facility] Comment:THIS TEST WAS PERFOR MED AT:[facility] [address] [phone] GAONA MD [place] Grass (G6) IgE 0.10(A) kU/L [facility] Class 0/1 [facility] Cladosporium herbarum (M2) IgE <0.10 kU/L [facility] Class 0 [facility] Aspergillus Fumigatis (M3) IgE <0.10 kU/L [facility] Class 0 [facility] Alternaria alternata (M6) IgE <0.10 kU/L [facility] Class 0 [facility] Comment:THIS TEST WAS PERFOR MED AT:[facility] [address] [phone] GAONA MD [place] (t6) IgE 0.10(A) kU/L [facility] Class 0/1 [facility] [place] (T7) IgE <0.10 kU/L [facility] Class 0 [facility] [place] Tree (T10) IgE <0.10 kU/L [facility] Class 0 [facility] [place] (T11) IgE 0.19(A) kU/L [facility] Class 0/1 [facility] [place] (T14) IgE 0.16(A) kU/L [facility] Class 0/1 [facility] White [place] (t15) IgE <0.10 kU/L [facility] Class 0 [facility] [place] (T70) IgE 0.10(A) kU/L [facility] Class 0/1 [facility] Common Ragweed (Short) (W1) IgE <0.10 kU/L [facility] Class 0 [facility] Mugwort (w6) IgE <0.10 kU/L [facility] Class 0 [facility] Dermatophagoides pteronyssinus (D1) IgE 0.20(A) kU/L [facility] Class 0/1 [facility] [place] Grass (g2) IgE 0.22(A) kU/L [facility] Class 0/1 [facility] Penicillium Notatum (M1) IgE <0.10 kU/L [facility] Class 0 [facility] Birch (T3) IgE <0.10 kU/L [facility] Class 0 [facility] Elm (t8) IgE 0.25(A) kU/L [facility] Class 0/1 [facility] Maple ([place]) (T1) IgE 0.12(A) kU/L [facility] Class 0/1 [facility] Rough Pigweed (W14) IgE 0.51(A) kU/L [facility] Class 1 [facility] Sheep Petrolia (W18) IgE <0.10 kU/L [facility] Class 0 [facility] Allergen Comment See Below [facility] Comment: Specific Level of AllergenIGE Class [...] and its analyticalperformance characteristics have been determined by[employer]. It has not been cleared or approvedby the U.S. Food and Drug Administration. This assayhas been validated pursuant to the CLIA regulationsand is used for clinical purposes.THIS TEST WAS PERFORMED AT:[facility] [place] [phone] GAONA MD 02/28/2025 4:15 PM EDT 02/28/2025 4:15 PM EDT Generic External Data Provider LAB BLOOD ORDERAB LES Final Result Performing Organization Address [facility] de Phone Number [facility] [address] [place] [phone] * Hepatitis Panel, General (12/22/2024 2:25 PM EDT) Hepatitis A IgM Nonreactive Nonreactive [facility] Comment:IgM antibodies to EMERSON V not detected; does not exclude earlyacute or recovered HAV infection. ~Hepatitis B Surface Antibody REACTIVE Nonreactive [facility] Comment:REACTIVE: > 11.99 mI U/mL Hepatitis B Core Antibody Nonreactive Nonreactive [facility] Hepatitis C Antibody Nonreactive Nonreactive [facility] Comment:Antibodies to HCV no t detected; does not exclude early acuteHCV infection. Hepatitis B Surface Ag Negative Negative [facility] 12/22/2024 2:25 PM EDT 12/22/2024 2:26 PM EDT Generic External Data Provider LAB BLOOD ORDERAB LES Final Result Performing Organization Address [facility] de Phone Number [facility] [address] [place] [phone] * BI Mammogram Screening Tomosynthesis Bilateral (03/23/2024 10:30 AM EST) Anatomical Region Laterality Modality Breast Bilateral Mammography 03/23/2024 10:3 0 AM EST Narrative 03/23/2024 11:05 AM EST [facility] [address] [place] [address] Mammography Report Signed Patient: Brittney Caraballo V MR#: [id number] : 1965 Acct:[id number] Age/Sex: 58 / F ADM Date: 03/23/24 Loc: MAMMO Attending Dr: Dixie Coyle MD Ordering Physician: Dixie Coyle MD Results: 1Ne gatkate Date of Service: 03/23/24 Follow Up: 1 Year From Orig inal Mammogram Procedure(s): MM tomosynthesis screening BI Accession Number(s): [id number] cc: Dixie Coyle MD EXAMINATION: MM SCREENING [...] by: Luna Watson DO 03/23/2024 11:02 AM [facility]ict[place] By: Luna Watson DO Signed By: <Electronically signed by Luna Watson DO in OV> 03/23/24 1102 DD/ 1030 TD/TT: 03/23/24 1048 Probation And Patrol Agent: Procedure Note Donotuseinterpreter, Image - 03/23/2024 [facility] [address] [place] [address] [place] [address] Mammography Report Signed Patient: Brittney Caraballo VMR#: [id number] : 1965Acct:[id number] Age/Sex: 58 / FADM Date: 03/23/24 Loc: HO.MAMMO Attending Dr: Dixie Coyle MD Ordering Physician: Dixie Coyle MDResults: 1Ne gative Date of Service: 03/23/24Follow Up: 1 Year From Orig inal Mammogram Procedure(s): MM tomosynthesis screening BI Accession Number(s): [id number] cc: Dixie Coyle MD EXAMINATION: MM SCREENING [...] by: Luna Watson DO 03/23/2024 11:02 AM [facility] [place]ictated By: Luna Watson DO Signed By: <Electronically signed by Luna Watson DO in OV> 03/23/24 1102 DD/ 1030 TD/TT: 03/23/24 1048 Probation And Patrol Agent: Dixie Coyle MD [facility] PROCEDURES Edited Result - Final * Pap Smear (05/22/2022) Pap Negative for intraephithelial lesion or malignancy Negative for intraephithelial lesion or malignancy, Other HPV Undetected 05/22/2022 us Dixie Coyle MD HEALTH MAINTENANCE Final Result * Colonoscopy (11/09/2018) Colonoscopy Normal Normal 11/09/2018 Dixie Coyle MD HEALTH MAINTENANCE Edite d Result - Final from Last 3 Months or Most Recently Relevant to Health Maintenance Insurance [employer] Care Teams Machine Riveter Relationship Specialty Start Date End Date Dixie Coyle MD [address] [place] [address] PCP - General Family Medicine 05/17/18 Rony Wolff FNP [address] [place] [phone] Nurse Practitioner Family Medicine 04/05/23
== END 2025-03-30 14:57 | disposition home or self-care (01) ==
LOC: HO.HPS 14:33
PROVIDERS: PCP Internal Medicine; Visit Provider Hospitalist
DX: J45.40 Moderate persistent asthma, uncomplicated (principal); R91.8 Other nonspecific abnormal finding of lung field; E32.0 Persistent hyperplasia of thymus; J44.9 Chronic obstructive pulmonary disease, unspecified; Z01.811 Encounter for preprocedural respiratory examination
CPT/HCPCS: 99214

== ENCOUNTER 2025-04-04 15:17 | Outpatient (AMB) | payer OTHER, SELFPAY ==
--- OUTSIDE RECORDS SUMMARY | 2025-04-04 10:00 | XMS_ITS | Encounter Summary ---
Author Organization [employer] Address [address] [place] [address] [address] [place] [address] Care Team Providers Care Aircraft Worker Name Role Phone Dixie Coyle MD Primary Care Provider + Rony Wolff Unavailable Unavailable Encounter Details Date Type Department Care Team ([facility] st Contact Info) Description 04/04/2025 10:00 AM EST [facility] [address] [place], [place] [phone] Dixie Coyle MD [address] [place], [place] [phone] Primary hypertension (Primary Dx); Perimenopausal; Rheumatoid arthritis of multiple sites with negative rheumatoid factor (CMS/HCC) (HCC); Trochanteric bursitis of both hips; Generalized anxiety disorder; Mild intermittent asthma without complication; Thymus hyperplasia; Granulomatous lung disease (CMS/HCC) (HCC); Chronic obstructive pulmonary disease, unspecified COPD type (CMS/HCC) (HCC); Dietary counseling; Exercise counseling; Overweight Social History Tobacco Use Types Packs/Day Years Used Date Smoking Tobacco: Never Smokeless Tobacco: Never Alcohol Use Standard Drinks/Week Comments Not Currently 0 (1 standard drink = 0.6 oz pur e alcohol) oca Alcohol Answer Date Recorded How often do you have a drink containing alcohol ? 1 04/04/2025 How many drinks containing a lcohol do you have on a typical day when you are drinking? 0 04/04/2025 How often do you have six or more drinks on one occasion? 0 04/04/2025 Depression Answer Date Recorded Patient Health Questionnaire-9 Score 17 04/04/2025 Patient Health Questionnaire-9 Score 17 04/04/2025 Last PHQ-9: Questionnaire Data Not on file 1 06/04/2024 Housing Stability Answer Date Recorded What is [...] Date Recorded Patient Health Questionnaire-2 Score 4 04/04/2025 Internet Access Answer Date Recorded Internet Access [...] AM EDT documented as of this encounter Last Filed Vital Signs Vital Sign Reading Time Taken Comments Blood Pressure 136/58 04/04/2025 10:30 AM EST Pulse 81 04/04/2025 10:30 AM EST Temperature 36.1 C (97 F) 04/04/2025 10:30 AM EST Respiratory Rate 16 04/04/2025 10:30 AM EST Oxygen Saturation 98% 04/04/2025 10:30 AM EST Inhaled Oxygen Concentration - - Weight 59 kg (130 lb) 04/04/2025 10:30 AM EST Height 149.9 cm (4' 11 ) 04/04/2025 10:30 AM EST Body Mass Index 26.26 04/04/2025 10:30 AM EST documented in this encounter Functional Status * Over the past 2 weeks, how often have you been bothered by any of the following problems? Question Answer Date of Assessment Author Patient Health Questionnaire -2 Score 4 04/04/2025 10:34 AM EST [place]am, [place] * Little interest or pleasure in doing things Answer Date of Assessment Author More than half the days 04/04/2025 10:34 AM EST Hansen [place], [place] * Feeling down, depressed, or hopeless Answer Date of Assessment Author More than half the days 04/04/2025 10:34 AM EST Hansen, [place], [place] * Trouble falling or staying asleep, or sleeping too much Answer Date of Assessment Author Nearly every day 04/04/2025 10:34 AM EST Hansen [place], [place] * Feeling tired or having little energy Answer Date of Assessment Author Nearly every day 04/04/2025 10:34 AM EST Hansen [place], [place] * Poor appetite or overeating Answer Date of Assessment Author Several days 04/04/2025 10:34 AM EST Hansen [place], [place] * Feeling bad about yourself - or that you are a failure or have let yourself or your family down Answer Date of Assessment Author Several days 04/04/2025 10:34 AM EST Hansen [place], [place] * Trouble concentrating on things, such as reading the newspaper or watching television Answer Date of Assessment Author More than half the days 04/04/2025 10:34 AM EST Hansen [place], [place] * Moving or speaking so slowly that other people could have noticed? Or the opposite - being so fidgety or restless that you have been moving around a lot more than usual. Answer Date of Assessment Author More than half the days 04/04/2025 10:34 AM EST Hansen [place], [place] * Thoughts that you would be better off or hurting yourself in some way Answer Date of Assessment Author Several days 04/04/2025 10:34 AM EST Hansen [place], [place] * Patient Health Questionnaire-9 Score Answer Date of Assessment Author 17 04/04/2025 10:34 AM EST Hansen [place], [place] * Over the last 2 weeks, how often have you been bothered by any of the following problems? Question Answer Date of Assessment Author Feeling nervous, anxious, or on edge 3 04/04/2025 10:33 AM Sonam Correia [place] Not being able to stop or co ntrol worrying 3 04/04/2025 10:33 AM Sonam Correia [place] Worrying too much about diff erent things 3 04/04/2025 10:33 AM Sonam Correia [place] Trouble relaxing 3 04/04/2025 10:33 AM Sonam Correia [place] Being so restless that it is hard to sit still 3 04/04/2025 10:33 AM Sonam Correia [place] Becoming easily annoyed or irritable 3 04/04/2025 10:33 AM Sonam Correia [place] Feeling afraid as if somethi ng awful might happen 3 04/04/2025 10:33 AM Sonam Correia [place] ALENA-7 Total Score 21 04/04/2025 10:33 AM Sonam Correia [place] * How difficult have these problems made it for you to do your work, take care of things at home, or get along with other people? Answer Date of Assessment Author Very difficult 04/04/2025 10:34 AM Sonam Correia [place] documented as of this encounter Plan of Treatment Not on file documented as of this encounter Visit Diagnoses Diagnosis Primary hypertension- Primary Unspecified essential hypertension Perimenopausal Symptomatic menopausal or female climacteric states Rheumatoid arthritis of multiple sites with negative rheumatoid factor (CMS/HCC) (HCC) Trochanteric bursitis of both hips Generalized anxiety disorder Mild intermittent asthma without complication Thymus hyperplasia Persistent hyperplasia of thymus Granulomatous lung disease (CMS/HCC) (HCC) Other diseases of lung, not elsewhere classified Chronic obstructive pulmonary disease, unspecified COPD type (CMS/HCC) (HCC) Dietary counseling Dietary surveillance and counseling Exercise counseling Overweight documented in this encounter Additional Health Concerns Assessment Noted Time PHQ-9 Depression Total Score: 17 025 10:34 AM EST documented as of this encounter Care Teams Aircraft Worker Relationship Specialty Start Date End Date Dixie Coyle MD [address] [place] [address] PCP - General Family Medicine 05/17/18 Rony Wolff FNP [address] [place] [address] Nurse Practitioner Family Medicine 04/05/23 documented as of this encounter
[2025-04-04 15:25] VITALS: BMI 27.1
--- NOTE | 2025-04-04 15:25 | A.OFFVIS_ITS ---
Vital Signs 04/04/25 15:25 Height 4 ft 11 in Weight 134 lb BMI 27.1 Intake Visit Reasons: ingrown nail Intake Note: Brittney is a 59 year old female who presents today for a follow up on her ingrown of the right hallux. At her last visit she had declined to have a nail avulsion done due to going away for vacation and she was prescribed clotrimazole for her athletes foot. Today we will plan to proceeded with a right hallux nail avulsion. Patient states she is unable to do the ingrown due to being on antibiotics and prednisone and would like to hold off until course is completed. She is concerned in regards to a piece of her nail falling out. Allergies Enbrel Adverse Reaction (Severe, Uncoded 06/22/24 14:08) Diarrhea HPI HPI ingrown nail: Details: 59-year-old female with past medical history of seropositive rheumatoid arthritis, asthma/COPD, GERD who returns for right ingrown toenail. She returned from a cruise and is now being treated for an asthma flare with steroids and an antibiotic. Still having right toe pain but has not seen any signs of infection. History: She states she has been treating it conservatively with herself at home however she was concerned that it might be infected so she presented today for evaluation. She denies noticing any drainage warmth or swelling to the toe. She does note pain to the base of the nail. The patient also notes a history of left foot ingrown toenail which underwent partial nail avulsion which has mostly been doing well. [facility] Medical History Seropositive rheumatoid arthritis Long-term use of immunosuppressant medication Pleuritic chest pain Thymus hyperplasia Asthma-COPD overlap syndrome Asthma Pulmonary nodules Personal history of nicotine dependence GERD (gastroesophageal reflux disease) NAFL (nonalcoholic fatty liver) Degenerative arthritis of lumbar spine Surgical History History of colonoscopy Family History Father Heart attack Diabetes HTN (hypertension) Brother Liver cancer Maternal Aunt Liver cancer Breast cancer Mother Stroke Diabetes Other Asthma Social History Household Members Other:: son Are you a primary manager primary care to a significant other at home: No Do you presently have visiting nurse or other home services: No Alcohol intake: never Patient Tobacco Use Status: Former Tobacco user Tobacco use type: Cigarette Cigarettes Per Day: 20 Years Smoked: 15 e-Cigarette/Vaping Use: Never Used Current occupational status: 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 Derm: (-) erythema, no drainage to the medial border of the right hallux. Ingrown, thickened and incurvated right medial nail border Neuro: Protective sensation grossly intact to bilateral lower extremities. MSK: Mild tenderness on palpation of the medial right hallux Assessment & Plan Assessment & Plan (1) Paronychia of great toe of right foot: Code(s): L03.031 - Cellulitis of right toe Category: Medical Plan: * Since the ingrown does not have active signs of infection, she was recommended returning in 2-3 weeks to plan for the PNA since she is currently on prednisone, which may interfere with her post-procedure healing. (2) Tinea pedis: Code(s): B35.3 - Tinea pedis Category: Medical Qualifiers: Laterality: bilateral Qualified Code(s): B35.3 - Tinea pedis Plan: * Continue clotrimazole Coding Level of Care Code Est Pt Level 3 (63309) Diagnoses Paronychia of great toe of right foot L03.031 Tinea pedis of both feet B35.3 Laterality: bilateral Time Spent (min) 20
--- OUTSIDE RECORDS SUMMARY | 2025-04-05 03:52 | XMS_ITS | Encounter Summary ---
Author Organization [employer] Address [address] [place] [address] [address] [place] [address] Care Team Providers Care Probation Counselor Name Role Phone Dixie Coyle MD Primary Care Provider + Rony Wolff Unavailable Unavailable Encounter Details Date Type Department Care Team (Late st Contact Info) Description 11/05/2022 Abstract [facility] MEDICINE [address] [place], [place] [phone] Dixie Coyle MD [address] [place], [place] [phone] Social History Tobacco Use Types Packs/Day Years [...] documented as of this encounter Care Teams Probation Counselor Relationship Specialty Start Date End Date Dixie Coyle MD [address] [place], [place] [phone] PCP - General Family Medicine 05/17/18 Rony Wolff FNP [address] [place] [address] Nurse Practitioner Family Medicine 04/05/23 documented as of this encounter
--- OUTSIDE RECORDS SUMMARY | 2025-04-05 03:52 | XMS_ITS | Encounter Summary ---
Author Organization [employer] Address [address] [facility] 7 [place] [address] Care Team Providers Care Acidity Tester Name Role Phone Dixie Coyle MD Primary Care Provider + Rony Wolff Unavailable Unavailable Reason for Visit * Reason Comments Med Change Request Encounter Details Date Type Department Care Team ([facility] st Contact Info) Description 02/18/2023 Refill [facility] MEDICINE [address] [place] [address] Rony Wolff FNP Adjustment disorder with anxiety [...] the past 12 months, has t he [employer], [employer], [employer] threatened to shut off services in your [...] Author Very difficult 02/18/2023 10:31 AM EDT Eileen Sams MA * Over the past 2 [...] documented as of this encounter Care Teams Acidity Tester Relationship Specialty Start Date End Date Dixie Coyle MD [address] [place] [address] PCP - General Family Medicine 05/17/18 Rony Wolff FNP [address] [place] [address] Nurse Practitioner Family Medicine 04/05/23 documented as of this encounter
--- OUTSIDE RECORDS SUMMARY | 2025-04-05 03:53 | XMS_ITS | Encounter Summary ---
Author Organization [employer] Address [address] [place] [address] Care Team Providers Care Supreme Court Judge Name Role Phone Dixie Coyle MD Primary Care Provider + Rony Wolff Unavailable Unavailable Reason for Visit * Reason Onset Date Comments chart prep 04/03/2025 Encounter Details Date Type Department Care Team ([facility] Contact Info) Description 04/03/2025 Telephone [facility] MEDICINE [address] [place], [place] [phone] Dixie Coyle MD [address] [place], [place] [phone] chart prep Social History Tobacco Use Types Packs/Day Years [...] the past 12 months, has t he [employer], gas, oil or water company threatened to [...] AM EDT documented as of this encounter Miscellaneous Notes * Telephone Encounter - Thony Linn MA - 04/03/2025 11:12 AM EST Chart Prep Labs: done Images: done Referrals: not applicable Vaccines due: Covid, Flu, Hep B, Hep A, RSV, and Zoster Screenings: colonoscopy and mammogram Overdue care gaps: SBIRT, SDOH, PHQ-9, ALENA-7, Disability screen, and Tobacco documented in this encounter Plan of Treatment Not on file documented as of this encounter Visit Diagnoses Not on filedocumented in this encounter Additional Health Concerns Assessment Noted Time PHQ-9 Depression Total Score: 0 10/04/19 24 1:56 PM EDT documented as of this encounter Care Teams Supreme Court Judge Relationship Specialty Start Date End Date Dixie Coyle MD [address] [place] [phone] PCP - General Family Medicine 05/17/18 Rony Wolff FNP [address] [place] [phone] Nurse Practitioner Family Medicine 04/05/23 documented as of this encounter
--- OUTSIDE RECORDS SUMMARY | 2025-04-05 03:53 | XMS_ITS | Clinical Summary ---
Author Organization [employer] Address [address] [place] [address] 7 [place] [address] Care Team Providers Care Client Service Administrator Name Role Phone Dixie Coyle MD Primary [...] not to exceed 6 tablets per 24hrs 06/14/19 18 Active albuterol 108 (90 Base) MCG/ACT inhaler TAKE 2 PUFFS BY MOUTH EVERY 4 TO 6 HOURS NEEDED 05/02/20 22 Active aspirin (Ranjan Low Dose) 81 MG EC tablet Take 1 tablet by mouth at bed time. 08/05/19 19 Active hydrocortisone 2.5 % cream APPLY TOPICALLY TWICE A DAY NEEDED FOR RASH 10/11/19 22 Active hydrocortisone (Proctosol HC) 2.5 % rectal cream Apply topically at bed time. 11/06/19 22 Active omeprazole (PriLOSEC) [address] capsule Take 1 capsule by mouth at bed time. 01/25/20 22 Active ibuprofen 800 MG tabletIndicati ons:Chronic bilateral low back pain, unspecified whether sciatica present TAKE 1 TABLET BY MOUTH TWICE DAILY WITH BREAKFAST AND WITH EVENING MEAL FOR 10 DAYS, THEN ONLY TAKE TWICE DAILY NEEDED 60 tablet 08/28/19 23 Active Breztri Aerosphere 160-9-4.8 MCG/ACT aerosol 2 Inhalations by Infiltration route 2 times daily. Active losartan (Cozaar) 25 MG tablet Take 25 mg by mouth Once per day. 05/27/19 Active DULoxetine (Cymbalta) [address] capsuleIndicat ions:Adjustmen t disorder with anxiety Take 1 capsule (30 mg) by mouth 2 times daily. Do not crush or chew. 180 capsule 3 10/04/19 24 Active hydrOXYzine HCl (Atarax) 10 MG tablet Take 1 tablet (10 mg) by mouth every 6 (six) hours if needed for anxiety. 100 tablet 2 10/04/19 24 Active QUEtiapine (SEROquel) 25 MG tablet Take 1 tablet (25 mg) by mouth at bedtime. 90 tablet 3 10/04/19 24 Active Menthol, Topical Analgesic, (Icy Hot) 5 % patch Use 1 patch to affected area daily prn pain 14 patch 1 03/30/20 Active levocetirizine (Xyzal) 5 MG tablet Take 1 tablet (5 mg) by mouth in the evening. 90 tablet 04/04/20 25 2025 Active levocetirizine (Xyzal) 5 MG tablet Take 1 tablet (5 mg) by mouth in the evening. 90 tablet 09/21/19 24 2024 Discontinued(R eorder (will not trigger notification to Pharmacy)) Active Problems Problem Noted Date Diagnosed Date Trochanteric bursitis of both hips 04/04/2025 Thymus hyperplasia 04/04/2025 Overweight 03/30/2024 Assessment & Plan (03/30/2024 1:42 PM EST): Discussed re weight reduction options including exercise, life style modifications, and diet. Recommended to decrease soda and sugary beverage consumption, increase protein intake with meals (at least 1 portion of protein with each meal) to assist with satiety, increase dietary fiber Recommended at least 150 min/week of moderate intensity exercise. Rheumatoid arthritis of [facility] sites with negative rheumatoid factor ([facility]) 12/27/2023 Assessment & Plan (12/29/2023 3:03 PM EDT): Seen by [facility] [place], on Rinvoq, doing well. Advised [...] 1:41 PM EDT): Started on Losartan by slat basket top maker Controlled. Compliant w/meds Continue lisinopril/hydrochlorothiazide + [...] her medications, was informed erroneously by her [facility] pharmacy that no refills were available. Will now transfer to pharmacy at [facility] where [place] [facility] 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 Doan Neurosurgeon at [facility] Assessment & Plan (07/15/2022 1:03 PM [...] (03/22/2023 5:59 PM EST): Uncontrolled. FU with bass mechanism maker, Will be started on dupixent probably Declined Covid IZ Cerebrovascular accident (CV A) due to occlusion of precerebral artery 03/27/2016 Dizziness 03/27/2016 Smoker 03/27/2016 Encounters Date Type Department Care Team Description 04/04/2025 10:00 AM EST Office Visit [facility] MEDICINE [address] [place] [phone] Dixie Coyle MD Primary hypertension (Primary Dx); Perimenopausal; Rheumatoid arthritis of multiple sites with negative rheumatoid factor (CMS/HCC) (HCC); Trochanteric bursitis of both hips; Generalized anxiety disorder; Mild intermittent asthma without complication; Thymus hyperplasia; Granulomatous lung disease (CMS/HCC) (HCC); Chronic obstructive pulmonary disease, unspecified COPD type (CMS/HCC) (HCC); Dietary counseling; Exercise counseling; Overweight 04/04/2025 Travel 04/03/[address] [phone] Dixie Coyle MD chart prep 03/28/2025 Patient Outreach [address] [phone] Dixie Coyle MD Pre-visit Planning ((Unable to reach for PVP screening, LVM) to be completed in office ) 02/28/2025 Orders Only GENERIC EXTERNAL DATA DEPARTMENT Provider, Generic External Data 02/12/2025 Orders Only GENERIC EXTERNAL DATA DEPARTMENT Provider, Generic External Data 01/22/[address] [phone] Dixie Coyle MD Appointment from Last 3 [...] Mass Index 26.26 04/04/2025 10:30 AM EST Plan of Treatment Health Maintenance Due Date Last Done Comments CT Colonography 1965 FIT DNA/Cologuard 1965 FIT 1965 FOBT 1965 HIV Screening 1965 Lipid Panel 1965 Sigmoidoscopy 1965 Disability Screening 1965 Hepatitis A Vaccines (1 of 2 - Risk 2-dose series) 12/29/1986 Hepatitis B Vaccines (1 of 3 - 19+ 3-dose series) 12/29/1986 RSV Patients and Patients Aged 60 years or older (1 - Risk 50-74 years 1-dose series) 12/29/2017 Zoster Vaccines (1 of 2) 12/29/2017 Colonoscopy 11/10/2023 11/09/2018 Colorectal Cancer Screening 11/10/2023 COVID-19 Vaccine ( season) 2025 03/14/2021, 06/05/2020, 05/15/2020 Mammogram 03/23/2025 03/23/2024, 06/2022, 03/11/2022, Additional history exists SDOH Screening 03/30/2025 03/30/2024 Pap Smear 05/22/2025 05/22/2022 Depression Monitoring 10/02/2025 04/04/2025, 025 Alcohol/Substance Use Screening 04/04/2026 04/04/2025 Tobacco Screening 04/04/2026 04/04/2025 Cervical Cancer Screening 05/22/2027 HPV/Cotest 05/22/2027 05/22/2022 DTaP/Tdap/Td Vaccines (3 - Td or Tdap) 03/30/2034 03/30/2024, 02/29/2012, 02/29/2012 Pneumococcal Vaccine: 50+ Years Completed 03/30/2024 Hepatitis C Screening Completed 12/22/2024 , 07/28/2023, 06/27/2021, Additional history exists Influenza Vaccine Completed 02/16/2025, , 03/08/2023, Additional history exists HIB Vaccines Aged Out [...] period is included. Rast Allergen SEE NOTE [facility] Comment:SEE SCANNED REPORT I N EMR 02/28/2025 4:15 PM EDT 03/12/2025 10:56 AM EDT Narrative [facility] - 03/12/2025 10:58 AM EDT DOG AND CAT DANDER REFLEX us Generic External Data Provider HISTORICAL/NON OR DERABLE LABS Final Result [facility] [address] [place] [address] [phone] * (ABNORMAL) Respiratory Allergy Profile Region I (02/28/2025 4:15 PM EDT) Immunoglobulin E 2676(A) <WX=223 kU/L [facility] Mouse Urine Proteins (E72) IgE <0.10 kU/L [facility] Class 0 [facility] Cockroach (I6) IgE <0.10 kU/L [facility] Class 0 [facility] Dermatophagoides farinae (D2) IgE 0.22(A) kU/L [facility] Class 0/1 [facility] Cat Dander (E1) IgE 6.27(A) kU/L [facility] Class 3 [facility] Comment:THIS TEST WAS PERFOR MED AT:[facility] [address] [phone] GAONA MD Dog Dander (E5) IgE >100(A) kU/L [facility] Class 6 [facility] Comment:THIS TEST WAS PERFOR MED AT:[facility] [address] [phone] GAONA MD Jose Grass (G6) IgE 0.10(A) kU/L [facility] Class 0/1 [facility] Cladosporium herbarum (M2) IgE <0.10 kU/L [facility] Class 0 [facility] Aspergillus Fumigatis (M3) IgE <0.10 kU/L [facility] Class 0 [facility] Alternaria alternata (M6) IgE <0.10 kU/L [facility] Class 0 [facility] Comment:THIS TEST WAS PERFOR MED AT:[facility] [address] [phone] GAONA MD [employer] (t6) IgE 0.10(A) kU/L [facility] Class 0/1 [facility] [place] (T7) IgE <0.10 kU/L [facility] Class 0 [facility] [place] Tree (T10) IgE <0.10 kU/L [facility] Class 0 [facility] Mamm[place] (T11) IgE 0.19(A) kU/L [facility] Class 0/1 [facility] [place] (T14) IgE 0.16(A) kU/L [facility] Class 0/1 [facility] White Hemant (t15) IgE <0.10 kU/L [facility] Class 0 [facility] White Marinette (T70) IgE 0.10(A) kU/L [facility] Class 0/1 [facility] Common Ragweed (Short) (W1) IgE <0.10 kU/L [facility] Class 0 [facility] Mugwort (w6) IgE <0.10 kU/L [facility] Class 0 [facility] Dermatophagoides pteronyssinus (D1) IgE 0.20(A) kU/L [facility] Class 0/1 [facility] Bermuda Grass (g2) IgE 0.22(A) kU/L [facility] Class 0/1 [facility] Penicillium Notatum (M1) IgE <0.10 kU/L [facility] Class 0 [facility] Birch (T3) IgE <0.10 kU/L [facility] Class 0 [facility] Elm (t8) IgE 0.25(A) kU/L [facility] Class 0/1 [facility] Maple (Delta) (T1) IgE 0.12(A) kU/L [facility] Class 0/1 [facility] Rough Pigweed (W14) IgE 0.51(A) kU/L [facility] Class 1 [facility] Sheep Wh[place] (W18) IgE <0.10 kU/L [facility] Class 0 [facility] Allergen Comment See Below [facility] Comment: Specific Level of AllergenIGE [...] and its analyticalperformance characteristics have been determined by[employer]. It has not been cleared or approvedby the U.S. Food and Drug Administration. This assayhas been validated pursuant to the CLIA regulationsand is used for clinical purposes.THIS TEST WAS PERFORMED AT:[facility] [place] [id number] GAONA MD 02/28/2025 4:15 PM EDT 02/28/2025 4:15 PM EDT us Generic External Data Provider LAB BLOOD ORDERAB LES Final Result [facility] [address] [place] [phone] * Hepatitis Panel, General (12/22/2024 2:25 PM EDT) Hepatitis A IgM Nonreactive Nonreactive [facility] Comment:IgM antibodies to EMERSON V not detected; does not exclude earlyacute or recovered HAV infection. ~Hepatitis B Surface Antibody REACTIVE Nonreactive [facility] Comment:REACTIVE: > 11.99 mI U/mL Hepatitis B Core Antibody Nonreactive Nonreactive [facility] Hepatitis C Antibody Nonreactive Nonreactive [facility] Comment:Antibodies to HCV no t detected; does not exclude early acuteHCV infection. Hepatitis B Surface Ag Negative Negative [facility] 12/22/2024 2:25 PM EDT 12/22/2024 2:26 PM EDT us Generic External Data Provider LAB BLOOD ORDERAB LES Final Result Performing Organization Address City/State/[facility] Co de Phone Number [facility] [address] [place] [address] [phone] * BI Mammogram Screening Tomosynthesis Bilateral (03/23/2024 10:30 AM EST) Anatomical Region Laterality Modality Breast Bilateral Mammography 03/23/2024 10:3 0 AM EST Narrative 03/23/2024 11:05 AM EST [address] [place] [address] Mammography Report Signed Patient: Brittney Caraballo V MR#: [id number] : 1965 Acct:[id number] Age/Sex: 58 / F ADM Date: 03/23/24 Loc: HO.MAMMO Attending Dr: Dixie Coyle MD Ordering Physician: Dixie Coyle MD Results: 1Ne gative Date of Service: 03/23/24 Follow Up: 1 Year From [facility] Mammogram Procedure(s): MM tomosynthesis screening BI Accession Number(s): [id number] cc: Dixie Coyle MD EXAMINATION: MM SCREENING [...] 03/23/24 1102 DD/ 1030 TD/TT: 03/23/24 1048 Oil Transport Driver: Procedure Note Donotuseinterpreter, Image - 03/23/2024 [facility] [address] [place], [place] [address] Mammography Report Signed Patient: Brittney Caraballo VMR#: [id number] : 1965Acct:[id number] Age/Sex: 58 / FADM Date: 03/23/24 Loc: MAMMO Attending Dr: Dixie Coyle MD Ordering Physician: Dixie Coyle MDResults: 1Ne gative Date of Service: 03/23/24[facility] Up[facility] Procedure(s): MM tomosynthesis screening BI Accession Number(s): [id number] cc: Dixie Coyle MD EXAMINATION: MM SCREENING [...] by: Luna Watson DO 03/23/2024 11:02 AM [facility] Dictated By: Luna Watson DO Signed By: <Electronically signed by Luna Watson DO in OV> 03/23/24 1102 DD/ 1030 TD/TT: 03/23/24 1048 Oil Transport Driver: Dixie Coyle MD IMG BI PROCEDURES Edited [...] Most Recently Relevant to Health Maintenance Insurance [employer] Care Teams Client Service Administrator Relationship Specialty Start Date End Date Dixie Coyle MD [address] [place] [phone] PCP - General Family Medicine 05/17/18 Rony Wolff FNP [address] [place] [phone] Nurse Practitioner Family Medicine 04/05/23
--- OUTSIDE RECORDS SUMMARY | 2025-04-05 03:53 | XMS_ITS | Encounter Summary ---
Author Organization [employer] Address [address] [facility] 7t [place] [address] Care Team Providers Care Fruit Loader Name Role Phone Dixie Coyle MD Primary Care Provider + Rony Wolff Unavailable Unavailable Encounter Details Date Type Department Care Team (Latest Contact Info) Description 04/04/2025 Travel Social History Tobacco Use Types Packs/Day Years [...] Questionnaire -2 Score 4 04/04/2025 10:34 AM Sonam Correia [place] * Little interest or pleasure in doing things Answer Date of Assessment Author More than half the days 04/04/2025 10:34 AM Sonam Correia [place] * Feeling down, depressed, or hopeless Answer Date of Assessment Author More than half the days 04/04/2025 10:34 AM Sonam Correia [place] * Trouble falling or staying asleep, or sleeping too much Answer Date of Assessment Author Nearly every day 04/04/2025 10:34 AM Sonam Correia [place] * Feeling tired or having little energy Answer Date of Assessment Author Nearly every day 04/04/2025 10:34 AM Sonam Correia [place] * Poor appetite or overeating Answer Date of Assessment Author Several days 04/04/2025 10:34 AM Sonam Correia [place] * Feeling bad about yourself - or that you are a failure or have let yourself or your family down Answer Date of Assessment Author Several days 04/04/2025 10:34 AM Sonam Correia [place] * Trouble concentrating on things, such as reading the newspaper or watching television Answer Date of Assessment Author More than half the days 04/04/2025 10:34 AM EST Sonam Hansen MA * Moving or speaking so slowly that other people could have noticed? Or the opposite - being so fidgety or restless that you have been moving around a lot more than usual. Answer Date of Assessment Author More than half the days 04/04/2025 10:34 AM EST Sonam Hansen MA * Thoughts that you would be better off or hurting yourself in some way Answer Date of Assessment Author Several days 04/04/2025 10:34 AM Sonam Correia MA * Patient Health Questionnaire-9 Score Answer Date of Assessment Author 17 04/04/2025 10:34 AM EST Sonam Hansen MA * Over the last 2 weeks, [...] ALENA-7 Total Score 21 04/04/2025 10:33 AM EST Sonam Hansen MA * How difficult have these problems [...] Noted Time PHQ-9 Depression Total Score: 17 04/04/ 025 10:34 AM EST documented as of this encounter Care Teams Fruit Loader Relationship Specialty Start Date End Date Dixie Coyle MD [address] [place] [address] PCP - General Family Medicine 05/17/18 Rony Wolff FNP [address] [place] [address] Nurse Practitioner Family Medicine 04/05/23 documented as of this encounter
== END 2025-04-04 15:29 | disposition home or self-care (01) ==
LOC: HO.HPODS 15:17
PROVIDERS: PCP Internal Medicine; Visit Provider Student in an Organized Health Care Education/Training Program
DX: L03.031 Cellulitis of right toe (principal); B35.3 Tinea pedis
CPT/HCPCS: 99213

== ENCOUNTER 2025-04-05 15:04 | Outpatient (REF) | payer OTHER, SELFPAY ==
--- NOTE | ~2025-04-05 | MM_ITS ---
EXAMINATION: MM SCREENING DIGITAL BREAST TOMOSYNTHESIS, BILATERAL CLINICAL INFORMATION: Screening. Asymptomatic. COMPARISON: Mammography: Comparison is made with available priors TECHNIQUE: Digital breast mammography with tomosynthesis is performed in both the craniocaudal and mediolateral oblique views along with computer-aided detection (CAD). FINDINGS: The breasts are heterogeneously dense, which may obscure small masses. Left marker clip. There are no significant masses, abnormal calcifications, or other abnormalities. MM/MM tomosynthesis screening BI IMPRESSION: No mammographic evidence of malignancy. ASSESSMENT: BI-RADS Category 2: Benign RECOMMENDATION: Routine annual mammography screening. 1 year F/U This examination should not preclude the clinical evaluation of a suspicious palpable abnormality. This patient's information was entered into a reminder system with a target due date for their next mammogram. Electronically signed by: Luna Watson DO 04/09/2025 04:11 PM [facility]
--- OUTSIDE RECORDS SUMMARY | 2025-04-05 20:27 | XMS_ITS | Clinical Summary ---
Author Organization [facility] Address [address] [place] [phone] Care Team Providers Care President [employer] Name Role Phone Unavailable Primary Care Provider [...] Procedure Name Priority Date/Time Associated Diagnosis Comments [facility] SCREENING DIGITAL Routine 05/14/2019 7:49 PM EST Encounter for screening mammogram for malignant neoplasm of breast from Last 3 Months or Most Recently Relevant to Health Maintenance Results * [facility] SCREENING DIGITAL (05/14/2019 7:49 PM EST) Anatomical Region Laterality Modality Mammography 05/08/2019 10:5 4 AM EST Narrative 05/14/2019 7:49 PM EST [facility] Diagnostic Imaging Department [address] [place] [address] Patient: ANGEL COLLINS D.O.B./Age/Sex: 1965 - 53 - F Unit#: [id number] [facility]ing [facility] Ordering Physician: DIXIE MARTIN MD [facility] Screening Digital - 05/13/191100 History: Bilateral breast cancer screening. Technique: Digital mammography. Conventional CC and MLO projections with tomosynthesis MLO views and computer aided detection. Comparison made with previous mammograms from [facility] 05/12/2018, dating back to 04/08/2009. Findings: Breast tissue consists of fatty and fibroglandular tissue with moderate complexity, potentially obscuring small lesions, category c density (as calculated by HeartFlowpara software). There is no suspicious group of microcalcification, suspicious mass, architectural distortion or suspicious change in breast density within either breast. Impression: No evidence of malignancy. BIRADS category 1; negative study, 3341F 31392, [address] A negative mammogram in the face of a suspicious abnormality does not exclude the possibility of malignancy nor alter the indications for biopsy. Note: Patient information entered into a reminder system with a target due date for the next mammogram; PQRI II 7029F Dictating Physician: JERMAINE SCHNEIDER MD Electronically Signed by: JERMAINE SCHNEIDER MD Dic Date/Time: 05/14/191947 Sign date/Time: 05/14/191948 Procedure Note Jermaine Schneider - 05/06/2022 [facility] Diagnostic Imaging Department [address] [place] [address] Patient: ANGEL COLLINS D.O.B./Age/Sex: 1965 - 53 - F Unit#: [id number] Location/Status: [facility] CLI Mnemonic/Ordering Site: [facility] Ordering Physician: DIXIE MARTIN MD [facility] Scre[facility] Digital - 05/13/191100 History: Bilateral breast cancer screening. Technique: Digital mammography. Conventional CC and MLO projectionswith tomosynthesis MLO views and computer aided detection. Comparison made with previous mammograms [facility], dating back to 04/08/2009. Findings: Breast tissue consists of fatty and fibroglandular tissue with moderate complexity, potentially obscuring small lesions, category cdensity (as calculated by HeartFlowpara software). There is no suspicious group of microcalcification, suspicious mass, architectural distortion or suspicious change in breast density withineither breast. Impression: No evidence of malignancy. BIRADS category 1; negative study, 3341F 88315, [address] A negative mammogram in the face of [...]
== END 2025-04-05 15:05 | disposition home or self-care (01) ==
LOC: HO.MAMMO 15:04
PROVIDERS: PCP Internal Medicine; Visit Provider Internal Medicine
DX: Z12.31 Encounter for screening mammogram for malignant neoplasm of breast (principal)
CPT/HCPCS: 77063; 77067

== ENCOUNTER → 2025-04-05 15:15 | Outpatient (BNV) | payer OTHER, SELFPAY | PROVIDERS: PCP Internal Medicine; Visit Provider Internal Medicine | DX: Z12.31 Encounter for screening mammogram for malignant neoplasm of breast (principal) | CPT/HCPCS: 77063; 77067 ==

== ENCOUNTER 2025-04-19 16:12 | Outpatient (REF) | payer OTHER, SELFPAY ==
--- NOTE | ~2025-04-19 | CT_ITS ---
EXAMINATION: CT LOW-DOSE SCREENING CHEST WITHOUT CONTRAST CLINICAL INFORMATION: Z87.891 - Personal history of nicotine dependence COMPARISON: Chest CT on March 08, 2024 TECHNIQUE: Multidetector volumetric CT imaging of the chest is performed on a Siemens SOMATOM Definition scanner without contrast using low dose technique. Additional 2D coronal and sagittal reformatted images and coronal 3D maximum intensity projection (MIP) images are generated on the CT workstation. This CT examination was performed using dose optimization techniques as appropriate, variously including the following: *Automated exposure control *Adjustment of mA and/or kV according to patient size (this includes techniques or standardized protocols for targeted exams where dose is matched to indication/reason for exam; i.e. extremities or head) *Use of iterative reconstruction technique CTDIvol: 1.08 mGy. FINDINGS: LUNGS: Central airways are patent. No lung consolidation. Multiple bilateral calcified granulomas. PULMONARY NODULES: No suspicious pulmonary nodules. MEDIASTINUM: No thyroid nodules. Heart is normal in size. No pericardial effusion. Scattered calcifications along the nonaneurysmal thoracic aorta. Calcified small mediastinal and hilar lymph nodes CORONARY ARTERY CALCIFICATION: None visualized on this study. CHEST WALL/AXILLA: Unremarkable. UPPER ABDOMEN: Vascular calcifications. OSSEOUS STRUCTURES: No suspicious focal findings. CT/CT lung screening IMPRESSION: No suspicious pulmonary nodule. ASSESSMENT: 1. Lung-RADS Category 2: Benign appearance or behavior of nodules. 2. Lung-RADS Category S: Negative. There are no clinically significant or potentially clinically significant findings not related to the lungs requiring urgent additional evaluation. RECOMMENDATION: Continued routine annual low-dose CT lung screening in 1 year is recommended. An order for CT CHEST LOW DOSE CANCER SCREENING ([id number]) can be placed. Electronically signed by: Smith Parra MD 04/19/2025 04:49 PM [facility]
--- OUTSIDE RECORDS SUMMARY | 2025-04-19 22:08 | XMS_ITS | Clinical Summary ---
Author Organization [facility] Address [id number] [place] [id number] Care Team Providers Care Health Care Marketing Specialist Name Role Phone Unavailable Primary Care [...] Procedure Name Priority Date/Time Associated Diagnosis Comments [facility] SCREEN[facility]ITAL Routine 05/14/2019 7:49 PM EST Encounter for screening mammogram for malignant neoplasm of breast from Last 3 Months or Most Recently Relevant to Health Maintenance Results * [facility] (05/14/2019 7:49 PM EST) Anatomical Region Laterality Modality Mammography 05/08/2019 10:5 4 AM EST Narrative 05/14/2019 7:[address] [facility] Diagnostic Imaging Department [address] [place] [address] Patient: ANGEL COLLINS D.O.B./Age/Sex: 1965 - 53 - F Unit#: [id number] [facility]Ordering Site[facility] Ordering Physician: DIXIE MARTIN MD [facility] Screening Digital - 05/13/191100 History: Bilateral breast cancer screening. Technique: Digital mammography. Conventional CC and MLO projections with tomosynthesis MLO views and computer aided detection. Comparison made with previous mammograms from [facility] 05/12/2018, dating back to 04/08/2009. Findings: Breast tissue consists of fatty and fibroglandular tissue with moderate complexity, potentially obscuring small lesions, category c density (as calculated by [employer] software). There is no suspicious group of microcalcification, suspicious mass, architectural distortion or suspicious change in breast density within either breast. Impression: No evidence of malignancy. BIRADS category 1; negative study, 3341F 63076, [address]300 A negative mammogram in the face of a suspicious abnormality does not exclude the possibility of malignancy nor alter the indications for biopsy. Note: Patient information entered into a reminder system with a target due date for the next mammogram; PQRI II 7088F Dictating Physician: JERMAINE SCHNEIDER MD Electronically Signed by: JERMAINE SCHNEIDER MD Dic Date/Time: 05/14/191947 Sign date/Time: 05/14/191948 Procedure Note Jermaine Schneider - 05/06/2022 [facility] Diagnostic Imaging Department [address] [place] [address] Patient: ANGEL COLLINS D.O.B./Age/Sex: 1965 - 53 - F Unit#: [id number] Location/Status: [facility] CLI Mnemonic/Ordering Site: [facility] Ordering Physician: DIXIE MARTIN MD [facility] Screening Digital - 05/13/191100 History: Bilateral breast cancer screening. Technique: Digital mammography. Conventional CC and MLO projectionswith tomosynthesis MLO views and computer aided detection. Comparison made with previous mammograms from [facility]/12/2018, dating back to 04/08/2009. Findings: Breast tissue consists of fatty and fibroglandular tissue with moderate complexity, potentially obscuring small lesions, category cdensity (as calculated by [employer] software). There is no suspicious group of microcalcification, suspicious mass, architectural distortion or suspicious change in breast density withineither breast. Impression: No evidence of malignancy. BIRADS category 1; negative study, 3341F 21342, 36715 A negative mammogram in the face of [...]
--- OUTSIDE RECORDS SUMMARY | 2025-04-19 22:08 | XMS_ITS | Clinical Summary ---
Author Organization [employer] Address [address] [place] [address] 7 [place] [address] Care Team Providers Care Container Shop Welder Name Role Phone Dixie Coyle MD Primary Care Provider + Rony Wolff Unavailable Unavailable Allergies Active Allergy Reactions Criticality Noted Date Comments Etanercept Diarrhea High 06/22/2024 Diarrhea and headaches Leflunomide Other 09/15/2023 Transaminitis (rheumatology) Medications * [...] mg by mouth Once per day. 05/27/19 24 Active DULoxetine (Cymbalta) [address] capsuleIndicat ions:Adjustmen t disorder with anxiety Take 1 capsule (30 mg) by mouth 2 times daily. Do not crush or chew. 180 capsule 3 10/04/19 Active hydrOXYzine HCl (Atarax) 10 MG tablet Take 1 tablet (10 mg) by mouth every 6 (six) hours if needed for anxiety. 100 tablet 2 10/04/19 24 Active QUEtiapine (SEROquel) 25 MG tablet Take 1 tablet (25 mg) by mouth at bedtime. 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 No evidence of malignancy Overweight 03/30/2024 Assessment & Plan (04/18/2025 3:29 PM EST): Has lost 10+ lb since last year. Discussed re weight reduction options including exercise, life style modifications, and diet. Recommended to decrease soda and sugary beverage consumption, increase protein intake with meals (at least 1 portion of protein with each meal) to assist with satiety, increase dietary fiber Recommended at least 150 min/week of moderate intensity exercise. Assessment & Plan (03/30/2024 1:42 PM EST): Discussed re weight reduction options including exercise, life style modifications, and diet. Recommended to decrease soda and sugary beverage consumption, increase protein intake with meals (at least 1 portion of protein with each meal) to assist with satiety, increase dietary fiber Recommended at least 150 min/week of moderate intensity exercise. Rheumatoid arthritis of [facility] sites with negative rheumatoid factor ([facility]) 12/27/2023 Overview (04/06/2025): dx 07/2023 [facility] Rheum Leflunomide 07/2023 DC 09/2023 d.t. transaminitis Enbrel 01/2024 discontinued after 3 doses due to diarrhea and headaches also ineffective Rinvoq started 02/2024 partially effective Hydroxychloroquine started (+ Rinvoq) Assessment & Plan (04/18/2025 3:34 PM EST): Doing well on Rinvoq, she's fairly functional FU with Rheumatology at [facility] Assessment & Plan (12/29/2023 3:03 PM EDT): Seen by [facility] rheumatology, on Rinvoq, doing well. Advised to request more samples at their office and await for PA approval. D/w her re holding it in case of moderate to severe infections, fever, rash. Primary hypertension 09/21/2023 Assessment & Plan (04/18/2025 3:28 PM EST): Controlled. Compliant w/meds Continue losartan Counseled re low salt diet/increase moderate physical activity. Check home BP BIW and prn CP/EMERSON/ZABALA Non smoking patient. FU 6mo Assessment & Plan (12/29/2023 3:02 PM EDT): Its repeatedly well controlled on Losartan. No change in meds Counseled re low salt diet/increase moderate physical activity. Check home BP BIW and prn CP/EMERSON/ZABALA Non smoking patient. Assessment & Plan (09/21/2023 1:41 PM EDT): Started on Losartan by nuclear supervising operator Controlled. Compliant w/meds Continue lisinopril/hydrochlorothiazide + amlodipine [...] any issues or concerns she should contact [facility]. All her questions were answered. I [...] her medications, was informed erroneously by her [facility] pharmacy that no refills were available. Will now transfer to pharmacy at [facility] where she works. New Rx sent for Seroquel 25 mg at bedtime and Duloxetine 30 mg two times daily. She can F/U with counselor at work and/or call to F/u on counseling referral. She will also request FMLA paperwork from her job and bring to [facility], where I can sign based on [...] Anxiety disorder, unspecified 09/17/2022 Assessment & Plan (04/18/2025 3:32 PM EST): Doing well on Duloxeine and Seroquel FU with Dr Saucedo. Assessment & Plan (09/21/2023 1:42 PM EDT): [...] markers are normal so far Perimenopausal 07/14/2022 Assessment & Plan (04/18/2025 3:31 PM EST): We've discussed re layering in clothing specially to sleep, increase exercise and hydration. She quit smoking few years ago, has history CVA with no residual deficit more than 5y ago, will refer to [employer] to consider MHT Rectal hemorrhage 07/14/2022 Shoulder pain 07/14/2022 Pelvic [...] obstructive lung disease 11/24/2017 Assessment & Plan (04/18/2025 3:36 PM EST): Quit smoking 3+ y ago Continue Breztri inh Declined Covid vax, advised to get RSV RADHA Assessment & Plan (12/29/2023 3:01 PM EDT): Doing well on Breztri inh FU with Dr Zimmer Will fu Izs at next appt Eczema 11/24/2017 Granulomatous lung disease (CMS/HCC) 11/24/2017 Assessment & Plan (04/18/2025 3:35 PM EST): FU by pulmonology, CT scan is stable, 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 Assessment & Plan (03/30/2024 1:41 PM EST): [...] Did not want improve with pain clinic [facility] to go to acupuncture Continue meloxicam Assessment & Plan (12/07/2022 5:15 PM EDT): Failed PT, take tylenol and flexiril PRN Pt to make an appointment for fu with Dr. Doan Neurosurgeon at [facility] Assessment & Plan (07/15/2022 1:03 PM EST): [...] Mild intermittent asthma 03/27/2016 Assessment & Plan (04/18/2025 3:35 PM EST): Doing better on Breztri inh FU with pulmonology Assessment & Plan (03/30/2024 1:45 PM EST): [...] (03/22/2023 5:59 PM EST): Uncontrolled. FU with interactive marketing strategist, Will be started on dupixent probably Declined Covid IZ Cerebrovascular accident (CV A) due to occlusion of precerebral artery 03/27/2016 Dizziness 03/27/2016 Smoker 03/27/2016 Encounters Date Type Department Care Team Description 04/05/2025 Orders Only [address] [address] Dixie Coyle MD 04/04/2025 10:00 AM EST Office Visit [address] [address] Dixie Coyle MD Primary hypertension (Primary Dx); Perimenopausal; Rheumatoid arthritis of multiple sites with negative rheumatoid factor (CMS/HCC) (HCC); Trochanteric bursitis of both hips; Generalized anxiety disorder; Mild intermittent asthma without complication; Thymus hyperplasia; Granulomatous lung disease (CMS/HCC) (HCC); Chronic obstructive pulmonary disease, unspecified COPD type (CMS/HCC) (HCC); Dietary counseling; Exercise counseling; Overweight 04/04/2025 Travel 04/03/[address] [address] Dixie Coyle MD chart prep 03/28/2025 Patient Outreach [address] [address] Dixie Coyle MD Pre-visit Planning ((Unable to reach for PVP screening, LVM) to be completed in office ) 02/28/2025 Orders Only GENERIC EXTERNAL DATA DEPARTMENT Provider, Generic External Data 02/12/2025 Orders Only GENERIC EXTERNAL DATA DEPARTMENT Provider, Generic External Data 01/22/[address] [address] Dixie Coyle MD Appointment from Last 3 [...] 04/04/2025 10:30 AM EST Plan of Treatment Upcoming Encounters Date Type Department Care Team (Late st Contact Info) Description 07/06/2025 10:30 AM EST Office Visit [facility] [address] [place] [address] Dixie Coyle MD [address] [place] [address] Health Maintenance Due Date Last Done Comments [...] 12/29/2017 Zoster Vaccines (1 of 2) 12/29/2017 COVID-19 Vaccine ( season) 2025 03/14/2021, 06/05/2020, 05/15/2020 SDOH Screening 03/30/2025 03/30/2024 Pap Smear 05/22/2025 05/22/2022 Depression Monitoring 10/02/2025 04/04/2025, 025 Alcohol/Substance Use Screening 04/04/2026 04/04/2025 Tobacco Screening 04/04/2026 04/04/2025 Mammogram 04/05/2026 04/05/2025, 11/2023, 03/18/2023, Additional history exists Cervical Cancer Screening 05/22/2027 HPV/Cotest 05/22/2027 05/22/2022 Colonoscopy 10/26/2029 11/09/2018 Colorectal Cancer Screening 10/26/2029 DTaP/Tdap/Td Vaccines (3 - Td or Tdap) [...] Procedure Name Priority Date/Time Associated Diagnosis Comments LDCT LUNG SCREENING Routine 04/19/2025 4 :18 PM EST BI MAMMOGRAM SCREENING TOMOSYNTHESIS BILATERAL Routine 04/05/2025 3:05 PM EST RAST ALLERGEN (NON ORDERABLE) Routine 02/28/2025 4:15 PM EDT RESPIRATORY ALLERGY PROFILE REGION I Routine 02/28/2025 4:15 PM EDT RAST ALLERGEN (NON ORDERABLE) Routine 02/12/2025 8:24 AM EDT HEPATITIS PANEL, GENERAL Routine 12/22/2024 2:25 PM EDT HM PAP/HPV Routine 05/22/2022 HM COLONOSCOPY Routine 11/09/2018 from Last 3 Months or Most Recently Relevant to Health Maintenance Results * CT Lung Screening Low dose (04/19/2025 4:18 PM EST) Anatomical Region Laterality Modality Lung Computed Tomogra phy 04/19/2025 4:18 PM EST Narrative 04/19/2025 4:52 PM EST [place] [address] CT Scan Report Signed Patient: Brittney Caraballo V MR#: [id number] 679 : 1965 Acct:[id number] Age/Sex: 59 / F ADM Date: 04/19/25 Loc: .CT Attending Dr: Aurora Mejia PA-C Ordering Physician: Aurora Mejia PA-C Date of Service: 04/19/25 Procedure(s): CT lung screening Accession Number(s): [id number] cc: Dixie Coyle MD; Aurora Mejia PA-C Report Number: [id number]: Total DLP = 36.00 mGy-cm Reason for Exam: Z87.891 - Personal history of nicotine dependence EXAMINATION: CT LOW-DOSE SCREENING CHEST WITHOUT CONTRAST CLINICAL INFORMATION: Z87.891 - Personal history of nicotine dependence COMPARISON: Chest CT on March 08, 2024 TECHNIQUE: Multidetector volumetric CT imaging of the chest is performed on a Siemens SOMATOM Definition scanner without contrast using low dose technique. Additional 2D coronal and sagittal reformatted images and coronal 3D maximum intensity projection (MIP) images are generated on the CT workstation. This CT examination was performed using dose optimization techniques as appropriate, variously including the following: *Automated exposure control *Adjustment of mA and/or kV according to patient size (this includes techniques or standardized protocols for targeted exams where dose is matched to indication/reason for exam; i.e. extremities or head) *Use of iterative reconstruction technique CTDIvol: 1.08 mGy. FINDINGS: LUNGS: Central airways are patent. No lung consolidation. Multiple bilateral calcified granulomas. PULMONARY NODULES: No suspicious pulmonary nodules. MEDIASTINUM: No thyroid nodules. Heart is normal in size. No pericardial effusion. Scattered calcifications along the nonaneurysmal thoracic aorta. Calcified small mediastinal and hilar lymph nodes CORONARY ARTERY CALCIFICATION: None visualized on this study. CHEST WALL/AXILLA: Unremarkable. UPPER ABDOMEN: Vascular calcifications. OSSEOUS STRUCTURES: No suspicious focal findings. CT/CT lung screening IMPRESSION: No suspicious pulmonary nodule. ASSESSMENT: 1. Lung-RADS Category 2: Benign appearance or behavior of nodules. 2. Lung-RADS Category S: Negative. There are no clinically significant or potentially clinically significant findings not related to the lungs requiring urgent additional evaluation. RECOMMENDATION: Continued routine annual low-dose CT lung screening in 1 year is recommended. An order for CT CHEST LOW DOSE CANCER SCREENING ([id number]) can be placed. Electronically signed by: Smith Parra MD 04/19/2025 04:49 PM [facility] Dictated By: Smith Parra MD Signed By: <Electronically signed by Smith Parra MD in OV> 04/19/25 1649 DD/ 1618 TD/TT: 04/19/25 1629 [employer] Press Operator: Procedure Note Donotuseinterpreter, Image - 04/19/[address] [address] [address] Scan Report Signed Patient: Brittney Caraballo VMR#: [id number] 679 : 1965Acct:[id number] Age/Sex: 59 / FADM Date: 04/19/25 Loc: HO.CT Attending Dr: Aurora Mejia PA-C Ordering Physician: Aurora Mejia PA-C Date of Service: 04/19/25 Procedure(s): CT lung screening Accession Number(s): [id number] cc: Dixie Coyle MD; Aurora Mejia PA-C Report Number: [id number]: Total DLP = 36.00 mGy-cm Reason for Exam: Z87.891 - Personal history of nicotine dependence EXAMINATION: CT LOW-DOSE SCREENING CHEST WITHOUT CONTRAST CLINICAL INFORMATION: Z87.891 - Personal history of nicotine dependence COMPARISON: Chest CT on March 08, 2024 TECHNIQUE: Multidetector volumetric CT imaging of the chest is performed on a Siemens SOMATOM Definition scanner without contrast using low dose technique. Additional 2D coronal and sagittal reformatted images and coronal 3D maximum intensity projection (MIP) images are generated on the CT workstation. This CT examination was performed using dose optimization techniques as appropriate, variously including the following: *Automated exposure control *Adjustment of mA and/or kV according to patient size (this includes techniques or standardized protocols for targeted exams where dose is matched to indication/reason for exam; i.e. extremities or head) *Use of iterative reconstruction technique CTDIvol: 1.08 mGy. FINDINGS: LUNGS: Central airways are patent. No lung consolidation. Multiple bilateral calcified granulomas. PULMONARY NODULES: No suspicious pulmonary nodules. MEDIASTINUM: No thyroid nodules. Heart is normal in size. No pericardial effusion. Scattered calcifications along the nonaneurysmal thoracic aorta. Calcified small mediastinal and hilar lymph nodes CORONARY ARTERY CALCIFICATION: None visualized on this study. CHEST WALL/AXILLA: Unremarkable. UPPER ABDOMEN: Vascular calcifications. OSSEOUS STRUCTURES: No suspicious focal findings. CT/CT lung screening IMPRESSION: No suspicious pulmonary nodule. ASSESSMENT: 1. Lung-RADS Category 2: Benign appearance or behavior of nodules. 2. Lung-RADS Category S: Negative. There are no clinically significant or potentially clinically significant findings not related to the lungs requiring urgent additional evaluation. RECOMMENDATION: Continued routine annual low-dose CT lung screening in 1 year is recommended. An order for CT CHEST LOW DOSE CANCER SCREENING ([id number]) can be placed. Electronically signed by: Smith Parra MD 04/19/2025 04:49 PM EST RP Dictated By: Smith Parra MD Signed By: <Electronically signed by Smith Parra MD in OV> 04/19/25 1649 DD/ 1618 TD/TT: 04/19/25 1629 [employer] Press Operator: [facility] External Provider IMG CT PROCEDURES Edited Result - Final * BI Mammogram Screening Tomosynthesis Bilateral (04/05/2025 3:05 PM EST) Anatomical Region Laterality Modality Breast Bilateral Mammography 04/05/2025 3:05 PM EST Narrative 04/09/2025 4:13 PM EST [address] [place] [address] Mammography Report Signed Patient: Brittney Caraballo V MR#: [id number] 679 : 1965 Acct:[id number] Age/Sex: 59 / F ADM Date: 04/05/25 Loc: HO.MAMMO Attending Dr: Dixie Coyle MD Ordering Physician: Dixie Coyle MD Results: 2Be nign Date of Service: 04/05/25 Follow Up: 1 Year From Orig ina Mammogram Procedure(s): MM tomosynthesis screening BI Accession Number(s): [id number] cc: Dixie Coyle MD Reason For Exam: SCREENING EXAMINATION: MM SCREENING DIGITAL BREAST TOMOSYNTHESIS, BILATERAL CLINICAL INFORMATION: Screening. Asymptomatic. COMPARISON: Mammography: Comparison is made with available priors TECHNIQUE: Digital breast mammography with tomosynthesis is performed in both the craniocaudal and mediolateral oblique views along with computer-aided detection (CAD). FINDINGS: The breasts are heterogeneously dense, which may obscure small masses. Left marker clip. There are no significant masses, abnormal calcifications, or other abnormalities. MM/MM tomosynthesis screening BI IMPRESSION: No mammographic evidence of malignancy. ASSESSMENT: BI-RADS Category 2: Benign RECOMMENDATION: Routine annual mammography screening. 1 year F/U This examination should not preclude the clinical evaluation of a suspicious palpable abnormality. This patient's information was entered into a reminder system with a target due date for their next mammogram. Electronically signed by: Luna Watson DO 04/09/2025 04:11 PM EST Dictated By: Luna Watson DO Signed By: <Electronically signed by Luna Watson DO in OV> 04/09/25 1611 DD/ 1505 TD/TT: 04/05/25 1526 [employer] Press Operator: Procedure Note Donotuseinterpreter, Image - 04/09/2025 [facility] [address] [place] [address] Mammography Report Signed Patient: Brittney Caraballo VMR#: [id number] 679 : 1965Acct:[id number] Age/Sex: 59 / FADM Date: 04/05/25 Loc: HO.MAMMO Attending Dr: Dixie Coyle MD Ordering Physician: Dixie Coyle MDResults: 2Be nign Date of Service: 04/05/25Follow Up: 1 Year From Orig inal Mammogram Procedure(s): MM tomosynthesis screening BI Accession Number(s): [id number] cc: Dixie Coyle MD Reason For Exam: SCREENING EXAMINATION: MM SCREENING DIGITAL BREAST TOMOSYNTHESIS, BILATERAL CLINICAL INFORMATION: Screening. Asymptomatic. COMPARISON: Mammography: Comparison is made with available priors TECHNIQUE: Digital breast mammography with tomosynthesis is performed in both the craniocaudal and mediolateral oblique views along with computer-aided detection (CAD). FINDINGS: The breasts are heterogeneously dense, which may obscure small masses. Left marker clip. There are no significant masses, abnormal calcifications, or other abnormalities. MM/MM tomosynthesis screening BI IMPRESSION: No mammographic evidence of malignancy. ASSESSMENT: BI-RADS Category 2: Benign RECOMMENDATION: Routine annual mammography screening. 1 year F/U This examination should not preclude the clinical evaluation of a suspicious palpable abnormality. This patient's information was entered into a reminder system with a target due date for their next mammogram. Electronically signed by: Luna Watson DO 04/09/2025 04:11 PM EST RP Dictated By: Luna Watson DO Signed By: <Electronically signed by Luna Watson DO in OV> 04/09/25 1611 DD/ 1505 TD/TT: 04/05/25 1526 [employer] Press Operator: us Dixie Coyle MD IMG BI PROCEDURES Final Result * Rast Allergen (02/28/2025 4:15 PM EDT) Only the most recent of2 resultswithin the time period is included. Rast Allergen SEE NOTE [facility] Comment:SEE SCANNED REPORT I N EMR 02/28/2025 4:15 PM EDT 03/12/2025 10:56 AM EDT Narrative [facility] - 03/12/2025 10:58 AM EDT DOG AND CAT DANDER REFLEX us Generic External Data Provider HISTORICAL/NON OR DERABLE LABS Final Result [facility] [address] [place], [place] [phone] * (ABNORMAL) Respiratory Allergy Profile Region I (02/28/2025 4:15 PM EDT) Immunoglobulin E 2676(A) <FU=324 kU/L [facility] Mouse Urine Proteins (E72) IgE <0.10 kU/L [facility] Class 0 [facility] Cockroach (I6) IgE <0.10 kU/L [facility] Class 0 [facility] Dermatophagoides farinae (D2) IgE 0.22(A) kU/L [facility] Class 0/1 [facility] Cat Dander (E1) IgE 6.27(A) kU/L [facility] Class 3 [facility] Comment:THIS TEST WAS PERFOR MED AT:[address] [place] [id number] GAONA MD Dog Dander (E5) IgE >100(A) kU/L [facility] Class 6 [facility] Comment:THIS TEST WAS PERFOR MED AT:[employer] [address] [id number] GAONA MD [place] Grass (G6) IgE 0.10(A) kU/L [facility] Class 0/1 [facility] Cladosporium herbarum (M2) IgE <0.10 kU/L [facility] Class 0 [facility] Aspergillus Fumigatis (M3) IgE <0.10 kU/L [facility] Class 0 [facility] Alternaria alternata (M6) IgE <0.10 kU/L [facility] Class 0 [facility] Comment:THIS TEST WAS PERFOR MED AT:[employer] [address] [phone] GAONA MD [place] (t6) IgE 0.10(A) kU/L [facility] Class 0/1 [facility] [place] (T7) IgE <0.10 kU/L [facility] Class 0 [facility] Grubbs Tree (T10) IgE <0.10 kU/L [facility] Class 0 [facility] [place] (T11) IgE 0.19(A) kU/L [facility] Class 0/1 [facility] [place] (T14) IgE 0.16(A) kU/L [facility] Class 0/1 [facility] White Hemant (t15) IgE <0.10 kU/L [facility] Class 0 [facility] White [place] (T70) IgE 0.10(A) kU/L [facility] Class 0/1 [facility] Common Ragweed (Short) (W1) IgE <0.10 kU/L [facility] Class 0 [facility] Mugwort (w6) IgE <0.10 kU/L [facility] Class 0 [facility] Dermatophagoides pteronyssinus (D1) IgE 0.20(A) kU/L [facility] Class 0/1 [facility] [place] Grass (g2) IgE 0.22(A) kU/L [facility] Class 0/1 [facility] Penicillium Notatum (M1) IgE <0.10 kU/L [facility] Class 0 [facility] Birch (T3) IgE <0.10 kU/L [facility] Class 0 [facility] Elm (t8) IgE 0.25(A) kU/L [facility] Class 0/1 [facility] Maple (Tererro) (T1) IgE 0.12(A) kU/L [facility] Class 0/1 [facility] Rough Pigweed (W14) IgE 0.51(A) kU/L [facility] Class 1 [facility] Sheep [place] (W18) IgE <0.10 kU/L [facility] Class 0 [facility] Allergen Comment See Below [facility] Comment: Specific Level of AllergenIGE Class [...] and its analyticalperformance characteristics have been determined by[facility] XR. It has not been cleared or approvedby the U.S. Food and Drug Administration. This assayhas been validated pursuant to the CLIA regulationsand is used for clinical purposes.THIS TEST WAS PERFORMED AT:[facility] [address] [phone] GAONA MD 02/28/2025 4:15 PM EDT 02/28/2025 4:15 PM EDT Generic External Data Provider LAB BLOOD ORDERAB LES Final Result Performing Organization Address [facility]/ZIP Co de Phone Number [facility] [address] [place] [phone] * Hepatitis Panel, General (12/22/2024 2:25 PM EDT) Hepatitis A IgM Nonreactive Nonreactive [facility] Comment:IgM antibodies to EMERSON V not detected; does not exclude earlyacute or recovered HAV infection. ~Hepatitis B Surface Antibody REACTIVE Nonreactive [facility] Comment:REACTIVE: > 11.99 mI U/mL Hepatitis B Core Antibody Nonreactive Nonreactive [facility] Hepatitis C Antibody Nonreactive Nonreactive [facility] Comment:Antibodies to HCV no t detected; does not exclude early acuteHCV infection. Hepatitis B Surface Ag Negative Negative [facility] 12/22/2024 2:25 PM EDT 12/22/2024 2:26 PM EDT us Generic External Data Provider LAB BLOOD ORDERAB LES Final Result Performing Organization Address [facility]/ZIP Co de Phone Number [facility] [address] [place] [phone] * Pap Smear (05/22/2022) Pap Negative for intraephithelial lesion or malignancy Negative for intraephithelial lesion or malignancy, Other HPV Undetected 05/22/2022 Dixie Coyle MD HEALTH MAINTENANCE Final Result * Colonoscopy (11/09/2018) Colonoscopy Normal Normal 11/09/2018 Dixie Coyle MD HEALTH MAINTENANCE Edite d Result - Final from Last 3 Months or Most Recently Relevant to Health Maintenance Insurance [employer] Care Teams Container Shop Welder Relationship Specialty Start Date End Date Dixie Coyle MD [address] [place] [address] PCP - General Family Medicine 05/17/18 Rony Wolff FNP [address] [place] [address] Nurse Practitioner Family Medicine 04/05/23
--- OUTSIDE RECORDS SUMMARY | 2025-04-19 22:08 | XMS_ITS | Encounter Summary ---
Author Organization [employer] Address [address] [place] [address] 7 [place] [address] Care Team Providers Care Body Shop Worker Name Role Phone Dixie Coyle MD Primary Care Provider + Rony Wolff Unavailable Unavailable Encounter Details Date Type Department Care Team (Late st Contact Info) Description 11/05/2022 Abstract [facility] MEDICINE [address] [place] [address] [phone] Dixie Coyle MD [address] [place] [address] [phone] Social History Tobacco Use Types Packs/Day Years [...] Description 07/06/2025 10:30 AM EST Office Visit [facility] MEDICINE [address] [place] [address] [phone] Dixie Coyle MD [address] [place] [address] [phone] documented as of this encounter Visit Diagnoses Not on filedocumented in this encounter Additional Health Concerns Assessment Noted Time PHQ-9 Depression Total Score: 7 10/28/19 3:15 PM EDT documented as of this encounter Care Teams Body Shop Worker Relationship Specialty Start Date End Date Dixie Coyle MD [address] [place] [address] PCP - General Family Medicine 05/17/18 Rony Wolff FNP [address] [place] [address] Nurse Practitioner Family Medicine 04/05/23 documented as of this encounter
--- OUTSIDE RECORDS SUMMARY | 2025-04-19 22:08 | XMS_ITS | Encounter Summary ---
Author Organization [employer] Address [address] [facility] 7 [place] [address] Care Team Providers Care Crown Buffer Name Role Phone Dixie Coyle MD Primary Care Provider + Rony Wolff Unavailable Unavailable Reason for Visit * Reason Comments Med Change Request Encounter Details Date Type Department Care Team ([facility] st Contact Info) Description 02/18/2023 Refill [facility] MEDICINE [address] [place] [address] Rony Wolff FNP Adjustment disorder with anxiety [...] the past 12 months, has t he [employer], [employer], [employer] threatened to shut off services in your [...] Description 07/06/2025 10:30 AM EST Office Visit [facility] MEDICINE [address] [place] [address] Dixie Coyle MD [address] [place] [address] documented as of this encounter Visit Diagnoses Diagnosis Adjustment disorder with anxiety documented in this encounter Additional Health Concerns Assessment Noted Time PHQ-9 Depression Total Score: 023 10:31 AM EDT documented as of this encounter Care Teams Crown Buffer Relationship Specialty Start Date End Date Dixie Coyle MD [address] [place] [phone] PCP - General Family Medicine 05/17/18 Rony Wolff FNP [address] [place] [phone] Nurse Practitioner Family Medicine 04/05/23 documented as of this encounter
== END 2025-04-19 16:13 | disposition home or self-care (01) ==
LOC: HO.CT 16:12
PROVIDERS: PCP Internal Medicine; Visit Provider Physician Assistant Medical
DX: Z87.891 Personal history of nicotine dependence (principal)
CPT/HCPCS: 71271

== ENCOUNTER → 2025-04-19 16:14 | Outpatient (BNV) | payer OTHER, SELFPAY | PROVIDERS: PCP Internal Medicine; Visit Provider Radiology Body Imaging | DX: Z12.2 Encounter for screening for malignant neoplasm of respiratory organs (principal); Z87.891 Personal history of nicotine dependence | CPT/HCPCS: 71271 ==

== ENCOUNTER 2025-05-01 12:47 | Outpatient (AMB) | payer OTHER, SELFPAY ==
--- NOTE | 2025-05-01 12:54 | MHC.OFFVIS ---
Vital Signs 05/01/25 13:03 Height 4 ft 11 in Weight 134 lb BMI 27.1 Intake Visit Reasons: nail avulsion Intake Note: Brittney is a 59 year old female who presents today for a nail avulsion of her right hallux. Patient denies experiencing any pain at this time. Allergies Enbrel Adverse Reaction (Severe, Uncoded 06/22/24 14:08) Diarrhea HPI HPI nail avulsion: Details: 59-year-old female with past medical history of sero-positive rheumatoid arthritis, asthma/COPD, GERD who returns for right ingrown toenail. Patient states she is still having pain to her right big toenail, after dancing at an event. She noticed some increased swelling recently however did not notice any drainage or signs of infection. She is planning to go on vacation May 26 and will like her ingrown nail symptoms resolved by then. History: She states she has been treating it conservatively with herself at home however she was concerned that it might be infected so she presented today for evaluation. She denies noticing any drainage warmth or swelling to the toe. She does note pain to the base of the nail. The patient also notes a history of left foot ingrown toenail which underwent partial nail avulsion which has mostly been doing well. [facility] Medical History Seropositive rheumatoid arthritis Long-term use of immunosuppressant medication Pleuritic chest pain Thymus hyperplasia Asthma-COPD overlap syndrome Asthma Pulmonary nodules Personal history of nicotine dependence GERD (gastroesophageal reflux disease) NAFL (nonalcoholic fatty liver) Degenerative arthritis of lumbar spine Surgical History History of colonoscopy Family History Father Heart attack Diabetes HTN (hypertension) Brother Liver cancer Maternal Aunt Liver cancer Breast cancer Mother Stroke Diabetes Other Asthma Social History Household Members Other:: son Are you a primary acute care surgeon to a significant other at home: No Do you presently have visiting nurse or other home services: No Alcohol intake: never Patient Tobacco Use Status: Former Tobacco user Tobacco use type: Cigarette Cigarettes Per Day: 20 Years Smoked: 15 e-Cigarette/Vaping Use: Never Used Current occupational status: 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 Derm: (-) erythema, no drainage to the medial border of the right hallux. Ingrown, thickened and incurvated right medial nail border Neuro: Protective sensation grossly intact to bilateral lower extremities. MSK: Mild-moderate tenderness on palpation of the medial right hallux Office Procedures AMB Debridement/Avulsion Podia Details: Procedure: Partial Nail Avulsion medial border Indication: Right Hallux Ingrown toenail Anesthesia: Digital block with 1 % lidocaine (without epinephrine) Description: The digit was prepped using betadine. A freer elevator was used to free the medial border of the nail plate. A nail splitter was used to cut approximately 10-15% of the nail. The offending nail was removed, and a curette was used to inspect for any loose spicules. Phenol was applied to the nail matrix to perform a chemical matrixectomy. The wound was irrigated with isopropyl alcohol. The wound was packed with antibiotic ointment-gauze strip, 4x4 gauze, and coban. Tolerance: Patient tolerated procedure well, no immediate complications. 98636 Nail matrixectomy Procedure code (CPT) selection complete Office Meds lidocaine HCl 10 mg/mL (1 %) injection solution Performing Provider: Yan Guardado DPM Performing Location: [facility] Administered by: Yan Guardado DPM on 05/01/25 19:06 Dose Route Admin Location Dispensed Lot Number Expiration Date [facility] Broadcast Chief Engineer 10 mL subcut 10 mL [id number] Total Dispensed Waste 10 mL 0 % Triple Antibiotic 3.5 mg-400 unit-5,000 unit topical ointment packet Performing Provider: Yan Guardado DPM Performing Location: [facility] Administered by: Yan Guardado DPM on 05/01/25 19:06 Dose Route Admin Location Dispensed Lot Number Expiration Date [facility] Broadcast Chief Engineer 2 appl topical 2 appl [id number] [employer] povidone-iodine 10 % topical swab Performing Provider: Yan Guardado DPM Performing Location: [facility] Administered by: Yan Guardado DPM on 05/01/25 19:06 Dose Route Admin Location Dispensed Lot Number Expiration Date [facility] Broadcast Chief Engineer 1 appl topical 1 appl [id number] [employer]. ethyl chloride 100 % topical spray Performing Provider: Yan Guardado DPM Performing Location: [facility] Administered by: Yan Guardado DPM on 05/01/25 19:06 Dose Route Admin Location Dispensed Lot Number Expiration Date [facility] Broadcast Chief Engineer 1 appl topical 10 mL [id number] [employer]. phenol 89 % topical swab Performing Provider: Yan Guardado DPM Performing Location: [facility] Administered by: Yan Guardado DPM on 05/01/25 19:06 Dose Route Admin Location Dispensed Lot Number Expiration Date [facility] Broadcast Chief Engineer 1 appl topical 1 appl [id number] [facility] Assessment & Plan Assessment & Plan (1) Paronychia of great toe of right foot: Code(s): L03.031 - Cellulitis of right toe Category: Medical Plan: The patient was recommended a partial nail avulsion with chemical matricectomy. The patient consented to the procedure. A partial nail avulsion with chemical matricectomy using phenol was performed to the right hallux using standard technique. It was then dressed using antibiotic ointment, 4 x 4 gauze, and Coban. She was given postoperative wound care instructions. F/u in 1-2 weeks (2) Tinea pedis: Code(s): B35.3 - Tinea pedis Category: Medical Qualifiers: Laterality: bilateral Qualified Code(s): B35.3 - Tinea pedis Plan: Continue clotrimazole as needed Orders: Orders AMB Debridement/Avulsion Podiatry Today L03.031 - Cellulitis of right toe Coding Level of Care Code Est Pt Level 3 (62289) Diagnoses Paronychia of great toe of right foot L03.031 Tinea pedis of both feet B35.3 Laterality: bilateral CPT Codes Skin Debridement - CPT: 93656 Nail matrixectomy ([id number]) Time Spent (min) 10
[2025-05-01 13:03] VITALS: BMI 27.1
--- OUTSIDE RECORDS SUMMARY | 2025-05-01 16:38 | XMS_ITS | Encounter Summary ---
Author Organization [employer] Address [address] [place] [address] [place] [address] Care Team Providers Care Sales Representative Aircraft Name Role Phone Dixie Coyle MD Primary Care Provider + Rony Wolff Unavailable Unavailable Encounter Details Date Type Department Care Team (Late st Contact Info) Description 11/05/2022 Abstract [facility] MEDICINE [address] [place] [address] [phone] Dixie Coyle MD [address] [place] [address] [phone] Social History Tobacco Use Types Packs/Day Years [...] Description 07/06/2025 10:30 AM EST Office Visit [facility] MEDICINE [address] [place] [address] [phone] iDxie Coyle MD [address] [place] [address] [phone] documented as of this encounter Visit Diagnoses Not on filedocumented in this encounter Additional Health Concerns Assessment Noted Time PHQ-9 Depression Total Score: 7 10/28/19 3:15 PM EDT documented as of this encounter Care Teams Sales Representative Aircraft Relationship Specialty Start Date End Date Dixie Coyle MD [address] [place] [address] PCP - General Family Medicine 05/17/18 Rony Wolff FNP [address] [place] [address] Nurse Practitioner Family Medicine 04/05/23 documented as of this encounter
--- OUTSIDE RECORDS SUMMARY | 2025-05-01 16:38 | XMS_ITS | Clinical Summary ---
Author Organization [facility] it Address [address] [place] [phone] Care Team Providers Care Navy Senior Officer Name Role Phone Unavailable Primary Care Provider Unavailabl e Social History Tobacco Use Types Packs/Day Years Used Date Smoking Tobacco: Former Smokeless Tobacco: Former Comments Unknown Sex and Gender Information Value Date Recorded Sex Assigned at Not on file Legal Sex Female 1:09 AM EST Gender Identity Not on file Sexual Orientation Not on file Plan of Treatment Health Maintenance Due Date [...] Procedure Name Priority Date/Time Associated Diagnosis Comments [facility] SCREENING DIGITAL Routine 05/14/2019 7:49 PM EST Encounter for screening mammogram for malignant neoplasm of breast from Last 3 Months or Most Recently Relevant to Health Maintenance Results * [facility] SCREENING DIGITAL (05/14/2019 7:49 PM EST) Anatomical Region Laterality Modality Mammography 05/08/2019 10:5 4 AM EST Narrative 05/14/2019 7:[address] [facility] Diagnostic Imaging Department [address] [place] [address] Patient: ANGEL COLLINS./Age/Sex: 1965 - 53 - F Unit#: [id number] [facility] Ordering Physician: DIXIE MARTIN MD [facility] Screening Digital - 05/13/19 - 1100 History: Bilateral breast cancer screening. Technique: Digital mammography. Conventional CC and MLO projections with tomosynthesis MLO views and computer aided detection. Comparison made with previous mammograms from [facility] 05/12/2018, dating back to 04/08/2009. Findings: Breast tissue consists of fatty and fibroglandular tissue with moderate complexity, potentially obscuring small lesions, category c density (as calculated by [employer] software). There is no suspicious group of microcalcification, suspicious mass, architectural distortion or suspicious change in breast density within either breast. Impression: No evidence of malignancy. BIRADS category 1; negative study, 3341F 17432, 70376 A negative mammogram in the face of a suspicious abnormality does not exclude the possibility of malignancy nor alter the indications for biopsy. Note: Patient information entered into a reminder system with a target due date for the next mammogram; PQRI II [id number] Dictating Physician: JERMAINE SCHNEIDER MD Electronically Signed by: JERMAINE SCHNEIDER MD Dic Date/Time: 05/14/191947 Sign date/Time: 05/14/191948 Procedure Note Jermaine Schneider - 05/06/2022 [facility] Diagnostic Imaging Department [address] [place] [address] Patient: ANGEL COLLINS D.O.B./Age/Sex: 1965 - 53 - F Unit#: [id number] Location/Status: [facility] CLI Mnemonic/Ordering Site: [facility] Ordering Physician: DIXIE MARTIN MD [facility] Screening Digital - 05/13/191100 History: Bilateral breast cancer screening. Technique: Digital mammography. Conventional CC and MLO projectionswith tomosynthesis MLO views and computer aided detection. Comparison made with previous mammograms from [facility]05/12[facility]2018, dating back to 04/08/2009. Findings: Breast tissue consists of fatty and fibroglandular tissue with moderate complexity, potentially obscuring small lesions, category cdensity (as calculated by [employer] software). There is no suspicious group of microcalcification, suspicious mass, architectural distortion or suspicious change in breast density withineither breast. Impression: No evidence of malignancy. BIRADS category 1; negative study, 3341F 15030, 34680 A negative mammogram in the face of [...]
--- OUTSIDE RECORDS SUMMARY | 2025-05-01 16:39 | XMS_ITS | Clinical Summary ---
Author Organization [employer] Address [address] [place] [address] 7 [place] [address] Care Team Providers Care Anesthesiology Teacher Name Role Phone Dixie Coyle MD Primary [...] of moderate intensity exercise. Rheumatoid arthritis of [facility] sites with negative rheumatoid factor ([facility]) 12/27/2023 Overview (04/06/2025): dx 07/2023 [facility] Rheum Leflunomide 07/2023 DC 09/2023 d.t. transaminitis Enbrel 01/2024 discontinued after 3 doses due to diarrhea and headaches also ineffective Rinvoq started 02/2024 partially effective Hydroxychloroquine started (+ Rinvoq) Assessment & Plan (04/18/2025 3:34 PM EST): Doing well on Rinvoq, she's fairly functional FU with Rheumatology at [facility] Assessment & Plan (12/29/2023 3:03 PM EDT): Seen by [facility] rheumatology, on Rinvoq, doing well. Advised to [...] 1:41 PM EDT): Started on Losartan by inventory associate and driver Controlled. Compliant w/meds Continue lisinopril/hydrochlorothiazide + amlodipine [...] any issues or concerns she should contact [facility]. All her questions were answered. I have [...] her medications, was informed erroneously by her [facility] pharmacy that no refills were available. Will now transfer to pharmacy at [facility] where she works. New Rx sent for Seroquel 25 mg at bedtime and Duloxetine 30 mg two times daily. She can F/U with counselor at work and/or call to F/u on counseling referral. She will also request FMLA paperwork from her job and bring to [facility], where I can sign based on intermittent [...] more than 5y ago, will refer to RN INTERNS[employer] to consider MHT Rectal hemorrhage 07/14/2022 Shoulder [...] Did not want improve with pain clinic Flag Signaler to go to acupuncture Continue meloxicam Assessment & Plan (12/07/2022 5:15 PM EDT): Failed PT, take tylenol and flexiril PRN Pt to make an appointment for fu with Dr. Doan Neurosurgeon at [facility] Assessment & Plan (07/15/2022 1:03 PM EST): [...] (03/22/2023 5:59 PM EST): Uncontrolled. FU with construction safety manager, Will be started on dupixent probably Declined Covid IZ Cerebrovascular accident (CV A) due to occlusion of precerebral artery 03/27/2016 Dizziness 03/27/2016 Smoker 03/27/2016 Encounters Date Type Department Care Team Description 04/05/2025 Orders Only [address] [address] Dixie Coyle MD 04/04/2025 10:00 AM EST Office Visit [address] [address] Dixie Coyle MD Primary hypertension (Primary Dx); Perimenopausal; Rheumatoid arthritis of multiple sites with negative rheumatoid factor (CMS/HCC) (HCC); Trochanteric bursitis of both hips; Generalized anxiety disorder; Mild intermittent asthma without complication; Thymus hyperplasia; Granulomatous lung disease (CMS/HCC) (HCC); Chronic obstructive pulmonary disease, unspecified COPD type (CMS/HCC) (HCC); Dietary counseling; Exercise counseling; Overweight 04/04/2025 Travel 04/03/[address] [address] Dixie Coyle MD chart prep 03/28/2025 Patient Outreach [address] [address] Dixie Coyle MD Pre-visit Planning ((Unable to [...] Description 07/06/2025 10:30 AM EST Office Visit [facility] [address] [place], [place] [phone] Dixie Coyle MD [address] [place] [address] Health Maintenance Due Date Last Done Comments [...] PM EST Narrative 04/19/2025 4:52 PM EST [place] [address] CT Scan Report Signed Patient: Brittney Caraballo V MR#: [id number] [id number] : 1965 Acct:[id number] Age/Sex: 59 / F ADM Date: 04/19/25 Loc: .CT Attending Dr: Aurora Mejia PA-C Ordering Physician: Aurora Mejia PA-C Date of Service: 04/19/25 Procedure(s): CT lung screening Accession Number(s): [id number] cc: Dixie Coyle MD; Aurora Mejia PA-C Report Number: [id number]: Total DLP = 36.00 mGy-cm Reason for [...] for CT CHEST LOW DOSE CANCER SCREENING ([id number]) can be placed. Electronically signed by: Smith Parra MD 04/19/2025 04:49 PM EST Dictated By: Smith Parra MD Signed By: <Electronically signed by Smith Parra MD in OV> 04/19/25 1649 DD/ 1618 TD/TT: 04/19/25 1629 Concrete Handler: Procedure Note Donotuseinterpreter, Image - 04/19/[address] [address] [address] Scan Report Signed Patient: Brittney Caraballo VMR#: [id number] : 1965Acct:[id number] Age/Sex: 59 / FADM Date: 04/19/25 Loc: HO.CT Attending Dr: Aurora Mejia PA-C Ordering Physician: Aurora Mejia PA-C Date of Service: 04/19/25 Procedure(s): CT lung screening Accession Number(s): [id number] cc: Dixie Coyle MD; Aurora Mejia PA-C Report Number: [id number]: Total DLP = 36.00 mGy-cm Reason for [...] for CT CHEST LOW DOSE CANCER SCREENING ([id number]) can be placed. Electronically signed by: Smith Parra MD 04/19/2025 04:49 PM [facility] Dictated By: Smith Parar MD Signed By: <Electronically signed by Smith Parra MD in OV> 04/19/25 1649 DD/ 1618 TD/TT: 04/19/25 1629 Concrete Handler: [facility] External Provider IMG CT PROCEDURES Edited Result - Final * BI Mammogram Screening Tomosynthesis Bilateral (04/05/2025 3:05 PM EST) Anatomical Region Laterality Modality Breast Bilateral Mammography 04/05/2025 3:05 PM EST Narrative 04/09/2025 4:13 PM EST [address] [place] [address] Mammography Report Signed Patient: Brittney Caraballo V MR#: [id number] : 1965 Acct:[id number] Age/Sex: 59 / F ADM Date: 04/05/25 Loc: .MAMMO Attending Dr: Dixie Coyle MD Ordering Physician: Dixie Coyle MD Results: 2Be nign Date of Service: 04/05/25 Follow Up: 1 Year From Orig ina Mammogram Procedure(s): MM tomosynthesis screening BI Accession Number(s): [id number] cc: Dixie Coyle MD Reason For Exam: [...] 04/09/25 1611 DD/ 1505 TD/TT: 04/05/25 1526 Concrete Handler: Procedure Note Donotuseinterpreter, Image - 04/09/2025 [facility] [address] [place] [address] Mammography Report Signed Patient: Brittney Caraballo R#: [id number] : 1965Acct:[id number] Age/Sex: 59 / FADM Date: 04/05/25 Loc: HO.MAMMO Attending Dr: Dixie Coyle MD Ordering Physician: Dixie Coyle MDResults: 2Be nign Date of Service: 04/05/25Follow Up: 1 Year From Orig inal Mammogram Procedure(s): MM tomosynthesis screening BI Accession Number(s): [id number] cc: Dixie Coyle MD Reason For Exam: [...] 04/09/25 1611 DD/ 1505 TD/TT: 04/05/25 1526 Concrete Handler: us Dixie Coyle MD IMG BI PROCEDURES Final Result * Rast Allergen (02/28/2025 4:15 PM EDT) Only the most recent of2 resultswithin the time period is included. Pathologist [facility] Rast Allergen SEE NOTE [facility] Comment:SEE SCANNED REPORT I N EMR 02/28/2025 4:15 PM EDT 03/12/2025 10:56 AM EDT Narrative [facility] - 03/12/2025 10:58 AM EDT DOG AND CAT DANDER REFLEX us Generic External Data Provider HISTORICAL/NON OR DERABLE LABS Final Result [facility] [address] [place] [address] [phone] * (ABNORMAL) Respiratory Allergy Profile Region I (02/28/2025 4:15 PM EDT) [facility] Immunoglobulin E 2676(A) <TD=734 kU/L [facility] Mouse Urine Proteins (E72) IgE <0.10 kU/L [facility] Class 0 [facility] Cockroach (I6) IgE <0.10 kU/L [facility] Class 0 [facility] Dermatophagoides farinae (D2) IgE 0.22(A) kU/L [facility] Class 0/1 [facility] Cat Dander (E1) IgE 6.27(A) kU/L [facility] Class 3 [facility] Comment:THIS TEST WAS PERFOR MED AT:[employer] [place] [phone] GAONA MD Dog Dander (E5) IgE >100(A) kU/L [facility] Class 6 [facility] Comment:THIS TEST WAS PERFOR MED AT:[employer] [id number] [place] [phone] GAONA MD Jose Grass (G6) IgE 0.10(A) kU/L [facility] Class 0/1 [facility] Cladosporium herbarum (M2) IgE <0.10 kU/L [facility] Class 0 [facility] Aspergillus Fumigatis (M3) IgE <0.10 kU/L [facility] Class 0 [facility] Alternaria alternata (M6) IgE <0.10 kU/L [facility] Class 0 [facility] Comment:THIS TEST WAS PERFOR MED AT:[employer] [id number] [place] [address]RKVMJALEJANDRO GAONA MD Mountain Mckenzie (t6) IgE 0.10(A) kU/L [facility] Class 0/1 [facility] [place] (T7) IgE <0.10 kU/L [facility] Class 0 [facility] Oak[place] Tree (T10) IgE <0.10 kU/L [facility] Class 0 [facility] [place] (T11) IgE 0.19(A) kU/L [facility] Class 0/1 [facility] [place] (T14) IgE 0.16(A) kU/L [facility] Class 0/1 [facility] White Hemant (t15) IgE <0.10 kU/L [facility] Class 0 [facility] [place] (T70) IgE 0.10(A) kU/L [facility] Class 0/1 [facility] Common Ragweed (Short) (W1) IgE <0.10 kU/L [facility] Class 0 [facility] Mugwort (w6) IgE <0.10 kU/L [facility] Class 0 [facility] Dermatophagoides pteronyssinus (D1) IgE 0.20(A) kU/L [facility] Class 0/1 [facility] Berm[place] Grass (g2) IgE 0.22(A) kU/L [facility] Class 0/1 [facility] Penicillium Notatum (M1) IgE <0.10 kU/L [facility] Class 0 [facility] Birch (T3) IgE <0.10 kU/L [facility] Class 0 [facility] Elm (t8) IgE 0.25(A) kU/L [facility] Class 0/1 [facility] Maple ([place]) (T1) IgE 0.12(A) kU/L [facility] Class 0/1 [facility] Rough Pigweed (W14) IgE 0.51(A) kU/L [facility] Class 1 [facility] Sheep Morenci (W18) IgE <0.10 kU/L [facility] Class 0 [facility] Allergen Comment See Below [facility] Comment: Specific Level of AllergenIGE [...] and its analyticalperformance characteristics have been determined by[employer]. It has not been cleared or approvedby the U.S. Food and Drug Administration. This assayhas been validated pursuant to the CLIA regulationsand is used for clinical purposes.THIS TEST WAS PERFORMED AT:[employer] [address] [phone] GAONA MD 02/28/2025 4:15 PM EDT 02/28/2025 4:15 PM EDT us Generic External Data Provider LAB BLOOD ORDERAB LES Final Result Performing Organization Address City/[facility]/ZIP Co de Phone Number [facility] [address] [place] [address] [phone] * Hepatitis Panel, General (12/22/2024 2:25 PM EDT) Hepatitis A IgM Nonreactive Nonreactive [facility] Comment:IgM antibodies to [place] V not detected; does not exclude earlyacute or recovered HAV infection. ~Hepatitis B Surface Antibody REACTIVE Nonreactive [facility] Comment:REACTIVE: > 11.99 mI U/mL Hepatitis B Core Antibody Nonreactive Nonreactive [facility] Hepatitis C Antibody Nonreactive Nonreactive [facility] Comment:Antibodies to HCV no t detected; does not exclude early acuteHCV infection. Hepatitis B Surface Ag Negative Negative [facility] 12/22/2024 2:25 PM EDT 12/22/2024 2:26 PM EDT Generic External Data Provider LAB BLOOD ORDERAB LES Final Result Performing Organization Address City/[facility]/ZIP Co de Phone Number [facility] [address] [place] [address] [phone] * Hm Pap Smear (05/22/2022) Pap Negative for intraephithelial lesion or malignancy Negative for intraephithelial lesion or malignancy, Other HPV Undetected 05/22/2022 us Dixie Coyle MD HEALTH MAINTENANCE Final Result * Hm Colonoscopy (11/09/2018) Colonoscopy Normal Normal 11/09/2018 us Dixie Coyle MD HEALTH MAINTENANCE Edite d Result - Final from Last 3 Months or Most Recently Relevant to Health Maintenance Insurance [employer] Care Teams Anesthesiology Teacher Relationship Specialty Start Date End Date Dixie Coyle MD [address] [place] [address] PCP - General Family Medicine 05/17/18 Rony Wolff FNP [address] [place] [address] Nurse Practitioner Family Medicine 04/05/23
--- OUTSIDE RECORDS SUMMARY | 2025-05-01 16:39 | XMS_ITS | Encounter Summary ---
Author Organization [employer] Address [address] [facility] 7 [place] [address] Care Team Providers Care Bus Inspector Name Role Phone Dixie Coyle MD Primary Care Provider + Rony Wolff Unavailable Unavailable Reason for Visit * Reason Comments Med Change Request Encounter Details Date Type Department Care Team ([facility] st Contact Info) Description 02/18/2023 Refill [facility] [address] [place] [address] Rony Wolff FNP Adjustment disorder with anxiety [...] the past 12 months, has t he [employer], [employer] threatened to shut off services in your [...] Description 07/06/2025 10:30 AM EST Office Visit [facility] [address] [place] [address] Dixie Coyle MD [address] [place] [address] documented as of this encounter Visit Diagnoses Diagnosis Adjustment disorder with anxiety documented in this encounter Additional Health Concerns Assessment Noted Time PHQ-9 Depression Total Score: 023 10:31 AM EDT documented as of this encounter Care Teams Bus Inspector Relationship Specialty Start Date End Date Dixie Coyle MD [address] [place] [phone] PCP - General Family Medicine 05/17/18 Rony Wolff FNP [address] [place] [address] Nurse Practitioner Family Medicine 04/05/23 documented as of this encounter
== END 2025-05-01 13:57 | disposition home or self-care (01) ==
LOC: HO.HPODS 12:48
PROVIDERS: PCP Internal Medicine; Visit Provider Student in an Organized Health Care Education/Training Program
DX: L03.031 Cellulitis of right toe (principal); B35.3 Tinea pedis
CPT/HCPCS: 11750; 99213

== ENCOUNTER → 2025-05-01 12:47 | Outpatient (BNVA) | payer OTHER, SELFPAY | PROVIDERS: PCP Internal Medicine; Visit Provider Student in an Organized Health Care Education/Training Program | DX: L03.031 Cellulitis of right toe (principal); B35.3 Tinea pedis | CPT/HCPCS: 11750; J2003 ==

== ENCOUNTER 2025-05-11 11:52 | Outpatient (AMB) | payer OTHER, SELFPAY ==
--- OUTSIDE RECORDS SUMMARY | 2025-05-11 11:55 | XMS_ITS | Clinical Summary ---
Author Organization [facility] it Address [address] [place] [phone] Care Team Providers Care Demi Chef Name Role Phone Unavailable Primary Care Provider [...] Procedure Name Priority Date/Time Associated Diagnosis Comments [facility] SCREENING DIGITAL Routine 05/14/2019 7:49 PM EST Encounter for screening mammogram for malignant neoplasm of breast from Last 3 Months or Most Recently Relevant to Health Maintenance Results * [facility] SCREENING DIGITAL (05/14/2019 7:49 PM EST) Anatomical Region Laterality Modality Mammography 05/08/2019 10:5 4 AM EST Narrative 05/14/2019 7:49 PM EST [facility] Diagnostic Imaging Department [address] [place] [address] Patient: ANGEL COLLINS./Age/Sex: 1965 - 53 - F Unit#: [id number] [facility] Ordering Physician: DIXIE MARTIN MD [facility] Screening Digital - 05/13/19 - 1100 History: Bilateral breast cancer screening. Technique: Digital mammography. Conventional CC and MLO projections with tomosynthesis MLO views and computer aided detection. Comparison made with previous mammograms from [facility] 05/12/2018, dating back to 04/08/2009. Findings: Breast tissue consists of fatty and fibroglandular tissue with moderate complexity, potentially obscuring small lesions, category c density (as calculated by [employer] software). There is no suspicious group of microcalcification, suspicious mass, architectural distortion or suspicious change in breast density within either breast. Impression: No evidence of malignancy. BIRADS category 1; negative study, 3341F [id number], [address] A negative mammogram in the face of a suspicious abnormality does not exclude the possibility of malignancy nor alter the indications for biopsy. Note: Patient information entered into a reminder system with a target due date for the next mammogram; PQRI II [id number] Dictating Physician: JERMAINE SCHNEIDER MD Electronically Signed by: JERMAINE SCHNEIDER MD Dic Date/Time: 05/14/191947 Sign date/Time: 05/14/191948 Procedure Note Jermaine Schneider - 05/06/2022 [facility] Diagnostic Imaging Department [address] [place] [address] Patient: ANGEL COLLINS D.O.B./Age/Sex: 1965 - 53 - F Unit#: [id number] Location/Status: [facility] CLI Mnemonic/Ordering Site: [facility] Ordering Physician: DIXIE MARTIN MD [facility] Screening Digital - 05/13/191100 History: Bilateral breast cancer screening. Technique: Digital mammography. Conventional CC and MLO projectionswith tomosynthesis MLO views and computer aided detection. Comparison made with previous mammograms from [facility], dating back to 04/08/2009. Findings: Breast tissue consists of fatty and fibroglandular tissue with moderate complexity, potentially obscuring small lesions, category cdensity (as calculated by [employer]assMedpara software). There is no suspicious group of microcalcification, suspicious mass, architectural distortion or suspicious change in breast density withineither breast. Impression: No evidence of malignancy. BIRADS category 1; negative study, 3341F [id number], [address] A negative mammogram in the face of [...]
--- OUTSIDE RECORDS SUMMARY | 2025-05-11 11:55 | XMS_ITS | Encounter Summary ---
Author Organization [employer] Address [address] [place] [address] [address] [place] [address] Care Team Providers Care Diagnostic Technologist Name Role Phone Dixie Coyle MD Primary Care Provider + Rony Wolff Unavailable Unavailable Encounter Details Date Type Department Care Team (Late st Contact Info) Description 11/05/[address] [facility] [address] [place] [phone] Dixie Coyle MD [address] [place] [address] [phone] Social History Tobacco Use Types Packs/Day Years [...] Description 07/06/2025 10:30 AM EST Office Visit [facility] [address] [place] [address] [phone] Dixie Coyle MD [address] [place] [phone] documented as of this encounter Visit Diagnoses Not on filedocumented in this encounter Additional Health Concerns Assessment Noted Time PHQ-9 Depression Total Score: 7 10/28/19 3:15 PM EDT documented as of this encounter Care Teams Diagnostic Technologist Relationship Specialty Start Date End Date Dixie Coyle MD [address] [place] [address] PCP - General Family Medicine 05/17/18 Rony Wolff FNP [address] [place] [address] Nurse Practitioner Family Medicine 04/05/23 documented as of this encounter
--- OUTSIDE RECORDS SUMMARY | 2025-05-11 11:55 | XMS_ITS | Encounter Summary ---
Author Organization [employer] Address [address] [facility] 7 [place] [address] Care Team Providers Care Medical Detailist Name Role Phone Dixie Coyle MD Primary Care Provider + Rony Wolff Unavailable Unavailable Reason for Visit * Reason Comments Med Change Request Encounter Details Date Type Department Care Team ([facility] st Contact Info) Description 02/18/2023 Refill [facility] [address] [place] [address] Rony Wolff FNP Adjustment disorder with anxiety [...] the past 12 months, has t he [employer], [employer], oil or water company threatened to shut [...] Description 07/06/2025 10:30 AM EST Office Visit [facility] [address] [place] [address] Dixie Coyle MD [address] [place] [phone] documented as of this encounter Visit Diagnoses Diagnosis Adjustment disorder with anxiety documented in this encounter Additional Health Concerns Assessment Noted Time PHQ-9 Depression Total Score: 10 023 10:31 AM EDT documented as of this encounter Care Teams Medical Detailist Relationship Specialty Start Date End Date Dixie Coyle MD [address] [place] [phone] PCP - General Family Medicine 05/17/18 Rony Wolff FNP [address] [place] [address] Nurse Practitioner Family Medicine 04/05/23 documented as of this encounter
--- OUTSIDE RECORDS SUMMARY | 2025-05-11 11:56 | XMS_ITS | Clinical Summary ---
Author Organization [employer] Address [address] [place] [address] 7 [place] [address] Care Team Providers Care Certified Registered Locksmith Name Role Phone Dixie Coyle MD Primary [...] TWICE DAILY NEEDED 60 tablet 3 Active Breztri Aerosphere 160-9-4.8 MCG/ACT aerosol 2 Inhalations by Infiltration route 2 times daily. Active losartan (Cozaar) 25 MG tablet Take 25 mg by mouth Once per day. 4 Active DULoxetine (Cymbalta) [address] Luis ons:Adjustment disorder with anxiety Take 1 capsule [...] prn pain 14 patch 1 4 Active levocetirizine (Xyzal) 5 MG tablet Take 1 tablet (5 mg) by mouth in the evening. 90 tablet 5 04/04/20 26 Active Active Problems Problem Noted Date Diagnosed [...] [facility] with negative rheumatoid factor (CMS/HCC) 12/27/2023 Overview (04/06/2025): dx 07/2023 [facility] Rheum Leflunomide 07/2023 DC 09/2023 d.t. transaminitis Enbrel 01/2024 discontinued after 3 doses due to diarrhea and headaches also ineffective Rinvoq started 02/2024 partially effective Hydroxychloroquine started (+ Rinvoq) Assessment & Plan (04/18/2025 3:34 PM EST): Doing well on Rinvoq, she's fairly functional FU with Rheumatology at [facility] Assessment & Plan (12/29/2023 3:03 PM EDT): Seen by [facility] rheumatology, on Rinvoq, doing well. Advised to [...] 1:41 PM EDT): Started on Losartan by clinical staff anesthesiologist Controlled. Compliant w/meds Continue lisinopril/hydrochlorothiazide + amlodipine [...] issues or concerns she should contact [facility]. All her questions were answered. [...] her medications, was informed erroneously by her [facility] pharmacy that no refills were available. Will now transfer to pharmacy at [facility] where she works. New Rx sent for Seroquel 25 mg at bedtime and Duloxetine 30 mg two times daily. She can F/U with counselor at work and/or call to F/u on counseling referral. She will also request FMLA paperwork from her job and bring to [facility], where I can sign based [...] more than 5y ago, will refer to NEONATAL INTENSIVE CARE NURSE to consider MHT Rectal hemorrhage 07/14/2022 Shoulder [...] Did not want improve with pain clinic Chief Meteorologist to go to acupuncture Continue meloxicam Assessment & Plan (12/07/2022 5:15 PM EDT): Failed PT, take tylenol and flexiril PRN Pt to make an appointment for fu with Dr. Doan Neurosurgeon at [facility] Assessment & Plan (07/15/2022 1:03 PM EST): [...] (03/22/2023 5:59 PM EST): Uncontrolled. FU with press hand, Will be started on dupixent probably Declined Covid IZ Cerebrovascular accident (CV A) due to occlusion of precerebral artery 03/27/2016 Dizziness 03/27/2016 Smoker 03/27/2016 Encounters Date Type Department Care Team Description 04/05/2025 Orders Only [address] [address] Dixie Coyle MD 04/04/2025 10:00 AM EST Office Visit [address] [address] Dixie Coyle MD Primary hypertension (Primary Dx); Perimenopausal; Rheumatoid arthritis of multiple sites with negative rheumatoid factor (CMS/HCC) (HCC); Trochanteric bursitis of both hips; Generalized anxiety disorder; Mild intermittent asthma without complication; Thymus hyperplasia; Granulomatous lung disease (CMS/HCC) (HCC); Chronic obstructive pulmonary disease, unspecified COPD type (CMS/HCC) (HCC); Dietary counseling; Exercise counseling; Overweight 04/04/2025 Travel 04/03/[address] [address] Dixie Coyle MD chart prep 03/28/2025 Patient Outreach [address] [address] Dixie Coyle MD Pre-visit Planning ((Unable to [...] Description 07/06/2025 10:30 AM EST Office Visit [facility] MEDICINE [address] [place], [place] [phone] Dixie Coyle MD [address] [place], [place] [phone] Health Maintenance Due Date Last Done Comments [...] PM EST Narrative 04/19/2025 4:52 PM EST [address] [address] [address] Scan Report Signed Patient: Brittney Caraballo V MR#: [id number] 679 : 1965 Acct:[id number] Age/Sex: 59 / F ADM Date: 04/19/25 Loc: HO.CT Attending Dr: Aurora Mejia PA-C Ordering Physician: Aurora Mejia PA-C Date of Service: 04/19/25 Procedure(s): CT lung screening Accession Number(s): [id number] cc: Dixie Coyle MD; Aurora Mejia PA-C Report Number: [id number]: Total DLP = 36.00 mGy-cm Reason for [...] for CT CHEST LOW DOSE CANCER SCREENING ([id number]) can be placed. Electronically signed by: Smith Parra MD 04/19/2025 04:49 PM EST Dictated By: Smith Parra MD Signed By: <Electronically signed by Smith Parra MD in OV> 04/19/25 1649 DD/ 1618 TD/TT: 04/19/25 1629 Dungeon Master: Procedure Note Donotuseinterpreter, Image - 04/19/[address] [address] [address] Scan Report Signed Patient: Brittney Caraballo VMR#: [id number] 679 : 1965Acct:[id number] Age/Sex: 59 / FADM Date: 04/19/25 Loc: HO.CT Attending Dr: Aurora Mejia PA-C Ordering Physician: Aurora Mejia PA-C Date of Service: 04/19/25 Procedure(s): CT lung screening Accession Number(s): [id number] cc: Dixie Coyle MD; Aurora Mejia PA-C Report Number: [id number]: Total DLP = 36.00 mGy-cm Reason for [...] for CT CHEST LOW DOSE CANCER SCREENING ([id number]) can be placed. Electronically signed by: Smith Parra MD 04/19/2025 04:49 PM [facility] Dictated By: Smith Parra MD Signed By: <Electronically signed by Smith Parra MD in OV> 04/19/25 7979 DD/ 1618 TD/TT: 04/19/25 1629 Dungeon Master: [facility] External Provider IMG CT PROCEDURES Edited Result - Final * BI Mammogram Screening Tomosynthesis Bilateral (04/05/2025 3:05 PM EST) Anatomical Region Laterality Modality Breast Bilateral Mammography 04/05/2025 3:05 PM EST Narrative 04/09/2025 4:13 PM EST [address] [place] [address] Mammography Report Signed Patient: Brittney Caraballo V MR#: [id number] 679 : 1965 Acct:[id number] Age/Sex: 59 / F ADM Date: 04/05/25 Loc: HO.MAMMO Attending Dr: Dixie Coyle MD Ordering Physician: Dixie Coyle MD Results: 2Be nign Date of Service: 04/05/25 Follow Up: 1 Year From Orig inal Mammogram Procedure(s): MM tomosynthesis screening BI Accession Number(s): [id number] cc: Dixie Coyle MD Reason For Exam: [...] 04/09/25 1611 DD/ 1505 TD/TT: 04/05/25 1526 Dungeon Master: Procedure Note Donotuseinterpreter, Image - 04/09/2025 [facility] [address] [place] [address] Mammography Report Signed Patient: Brittney Caraballo VMR#: [id number] 679 : 1965Acct:[id number] Age/Sex: 59 / FADM Date: 04/05/25 Loc: HO.MAMMO Attending Dr: Dixie Coyle MD Ordering Physician: Dixie Coyle MDResults: 2Be nign Date of Service: 04/05/25Follow Up: 1 Year From Orig inal Mammogram Procedure(s): MM tomosynthesis screening BI Accession Number(s): [id number] cc: Dixie Coyle MD Reason For Exam: [...] by: Luna Watson DO 04/09/2025 04:11 PM [facility] Dictated By: Luna Watson DO Signed By: <Electronically signed by Luna Watson DO in OV> 04/09/25 1611 DD/ 1505 TD/TT: 04/05/25 1526 Dungeon Master: us Dixie Coyle MD IMG BI PROCEDURES Final Result * Rast Allergen (02/28/2025 4:15 PM EDT) Only the most recent of2 resultswithin the time period is included. Pathologist [facility] Rast Allergen SEE NOTE [facility] Comment:SEE SCANNED REPORT I N EMR 02/28/2025 4:15 PM EDT 03/12/2025 10:56 AM EDT Narrative [facility] - 03/12/2025 10:58 AM EDT DOG AND CAT DANDER REFLEX us Generic External Data Provider HISTORICAL/NON OR DERABLE LABS Final Result [facility] [address] [place] [address] [phone] * (ABNORMAL) Respiratory Allergy Profile Region I (02/28/2025 4:15 PM EDT) Pathologist [facility] Immunoglobulin E 2676(A) <WY=920 kU/L [facility] Mouse Urine Proteins (E72) IgE <0.10 kU/L [facility] Class 0 [facility] Cockroach (I6) IgE <0.10 kU/L [facility] Class 0 [facility] Dermatophagoides farinae (D2) IgE 0.22(A) kU/L [facility] Class 0/1 [facility] Cat Dander (E1) IgE 6.27(A) kU/L [facility] Class 3 [facility] Comment:THIS TEST WAS PERFOR MED AT:[address] [place] [phone] GAONA MD Dog Dander (E5) IgE >100(A) kU/L [facility] Class 6 [facility] Comment:THIS TEST WAS PERFOR MED AT:[address] [place] [phone] GAONA MD Jose Grass (G6) IgE 0.10(A) kU/L [facility] Class 0/1 [facility] Cladosporium herbarum (M2) IgE <0.10 kU/L [facility] Class 0 [facility] Aspergillus Fumigatis (M3) IgE <0.10 kU/L [facility] Class 0 [facility] Alternaria alternata (M6) IgE <0.10 kU/L [facility] Class 0 [facility] Comment:THIS TEST WAS PERFOR MED AT:[facility] [place] [phone] GAONA MD Nunica [place] (t6) IgE 0.10(A) kU/L [facility] Class 0/1 [facility] [place] (T7) IgE <0.10 kU/L [facility] Class 0 [facility] [place] Tree (T10) IgE <0.10 kU/L [facility] Class 0 [facility] Surprise (T11) IgE 0.19(A) kU/L [facility] Class 0/1 [facility] Rogers (T14) IgE 0.16(A) kU/L [facility] Class 0/1 [facility] White Hemant (t15) IgE <0.10 kU/L [facility] Class 0 [facility] [place] (T70) IgE 0.10(A) kU/L [facility] Class 0/1 [facility] Common Ragweed (Short) (W1) IgE <0.10 kU/L [facility] Class 0 [facility] Mugwort (w6) IgE <0.10 kU/L [facility] Class 0 [facility] Dermatophagoides pteronyssinus (D1) IgE 0.20(A) kU/L [facility] Class 0/1 [facility] Bermuda Grass (g2) IgE 0.22(A) kU/L [facility] Class 0/1 [facility] Penicillium Notatum (M1) IgE <0.10 kU/L [facility] Class 0 [facility] Birch (T3) IgE <0.10 kU/L [facility] Class 0 [facility] Elm (t8) IgE 0.25(A) kU/L [facility] Class 0/1 [facility] Maple (Brewster) (T1) IgE 0.12(A) kU/L [facility] Class 0/1 [facility] Rough Pigweed (W14) IgE 0.51(A) kU/L [facility] Class 1 [facility] Sheep Tyler (W18) IgE <0.10 kU/L [facility] Class 0 [facility] Allergen Comment See Below [facility] Comment: Specific Level of AllergenIGE Class [...] and its analyticalperformance characteristics have been determined by[employer]. It has not been cleared or approvedby the U.S. Food and Drug Administration. This assayhas been validated pursuant to the CLIA regulationsand is used for clinical purposes.THIS TEST WAS PERFORMED AT:[facility] [place] [phone] GAONA MD 02/28/2025 4:15 PM EDT 02/28/2025 4:15 PM EDT us Generic External Data Provider LAB BLOOD ORDERAB LES Final Result [facility] [address] [place] [address] [phone] * Hepatitis Panel, General (12/22/2024 2:25 PM EDT) Hepatitis A IgM Nonreactive Nonreactive [facility] Comment:IgM antibodies to EMERSON V not detected; does not exclude earlyacute or recovered HAV infection. ~Hepatitis B Surface Antibody REACTIVE Nonreactive [facility] Comment:REACTIVE: > 11.99 m IU/mL Hepatitis B Core Antibody Nonreactive Nonreactive [facility] Hepatitis C Antibody Nonreactive Nonreactive [facility] Comment:Antibodies to HCV no t detected; does not exclude early acuteHCV infection. Hepatitis B Surface Ag Negative Negative [facility] 12/22/2024 2:25 PM EDT 12/22/2024 2:26 PM EDT Generic External Data Provider LAB BLOOD ORDERAB LES Final Result [facility] [address] [place] [address] [phone] * Pap Smear (05/22/2022) Pap Negative for intraephithelial lesion or malignancy Negative for intraephithelial lesion or malignancy, Other HPV Undetected 05/22/2022 us Dixie Coyle MD HEALTH MAINTENANCE Final Result * Colonoscopy (11/09/2018) Colonoscopy Normal Normal 11/09/2018 us Dixie Coyle MD HEALTH MAINTENANCE Edite d Result - Final from Last 3 Months or Most Recently Relevant to Health Maintenance Insurance [employer] Care Teams Certified Registered Locksmith Relationship Specialty Start Date End Date Dixie Coyle MD [address] [place] [address] PCP - General Family Medicine 05/17/18 Rony Wolff FNP [address] [place] [address] Nurse Practitioner Family Medicine 04/05/23
--- NOTE | 2025-05-11 11:58 | MHC.OFFVIS ---
Intake Visit Reasons: nail avulsion fu Intake Note: Brittney is a 59 year old female who presents today for a follow up on her right hallux partial nail avulsion of the medial border. Patient reports she did not get her anti biotics but doing well other olivera Allergies Enbrel Adverse Reaction (Severe, Uncoded 06/22/24 14:08) Diarrhea HPI HPI nail avulsion fu: Details: 59-year-old female with past medical history of sero-positive rheumatoid arthritis, asthma/COPD, GERD who returns for right ingrown toenail s/p partial nail avulsion medial border with chemical matrixectomy. She has been keeping the toe covered every day with gauze and coban. She has not noticed any drainage, pain, or signs of infection. [facility] Medical History Seropositive rheumatoid arthritis Long-term use of immunosuppressant medication Pleuritic chest pain Thymus hyperplasia Asthma-COPD overlap syndrome Asthma Pulmonary nodules Personal history of nicotine dependence GERD (gastroesophageal reflux disease) NAFL (nonalcoholic fatty liver) Degenerative arthritis of lumbar spine Surgical History History of colonoscopy Family History Father Heart attack Diabetes HTN (hypertension) Brother Liver cancer Maternal Aunt Liver cancer Breast cancer Mother Stroke Diabetes Other Asthma Social History Household Members Other:: son Are you a primary restorative care technician to a significant other at home: No Do you presently have visiting nurse or other home services: No Alcohol intake: never Patient Tobacco Use Status: Former Tobacco user Tobacco use type: Cigarette Cigarettes Per Day: 20 Years Smoked: 15 e-Cigarette/Vaping Use: Never Used Current occupational status: 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 Neuro: Protective sensation grossly intact to bilateral lower extremities. MSK: No tenderness on palpation of the medial right hallux Assessment & Plan Assessment & Plan (1) Paronychia of great toe of right foot: Code(s): L03.031 - Cellulitis of right toe Category: Medical Plan: Instructed patient to continue covering the digit with a band-aid for 1 more week No antibiotics necessary at this time Discussed risk of recurrence despite phenol use Follow up as needed (2) Tinea pedis: Code(s): B35.3 - Tinea pedis Category: Medical Qualifiers: Laterality: bilateral Qualified Code(s): B35.3 - Tinea pedis Plan: Continue clotrimazole as needed Coding Level of Care Code Est Pt Level 3 (31920) Diagnoses Paronychia of great toe of right foot L03.031 Tinea pedis of both feet B35.3 Laterality: bilateral Time Spent (min) 15
== END 2025-05-11 13:24 | disposition home or self-care (01) ==
LOC: HO.HPODS 11:53
PROVIDERS: PCP Internal Medicine; Visit Provider Student in an Organized Health Care Education/Training Program
DX: L03.031 Cellulitis of right toe (principal); B35.3 Tinea pedis
CPT/HCPCS: 99024